=== PATIENT | female | born 1985 | race Caucasian/White ===

== ENCOUNTER 2018-03-22 19:04 | Outpatient (REF) | payer MEDICAID, SELFPAY ==
--- NOTE | 2018-03-22 15:30 | PAPFT_PTH ---
PATIENT: Mildred Villalobos LOC: [facility]#:[id number] AGE/SX: 32/F ROOM: RE03/22/[address]: Allie Raines : 1985 BED: DIS: 03/22/2018 SPEC #: [id number] RECD: 03/25/18 12:48 STATUS: THUAN REKamala #: [id number] [place]: 03/22/18 15:[address]: Allie Raines DEPT: [facility] Cytology RECD BY: Tara Saldivar Tissues: 1 - CX/ENDOCX FOR PAP SMEARS Procedures: PAP THIN PREP/UVM Screening HPV DNA PROBE Comments: [id number]
[2018-03-22 20:53] LABS: ALT 315 U/L (12-78); AST 212 U/L (15-37); Albumin 4.2 g/dL (3.4-5.0); Alkaline Phosphatase 82 U/L (46-116); Bilirubin, Direct 0.15 mg/dL (0.00-0.20); Bilirubin, Total 0.5 mg/dL (0.2-1.0); TSH (W/Ref FT4) 2.49 uIU/mL (0.358-3.74)
[2018-03-25 11:48] LABS: Hepatitis A Antibody IgM Negative (NEGAT); Hepatitis B Core Antibody Negative (NEGAT); Hepatitis B surface Ag Negative (NEGAT); Hepatitis C Ab w Rflx HCV PCR Negative (NEGAT)
[2018-03-25 13:59] LABS: Chlamydia Result Negative; GC Result Negative
== END 2018-03-22 19:05 ==
LOC: NCHCN 19:04
PROVIDERS: PCP Physician Assistant Medical; Visit Provider Physician Assistant Medical
DX: K76.0 Fatty (change of) liver, not elsewhere classified (principal); R94.6 Abnormal results of thyroid function studies; Z11.3 Encounter for screening for infections with a predominantly sexual mode of transmission; Z11.59 Encounter for screening for other viral diseases; Z12.4 Encounter for screening for malignant neoplasm of cervix; Z11.51 Encounter for screening for human papillomavirus (HPV)
CPT/HCPCS: 80076; 86704; 86709; 86803; 87340; 87491; 87591; 88142; 84443; 87624

== ENCOUNTER 2018-07-02 10:16 | Emergency (ER) | payer MEDICAID, SELFPAY ==
[2018-07-02 10:19] VITALS: BP 170/98; PULSE 83; RESP 18; TEMP 37.1; O2SAT 97
--- NOTE | 2018-07-02 10:41 | W.ED.GENAD ---
Discharge Plan Disposition Patient Disposition: HOME Condition: Improving Discharge Details Chief Complaint: Nausea/Vomit/Diar Clinical Impression: Antibiotic-associated diarrhea Primary Care Provider: Allie Raines ED Provider: Inder Smith Home Meds and New Rx's Prescriptions: Continue zolpidem [Ambien] 5 MG tablet 5 mg PO HS RF: 0 clonazepam [Klonopin] 1 MG tablet 1 tab PO PRN PRNRF: 0 propranolol 10 MG tablet 10 mg PO PRN PRNRF: 0 cimetidine 400 MG tablet 1 tab PO DAILY RF: 0 Discharge Instructions Instructions: Acute Diarrhea (ED) Additional Instructions: You may utilize [id number] Imodium for any further symptoms just take as directed on packaging. It is also recommended that you take a daily probiotic along with 1 scoop of Metamucil and a minimum of 8 ounces of water daily as well for the next 1-2 weeks. If not improving over the next week follow-up with your primary care provider for reassessment and feel free to return to the emergency department for any severe worsening or change in your symptoms that your are concerned about. Referrals: Allie Raines PA [Primary Care Provider] - (As needed for reassessment or if not improving over the next week) Discharge Data Discharge Date/Time-TO BE ENTERED AT DEPARTURE: 07/02/18 12:45 Medical Decision Making Patient presenting to the emergency department for chief complaint of diarrhea and abdominal pain. She states that she was placed on antibiotic by her primary care provider for suspected dental infection which did improve and that she has a dental follow-up coming up but approximately 4 days into the 10-day therapy she developed diarrhea. This diarrhea has continued even though she finished the course of her antibiotics 4 days ago. She does state some subjective fever and chills along with some nausea and mild epigastric discomfort otherwise denies any vomiting, urinary symptoms, chest pain or other problems. Physical exam shows mild epigastric discomfort otherwise unremarkable examination of the abdomen. Suspect diarrhea is secondary to antibiotic therapy of penicillin but plan to check stool sample for C. difficile, labs for any electrolyte abnormalities, urine for any secondary urinary tract infection due to diarrhea, and give IV fluids pending results. Review of labs showed no leukocytosis, elevated LFTs which have been similar in the past otherwise no severe electrolyte abnormality, nondiagnostic UA and negative C. difficile. Patient reassessed after receiving fluids and states improvement of symptoms. I feel that patient's symptoms are secondary to recent antibiotic use and given no C. difficile feel that she may be discharged with recommendation to use symptomatic control. Patient was recommended to use Imodium as directed on packaging and to use daily probiotics along with fiber supplement. Patient encouraged to follow-up with primary care provider as needed for reassessment or if not improving over the next week. After discussion of diagnosis and plan of care patient has no further needs, questions, or concerns and states clear understanding to return to the emergency department for any worsening symptoms. HPI General Mode of arrival: ambulatory. Date/Time Provider Initiated Documentation: 07/02/18 10:22. Limitations to Documentation: no limitations. Information obtained by: patient and RN notes reviewed. History of Present Illness described as mild, with intensity rated at 3. Quality is described as aching, and is localized to the abdomen. Patient reports no radiation. Patient started experiencing this week(s) (1) and it has been constant. No relieving factors improve symptom(s), No exacerbating factors reported . Patient did receive the following treatments prior to arrival, none Related Data Home Medications Medication Instructions Recorded Confirmed clonazepam [Klonopin] 1 tab PO PRN PRN 01/16/15 07/02/18 zolpidem [Ambien] 5 mg PO HS 07/26/15 07/02/18 propranolol 10 mg PO PRN PRN 09/25/15 07/02/18 cimetidine 1 tab PO DAILY 07/20/16 07/02/18 Allergies Allergy/AdvReac Type Severity Reaction Status Date / Time sertraline HCl [From Zoloft] AdvReac Intermediate Nausea Unverified 07/02/18 10:22 General Stated Complaint: Nausea/Vomit/Diar CASSIUS: 3 Review of Systems Constitutional Reports chills, Reports fever(s) (Subjective) and Denies poor appetite Cardiovascular Denies chest pain and Denies dyspnea Respiratory Denies dyspnea Gastrointestinal Reports as per HPI, Reports abdominal pain, Denies melena, Denies hematochezia, Denies change in stool character, Denies constipation, Reports diarrhea, Reports nausea and Denies vomiting Genitourinary Denies hematuria, Denies urinary incontinence, Denies urinary hesitancy and Denies urinary urgency Integumentary/Breasts Denies rash PFSH Social History Smoking/Tobacco Use Status: Current every day Social History Smoking/Tobacco Use Status: Current every day Exam Const General: cooperative Orientation: alert, awake and oriented x3 Resp Effort & Inspection: normal respiratory effort and able to speak in complete sentences Auscultation: clear to auscultation bilaterally Cardio Rate: regular rate Rhythm: regular rhythm Heart Sounds: S1 normal and S2 normal GI Palpation: soft, no hepatosplenomegaly, not firm, no guarding, no masses, no pulsatile masses, not rigid, no splenomegaly and tender in the epigastrum; not at McBurney's point, not periumbilically, Hoffman's sign negative, with no rebound tenderness and Rovsing's sign negative Auscultation: normal bowel sounds Back/Spine/Pelvis Back: no CVA tenderness Neuro General: alert, awake, oriented x3, gait normal and moves all extremities Course Vital Signs Temperature 37.1 C 07/02/18 10:19 Pulse 83 07/02/18 10:19 Respiratory Rate 18 07/02/18 10:19 Blood Pressure 170/98 H 07/02/18 10:19 Pulse Oximetry 97 07/02/18 10:19 Temperature 37.1 C 07/02/18 10:19 Temperature Source Skin 07/02/18 10:19 Pulse 83 07/02/18 10:19 Respiratory Rate 18 07/02/18 10:19 Respiratory Effort 07/02/18 10:23 Blood Pressure 170/98 H 07/02/18 10:19 Blood Pressure Position Sitting 07/02/18 10:19 Pulse Oximetry 97 07/02/18 10:19 Oxygen Delivery Method Room Air 07/02/18 10:19 Oxygen Flow Rate 0 07/02/18 10:19 Pain Level 3 07/02/18 10:19
--- NOTE | 2018-07-02 10:44 | ED.GENADUL_ITS ---
Discharge Plan Disposition Patient Disposition: HOME Condition: Improving Discharge Details Chief Complaint: Nausea/Vomit/Diar Clinical Impression: Antibiotic-associated diarrhea Primary Care Provider: Allie Raines ED Provider: Inder Smith Home Meds and New Rx's Prescriptions: Continue zolpidem [Ambien] 5 MG tablet 5 mg PO HS RF: 0 clonazepam [Klonopin] 1 MG tablet 1 tab PO PRN PRNRF: 0 propranolol 10 MG tablet 10 mg PO PRN PRNRF: 0 cimetidine 400 MG tablet 1 tab PO DAILY RF: 0 Discharge Instructions Instructions: Acute Diarrhea (ED) Additional Instructions: You may utilize [id number] Imodium for any further symptoms just take as directed on packaging. It is also recommended that you take a daily probiotic along with 1 scoop of Metamucil and a minimum of 8 ounces of water daily as well for the next 1-2 weeks. If not improving over the next week follow-up with your primary care provider for reassessment and feel free to return to the emergency department for any severe worsening or change in your symptoms that your are concerned about. Referrals: Allie Raines PA [Primary Care Provider] - (As needed for reassessment or if not improving over the next week) Discharge Data Discharge Date/Time-TO BE ENTERED AT DEPARTURE: 07/02/18 12:45 Medical Decision Making Patient presenting to the emergency department for chief complaint of diarrhea and abdominal pain. She states that she was placed on antibiotic by her primary care provider for suspected dental infection which did improve and that she has a dental follow-up coming up but approximately 4 days into the 10-day therapy she developed diarrhea. This diarrhea has continued even though she finished the course of her antibiotics 4 days ago. She does state some subjective fever and chills along with some nausea and mild epigastric discomfort otherwise denies any vomiting, urinary symptoms, chest pain or other problems. Physical exam shows mild epigastric discomfort otherwise unremarkable examination of the abdomen. Suspect diarrhea is secondary to antibiotic therapy of penicillin but plan to check stool sample for C. difficile , labs for any electrolyte abnormalities, urine for any secondary urinary tract infection due to diarrhea, and give IV fluids pending results. Review of labs showed no leukocytosis, elevated LFTs which have been similar in the past otherwise no severe electrolyte abnormality, nondiagnostic UA and negative C. difficile. Patient reassessed after receiving fluids and states improvement of symptoms. I feel that patient's symptoms are secondary to recent antibiotic use and given no C. difficile feel that she may be discharged with recommendation to use symptomatic control. Patient was recommended to use Imodium as directed on packaging and to use daily probiotics along with fiber supplement. Patient encouraged to follow-up with primary care provider as needed for reassessment or if not improving over the next week. After discussion of diagnosis and plan of care patient has no further needs, questions , or concerns and states clear understanding to return to the emergency department for any worsening symptoms. HPI General Mode of arrival: ambulatory . Date/Time Provider Initiated Documentation: 07/02/18 10:22 . Limitations to Documentation: no limitations . Information obtained by: patient and RN notes reviewed . History of Present Illness described as mild, with intensity rated at 3. Quality is described as aching , and is localized to the abdomen. Patient reports no radiation. Patient started experiencing this week(s) (1) and it has been constant. No relieving factors improve symptom(s), No exacerbating factors reported . Patient did receive the following treatments prior to arrival, none Related Data Home Medications Medication Instructions Recorded Confirmed clonazepam [Klonopin] 1 tab PO PRN PRN 01/16/15 07/02/18 zolpidem [Ambien] 5 mg PO HS 07/26/15 07/02/18 propranolol 10 mg PO PRN PRN 09/25/15 07/02/18 cimetidine 1 tab PO DAILY 07/20/16 07/02/18 Allergies Allergy/AdvReac Type Severity Reaction Status Date / Time sertraline HCl [From Zoloft] AdvReac Intermediate Nausea Unverified 07/02/18 10: 22 General Stated Complaint: Nausea/Vomit/Diar CASSIUS: 3 Review of Systems Constitutional Reports chills, Reports fever(s) (Subjective) and Denies poor appetite Cardiovascular Denies chest pain and Denies dyspnea Respiratory Denies dyspnea Gastrointestinal Reports as per HPI, Reports abdominal pain, Denies melena, Denies hematochezia, Denies change in stool character, Denies constipation, Reports diarrhea, Reports nausea and Denies vomiting Genitourinary Denies hematuria, Denies urinary incontinence, Denies urinary hesitancy and Denies urinary urgency Integumentary/Breasts Denies rash PFSH Social History Smoking/Tobacco Use Status: Current every day Social History Smoking/Tobacco Use Status: Current every day Exam Const General: cooperative Orientation: alert, awake and oriented x3 Resp Effort & Inspection: normal respiratory effort and able to speak in complete sentences Auscultation: clear to auscultation bilaterally Cardio Rate: regular rate Rhythm: regular rhythm Heart Sounds: S1 normal and S2 normal GI Palpation: soft, no hepatosplenomegaly, not firm, no guarding, no masses, no pulsatile masses, not rigid, no splenomegaly and tender in the epigastrum; not at McBurney's point, not periumbilically, Hoffman's sign negative, with no rebound tenderness and Rovsing's sign negative Auscultation: normal bowel sounds Back/Spine/Pelvis Back: no CVA tenderness Neuro General: alert, awake, oriented x3, gait normal and moves all extremities Course Vital Signs Temperature 37.1 C 07/02/18 10:19 Pulse 83 07/02/18 10:19 Respiratory Rate 18 07/02/18 10:19 Blood Pressure 170/98 H 07/02/18 10:19 Pulse Oximetry 97 07/02/18 10:19 Temperature 37.1 C 07/02/18 10:19 Temperature Source Skin 07/02/18 10:19 Pulse 83 07/02/18 10:19 Respiratory Rate 18 07/02/18 10:19 Respiratory Effort 07/02/18 10:23 Blood Pressure 170/98 H 07/02/18 10:19 Blood Pressure Position Sitting 07/02/18 10:19 Pulse Oximetry 97 07/02/18 10:19 Oxygen Delivery Method Room Air 07/02/18 10:19 Oxygen Flow Rate 0 07/02/18 10:19 Pain Level 3 07/02/18 10:19
[2018-07-02 10:55] LABS: Abs Immature Grans 0.02 k/cumm (0.0-0.09); Absolute Basophil Count 0.03 k/cumm (0.0-0.2); Absolute Eosinophil Count 0.08 k/cumm (0.0-0.7); Absolute Lymphocyte Count 1.41 k/cumm (1.2-3.4); Absolute Monocyte Count 0.58 k/cumm (0.11-0.7); Absolute Neutrophil Count 4.46 k/cumm (1.2-6.7); Basophils % 0.5; Eosinophils % 1.2; HCT 42.9 % (36.0-46.0); HGB 14.5 g/dL (12.0-15.5); Immature Grans % 0.3; Lymphocytes % 21.4; Mean Corp. HGB Concentration 33.8 g/dL (32.0-36.0); Mean Corpuscular Hemoglobin 32.3 pg (27.0-33.0); Mean Corpuscular Volume 95.5 fL (80-95); Mean Platelet Volume 10.7 fL (8.0-11.0); Monocytes % 8.8; Neutrophils % 67.8; Platelet Count 208 x1000/uL (130-400); RBC 4.49 m/cumm (4.00-5.20); White Blood Cell Count 6.58 k/cumm (4.4-10.8)
[2018-07-02] MEDS: Normal Saline 1,000 ML 1000 ML IV (11:09)
[2018-07-02 11:11] LABS: Bilirubin Small (Negative); Blood Negative (Negative); Clarity Sl Cloudy; Glucose Negative (Negative); Ketones Trace mg/dL (Negative); Leukocyte Esterase Negative (Negative); Nitrite Negative (Negative); Specific Gravity >= 1.030 (1.005-1.025)
[2018-07-02 11:12] LABS: ALT 346 U/L (12-78); AST 305 U/L (15-37); Albumin 4.1 g/dL (3.4-5.0); Alkaline Phosphatase 86 U/L (46-116); Anion Gap 10.6 mmol/L (3-11); BUN 7 mg/dL (7-18); Bilirubin, Total 0.7 mg/dL (0.2-1.0); CO2 26.4 mmol/L (21.0-32.0); CREATININE 0.71 mg/dL (0.55-1.02); Calcium 9.3 mg/dL (8.5-10.1); Chloride 101 mmol/L (98-107); Glucose 145 mg/dL (70-100); Sodium 138 mmol/L (136-145); Total Protein 8.3 g/dL (6.4-8.2)
[2018-07-02 11:23] LABS: Epithelial Cells Many HPF (Negative)
[2018-07-02 11:24] LABS: C & S Indicated? No/Sq. Contamination; Mucus Heavy (Negative)
[2018-07-02 11:28] LABS: HCG Qual (Urine) Negative
[2018-07-02 12:46] VITALS: BP 151/88; PULSE 71; RESP 16; TEMP 37.1; O2SAT 99
== END 2018-07-02 12:45 | disposition home or self-care (01) ==
PROVIDERS: Emergency Provider Nurse Practitioner Family; PCP Physician Assistant Medical
DX: R19.7 Diarrhea, unspecified (principal); R10.13 Epigastric pain; R11.0 Nausea; T36.95XA Adverse effect of unspecified systemic antibiotic, initial encounter; I10 Essential (primary) hypertension
CPT/HCPCS: 36415; 80053; 81025; 87329; 87505; 96360; 99284; 81003; 81015; 85025; 87324

== ENCOUNTER 2018-12-07 23:44 | Emergency (ER) | payer MEDICAID, SELFPAY ==
[2018-12-07 23:54] VITALS: BP 153/92; PULSE 129; RESP 18; TEMP 36.6; O2SAT 97
--- NOTE | 2018-12-07 23:54 | W.ED.GENAD ---
Discharge Plan Disposition Patient Disposition: [facility] Condition: Stable Discharge Details Chief Complaint: Recheck Clinical Impression: Acute alcohol intoxication Primary Care Provider: Allie Raines ED Provider: Felix Herrera Home Meds and New Rx's Prescriptions: Continued zolpidem [Ambien] 5 MG tablet 5 mg PO HS RF: 0 clonazepam [Klonopin] 1 MG tablet 1 tab PO PRN PRNRF: 0 propranolol 10 MG tablet 10 mg PO PRN PRNRF: 0 cimetidine 400 MG tablet 1 tab PO DAILY RF: 0 Discharge Instructions Instructions: Alcohol Intoxication (ED) Additional Instructions: You are medically stable for release to protective custody. Continue your regular medications as previously prescribed. 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 She is brought in for medical clearance. She is mildly tachycardic but in no acute distress. Medical screening exam performed and I do feel she is appropriate for protective custody. HPI General Mode of arrival: ambulatory. Date/Time Provider Initiated Documentation: 12/07/18 23:54. Limitations to Documentation: no limitations. Information obtained by: patient and police. History of Present Illness 33 year old F presents to the emergency department with the chief complaint of Intoxicated, here for medical clearance. Denies pain or injury, described as moderate, and it has been constant. No relieving factors improve symptom(s), No exacerbating factors reported . Patient notes no other symptoms.. Patient did receive the following treatments prior to arrival, none Related Data Home Medications Medication Instructions Recorded Confirmed clonazepam [Klonopin] 1 tab PO PRN PRN 01/16/15 07/02/18 zolpidem [Ambien] 5 mg PO HS 07/26/15 07/02/18 propranolol 10 mg PO PRN PRN 09/25/15 07/02/18 cimetidine 1 tab PO DAILY 07/20/16 07/02/18 Allergies Allergy/AdvReac Type Severity Reaction Status Date / Time sertraline HCl [From Zoloft] AdvReac Intermediate Nausea Unverified 12/08/18 00:00 General CASSIUS: 3 Review of Systems Review of Systems No chest pain, palpitations. 6 systems reviewed and otherwise neg PFSH Social History Smoking/Tobacco Use Status: Current every day Alcohol Intake: current Alcohol Intake frequency: holidays/special occasions only Drug use: Never Substance use type: does not use Do you feel safe at home: Yes Do you feel safe in your relationship?: Yes Exam Narrative Exam Narrative: GEN: awake, alert. Pleasant, well groomed, interactive. Odor of alcohol HEAD: Normocephalic, atraumatic ENT: Mucous membranes moist, oropharynx unremarkable, External ear exam unremarkable EYES: PERRL, EOMI NECK: Full ROM, no JASE, no menigismus CHEST/RESP: Nontender, clear to auscultation bilateral, no wheeze/rhonchi/rales CARDIOVASCULAR: Regular, tachycardia, no murmur, rub meghan. 2+ Rad pulse bilateral ABDOMEN: Soft, nontender, no mass. +Bowel sounds EXT: Full ROM, no edema, no rash Neuro: Grossly normal neurologic exam, conversant, interactive. Psych: Speech fluent, thoughts congruent, affect anxious
--- NOTE | 2018-12-07 23:57 | ED.GENADUL_ITS ---
Discharge Plan Disposition Patient Disposition: [facility] Condition: Stable Discharge Details Chief Complaint: Recheck Clinical Impression: Acute alcohol intoxication Primary Care Provider: Allie Raines ED Provider: Felix Herrera Home Meds and New Rx's Prescriptions: Continued zolpidem [Ambien] 5 MG tablet 5 mg PO HS RF: 0 clonazepam [Klonopin] 1 MG tablet 1 tab PO PRN PRNRF: 0 propranolol 10 MG tablet 10 mg PO PRN PRNRF: 0 cimetidine 400 MG tablet 1 tab PO DAILY RF: 0 Discharge Instructions Instructions: Alcohol Intoxication (ED) Additional Instructions: You are medically stable for release to protective custody. Continue your regular medications as previously prescribed. 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 She is brought in for medical clearance. She is mildly tachycardic but in no acute distress. Medical screening exam performed and I do feel she is appropriate for protective custody. HPI General Mode of arrival: ambulatory . Date/Time Provider Initiated Documentation: 12/07/18 23:54 . Limitations to Documentation: no limitations . Information obtained by: patient and police . History of Present Illness 33 year old F presents to the emergency department with the chief complaint of Intoxicated, here for medical clearance. Denies pain or injury, described as moderate, and it has been constant. No relieving factors improve symptom(s), No exacerbating factors reported . Patient notes no other symptoms.. Patient did receive the following treatments prior to arrival, none Related Data Home Medications Medication Instructions Recorded Confirmed clonazepam [Klonopin] 1 tab PO PRN PRN 01/16/15 07/02/18 zolpidem [Ambien] 5 mg PO HS 07/26/15 07/02/18 propranolol 10 mg PO PRN PRN 09/25/15 07/02/18 cimetidine 1 tab PO DAILY 07/20/16 07/02/18 Allergies Allergy/AdvReac Type Severity Reaction Status Date / Time sertraline HCl [From Zoloft] AdvReac Intermediate Nausea Unverified 12/08/18 00:00 General CASSIUS: 3 Review of Systems Review of Systems No chest pain, palpitations. 6 systems reviewed and otherwise neg PFSH Social History Smoking/Tobacco Use Status: Current every day Alcohol Intake: current Alcohol Intake frequency: holidays/special occasions only Drug use: Never Substance use type: does not use Do you feel safe at home: Yes Do you feel safe in your relationship?: Yes Exam Narrative Exam Narrative: GEN: awake, alert. Pleasant, well groomed, interactive. Odor of alcohol HEAD: Normocephalic, atraumatic ENT: Mucous membranes moist, oropharynx unremarkable, External ear exam un remarkable EYES: PERRL, EOMI NECK: Full ROM, no JASE, no menigismus CHEST/RESP: Nontender, clear to auscultation bilateral, no wheeze/rhonchi/rales CARDIOVASCULAR: Regular, tachycardia, no murmur, rub meghan. 2+ Rad pulse bilateral ABDOMEN: Soft, nontender, no mass. +Bowel sounds EXT: Full ROM, no edema, no rash Neuro: Grossly normal neurologic exam, conversant, interactive. Psych: Speech fluent, thoughts congruent, affect anxious
[2018-12-08 00:04] VITALS: PULSE 122; RESP 18
== END 2018-12-08 00:03 | disposition home or self-care (01) ==
LOC: ER 12-08 00:07
PROVIDERS: Emergency Provider Emergency Medicine; PCP Physician Assistant Medical
DX: F10.129 Alcohol abuse with intoxication, unspecified (principal); R00.0 Tachycardia, unspecified
CPT/HCPCS: 99285; 99283

== ENCOUNTER 2020-10-12 21:17 | Outpatient (REF) | payer MEDICAID, SELFPAY ==
[2020-10-12 20:28] LABS: Abs Immature Grans 0.02 10^3/uL (0.0-0.06); Absolute Basophil Count 0.03 10^3/uL (0.0-0.2); Absolute Eosinophil Count 0.06 10^3/uL (0.0-0.7); Absolute Lymphocyte Count 2.23 10^3/uL (1.2-3.4); Absolute Monocyte Count 0.58 10^3/uL (0.1-0.8); Absolute Neutrophil Count 5.03 10^3/uL (1.2-6.7); Basophils % 0.4; Eosinophils % 0.8; HCT 41.9 % (36.0-46.0); HGB 13.9 g/dL (11.2-15.7); Immature Grans % 0.3; Lymphocytes % 28.1; MCH 30.2 pg (27.0-33.0); MCHC 33.2 % (32.0-36.0); MCV 90.9 fL (80-95); MPV 11.3 fL (8.0-11.0); Monocytes % 7.3; Neutrophils % 63.1; Nucleated RBC 0 %; Platelet Count 225 10^3/uL (130-400); RBC 4.61 10^6/uL (3.93-5.22); RDW-SD 42.8 fL; WBC 7.95 10^3/uL (4.4-10.8)
[2020-10-12 21:07] LABS: ALT 155 U/L (14-59); AST 170 U/L (15-37); Albumin 4.2 g/dL (3.4-5.0); Alkaline Phosphatase 113 U/L (46-116); Anion Gap 12.1 mmol/L (3-11); BUN 7 mg/dL (7-18); Bilirubin, Total 0.8 mg/dL (0.2-1.0); CO2 25.9 mmol/L (21.0-32.0); CREATININE 0.7 mg/dL (0.55-1.02); Calcium 9.5 mg/dL (8.5-10.1); Chloride 99 mmol/L (98-107); Glucose 140 mg/dL (74-106); Potassium 4.2 mmol/L (3.5-5.1); Sodium 137 mmol/L (136-145); TSH (W/Ref FT4) 2.46 uIU/mL (0.36-3.74); Total Protein 8.3 g/dL (6.4-8.2); Vitamin B12 533 pg/mL (193-986)
[2020-10-14 11:00] LABS: Lyme Ab w Rflx to Lyme Confirm Negative (Negative)
[2020-10-15 01:33] LABS: Anaplasma phagocytophilum Negative (Negative); B. miyamotoi PCR Negative (Negative); Babesia divergens/MO-1 Negative (Negative); Babesia duncani Negative (Negative); Babesia microti Negative (Negative); Ehrlichia chaffeensis Negative (Negative); Ehrlichia ewingii/canis Negative (Negative); Ehrlichia muris eauclairensis Negative (Negative)
== END 2020-10-12 21:18 | disposition home or self-care (01) ==
LOC: NCHCN 21:17
PROVIDERS: PCP Physician Assistant Medical; Visit Provider Physician Assistant Medical
DX: G62.9 Polyneuropathy, unspecified (principal); R79.89 Other specified abnormal findings of blood chemistry
CPT/HCPCS: 80053; 87798; 82607; 83036; 84443; 85025; 86618

== ENCOUNTER 2021-07-06 15:19 | Outpatient (REF) | payer MEDICAID, SELFPAY ==
[2021-07-06 21:26] LABS: HCG Qual (Serum) Negative
[2021-07-08 11:22] LABS: COVID-19 RT-PCR UVMMC Result Negative (Negative)
== END 2021-07-06 15:20 | disposition home or self-care (01) ==
LOC: NCHCN 15:19
PROVIDERS: PCP Physician Assistant Medical; Visit Provider Physician Assistant Medical
DX: N91.2 Amenorrhea, unspecified (principal); J34.89 Other specified disorders of nose and nasal sinuses; Z20.822 Contact with and (suspected) exposure to COVID-19
CPT/HCPCS: U0003; 84443; 84703

== ENCOUNTER 2021-12-08 11:03 | Emergency (ER) | payer MEDICAID, SELFPAY ==
[2021-12-08 11:14] VITALS: BP 165/96; PULSE 83; RESP 14; TEMP 36.5; O2SAT 98
--- NOTE | 2021-12-08 11:35 | ED.GENADUL_ITS ---
Discharge Plan Disposition Patient Disposition: HOME Condition: Improving Discharge Details Clinical Impression: Abdominal pain, Nausea Primary Care Provider: Allie Raines ED Provider: Riaz Smith Home Meds and New Rx's Prescriptions: New ondansetron 4 mg tablet,disintegrating 4 mg PO TID PRN3 Days Qty: 9 0RF Continued zolpidem [Ambien] 5 MG tablet 5 mg PO HS clonazepam [Klonopin] 1 MG tablet 2 mg PO PRN PRN cimetidine 400 MG tablet 1 tab PO DAILY Discharge Instructions Instructions: Acute Nausea and Vomiting (ED), Abdominal Pain (ED) Additional Instructions: Zofran as directed. Clear liquid diet, advance to bananas, rice, applesauce, tea, toast, then advance as tolerated. Please watch for new or worsening symptoms and return to the ER for any concerns. I do recommend reaching out to your psychiatrist to discuss your decrease in Klonopin and the symptoms you are experiencing. I also recommend reaching out to your primary care provider to discuss your ER visit, ongoing symptoms, need for outpatient reevaluation that may require outpatient elective CT imaging and/or referral to surgical team. Discharge Data Discharge Date/Time-TO BE ENTERED AT DEPARTURE: 12/08/21 14:28 Medical Decision Making 36-year-old female, had her Klonopin decrease from 6 mg daily now down to 10 mg daily, subsequently developed nausea and simply not feeling well over the next 24-36 hours. She reports occasional vomiting, also a sore throat, subjective fever. Clinically she appears well, nontoxic, afebrile, lungs clear to auscultation. There is certainly could be a component of benzodiazepine withdrawal given her decreased of 4 mg abruptly. She is currently afebrile. Abdomen is soft, nontender. She is resting comfortably and using her cell phone. She actually tells me that she is hungry, has not eaten this morning. She is concerned that she needs to have her routine lab work drawn, I contacted the laboratory but they do not have any outpatient orders. Plan is to obtain CBC, CMP, lipase, urinalysis and I will give 4 mg Zofran ODT. Upon reevaluation patient reports that her nausea is greatly improved with the Zofran. She describes that her abdominal pain is more of a sour stomach. Laboratory values revealed no evidence of leukocytosis or anemia. Her platelet count is appropriate at 184. Electrolytes are unremarkable, creatinine 0.8 with a GFR greater than 60. Total bili of 1.9, AST 218 ALT 146. She has no right upper quadrant discomfort, Hoffman sign, etc. In the setting of abdominal pain, nausea, vomiting, elevated bilirubin, will obtain ultrasound of her gallbladder. Urinalysis reveals 15 ketones, positive nitrate, negative leuk esterase, negative red or white cells, many epithelials, moderate bacteria, given the contamination, culture is not indicated. COVID, flu, RSV negative. Urine negative. Ultrasound is unremarkable for acute process, probable hepatic steatosis. Discussed work-up with patient thus far. She is relieved. Given the national IV, contrast shortage, in the setting of no fever, reproducible Hoffman sign, negative ultrasound, leukocytosis, etc., I do not believe that emergent abdomen- pelvic CT with IV contrast is indicated. Will treat conservatively with p.o. Zofran. Recommended reaching out to her psychiatry team regarding her benzodiazepine and ongoing symptoms. Also recommend reaching out to her PCP to discuss her ER visit, ongoing symptoms, and potential need for outpatient work- up including surgical referral. Patient was able to tolerate p.o. intake prior to discharge. No vomiting while under my care. Standard discharge and return precautions were provided. Patient understands, is agreeable to this plan, and has no additional questions or concerns upon discharge. This documentation was generated using [employer] system, please disregard any oddities of phrase or misspellings. Medical Records Medical records reviewed: Yes I reviewed the patient's medical records. Imaging Data Radiologic Study: Attestation: I personally reviewed and interpreted this imaging study as follows: Imaging: Ultrasound Radiologist's impression: This report is currently processing and HAS NOT BEEN OFFICIALLY SIGNED BY THE PHYSICIAN - ESTIMATED TIME OF APPROVAL IS 12/08/2021 14:24. Exam(s) US ABDOMEN LIMITED EXAM: US ABDOMEN LIMITED CLINICAL HISTORY: RUQ, abd pain, bili 1.9 TECHNIQUE: Ultrasound examination of the right upper quadrant was performed according to the usual protocol. COMPARISON: US ABDOMEN ULTRASOUND (P) from 07/20/2016 FINDINGS: The liver is normal in size and shape. Hepatic parenchyma shows increased echogenicity and decreased through transmission consistent with hepatic steatosis.. No focal lesion identified. Portal venous flow is hepatopetal. No evidence of cholelithiasis. No evidence of gallbladder wall thickening or pericholecystic fluid collection. Negative sonographic Hoffman sign. No biliary dilatation. Unremarkable appearance of the pancreas. Right kidney appears normal with no hydronephrosis or nephrolithiasis. Abdominal aorta and IVC are of normal diameter. IMPRESSION: Probable hepatic steatosis, otherwise normal right upper quadrant ultrasound. Lab Data Lab results reviewed: Yes I reviewed the patient's lab results. Labs: Laboratory Tests Range/Units 12/08/21 12/08/21 12/08/21 11:20 11:48 12:12 WBC (4.4-10.8) 10^3/uL RBC (3.93-5.22) 10^6/uL Hgb (11.2-15.7) g/dL Hct (36.0-46.0) % MCV (80-95) fL MCH (27.0-33.0) pg MCHC (32.0-36.0) % RDW (11.7-14.6) % Plt Count (130-400) 10^3/uL MPV (8.0-11.0) fL Immature Gran % Neutrophils % Lymphocytes % Monocytes % Eosinophils % Basophils % Nucleated RBC % (0.0-0.3) % Absolute Neutrophils (1.2-6.7) 10^3/uL Absolute Lymphocytes (1.2-3.4) 10^3/uL Absolute Monocytes (0.1-0.8) 10^3/uL Absolute Eosinophils (0.0-0.7) 10^3/uL Absolute Basophils (0.0-0.2) 10^3/uL Sodium (136-145) mmol/L 137 Potassium (3.5-5.1) mmol/L 4.0 Chloride (98-107) mmol/L 99 Carbon Dioxide (21.0-32.0) mmol/L 26.9 Anion Gap (3-11) mmol/L 11.1 H BUN (7-18) mg/dL 7 Creatinine (0.55-1.02) mg/dL 0.8 Estimated GFR/1.73 m2 (mL/min/1.73m2) >= 60.00 Glucose (74-106) mg/dL 161 H Calcium (8.5-10.1) mg/dL 8.9 Total Bilirubin (0.2-1.0) mg/dL 1.9 H AST (15-37) U/L 218 H ALT (14-59) U/L 146 H Alkaline Phosphatase (46-116) U/L 98 Total Protein (6.4-8.2) g/dL 8.1 Albumin (3.4-5.0) g/dL 4.0 Urine Color (Yellow) Dark Yellow Urine Clarity (Clear) Sl Cloudy Urine pH (5-8) 6.5 Ur Specific Edmonds (1.005-1.025) >= 1.030 H Urine Protein (Negative) mg/dL >=300 H Urine Ketones (Negative) mg/dL 15 H Urine Blood (Negative) Negative Urine Nitrite (Negative) Positive H Urine Bilirubin (Negative) Moderate H Urine Urobilinogen (Up TO 0.2) EU/dL 1.0 H Ur Leukocyte Esterase (Negative) Negative Urine RBC (0-2) HPF Negative Urine WBC (0-5) HPF Negative Ur Epithelial Cells (Negative) HPF Many Urine Crystals (Negative) HPF Negative Urine Bacteria (Negative) HPF Moderate Urine Casts (Negative) LPF 5-10 Hyaline Urine Mucus (Negative) Moderate Ur Culture Indicated? No/Sq. Contamination Urine Glucose (Negative) mg/dL Negative COVID-19 Source Nasopharynx SARS-CoV-2 (PCR) (Negative) Negative Influenza Type A (PCR) (Negative) Negative Influenza Type B (PCR) (Negative) Negative RSV (PCR) (Negative) Negative Range/Units 12/08/21 12:12 WBC (4.4-10.8) 10^3/uL 6.02 RBC (3.93-5.22) 10^6/uL 4.03 Hgb (11.2-15.7) g/dL 14.3 Hct (36.0-46.0) % 42.2 MCV (80-95) fL 105 H MCH (27.0-33.0) pg 35.5 H MCHC (32.0-36.0) % 33.9 RDW (11.7-14.6) % 12.8 Plt Count (130-400) 10^3/uL 184 MPV (8.0-11.0) fL 11.2 H Immature Gran % 0.2 Neutrophils % 65.2 Lymphocytes % 28.2 Monocytes % 5.6 Eosinophils % 0.3 Basophils % 0.5 Nucleated RBC % (0.0-0.3) % 0.0 Absolute Neutrophils (1.2-6.7) 10^3/uL 3.92 Absolute Lymphocytes (1.2-3.4) 10^3/uL 1.70 Absolute Monocytes (0.1-0.8) 10^3/uL 0.34 Absolute Eosinophils (0.0-0.7) 10^3/uL 0.02 Absolute Basophils (0.0-0.2) 10^3/uL 0.03 Sodium (136-145) mmol/L Potassium (3.5-5.1) mmol/L Chloride (98-107) mmol/L Carbon Dioxide (21.0-32.0) mmol/L Anion Gap (3-11) mmol/L BUN (7-18) mg/dL Creatinine (0.55-1.02) mg/dL Estimated GFR/1.73 m2 (mL/min/1.73m2) Glucose (74-106) mg/dL Calcium (8.5-10.1) mg/dL Total Bilirubin (0.2-1.0) mg/dL AST (15-37) U/L ALT (14-59) U/L Alkaline Phosphatase (46-116) U/L Total Protein (6.4-8.2) g/dL Albumin (3.4-5.0) g/dL Urine Color (Yellow) Urine Clarity (Clear) Urine pH (5-8) Ur Specific Edmonds (1.005-1.025) Urine Protein (Negative) mg/dL Urine Ketones (Negative) mg/dL Urine Blood (Negative) Urine Nitrite (Negative) Urine Bilirubin (Negative) Urine Urobilinogen (Up TO 0.2) EU/dL Ur Leukocyte Esterase (Negative) Urine RBC (0-2) HPF Urine WBC (0-5) HPF Ur Epithelial Cells (Negative) HPF Urine Crystals (Negative) HPF Urine Bacteria (Negative) HPF Urine Casts (Negative) LPF Urine Mucus (Negative) Ur Culture Indicated? Urine Glucose (Negative) mg/dL COVID-19 Source SARS-CoV-2 (PCR) (Negative) Influenza Type A (PCR) (Negative) Influenza Type B (PCR) (Negative) RSV (PCR) (Negative) HPI General Mode of arrival: ambulatory . Date/Time Provider Initiated Documentation: 12/08/21 11:04 . Limitations to Documentation: no limitations . Information obtained by: patient . HPI Narrative: This is a 36-year-old female, past medical history of anxiety, presenting to the ER for evaluation of multiple complaints including intermittent abdominal pain that began on Sunday associated with fairly consistent nausea and occasional vomiting, decreased oral intake, sore throat, subjective low-grade fever, concern for potential dehydration. She also reports that 1 week ago she had her Klonopin regimen changed from a total of 6 mg a day down to 2 mg a day and wonders if this could be part of her symptoms. She states that she has routine outpatient laboratory draw scheduled and is wondering if she can have her labs drawn while she is here. She denies recent illness or trauma, headache, documented fever, neck pain, chest pain, shortness of breath, diarrhea, con stipation, dysuria, hematuria, skin rash, numbness, tingling, weakness. Reports may be mild increase in her overall urination regimen. She has not taken any [id number] medications for her symptoms. Related Data Home Medications Medication Instructions Recorded Confirmed clonazepam 1 mg tablet (Klonopin) 2 mg PO PRN PRN 01/16/15 12/08/21 zolpidem 5 mg tablet (Ambien) 5 mg PO HS 07/26/15 12/08/21 cimetidine 400 mg tablet 1 tab PO DAILY 07/20/16 12/08/21 ondansetron 4 mg disintegrating 4 mg PO TID PRN 3 days #9 tabs 12/08/21 tablet Previous Rx's Medication Instructions Recorded ondansetron 4 mg disintegrating 4 mg PO TID PRN 3 days #9 tabs 12/08/21 tablet Allergies Allergy/AdvReac Type Severity Reaction Status Date / Time sertraline HCl [From Zoloft] AdvReac Intermediate Nausea Unverified 12/08/21 11:20 General Stated Complaint: Abd Prob CASSIUS: 3 Review of Systems Constitutional Constitutional: Reports fever(s) (Subjective) and Denies headache(s) Eyes Eyes: Denies change in vision ENT Ears, Nose, Mouth, and Throat: Denies headache(s) and Denies neck pain Cardiovascular Cardiovascular: Denies chest pain and Denies dyspnea Respiratory Respiratory: Denies cough and Denies dyspnea Gastrointestinal Gastrointestinal: Reports abdominal pain, Denies constipation, Denies diarrhea, Reports nausea and Reports vomiting Genitourinary Genitourinary: Denies abnormal vaginal bleeding, Denies hematuria and Denies dysuria Musculoskeletal Musculoskeletal: Denies back pain, Denies neck pain, Denies numbness and Denies tingling Integumentary/Breasts Skin/Breast: Denies rash Neurologic Neurologic: Denies headache(s), Denies numbness and Denies tingling PFSH All Active Problems Abdominal pain (Acute) Nausea (Acute) Social History Smoking/Tobacco Use Status: Current every day Tobacco Type: cigarettes Smoking risk assessment performed?: Yes Alcohol Intake: current Alcohol Intake frequency: holidays/special occasions only Drug use: Never Substance use type: does not use Do you feel safe at home: Yes Do you feel safe in your relationship?: Yes Exam Const General: cooperative, healthy appearing, comfortable and no acute distress Orientation: alert, awake and oriented x3 HENMT Head: normal to inspection, normocephalic and atraumatic General nose exam: external nose normal Face and sinus: normal facial exam Mouth: moist mucous membranes Throat: posterior oropharynx normal Eyes General: appearance normal, both eyes and all related structures Conjunctivae: conjunctivae normal Neck Neck: normal visual inspection, full ROM, trachea midline and supple Resp Effort & Inspection: normal respiratory effort and able to speak in complete sentences Auscultation: clear to auscultation bilaterally Cardio Rate: regular rate Rhythm: regular rhythm GI Inspection: normal to inspection Palpation: soft, not firm, no guarding, no pulsatile masses and nontender Auscultation: normal bowel sounds Back/Spine/Pelvis Back: No back tenderness Skin General skin exam: no rashes or lesions noted Neuro General: patient alert, patient awake, moves all extremities and no focal motor deficits Cognition: normal cognition Speech: speech normal Gait: normal gait Sensory Exam: no sensory deficits noted Extrem General: normal to inspection and full ROM Psych Appearance: grossly normal Mental Status: mental status grossly normal Course Vital Signs Vital signs: Vital Signs Temperature 36.5 C 12/08/21 11:14 Pulse 83 12/08/21 11:14 Respiratory Rate 14 12/08/21 11:14 Blood Pressure 165/96 H 12/08/21 11:14 Pulse Oximetry 98 12/08/21 11:14 Temperature 36.5 C 12/08/21 11:14 Temperature Source Skin 12/08/21 11:14 Pulse 83 12/08/21 11:14 Respiratory Rate 14 12/08/21 11:14 Respiratory Effort 12/08/21 11:22 Blood Pressure 165/96 H 12/08/21 11:14 Blood Pressure Position Sitting 12/08/21 11:14 Pulse Oximetry 98 12/08/21 11:14 Oxygen Delivery Method Room Air 12/08/21 11:14 Oxygen Flow Rate 0 12/08/21 11:14 Pain Level 4 12/08/21 11:14 Comment 12/08/21 11:14 Lab/Test Results Lab/Test Results: POC- Test(urine) Negative POC Strep Test-SIMON(Rapid) Start: 12/08/21 11:18 Freq: .Rapid Strep Test Status: Active Protocol: Document 12/08/21 11:34 MICHAEL (Rec: 12/08/21 11:34 MICHAEL [id number]) Strep test-SIMON(Rapid)-POC POC-Strep test-SIMON (Rapid) Negative POC-Strep test-SIMON (Rapid) Negative PAWSS Have you Been Recently Intoxicated or Drunk Within the Last 30 days?: No Have you Ever Experienced Previous Episodes of Alcohol Withdrawal?: No Have you ever Experienced Withdrawal Seizures?: No Have you ever Experienced Delirium Tremens(DT)s?: No Have you ever undergone Alcohol Rehabilitation Treatment (i.e, inpt ot outpatient treatment programs)?: No Have you ever Experienced Blackouts?: No Have you ever Combined Alcohol with other Downers within the last 90 days?: No Have you ever Combined Alcohol with any other Substance of Abuse during the last 90 days?: No Positive Blood Alcohol level on Presentation? [PCS.BAL]: No Evidence of Increased Autonomic Activity (i.e. HR>120, tremor, sweating, agitation, nausea)?: No Result: 0
[2021-12-08 11:44] LABS: Bilirubin Moderate (Negative); Blood Negative (Negative); Clarity Sl Cloudy (Clear); Glucose Negative (Negative); Ketones 15 mg/dL (Negative); Leukocyte Esterase Negative (Negative); Nitrite Positive (Negative); Specific Gravity >= 1.030 (1.005-1.025); pH 6.5 (5-8)
[2021-12-08 11:55] LABS: Bacteria Moderate HPF (Negative); Casts 5-10 Hyaline LPF (Negative); Crystals Negative HPF (Negative); Epithelial Cells Many HPF (Negative); Mucus Moderate (Negative); RBC Negative HPF (0-2); WBC Negative HPF (0-5)
[2021-12-08 11:56] LABS: C & S Indicated? No/Sq. Contamination
[2021-12-08] MEDS: Ondansetron O.D.T. 4 MG TABEF PO (12:15)
[2021-12-08 12:28] LABS: Abs Immature Grans 0.01 10^3/uL (0.0-0.06); Absolute Basophil Count 0.03 10^3/uL (0.0-0.2); Absolute Eosinophil Count 0.02 10^3/uL (0.0-0.7); Absolute Monocyte Count 0.34 10^3/uL (0.1-0.8); Absolute Neutrophil Count 3.92 10^3/uL (1.2-6.7); Basophils % 0.5; Eosinophils % 0.3; HCT 42.2 % (36.0-46.0); HGB 14.3 g/dL (11.2-15.7); Immature Grans % 0.2; Lymphocytes % 28.2; MCH 35.5 pg (27.0-33.0); MCHC 33.9 % (32.0-36.0); MCV 105 fL (80-95); MPV 11.2 fL (8.0-11.0); Monocytes % 5.6; Neutrophils % 65.2; Platelet Count 184 10^3/uL (130-400); RBC 4.03 10^6/uL (3.93-5.22); RDW 12.8 % (11.7-14.6); RDW-SD 50.1 fL; WBC 6.02 10^3/uL (4.4-10.8)
[2021-12-08 12:31] LABS: COVID-19 PCR Negative (Negative); Influenza A PCR Negative (Negative); Influenza B PCR Negative (Negative); RSV PCR Negative (Negative)
[2021-12-08 12:34] LABS: Source Nasopharynx
[2021-12-08 12:45] LABS: ALT 146 U/L (14-59); AST 218 U/L (15-37); Alkaline Phosphatase 98 U/L (46-116); Anion Gap 11.1 mmol/L (3-11); BUN 7 mg/dL (7-18); Bilirubin, Total 1.9 mg/dL (0.2-1.0); CO2 26.9 mmol/L (21.0-32.0); CREATININE 0.8 mg/dL (0.55-1.02); Calcium 8.9 mg/dL (8.5-10.1); Chloride 99 mmol/L (98-107); Glucose 161 mg/dL (74-106); Sodium 137 mmol/L (136-145); Total Protein 8.1 g/dL (6.4-8.2)
--- NOTE | 2021-12-08 12:45 | DI.US_ITS ---
Exam(s) US ABDOMEN LIMITED EXAM: US ABDOMEN LIMITED CLINICAL HISTORY: RUQ, abd pain, bili 1.9 TECHNIQUE: Ultrasound examination of the right upper quadrant was performed according to the usual p rotocol. COMPARISON: US ABDOMEN ULTRASOUND (P) from 07/20/2016 FINDINGS: The liver is normal in size and shape. Hepatic parenchyma shows increased echogenicity and decreased through transmission consistent with hepatic steatosis.. No focal lesion identified. Portal venous flow is hepatopetal. No evidence of cholelithiasis. No evidence of gallbladder wall thickening or pericholecystic fluid c ollection. Negative sonographic Hoffman sign. No biliary dilatation. Unremarkable appearance of the pancreas. Right kidney appears normal with no hydronephrosis or nephrolithiasis. Abdominal aorta and IVC are of normal diameter. IMPRESSION: Probable hepatic steatosis, otherwise normal right upper quadrant ultrasound. RADIATION DOSE DELIVERED: Total DLP
[2021-12-08 14:27] VITALS: BP 150/86; PULSE 85; RESP 17; TEMP 37; O2SAT 99
== END 2021-12-08 14:28 | disposition home or self-care (01) ==
PROVIDERS: Emergency Provider Physician Assistant; PCP Physician Assistant Medical
DX: R10.11 Right upper quadrant pain (principal); R11.2 Nausea with vomiting, unspecified; R79.89 Other specified abnormal findings of blood chemistry; J02.9 Acute pharyngitis, unspecified; Z20.822 Contact with and (suspected) exposure to COVID-19
CPT/HCPCS: 80053; 81025; 87637; 87880; 99283; 99284; 76705; 81003; 81015; 85025

== ENCOUNTER 2022-10-03 14:01 | Outpatient (REF) | payer MEDICAID, SELFPAY ==
[2022-10-03 16:39] LABS: HCT 25.7 % (36.0-46.0); HGB 8.1 g/dL (11.2-15.7); MCH 29.7 pg (27.0-33.0); MCHC 31.5 % (32.0-36.0); MCV 94 fL (80-95); MPV 11.9 fL (8.0-11.0); Platelet Count 109 10^3/uL (130-400); RBC 2.73 10^6/uL (3.93-5.22); RDW 20.1 % (11.7-14.6); RDW-SD 69.3 fL; WBC 4.79 10^3/uL (4.4-10.8)
[2022-10-03 17:08] LABS: ALT 22 U/L (14-59); AST 98 U/L (15-37); Albumin 2.7 g/dL (3.4-5.0); Alkaline Phosphatase 105 U/L (46-116); Anion Gap 9.4 mmol/L (3-11); BUN 3 mg/dL (7-18); Bilirubin, Total 4.5 mg/dL (0.2-1.0); CO2 26.6 mmol/L (21.0-32.0); CREATININE 0.9 mg/dL (0.55-1.02); Calcium 8.2 mg/dL (8.5-10.1); Chloride 100 mmol/L (98-107); Estimated GFR 84.97 (mL/min/1.73m2); GGT 134 U/L (5-55); Glucose 110 mg/dL (74-106); Magnesium 1.4 mg/dL (1.8-2.4); Potassium 3.4 mmol/L (3.5-5.1); Sodium 136 mmol/L (136-145); TSH (W/Ref FT4) 3.56 uIU/mL (0.36-3.74); Total Protein 7.7 g/dL (6.4-8.2)
[2022-10-03 17:32] LABS: Calculated LDL 89 mg/dL (<100); Cholesterol 129 mg/dL (<200); Ferritin 46 ng/mL (8-252); HDL Cholesterol 16 mg/dL (40-60); Triglyceride 124 mg/dL (<150)
[2022-10-03 18:43] LABS: Hemoglobin A1C 4.8 % (<5.7)
== END 2022-10-03 14:02 | disposition home or self-care (01) ==
LOC: NCHCN 14:01
PROVIDERS: PCP Physician Assistant Medical; Visit Provider Physician Assistant Medical
DX: K76.0 Fatty (change of) liver, not elsewhere classified (principal); G62.9 Polyneuropathy, unspecified
CPT/HCPCS: 80053; 80061; 85027; 86704; 86709; 86803; 87340; 82728; 82977; 83036; 83735; 84443

== ENCOUNTER 2022-10-14 16:28 | Inpatient (IN) | payer MEDICAID, SELFPAY ==
[2022-10-14] VITALS (54 sets, daily range): BP systolic 97–160; BP diastolic 48–101; PULSE 105–117; RESP 12–34; TEMP 37.1; O2SAT 90–97
--- NOTE | 2022-10-14 16:30 | RT.EKG_ITS ---
APPROVED REPORT Exam: Resting ECG Reason for Exam: sob Patient Location: E HR:109 bpm ECG Measurements Heart Rate 109 AXIS ME 114 P 43 QRSd 97 QRS 32 QT 365 T 4 QTc 491 Conclusion Sinus tachycardia...rate> 99
--- NOTE | 2022-10-14 16:37 | ED.GENADUL_ITS ---
Discharge Plan Disposition Patient Disposition: Admit to [facility] Condition: Poor Discharge Details Chief Complaint: Vascular Reason For Visit: New onset ascites, new diagnosis of cirrhosis Admit Date/Time: 10/14/22 21:23 Admit Provider: Danielle Ku Attending Provider: Danielle Ku Primary Care Provider: Allie Raines ED Provider: Gina Rodriges Home Meds and New Rx's Prescriptions: No Action zolpidem [Ambien] 5 MG tablet 5 mg PO HS clonazepam [Klonopin] 1 MG tablet 2 mg PO PRN PRN ondansetron HCl 4 mg tablet 4 mg PO Q4H PRN omeprazole 40 mg capsule,delayed release(DR/EC) 40 mg PO DAILY nortriptyline 10 mg capsule 25 mg PO DAILY cimetidine 400 MG tablet 1 tab PO DAILY Patient Comments: not taking Medical Decision Making Patient is a pleasant 37-year-old female with past medical history pertinent for anxiety, GERD, hypertension, presenting with chief complaint of increased swelling in her lower extremities and abdomen. She has been being watched for this by her primary care. Was recently started on furosemide. She reports that she is been on it for a week and has not had any change in her weight. States that she had a diminished appetite and despite this is continued to have increased girth. She denies any fevers or chills. Denies any mireille abdominal pain, more some discomfort associated with the increased size. No change in bowel or bladder habits. However, sitting in a very upright position such as when she needs to have a bowel movement can cause increased discomfort in the swelling associate with her lower extremities. She does not drink alcohol regularly. However, she does report that she has family history of liver disease in her mother and aunt but is not clear exactly what this disease process is. Past surgical history is pertinent for . Patient is an active smoker, states she has been cutting back significantly and smokes about 5 to 6 cigarettes/day. On exam, patient appears pale with some jaundice in her conjunctiva. No mireille jaundice. Her lungs are clear, normal cardiac exam. She does have 2+ pitting lower extremity edema. She does have edema on her abdomen as well as ascites noted on ultrasound. She does not have any abdominal discomfort with palpation. Primarily concerned for potential liver dysfunction, particularly given recent labs completed by primary care. Will obtain baseline labs as well as CT of the abdomen. Likely, patient would benefit from a paracentesis given the amount of fluid noted on physical exam as well as bedside ultrasound. However, I would like to obtain coags first to evaluate for potential coagulopathy in the setting of liver dysfunction. From what I could see on the bedside ultrasound, she does appear to have some sludge in her gallbladder although she is not having any symptoms consistent with acute cholecystitis. She is not having any abdominal pain with eating. She denies any pain currently. No change in bowel habits to suggest infectious etiology. Given the increase in size of her abdomen, I do feel that evaluate for cardiac etiology would be appropriate as well and will obtain troponin. I do find ACS less likely as patient started having chest pain a. Labs reviewed. No leukocytosis. Hgb 8.9 which is up from 8.1 on 10/03. Coags PT 19.6, INR 1.9, PTT 42.9. She denies any blood in her stool. No vaginal discharge. Denies any bleeding gums, rashes. No petechiae was noted on exam. Platelets are within normal limits. CMP significant for a low magnesium 1.5, replenish this here. T. bili is 4.5, this is unchanged from recent visit with primary care. Her conjugated bili is 2.4. AST elevated at 117. Patient has had an elevated AST for quite some time. ALT is within normal limits at 24, alk phos 23. Initial troponin is elevated at 114. Patient does not have history of chest pain. The shortness of breath she endorses has been very much positionally based on pressure coming up from the abdomen. Albumin is low at 2.6. TSH within normal limits. Lipase within normal limits. ABDOMEN: Lung Bases: There is scarring or atelectasis in the lung bases.? Liver: There is heterogeneous attenuation of the liver.? There is a nodular contour of the liver.? The findings are consistent with cirrhosis.? No measurable mass. There is hepatomegaly. Portal, Superior Mesenteric, and Splenic Veins: Unremarkable.? Gallbladder and Biliary Tract: No radiodense calculus or dilation. Pancreas: Normal density, no abnormal calcifications or inflammatory process. Spleen: Splenomegaly.? Adrenals: No masses seen. Kidneys: Normal size, contour and axis. No radiodense stones or obstructive uropathy. No masses seen. Abdominal Aorta: Abdominal portion non-dilated. Atherosclerosis. Bowel: No obstruction or bowel wall thickening. No evidence of appendicitis.? Peritoneal Cavity: There is a large amount of abdominal pelvic ascites.? No free air. Lymph Nodes: Within normal limits. Bones: Within normal limits for the patient's age.? Soft Tissues: There is edema seen in the subcutaneous tissues of the abdomen.? This is consistent with anasarca. PELVIS: Bladder: Symmetric distention, no gross wall thickening. Reproductive Organs: Unremarkable as visualized. Lymph Nodes: Within normal limits. Bones: Within normal limits for the patient's age.? IMPRESSION: 1. Findings suggestive of hepatic cirrhosis with hepatosplenomegaly, ascites and anasarca. 2. Bibasilar infiltrates which may represent atelectasis or scarring.? Discussed results with patient. Concerned that the elevated troponin may be associated with the ascites and underlying liver disease. Patient I discussed risk/benefits as well as expected procedural steps of a diagnostic/therapeutic paracentesis. Patient verbalized understanding, written consent obtained. Paracentesis was performed by myself with Dr. Null in the room and assisting. There was performed using standard sterile technique. Patient initially anesthetized with 1% lidocaine plain. We did give small amount of Ativan and morphine to help with the anxiety and discomfort. Patient tolerated this well. 4 L were obtained. This has also been sent to the lab for diagnostic evaluation. She tolerated this well without complication. Consulted with Dr. Nick with [facility]. She agreed with the diagnostic and therapeutic paracentesis. She advised that the patient did have a referral in 2018 for fatty liver disease but that patient was lost to follow-up. Has a patient denies that she has had any history of alcohol abuse in the past, she advised the cirrhosis likely associated with fatty liver disease. She did advise that [facility] does not currently have any beds but that the team is happy to be involved in the patient's continued care. She did recommend right upper quadrant ultrasound. Advised the patient may need an EGD at some point but this can be completed outpatient. Also encouraged hepatitis panel, and autoantibody autoimmune evaluation. She advised increasing the patient's diuretics, giving her 20 of IV Lasix as well as spironolactone,advised on dosing. Recommended admission. We will continue to trend the patient's troponin. Patient will be kept comfortable. Waiting the fluid analysis. Labs and medications as recommended were ordered. Will consult with hospitalist regarding admission. Consulted with hospitalist who advised that they would like to have repeat troponin prior to admission. Also requested bedside echocardiogram which I will obtain with Dr. Peck. Dr. Peck myself performed a bedside echo. Question of slightly thickened left ventricle but normal squeeze with no focal areas of dysfunction. Repeat troponin remains relatively flat. Spoke again to the hospitalist who agrees to admission for liver dysfunction, likely cirrhosis. Patient also has anemia, elevated troponin, ascites, bilateral lower extremity edema. HPI General Date/Time Provider Initiated Documentation: 10/14/22 16:31 . Limitations to Documentation: no limitations . Information obtained by: patient, EMS and RN notes reviewed . History of Present Illness 37 year old F presents to the emergency department with the chief complaint of BLE edema, abdominal swelling, weight gain, described as severe, and is localized to the abdomen (patient denies pain, feels uncomfortable when upright or leaning forward on abdomen), left, right and lower extremity. Patient started experiencing this week(s) and it has been constant. No relieving factors improve symptom(s), No exacerbating factors reported . Patient notes loss of appetite; denies chest pain, cough, fever/chills, headaches, malaise, nausea/vomiting, rash and shortness of breath. Patient did receive the following treatments prior to arrival, other (Lasix) Related Data Home Medications Medication Instructions Recorded Confirmed clonazepam 1 mg tablet (Klonopin) 1 mg PO QID PRN PRN Anxiety 01/16/15 10/14/22 zolpidem 5 mg tablet (Ambien) 5 mg PO HS 07/26/15 10/14/22 magnesium gluconate 27 mg 27 mg PO DAILY 10/14/22 10/14/22 magnesium (500 mg) tablet nortriptyline 25 mg capsule 25 mg PO DAILY 10/14/22 10/14/22 omeprazole 40 mg capsule,delayed 40 mg PO DAILY 10/14/22 10/14/22 release ondansetron HCl 4 mg tablet 4 mg PO Q4H PRN 10/14/22 10/14/22 spironolactone 25 mg tablet 25 mg PO DAILY 10/14/22 10/14/22 Allergies Allergy/AdvReac Type Severity Reaction Status Date / Time sertraline HCl [From Zoloft] AdvReac Intermediate Nausea Unverified 10/14/22 16:31 General Stated Complaint: Vascular CASSIUS: 3 Review of Systems Constitutional Constitutional: Reports as per HPI, Denies chills and Denies fever(s) Cardiovascular Cardiovascular: Reports as per HPI and Denies chest pain Respiratory Respiratory: Reports as per HPI and Denies cough Gastrointestinal Gastrointestinal: Reports as per HPI Musculoskeletal Musculoskeletal: Reports as per HPI and Denies back pain Integumentary/Breasts Skin/Breast: Reports as per HPI and Denies rash Neurologic Neurologic: Reports as per HPI PFSH All Active Problems (Updated 10/14/22 @ 22:19 by Danielle Ku MD) Plate-like atelectasis (Acute) Pulmonary edema (Acute) Edema of both lower extremities (Acute) Discharge planning issues (Acute) DVT prophylaxis (Acute) Hypoalbuminemia (Acute) Hyperbilirubinemia (Acute) Hypomagnesemia (Acute) Hyponatremia (Acute) Coagulopathy (Acute) Acute anemia (Acute) Abdominal ascites (Acute) Hepatic cirrhosis (Acute) HTN (hypertension), benign (Acute) Obesity, morbid, BMI 40.0-49.9 (Acute) GERD (gastroesophageal reflux disease) (Chronic) Anxiety (Chronic) Medical History (Updated 10/14/22 @ 22:19 by Danielle Ku MD) Hepatic steatosis Family History (Updated 10/14/22 @ 22:03 by Danielle Ku MD) Mother Liver disease Maternal Aunt Liver disease Social History Smoking/Tobacco Use Status: Current every day Tobacco Type: cigarettes Smoking risk assessment performed?: Yes Alcohol Intake: current Alcohol Intake frequency: holidays/special occasions only Drug use: Never Substance use type: marijuana Do you feel safe at home: Yes Do you feel safe in your relationship?: Yes Exam Const General: cooperative, comfortable, no acute distress, well developed and ill appearing acutely and chronically Nutritional Appearance: well nourished and overweight Orientation: alert and awake [facility] Head: normal to inspection Mouth: oral mucosae normal, lip normal and moist mucous membranes Throat: posterior oropharynx normal, tonsils normal and uvula midline Eyes Conjunctivae: conjunctival abnormality bilaterally conjunctival icterus (along inferior borders) Neck Neck: normal visual inspection, full ROM and no lymphadenopathy Resp Effort & Inspection: normal respiratory effort, able to speak in complete sentences and no respiratory distress Auscultation: clear to auscultation bilaterally, no rales, no rhonchi and no wheezes Cardio Rate: regular rate Rhythm: regular rhythm Heart Sounds: S1 normal and S2 normal GI Inspection: distended, obesity, striae, no visible herniation, no visible pulsation and No caput medusae present Palpation: firm, no guarding, no masses and nontender Percussion: fluid wave Auscultation: normal bowel sounds Back/Spine/Pelvis Back: no CVA tenderness Skin General skin exam: no rashes or lesions noted Trauma: no lacerations or abrasions Neuro General: patient alert and patient awake Cognition: normal cognition Speech: speech normal Gait: normal gait Extrem General: capillary refill normal, no joint enlargement, no calf tenderness and edema Laterality: bilateral Psych Appearance: grossly normal and well kempt Mental Status: mental status grossly normal Speech and Movement: speech and movement normal Course Vital Signs Vital signs: Respiratory Effort Normal, Non-Labored 10/14/22 16:30 Procedures Paracentesis Time Out Performed: Yes Local Anesthetic: Lidocaine 1% Amount of anesthesia used (mL): 5 Fluid: clear and Sent to Lab for Analysis Post Procedure Exam: awake, alert, normal BP, normal HR and normal SpO2 Patient Tolerated Procedure: well and no complications Complications: none
--- NOTE | 2022-10-14 16:45 | DI.CT_ITS ---
Exam(s) CT ABDOMEN PELVIS W EXAM: CT ABDOMEN PELVIS W CLINICAL HISTORY: swelling TECHNIQUE: Imaging Protocol: Axial computed tomography images with coronal and sagittal reformatted images were created and reviewed CONTRAST MATERIAL: Intravenous: Omnipaque 350 Contrast volume:100 mL Oral: No COMPARISON: No exams were available for comparison FINDINGS: ABDOMEN: Lung Bases: There is scarring or atelectasis in the lung bases. Liver: There is heterogeneous attenuation of the liver. There is a nodular contour of the liver. Th e findings are consistent with cirrhosis. No measurable mass. There is hepatomegaly. Portal, Superior Mesenteric, and Splenic Veins: Unremarkable. Gallbladder and Biliary Tract: No radiodense calculus or dilation. Pancreas: Normal density, no abnormal calcifications or inflammatory process. Spleen: Splenomegaly. Adrenals: No masses seen. Kidneys: Normal size, contour and axis. No radiodense stones or obstructive uropathy. No masses seen. Abdominal Aorta: Abdominal portion non-dilated. Atherosclerosis. Bowel: No obstruction or bowel wall thickening. No evidence of appendicitis. Peritoneal Cavity: There is a large amount of abdominal pelvic ascites. No free air. Lymph Nodes: Within normal limits. Bones: Within normal limits for the patient's age. Soft Tissues: There is edema seen in the subcutaneous tissues of the abdomen. This is consistent wit h anasarca. PELVIS: Bladder: Symmetric distention, no gross wall thickening. Reproductive Organs: Unremarkable as visualized. Lymph Nodes: Within normal limits. Bones: Within normal limits for the patient's age. IMPRESSION: 1. Findings suggestive of hepatic cirrhosis with hepatosplenomegaly, ascites and anasarca. 2. Bibasilar infiltrates which may represent atelectasis or scarring. RADIATION DOSE DELIVERED: 1,624.02mGy.cm Total DLP DATA REPOSITORY: All CT scans at this facility are submitted to the National Radiology Data Registry (NRDR) Dose Index Registry (DIR) with the [employer] ([employer]). RADIATION OPTIMIZATION: All CT scans at this facility use at least one of these dose optimization te chniques: automated exposure control; mA and/or kV adjustment per patient size (includes targeted exa ms where dose is matched to clinical indication); or iterative reconstruction.
[2022-10-14 17:14] LABS: Abs Immature Grans 0.03 10^3/uL (0.0-0.06); Absolute Basophil Count 0.03 10^3/uL (0.0-0.2); Absolute Eosinophil Count 0.21 10^3/uL (0.0-0.7); Absolute Lymphocyte Count 1.36 10^3/uL (1.2-3.4); Absolute Monocyte Count 0.55 10^3/uL (0.1-0.8); Absolute Neutrophil Count 3.36 10^3/uL (1.2-6.7); Basophils % 0.5; Eosinophils % 3.8; HCT 27.4 % (36.0-46.0); HGB 8.9 g/dL (11.2-15.7); Immature Grans % 0.5; Lymphocytes % 24.5; MCH 29.4 pg (27.0-33.0); MCHC 32.5 % (32.0-36.0); MCV 90 fL (80-95); MPV 10.9 fL (8.0-11.0); Monocytes % 9.9; Neutrophils % 60.8; Platelet Count 161 10^3/uL (130-400); RBC 3.03 10^6/uL (3.93-5.22); RDW 19.8 % (11.7-14.6); RDW-SD 65.2 fL; WBC 5.54 10^3/uL (4.4-10.8)
[2022-10-14 17:31] LABS: ALT 24 U/L (14-59); AST 117 U/L (15-37); Albumin 2.6 g/dL (3.4-5.0); Alkaline Phosphatase 123 U/L (46-116); Anion Gap 8.3 mmol/L (3-11); BUN 3 mg/dL (7-18); Bilirubin, Total 4.5 mg/dL (0.2-1.0); CO2 26.7 mmol/L (21.0-32.0); CREATININE 0.8 mg/dL (0.55-1.02); Calcium 8.4 mg/dL (8.5-10.1); Chloride 98 mmol/L (98-107); Estimated GFR 97.87 (mL/min/1.73m2); Glucose 132 mg/dL (74-106); Potassium 3.6 mmol/L (3.5-5.1); Sodium 133 mmol/L (136-145); Total Protein 8.1 g/dL (6.4-8.2)
[2022-10-14] MEDS: Omnipaque 350 MG/ML 100 ML BTL IJ (17:33)
[2022-10-14] MEDS: Normal Saline - Diluent 50 ML VIAL IJ (17:33)
[2022-10-14 17:35] LABS: Troponin I 115 ng/L (<or=60)
[2022-10-14 17:37] LABS: Bilirubin, Direct 2.4 mg/dL (0.0-0.2); Lipase 39 U/L (16-77); Magnesium 1.5 mg/dL (1.8-2.4); TSH (W/Ref FT4) 2.87 uIU/mL (0.36-3.74)
[2022-10-14 17:39] LABS: PTT Activated 42.9 sec (21.5-31.9)
--- NOTE | 2022-10-14 17:51 | DI.VRAD_ITS ---
PROCEDURE INFORMATION: Exam: CT Abdomen And Pelvis With Contrast Exam date and time: 10/14/2022 5:27 PM Age: 37 years old Clinical indication: Bloating and other: Intermittent slurred speech TECHNIQUE: Imaging protocol: Computed tomography of the abdomen and pelvis with contrast. Contrast material: OMNIPAQUE 350; Contrast volume: 100 ml; Contrast route: INTRAVENOUS (IV); COMPARISON: US ABDOMEN LIMITED 12/08/2021 1:48 PM FINDINGS: Lungs: Platelike atelectatic findings in the lung bases. Pleural spaces: No effusions or pleural thickening. Liver: The liver is enlarged measuring 20 cm in craniocaudal length. It is of heterogeneous attenuation with micro nodularity consistent with cirrhosis. No evidence for portal vein thrombosis. No cysts or masses within the liver. Gallbladder and bile ducts: The gallbladder is normal. Pancreas: The pancreas is normal. Spleen: The spleen is enlarged measuring 17 cm in length. Adrenal glands: The adrenal glands are normal. Kidneys and ureters: Normal. No hydronephrosis. Stomach and bowel: Unremarkable. No obstruction. No mucosal thickening. Appendix: The appendix is not identified, but there are no inflammatory changes in its expected region. Intraperitoneal space: [id number] quantity of ascites. Vasculature: The aorta is normal in diameter and has no plaque. Lymph nodes: Unremarkable. No enlarged lymph nodes. Urinary bladder: Unremarkable as visualized. Reproductive: Unremarkable as visualized. Bones/joints: Unremarkable. No acute fracture. Soft tissues: Moderate amount of subcutaneous edema along the anterior abdominal wall. IMPRESSION: 1. Hepatosplenomegaly, ascites, and anasarca are consistent with alcoholic liver disease. 2. Bibasilar atelectasis likely from the enlarged abdomen. Dictated and Authenticated by: Jaime Ramirez MD. Ordering:BARTOLO Fuentes MD
[2022-10-14 17:55] LABS: INR 1.9 (0.9-1.1); Prothrombin Time 19.6 sec (9.3-11.0)
[2022-10-14 18:30] LABS: Bilirubin Small (Negative); Blood Negative (Negative); Clarity Clear (Clear); Glucose Negative (Negative); Ketones Negative (Negative); Leukocyte Esterase Negative (Negative); Nitrite Negative (Negative)
[2022-10-14 18:42] LABS: *AMPHETAMINES SCREEN URINE Negative (Negative); *BARBITURATES SCREEN URINE Negative (Negative); *BENZODIAZEPINES SCREEN URINE Negative (Negative); Cannabinoids THC Positive (Negative); Cocaine Screen,Urine Negative (Negative); METHADONE URINE SCREEN Negative (Negative); OPIATES URINE SCREEN Negative (Negative); Tricyclic Antidepressants Positive (Negative)
[2022-10-14] MEDS: LORazepam 2 MG/ML VIAL 0.5 MG IVP (18:59)
[2022-10-14] MEDS: MORPHine 4 MG/ML SYR (19:24)
[2022-10-14 19:28] LABS: Clarity Cloudy; Source Peritoneal
[2022-10-14 19:31] LABS: Nucleated Cells 148 uL (0)
[2022-10-14 19:37] LABS: Mononuclear Cells 89 %; Polynuclear Cells 11 %
--- NOTE | 2022-10-14 20:00 | DI.RAD_ITS ---
Exam(s) XR CHEST 2V PA LATERAL EXAM: XR CHEST 2V PA LATERAL CLINICAL HISTORY: ascites TECHNIQUE: 2D digital imaging was performed of the chest. Two images were obtained. PA and lateral views were obtained. COMPARISON: CR CHEST 2 VIEWS PA,LAT from 05/11/2016 FINDINGS: MEDIASTINUM: Normal. HEART: Normal. PULMONARY VASCULATURE: Normal. LUNGS: There is linear atelectasis or scarring in the lung bases. No focal consolidating infiltrates are seen. PLEURAL SPACE: No pleural effusion or pneumothorax. BONE:Within normal limits for the patient's age. OTHER FINDINGS:Normal. IMPRESSION: Plate like atelectasis or scarring is seen in the lung bases. No focal consolidating infiltrates are seen. DATA REPOSITORY: RADIATION DOSE DELIVERED:
[2022-10-14] MEDS: Furosemide 20 MG/2 ML VIAL IVP (20:06)
[2022-10-14] MEDS: Spironolactone 50 MG TAB PO (20:14)
[2022-10-14] MEDS: Magnesium Oxide 400 MG TAB PO (20:27)
[2022-10-14 20:44] LABS: Troponin I 118 ng/L (<or=60)
[2022-10-14 20:45] LABS: Iron 38 ug/dL (50-170); Total Iron Binding Capacity 219 ug/dL (250-450); Transferrin Sat 17 % (15-50)
[2022-10-14 20:47] LABS: NT-proBNP 80 pg/mL (<300)
[2022-10-14 21:02] LABS: COVID-19 PCR Negative (Negative); Influenza A PCR Negative (Negative); Influenza B PCR Negative (Negative); RSV PCR Negative (Negative)
[2022-10-14 21:04] LABS: Source Nasopharynx
--- NOTE | 2022-10-14 21:32 | DI.VRAD_ITS ---
PROCEDURE INFORMATION: Exam: XR Chest Exam date and time: 10/14/2022 9:14 PM Age: 37 years old Clinical indication: Other: Ascites TECHNIQUE: Imaging protocol: Radiologic exam of the chest. Views: 2 views. COMPARISON: CR CHEST 2 VIEWS PA,LAT 05/11/2016 3:15 PM FINDINGS: Lungs: There is mild hazy indistinctness of the margins of the pulmonary vascular markings suspicious for possible interstitial pulmonary edema or volume overload. There are also platelike opacities in the lower lung zones. Platelike atelectasis could have this appearance although an acute infectious process or aspiration could probably have a similar appearance. Clinical correlation is recommended. Pleural spaces: No pleural effusion or pneumothorax is seen. Heart/Mediastinum: The heart is normal in size. Bones/joints: The visualized bony structures appear grossly intact, as seen. IMPRESSION: 1. Platelike opacities in the lower lung zones. Platelike atelectasis could have this appearance; however, acute pulmonary infection or aspiration could probably mimic this appearance. 2. Hazy indistinctness of the pulmonary vascular margins suggesting possible mild interstitial pulmonary edema or volume overload. Clinical correlation is recommended. Dictated and Authenticated by: Tenzin Garibay MD. Ordering:BARTOLO Fuentes MD
--- NOTE | 2022-10-14 21:37 | HPE_ITS ---
Date of service: 10/14/22 Time of Service: 21:40 Assessment and Plan Assessment and plan (1) Hepatic cirrhosis: Status: Acute Assessment and plan: Etiology unclear, but does not appear to be due to EtOH. Appears decompensated with evidence of hyperbilirubinemia, coaguopathy, hypoalbuminemia, anasarca. Await hepatitis studies, autoimmune studies, ceruloplasmin. Check ammonia. Not clinically encephalopathic today. Continue furosemide and aldactone initiated in the ER. Low sodium diet. Obtain US adbdomen and a transthoracic echocardiogram to ensure this isn't a cardiogenic cirrhosis. The patient's Child-Rosado score is 12, suggesting life expectancy of 1-3 years. Her MELD score is not exactly applicable to this case but is 22. Both Child-Rosado and MELD scores are supposed to be calculated in patients who are optimized/not acutely decompensated, and so their utility in this clinical scenario is limited other than to say that this patient's prognosis is guarded. Will need an outpatient EGD to screen for varices. (2) Abdominal ascites: Status: Acute Assessment and plan: Due to above. Peritoneal fluid not c/w SBP. Await culture. 4L removed - not requiring colloid replacement. As above - low sodium diet. Monitor I/Os, daily weights on IV furosemide + aldactone. (3) Edema of both lower extremities: Status: Acute Assessment and plan: Likely due to hypoalbuminemia. However will also obtain venous dopplers to ensure no DVT. (4) Pulmonary edema: Status: Acute Assessment and plan: Obtain echo. Diurese, monitoring I/Os and daily weights. (5) Acute anemia: Status: Acute Assessment and plan: Obtain remaining anemia studies including ferritin, b12, folate, hematest. No evidence of active bleeding, and the hemoglobin is actually slightly better than on it was on 10/03/22 when it was 8.1. No indication for transfusion. Suspect some of this is also dilutional. (6) Coagulopathy: Status: Acute Assessment and plan: Due to liver disease. No active bleeding. No indication for Vitamin K or FFP at this time. (7) Hyponatremia: Status: Acute Assessment and plan: Likely dilutiona and due to liver disease. Monitor as we are diuresing the patient. (8) Hypomagnesemia: Status: Acute Assessment and plan: Replete, recheck in am. (9) Hyperbilirubinemia: Status: Acute Assessment and plan: Due to above. As above. (10) Hypoalbuminemia: Status: Acute Assessment and plan: Due to cirrhosis. No evidence of proteinuria. (11) Plate-like atelectasis: Status: Acute Assessment and plan: Encourage IS (12) Constipation: Status: Acute Assessment and plan: Schedule a bowel regimen. (13) DVT prophylaxis: Status: Acute Assessment and plan: SC hpearin (14) Discharge planning issues: Status: Acute Assessment and plan: Full code History of Present Illness History of Present Illness Chief Complaint: abdominal and lower extremity swelling Narrative: Ms Villalobos is a 37 year old female with PMHx of hepatic steatosis, ?fatty liver, Diet-controlled DM2, GERD, obesity with BMI of 45.2 kg/m2, anxiety, and a family h/o liver disease that the patient thinks is related to alcohol, who presented to [facility] ED today c/o worsening swelling in her BLEs as well as her abdomen as well as shortness of breath. The swelling in the legs started about 3 weeks ago, shortness of breath has been going on for about a couple of weeks, worse over the last 5-6 days, and has progressed to the point of being unable to finish a sentence when talking, and the abdominal swelling happened about a week ago. The patient states some people have noticed that she is a little yellow - specifically in her eyes. Her ex partner states that she actually looks more pale to him than her normal. The patient endorses very dry skin as well. She denies fevers, endorses a dry cough, occasional nausea, but no vomiting, endorses constipation, denies blood in stool which has been brown. Her urine has been dark for over a month. Her abdomen hurts in BLQ and is itchy from the distention. The patient endorses heavy alcohol use between the ages of 22 and 26 and only rare/occasional since. Her last drink was about a month ago and was only one alcoholic beverage. She is not . The patient saw her PCP on 10/03/22 who then started her on aldactone 25 mg PO daily, referred her to GI, and ordered a CT of the abdomen and pelvis (which had not yet had a chance to happen as outpatient). The patient states that she has been trying to decrease her salt intake and taking her aldactone 25 mg daily as prescribed, but the swelling in her legs and abdomen has gotten worse, so the patient came to the ER. Here, her presentation was consistent with ascites. Her CT of the abdomen/pelvis showed hepatic cirrhosis with hepatosplenomegaly, ascites, and anasarca. Her labs are remarkable for H/H of 8.9/27.4 (hemoglobin was 14.3 in 12/18), sodium of 133, magnesium of 1.5, INR of 1.9, T. Bili of 4.5, Conjugated bili of 2.4, AST of 117, ALT of 124, ask phos of 123, albumin of 2.6, TSH of 2.87. She underwent a paracenthesis with 4 L of fluid removed. This provided immediate relief. Fluid WBC count was 148, not c/w bacterial peritonitis. Additionally, her troponin I was elevated to 115, then 118 on repeat without chest pain. Her NT-pro-BNP is 80 pg/mL. Her EKG is c/w Sinus tach w/o evidence of acute ischemia. [facility] [facility] suspected GUERRERO as etiology of cirrhosis given her BMI, but given family history, recommended hepatitis and autoimmune studies (ARNAUD, AMA, ASMA, A1AT), ceruloplasmin, initiation of spironolactone and lasix. US abdomen was recommended to r/o portal vein thrombosis. She would need an outpatient EGD. No beds were available at [facility] [place]. Hospitalist admission was requested. Review of Systems Narrative: Additionally, the patient describes BLE numbness x 1 year. All systems reviewed & are unremarkable except as noted in HPI and below PFSH All Active Problems (Updated 10/14/22 @ 23:33 by Danielle Ku MD) Constipation (Acute) Plate-like atelectasis (Acute) Pulmonary edema (Acute) Edema of both lower extremities (Acute) Discharge planning issues (Acute) DVT prophylaxis (Acute) Hypoalbuminemia (Acute) Hyperbilirubinemia (Acute) Hypomagnesemia (Acute) Hyponatremia (Acute) Coagulopathy (Acute) Acute anemia (Acute) Abdominal ascites (Acute) Hepatic cirrhosis (Acute) HTN (hypertension), benign (Acute) Obesity, morbid, BMI 40.0-49.9 (Acute) GERD (gastroesophageal reflux disease) (Chronic) Anxiety (Chronic) Medical History (Updated 10/14/22 @ 23:33 by Danielle Ku MD) Hepatic steatosis Family History (Updated 10/14/22 @ 22:03 by Danielle Ku MD) Mother Liver disease Maternal Aunt Liver disease Social History Smoking/Tobacco Use Status: Current every day Tobacco Type: cigarettes Smoking risk assessment performed?: Yes Alcohol Intake: current Alcohol Intake frequency: holidays/special occasions only Drug use: Never Substance use type: marijuana Do you feel safe at home: Yes Do you feel safe in your relationship?: Yes Meds Allergies and Home Medications Allergies Allergy/AdvReac Type Severity Reaction Status Date / Time sertraline HCl [From Zoloft] AdvReac Intermediate Nausea Unverified 10/14/22 16:31 Home Medications Medication Instructions Recorded Confirmed Type clonazepam 1 mg tablet (Klonopin) 1 mg PO QID PRN PRN Anxiety 01/16/15 10/14/22 History zolpidem 5 mg tablet (Ambien) 5 mg PO HS 07/26/15 10/14/22 History magnesium gluconate 27 mg 27 mg PO DAILY 10/14/22 10/14/22 History magnesium (500 mg) tablet nortriptyline 25 mg capsule 25 mg PO DAILY 10/14/22 10/14/22 History omeprazole 40 mg capsule,delayed 40 mg PO DAILY 10/14/22 10/14/22 History release ondansetron HCl 4 mg tablet 4 mg PO Q4H PRN 10/14/22 10/14/22 History spironolactone 25 mg tablet 25 mg PO DAILY 10/14/22 10/14/22 History Exam Narrative Exam Narrative: General: Pleasant female who is mildly anxious, A&Ox3, laying in a stretcher at about 30 degree angle without dyspnea/tachypnea/cyanosis Neurological: A&Ox3, no asterexis, BLE numbness Psychiatric: mildly anxious, appropriate speech pattern/content, appropriate affect Skin: Visible skin dry, not obviously jaundiced,but pale, multiple pink lesions on BUEs HEENT: Atraumatic, normocephalic, EOMI, dry MM, clearal and sublingual icterus, clear oropharynx, no submandibular or cervical lymphadenopathy, no goiter or JVD, large neck diameter Cardiovascular: RRR, + BOBY Lungs: Diminished breath sounds B Gastrointestinal: Very distended with ascites, nontender, no evidence of caput medusa. Genitourinary: deferred Extremities: +2 edema to B thighs, I am unable to palpate pedal pulses, no lesions on B feet Results Imaging Additional studies: CT abdomen/pelvis: 1. Findings suggestive of hepatic cirrhosis with hepatosplenomegaly, ascites and anasarca. 2. Bibasilar infiltrates which may represent atelectasis or scarring.? CXR: 1. ? Platelike opacities in the lower lung zones. Platelike atelectasis could have this appearance; however, acute pulmonary infection or aspiration could probably mimic this appearance. 2. ? Hazy indistinctness of the pulmonary vascular margins suggesting possible mild interstitial pulmonary edema or volume overload. Clinical correlation is recommended. EKG: Sinus tachycardia, HR 109, no acute ischemai Labs 10/14/22 17:06 10/14/22 17:06 Labs: Laboratory Results - last 24 hr 10/14/22 10/14/22 10/14/22 17:06 17:06 17:06 WBC RBC Hgb Hct MCV MCH MCHC RDW Plt Count MPV Immature Gran % Neutrophils % Lymphocytes % Monocytes % Eosinophils % Basophils % Nucleated RBC % Absolute Neutrophils Absolute Lymphocytes Absolute Monocytes Absolute Eosinophils Absolute Basophils PT 19.6 H INR 1.9 H APTT 42.9 H Sodium 133 L Potassium 3.6 Chloride 98 Carbon Dioxide 26.7 Anion Gap 8.3 BUN 3 L Creatinine 0.8 Est GFR (CKD-EPI 2020) 97.87 Glucose 132 H Calcium 8.4 L Magnesium 1.5 L Iron TIBC Transferrin % Sat Total Bilirubin 4.5 H Conjugated Bilirubin 2.4 H AST 117 H ALT 24 Alkaline Phosphatase 123 H Troponin I 115 H* NT-Pro-B Natriuret Pep Total Protein 8.1 Albumin 2.6 L Lipase 39 TSH 2.87 Urine Color Urine Clarity Urine pH Ur Specific [place] Urine Protein Urine Ketones Urine Blood Urine Nitrite Urine Bilirubin Urine Urobilinogen Ur Leukocyte Esterase Urine Glucose Fluid Source Fluid Color Fluid Clarity Fluid WBC Fld Polynuclear WBCs % Fluid Mononuclear Cell Urine Opiates Screen Urine Methadone Screen Ur Barbiturates Screen Ur Tricyclics Screen Ur Amphetamines Screen U Benzodiazepines Scrn Urine Cocaine Screen Ur THC Screen COVID-19 Source SARS-CoV-2 (PCR) Influenza Type A (PCR) Influenza Type B (PCR) RSV (PCR) 10/14/22 10/14/22 10/14/22 17:06 18:16 18:16 WBC 5.54 RBC 3.03 L Hgb 8.9 L Hct 27.4 L MCV 90 MCH 29.4 MCHC 32.5 RDW 19.8 H Plt Count 161 MPV 10.9 Immature Gran % 0.5 Neutrophils % 60.8 Lymphocytes % 24.5 Monocytes % 9.9 Eosinophils % 3.8 Basophils % 0.5 Nucleated RBC % 0.0 Absolute Neutrophils 3.36 Absolute Lymphocytes 1.36 Absolute Monocytes 0.55 Absolute Eosinophils 0.21 Absolute Basophils 0.03 PT INR APTT Sodium Potassium Chloride Carbon Dioxide Anion Gap BUN Creatinine Est GFR (CKD-EPI 2020) Glucose Calcium Magnesium Iron TIBC Transferrin % Sat Total Bilirubin Conjugated Bilirubin AST ALT Alkaline Phosphatase Troponin I NT-Pro-B Natriuret Pep Total Protein Albumin Lipase TSH Urine Color Dark Yellow Urine Clarity Clear Urine pH 7.0 Ur Specific [place] 1.010 Urine Protein Negative Urine Ketones Negative Urine Blood Negative Urine Nitrite Negative Urine Bilirubin Small H Urine Urobilinogen 1.0 H Ur Leukocyte Esterase Negative Urine Glucose Negative Fluid Source Fluid Color Fluid Clarity Fluid WBC Fld Polynuclear WBCs % Fluid Mononuclear Cell Urine Opiates Screen Negative Urine Methadone Screen Negative Ur Barbiturates Screen Negative Ur Tricyclics Screen Positive A Ur Amphetamines Screen Negative U Benzodiazepines Scrn Negative Urine Cocaine Screen Negative Ur THC Screen Positive A COVID-19 Source SARS-CoV-2 (PCR) Influenza Type A (PCR) Influenza Type B (PCR) RSV (PCR) 10/14/22 10/14/22 10/14/22 19:06 20:10 20:14 WBC RBC Hgb Hct MCV MCH MCHC RDW Plt Count MPV Immature Gran % Neutrophils % Lymphocytes % Monocytes % Eosinophils % Basophils % Nucleated RBC % Absolute Neutrophils Absolute Lymphocytes Absolute Monocytes Absolute Eosinophils Absolute Basophils PT INR APTT Sodium Potassium Chloride Carbon Dioxide Anion Gap BUN Creatinine Est GFR (CKD-EPI 2020) Glucose Calcium Magnesium Iron TIBC Transferrin % Sat Total Bilirubin Conjugated Bilirubin AST ALT Alkaline Phosphatase Troponin I 118 H* NT-Pro-B Natriuret Pep Total Protein Albumin Lipase TSH Urine Color Urine Clarity Urine pH Ur Specific [place] Urine Protein Urine Ketones Urine Blood Urine Nitrite Urine Bilirubin Urine Urobilinogen Ur Leukocyte Esterase Urine Glucose Fluid Source Peritoneal Fluid Color Yellow Fluid Clarity Cloudy Fluid WBC 148 Fld Polynuclear WBCs % 11 Fluid Mononuclear Cell 89 Urine Opiates Screen Urine Methadone Screen Ur Barbiturates Screen Ur Tricyclics Screen Ur Amphetamines Screen U Benzodiazepines Scrn Urine Cocaine Screen Ur THC Screen COVID-19 Source Nasopharynx SARS-CoV-2 (PCR) Negative Influenza Type A (PCR) Negative Influenza Type B (PCR) Negative RSV (PCR) Negative 10/14/22 10/14/22 20:14 20:14 WBC RBC Hgb Hct MCV MCH MCHC RDW Plt Count MPV Immature Gran % Neutrophils % Lymphocytes % Monocytes % Eosinophils % Basophils % Nucleated RBC % Absolute Neutrophils Absolute Lymphocytes Absolute Monocytes Absolute Eosinophils Absolute Basophils PT INR APTT Sodium Potassium Chloride Carbon Dioxide Anion Gap BUN Creatinine Est GFR (CKD-EPI 2020) Glucose Calcium Magnesium Iron 38 L TIBC 219 L Transferrin % Sat 17 Total Bilirubin Conjugated Bilirubin AST ALT Alkaline Phosphatase Troponin I NT-Pro-B Natriuret Pep 80 Total Protein Albumin Lipase TSH Urine Color Urine Clarity Urine pH Ur Specific [place] Urine Protein Urine Ketones Urine Blood Urine Nitrite Urine Bilirubin Urine Urobilinogen Ur Leukocyte Esterase Urine Glucose Fluid Source Fluid Color Fluid Clarity Fluid WBC Fld Polynuclear WBCs % Fluid Mononuclear Cell Urine Opiates Screen Urine Methadone Screen Ur Barbiturates Screen Ur Tricyclics Screen Ur Amphetamines Screen U Benzodiazepines Scrn Urine Cocaine Screen Ur THC Screen COVID-19 Source SARS-CoV-2 (PCR) Influenza Type A (PCR) Influenza Type B (PCR) RSV (PCR) Last Vital Signs Pulse 109 H 10/14/22 16:39 Resp 15 10/14/22 16:39 BP 149/84 H 10/14/22 16:39 Pulse Ox 96 10/14/22 16:39 Time Spent Time spent with Patient: >75 minutes Time was spent: preparing to see the patient(eg.review tests), obtaining and/or reviewing separately otained hiistory, ordering medications,tests, procedures, referring, communicating with other health clinical care leader, indepentently interpreting results, counseling the patient and care coordination
[2022-10-14 22:00] LABS: Lab Add On Test DONE
[2022-10-14 23:37] LABS: Troponin I 113 ng/L (<or=60)
[2022-10-15] VITALS (9 sets, daily range): BP systolic 109–127; BP diastolic 62–77; PULSE 71–107; RESP 14–19; TEMP 36.3–37.6; O2SAT 94–98
[2022-10-15] MEDS: Heparin 5,000 UNITS/ML VIAL 5000 UNITS SC ×4 (00:14→21:32)
[2022-10-15] MEDS: Zolpidem 5 MG TAB PO ×2 (00:15→21:30)
[2022-10-15] MEDS: Normal Saline Flush 10 ML SYR IVP ×3 (00:15→15:19)
[2022-10-15] MEDS: Omeprazole 20 MG CAPCR 40 MG PO ×2 (00:15→21:31)
[2022-10-15] MEDS: MAGNESIUM SULFATE 4 GM/100 ML BAG IVPB (00:16)
[2022-10-15] MEDS: Normal Saline 500 ML 30 ML IV (00:17)
[2022-10-15 06:43] LABS: Abs Immature Grans 0.02 10^3/uL (0.0-0.06); Absolute Basophil Count 0.02 10^3/uL (0.0-0.2); Absolute Eosinophil Count 0.24 10^3/uL (0.0-0.7); Absolute Lymphocyte Count 1.97 10^3/uL (1.2-3.4); Absolute Monocyte Count 0.85 10^3/uL (0.1-0.8); Absolute Neutrophil Count 3.78 10^3/uL (1.2-6.7); Basophils % 0.3; Eosinophils % 3.5; HCT 24.2 % (36.0-46.0); HGB 7.9 g/dL (11.2-15.7); Immature Grans % 0.3; Lymphocytes % 28.6; MCH 29.2 pg (27.0-33.0); MCHC 32.6 % (32.0-36.0); MCV 89 fL (80-95); Monocytes % 12.4; Neutrophils % 54.9; Platelet Count 144 10^3/uL (130-400); RBC 2.71 10^6/uL (3.93-5.22); RDW 19.6 % (11.7-14.6); RDW-SD 63.6 fL; WBC 6.88 10^3/uL (4.4-10.8)
[2022-10-15 07:01] LABS: Ammonia 40 umol/L (11-32)
[2022-10-15 07:03] LABS: ALT 19 U/L (14-59); AST 90 U/L (15-37); Albumin 2.2 g/dL (3.4-5.0); Alkaline Phosphatase 107 U/L (46-116); Anion Gap 5.7 mmol/L (3-11); BUN 3 mg/dL (7-18); Bilirubin, Direct 2.4 mg/dL (0.0-0.2); Bilirubin, Total 4.1 mg/dL (0.2-1.0); C-Reactive Protein 1.32 mg/dL (0.0-0.3); CO2 28.3 mmol/L (21.0-32.0); CREATININE 0.7 mg/dL (0.55-1.02); Chloride 100 mmol/L (98-107); Estimated GFR 114.88 (mL/min/1.73m2); Glucose 106 mg/dL (74-106); Magnesium 2.1 mg/dL (1.8-2.4); Potassium 3.4 mmol/L (3.5-5.1); Sodium 134 mmol/L (136-145); Total Protein 6.8 g/dL (6.4-8.2)
[2022-10-15 07:33] LABS: Ferritin 39 ng/mL (8-252); Folate 1.5 ng/mL (8.6-20.0)
[2022-10-15] MEDS: Polyethylene Glycol 3350 17 GM PACKET PO (08:29)
[2022-10-15] MEDS: Magnesium Gluconate 500 MG TAB PO (08:30)
[2022-10-15] MEDS: Potassium Chloride 10 MEQ CAPCR 20 MEQ PO ×3 (08:30→21:31)
[2022-10-15] MEDS: Lactulose 20 GM/30 ML CUP PO ×2 (08:30→21:32)
[2022-10-15] MEDS: Spironolactone 50 MG TAB PO ×2 (08:30→21:30)
[2022-10-15] MEDS: Magnesium Oxide 400 MG TAB PO ×2 (08:30→21:30)
[2022-10-15] MEDS: Docusate Sodium 100 MG CAP PO ×2 (08:30→21:31)
[2022-10-15] MEDS: Furosemide 20 MG/2 ML VIAL IVP ×2 (08:31→15:19)
--- NOTE | 2022-10-15 08:51 | INITIAL_ITS ---
- If Service Date Differs Date of service: 10/15/22 Time of Service: 08:51 Care Management Initial Assess REASON FOR HOSPITALIZATION:: hepatic cirrhosis PAST MEDICAL HISTORY/PAST SURGICAL HISTORY:: All Active Problems (Updated 10/14/22 @ 23:33 by Danielle Ku MD). Constipation (Acute). Plate-like atelectasis (Acute). Pulmonary edema (Acute). Edema of both lower extremities (Acute). Discharge planning issues (Acute). DVT prophylaxis (Acute). Hyp oalbuminemia (Acute). Hyperbilirubinemia (Acute). Hypomagnesemia (Acute). Hyponatremia (Acute). Coagulopathy (Acute). Acute anemia (Acute). Abdominal ascites (Acute). Hepatic cirrhosis (Acute). HTN (hypertension), benign (Acute). Obesity, morbid, BMI 40.0-49.9 (Acute). GERD (gastroesophageal reflux disease) (Chronic). Anxiety (Chronic). Medical History (Updated 10/14/22 @ 23:33 by Danielle Ku MD). Hepatic steatosis PREVIOUS FUNCTIONAL STATUS/SOCIAL/FAMILY SUPPORTS:: Mildred lives in [place] in a 3 bedroom mobile home with her 13 year old daughter. She is employed as a caregiver through [employer] but has been out of work since the end of July due to illness. She is independent at baseline and receives [employer] and has Section 8 housing. She identified her daughter's father (her ex) as a source of support. CURRENT FUNCTIONAL STATUS:: Mildred was sitting up in bed when met with her. She was alert, oriented and engaged easily in conversation. Mildred explained to that she has been ill since July. She is working with her agency to remain employed and is hoping to return to work in October. Mildred is originally from [place] then moved to [place] before coming to [place] to find work. She has been in [place] since she got with her daughter. Mildred shared that all of her family is in [place] so she does not have a strong support system here. She did state that she and her ex are generally on good terms and that he has been supportive during this period of illness. ADVANCE DIRECTIVES:: none on file Has patient been provided with info about the portal/API?: Yes Did the patient sign up for the portal?: No CODE STATUS:: Full Code INSURANCE COVERAGE / FINANCIAL ISSUES:: Medicaid of [place] CURRENT HOME/COMMUNITY SERVICES/EQUIPMENT:: [employer]. Section Eight housing PRIMARY CARE PHYSICIAN:: Allie Raines POTENTIAL DISCHARGE NEEDS:: follow up with PCP and plan of care PATIENT/FAMILY EDUCATION NEEDS:: Review of discharge instructions, limitations, activity, follow up plan, Ask Me Three TRANSPORTATION:: via private vehicle with friends/family PLAN:: Anticipate Mildred will be discharged home with no new services. She will follow up with her community providers and plan of care and transport with friend/family. CM will follow and assess for discharge concerns.
--- NOTE | 2022-10-15 10:21 | W.PM.PROGNOT ---
Date of Service Date of service: 10/15/22 Time of Service: 10:22 Assessment and Plan Assessment and plan (1) Hepatic cirrhosis: Status: Deleted Assessment and plan: Etiology unclear, but does not appear to be due to EtOH. Appears decompensated with evidence of hyperbilirubinemia, coaguopathy, hypoalbuminemia, anasarca. Await hepatitis studies, autoimmune studies, ceruloplasmin. normal ammonia. Not clinically encephalopathic. Continue furosemide and aldactone Low sodium diet. Obtain US adbdomen and a transthoracic echocardiogram to ensure this isn't a cardiogenic cirrhosis, scheduled for tomorrow The patient's Child-Rosado score is 12, suggesting life expectancy of 1-3 years. Her MELD score is not exactly applicable to this case but is 22. Both Child-Rosado and MELD scores are supposed to be calculated in patients who are optimized/not acutely decompensated, and so their utility in this clinical scenario is limited other than to say that this patient's prognosis is guarded. Will need an outpatient EGD to screen for varices. (2) Abdominal ascites: Status: Acute Assessment and plan: Due to above. Peritoneal fluid not c/w SBP. Await culture. 4L removed - not requiring colloid replacement. As above - low sodium diet. Monitor I/Os, daily weights on IV furosemide + aldactone. (3) Edema of both lower extremities: Status: Acute Assessment and plan: Likely due to hypoalbuminemia. However will also obtain venous dopplers to ensure no DVT. (4) Pulmonary edema: Status: Acute Assessment and plan: Obtain echo. Diurese, monitoring I/Os and daily weights. (5) Acute anemia: Status: Acute Assessment and plan: Obtain remaining anemia studies including ferritin, b12, folate, hematest. No evidence of active bleeding, and the hemoglobin is actually slightly better than on it was on 10/03/22 when it was 8.1. No indication for transfusion. Suspect some of this is also dilutional. (6) Coagulopathy: Status: Acute Assessment and plan: Due to liver disease. No active bleeding. No indication for Vitamin K or FFP at this time. (7) Hyponatremia: Status: Acute Assessment and plan: Likely dilutiona and due to liver disease. Monitor as we are diuresing the patient. (8) Hypomagnesemia: Status: Acute Assessment and plan: Replete, recheck in am. (9) Hyperbilirubinemia: Status: Acute Assessment and plan: Due to above. As above. (10) Hypoalbuminemia: Status: Acute Assessment and plan: Due to cirrhosis. No evidence of proteinuria. (11) Plate-like atelectasis: Status: Acute Assessment and plan: Encourage IS (12) Constipation: Status: Acute Assessment and plan: Schedule a bowel regimen. (13) DVT prophylaxis: Status: Acute Assessment and plan: SC hpearin (14) Discharge planning issues: Status: Acute Assessment and plan: Full code discussed with Dr Bear Subjective Subjective Patient reports: feels better, tolerating liquids well, voiding w/o difficulty, bowel movement and afebrile; denies shortness of breath Exam Const General: cooperative, comfortable, no acute distress, well developed and ill appearing acutely and chronically Nutritional Appearance: well nourished and overweight Orientation: alert and awake HENMT Head: normal to inspection Mouth: oral mucosae normal and moist mucous membranes Neck Neck: normal visual inspection and full ROM Resp Effort & Inspection: normal respiratory effort, able to speak in complete sentences and no respiratory distress Auscultation: clear to auscultation bilaterally, no rales, no rhonchi and no wheezes Cardio Rate: regular rate Rhythm: regular rhythm GI Inspection: distended and obesity Palpation: no guarding, no masses and nontender Percussion: fluid wave Auscultation: normal bowel sounds Back/Spine/Pelvis Back: no CVA tenderness Skin General skin exam: no rashes or lesions noted Trauma: no lacerations or abrasions Neuro General: patient alert and patient awake Cognition: normal cognition Speech: speech normal Gait: normal gait Extrem General: capillary refill normal, no calf tenderness and edema Laterality: bilateral Psych Appearance: grossly normal and well kempt Mental Status: mental status grossly normal Speech and Movement: speech and movement normal Objective Last Vital Signs Temp 37.3 C 10/15/22 07:10 Pulse 101 H 10/15/22 07:25 Resp 14 10/15/22 07:10 BP 109/64 10/15/22 07:10 Pulse Ox 94 10/15/22 07:10 Laboratory Results - last 24 hr 10/14/22 10/14/22 10/14/22 17:06 17:06 17:06 WBC RBC Hgb Hct MCV MCH MCHC RDW Plt Count MPV Immature Gran % Neutrophils % Lymphocytes % Monocytes % Eosinophils % Basophils % Nucleated RBC % Absolute Neutrophils Absolute Lymphocytes Absolute Monocytes Absolute Eosinophils Absolute Basophils PT 19.6 H INR 1.9 H APTT 42.9 H Sodium 133 L Potassium 3.6 Chloride 98 Carbon Dioxide 26.7 Anion Gap 8.3 BUN 3 L Creatinine 0.8 Est GFR (CKD-EPI 2020) 97.87 Glucose 132 H Calcium 8.4 L Magnesium 1.5 L Iron TIBC Transferrin % Sat Ferritin Total Bilirubin 4.5 H Conjugated Bilirubin 2.4 H AST 117 H ALT 24 Alkaline Phosphatase 123 H Ammonia Troponin I 115 H* C-Reactive Protein NT-Pro-B Natriuret Pep Total Protein 8.1 Albumin 2.6 L Lipase 39 Folate TSH 2.87 Urine Color Urine Clarity Urine pH Ur Specific [place] Urine Protein Urine Ketones Urine Blood Urine Nitrite Urine Bilirubin Urine Urobilinogen Ur Leukocyte Esterase Urine Glucose Fluid Source Fluid Color Fluid Clarity Fluid WBC Fld Polynuclear WBCs % Fluid Mononuclear Cell Urine Opiates Screen Urine Methadone Screen Ur Barbiturates Screen Ur Tricyclics Screen Ur Amphetamines Screen U Benzodiazepines Scrn Urine Cocaine Screen Ur THC Screen COVID-19 Source SARS-CoV-2 (PCR) Influenza Type A (PCR) Influenza Type B (PCR) RSV (PCR) Add-On Test Request 10/14/22 10/14/22 10/14/22 17:06 18:16 18:16 WBC 5.54 RBC 3.03 L Hgb 8.9 L Hct 27.4 L MCV 90 MCH 29.4 MCHC 32.5 RDW 19.8 H Plt Count 161 MPV 10.9 Immature Gran % 0.5 Neutrophils % 60.8 Lymphocytes % 24.5 Monocytes % 9.9 Eosinophils % 3.8 Basophils % 0.5 Nucleated RBC % 0.0 Absolute Neutrophils 3.36 Absolute Lymphocytes 1.36 Absolute Monocytes 0.55 Absolute Eosinophils 0.21 Absolute Basophils 0.03 PT INR APTT Sodium Potassium Chloride Carbon Dioxide Anion Gap BUN Creatinine Est GFR (CKD-EPI 2020) Glucose Calcium Magnesium Iron TIBC Transferrin % Sat Ferritin Total Bilirubin Conjugated Bilirubin AST ALT Alkaline Phosphatase Ammonia Troponin I C-Reactive Protein NT-Pro-B Natriuret Pep Total Protein Albumin Lipase Folate TSH Urine Color Dark Yellow Urine Clarity Clear Urine pH 7.0 Ur Specific [place] 1.010 Urine Protein Negative Urine Ketones Negative Urine Blood Negative Urine Nitrite Negative Urine Bilirubin Small H Urine Urobilinogen 1.0 H Ur Leukocyte Esterase Negative Urine Glucose Negative Fluid Source Fluid Color Fluid Clarity Fluid WBC Fld Polynuclear WBCs % Fluid Mononuclear Cell Urine Opiates Screen Negative Urine Methadone Screen Negative Ur Barbiturates Screen Negative Ur Tricyclics Screen Positive A Ur Amphetamines Screen Negative U Benzodiazepines Scrn Negative Urine Cocaine Screen Negative Ur THC Screen Positive A COVID-19 Source SARS-CoV-2 (PCR) Influenza Type A (PCR) Influenza Type B (PCR) RSV (PCR) Add-On Test Request 10/14/22 10/14/22 10/14/22 19:05 19:06 20:10 WBC RBC Hgb Hct MCV MCH MCHC RDW Plt Count MPV Immature Gran % Neutrophils % Lymphocytes % Monocytes % Eosinophils % Basophils % Nucleated RBC % Absolute Neutrophils Absolute Lymphocytes Absolute Monocytes Absolute Eosinophils Absolute Basophils PT INR APTT Sodium Potassium Chloride Carbon Dioxide Anion Gap BUN Creatinine Est GFR (CKD-EPI 2020) Glucose Calcium Magnesium Iron TIBC Transferrin % Sat Ferritin Total Bilirubin Conjugated Bilirubin AST ALT Alkaline Phosphatase Ammonia Troponin I C-Reactive Protein NT-Pro-B Natriuret Pep Total Protein Albumin Lipase Folate TSH Urine Color Urine Clarity Urine pH Ur Specific [place] Urine Protein Urine Ketones Urine Blood Urine Nitrite Urine Bilirubin Urine Urobilinogen Ur Leukocyte Esterase Urine Glucose Fluid Source Peritoneal Fluid Color Yellow Fluid Clarity Cloudy Fluid WBC 148 Fld Polynuclear WBCs % 11 Fluid Mononuclear Cell 89 Urine Opiates Screen Urine Methadone Screen Ur Barbiturates Screen Ur Tricyclics Screen Ur Amphetamines Screen U Benzodiazepines Scrn Urine Cocaine Screen Ur THC Screen COVID-19 Source Nasopharynx SARS-CoV-2 (PCR) Negative Influenza Type A (PCR) Negative Influenza Type B (PCR) Negative RSV (PCR) Negative Add-On Test Request DONE 10/14/22 10/14/22 10/14/22 20:14 20:14 20:14 WBC RBC Hgb Hct MCV MCH MCHC RDW Plt Count MPV Immature Gran % Neutrophils % Lymphocytes % Monocytes % Eosinophils % Basophils % Nucleated RBC % Absolute Neutrophils Absolute Lymphocytes Absolute Monocytes Absolute Eosinophils Absolute Basophils PT INR APTT Sodium Potassium Chloride Carbon Dioxide Anion Gap BUN Creatinine Est GFR (CKD-EPI 2020) Glucose Calcium Magnesium Iron 38 L TIBC 219 L Transferrin % Sat 17 Ferritin Total Bilirubin Conjugated Bilirubin AST ALT Alkaline Phosphatase Ammonia Troponin I 118 H* C-Reactive Protein NT-Pro-B Natriuret Pep 80 Total Protein Albumin Lipase Folate TSH Urine Color Urine Clarity Urine pH Ur Specific [place] Urine Protein Urine Ketones Urine Blood Urine Nitrite Urine Bilirubin Urine Urobilinogen Ur Leukocyte Esterase Urine Glucose Fluid Source Fluid Color Fluid Clarity Fluid WBC Fld Polynuclear WBCs % Fluid Mononuclear Cell Urine Opiates Screen Urine Methadone Screen Ur Barbiturates Screen Ur Tricyclics Screen Ur Amphetamines Screen U Benzodiazepines Scrn Urine Cocaine Screen Ur THC Screen COVID-19 Source SARS-CoV-2 (PCR) Influenza Type A (PCR) Influenza Type B (PCR) RSV (PCR) Add-On Test Request 10/14/22 10/15/22 10/15/22 23:14 06:30 06:30 WBC RBC Hgb Hct MCV MCH MCHC RDW Plt Count MPV Immature Gran % Neutrophils % Lymphocytes % Monocytes % Eosinophils % Basophils % Nucleated RBC % Absolute Neutrophils Absolute Lymphocytes Absolute Monocytes Absolute Eosinophils Absolute Basophils PT INR APTT Sodium 134 L Potassium 3.4 L Chloride 100 Carbon Dioxide 28.3 Anion Gap 5.7 BUN 3 L Creatinine 0.7 Est GFR (CKD-EPI 2020) 114.88 Glucose 106 Calcium 8.0 L Magnesium 2.1 Iron TIBC Transferrin % Sat Ferritin 39 Total Bilirubin 4.1 H Conjugated Bilirubin 2.4 H AST 90 H ALT 19 Alkaline Phosphatase 107 Ammonia 40 H Troponin I 113 H* C-Reactive Protein 1.32 H NT-Pro-B Natriuret Pep Total Protein 6.8 Albumin 2.2 L Lipase Folate 1.5 L TSH Urine Color Urine Clarity Urine pH Ur Specific [place] Urine Protein Urine Ketones Urine Blood Urine Nitrite Urine Bilirubin Urine Urobilinogen Ur Leukocyte Esterase Urine Glucose Fluid Source Fluid Color Fluid Clarity Fluid WBC Fld Polynuclear WBCs % Fluid Mononuclear Cell Urine Opiates Screen Urine Methadone Screen Ur Barbiturates Screen Ur Tricyclics Screen Ur Amphetamines Screen U Benzodiazepines Scrn Urine Cocaine Screen Ur THC Screen COVID-19 Source SARS-CoV-2 (PCR) Influenza Type A (PCR) Influenza Type B (PCR) RSV (PCR) Add-On Test Request 10/15/22 06:30 WBC 6.88 RBC 2.71 L Hgb 7.9 L Hct 24.2 L MCV 89 MCH 29.2 MCHC 32.6 RDW 19.6 H Plt Count 144 MPV 11.0 Immature Gran % 0.3 Neutrophils % 54.9 Lymphocytes % 28.6 Monocytes % 12.4 Eosinophils % 3.5 Basophils % 0.3 Nucleated RBC % 0.0 Absolute Neutrophils 3.78 Absolute Lymphocytes 1.97 Absolute Monocytes 0.85 H Absolute Eosinophils 0.24 Absolute Basophils 0.02 PT INR APTT Sodium Potassium Chloride Carbon Dioxide Anion Gap BUN Creatinine Est GFR (CKD-EPI 2020) Glucose Calcium Magnesium Iron TIBC Transferrin % Sat Ferritin Total Bilirubin Conjugated Bilirubin AST ALT Alkaline Phosphatase Ammonia Troponin I C-Reactive Protein NT-Pro-B Natriuret Pep Total Protein Albumin Lipase Folate TSH Urine Color Urine Clarity Urine pH Ur Specific [place] Urine Protein Urine Ketones Urine Blood Urine Nitrite Urine Bilirubin Urine Urobilinogen Ur Leukocyte Esterase Urine Glucose Fluid Source Fluid Color Fluid Clarity Fluid WBC Fld Polynuclear WBCs % Fluid Mononuclear Cell Urine Opiates Screen Urine Methadone Screen Ur Barbiturates Screen Ur Tricyclics Screen Ur Amphetamines Screen U Benzodiazepines Scrn Urine Cocaine Screen Ur THC Screen COVID-19 Source SARS-CoV-2 (PCR) Influenza Type A (PCR) Influenza Type B (PCR) RSV (PCR) Add-On Test Request Time Spent with Patient Time Spent with Patient: 25-34 minutes Time was spent: preparing to see the patient(eg.review tests), obtaining and/or reviewing separately otained hiistory, ordering medications,tests, procedures, indepentently interpreting results and counseling the patient
[2022-10-15] MEDS: clonazePAM 1 MG TAB PO ×2 (10:42→15:19)
[2022-10-15] MEDS: Ondansetron O.D.T. 4 MG TABEF PO (11:38)
[2022-10-15 14:20] LABS: Potassium 3.5 mmol/L (3.5-5.1)
[2022-10-15 16:50] LABS: Albumin, Body FLuid <1.0 g/dL (See Note)
[2022-10-16 03:39] VITALS: BP 122/73; PULSE 104; RESP 18; TEMP 36.2; O2SAT 94
[2022-10-16 06:58] LABS: Abs Immature Grans 0.02 10^3/uL (0.0-0.06); Absolute Basophil Count 0.02 10^3/uL (0.0-0.2); Absolute Eosinophil Count 0.22 10^3/uL (0.0-0.7); Absolute Lymphocyte Count 1.97 10^3/uL (1.2-3.4); Absolute Monocyte Count 0.73 10^3/uL (0.1-0.8); Absolute Neutrophil Count 3.46 10^3/uL (1.2-6.7); Basophils % 0.3; Eosinophils % 3.4; HCT 25.9 % (36.0-46.0); Immature Grans % 0.3; Lymphocytes % 30.7; MCH 28.5 pg (27.0-33.0); MCHC 31.7 % (32.0-36.0); MCV 90 fL (80-95); MPV 10.9 fL (8.0-11.0); Monocytes % 11.4; Neutrophils % 53.9; Platelet Count 155 10^3/uL (130-400); RBC 2.88 10^6/uL (3.93-5.22); RDW-SD 66.4 fL; WBC 6.42 10^3/uL (4.4-10.8)
[2022-10-16 07:00] LABS: HGB 8.2 g/dL (11.2-15.7)
[2022-10-16 07:04] VITALS: PULSE 96
[2022-10-16 07:17] LABS: ALT 20 U/L (14-59); AST 88 U/L (15-37); Albumin 2.3 g/dL (3.4-5.0); Alkaline Phosphatase 112 U/L (46-116); Anion Gap 5.7 mmol/L (3-11); BUN 2 mg/dL (7-18); Bilirubin, Total 4.6 mg/dL (0.2-1.0); CO2 31.3 mmol/L (21.0-32.0); CREATININE 0.8 mg/dL (0.55-1.02); Calcium 8.1 mg/dL (8.5-10.1); Chloride 100 mmol/L (98-107); Estimated GFR 97.87 (mL/min/1.73m2); Glucose 93 mg/dL (74-106); Magnesium 1.8 mg/dL (1.8-2.4); Potassium 3.6 mmol/L (3.5-5.1); Sodium 137 mmol/L (136-145); Total Protein 7.1 g/dL (6.4-8.2)
[2022-10-16 07:50] VITALS: PULSE 99
--- NOTE | 2022-10-16 08:00 | DI.US_ITS ---
Exam(s) US ABDOMEN LIMITED EXAM: US ABDOMEN LIMITED CLINICAL HISTORY: new diagnosis of cirrhosis and ascites; RUQ limited TECHNIQUE: Ultrasound abdomen performed using standard protocol. COMPARISON: Prior CT scan of 10/14/2022 was reviewed FINDINGS: There is moderate amount of ascites evident. LIVER: Liver is coarsened and has somewhat nodular cirrhotic appearance GALLBLADDER/BILIARY: There is layering sludge in the gallbladder lumen. Gallbladder wall thickness i s increased at 5-6 mm. No obvious shadowing intraluminal gallstones evident. No pericholecystic flu id. The common hepatic duct isdilated, measuring 15mm at the level of lary hepatis. PANCREAS: There is no evidence of pancreatic mass nor dilatation of the pancreatic duct. RIGHT KIDNEY:No evidence of solid mass, calculus, nor hydronephrosis. No cortical cysts evident. IMPRESSION: 1. Gallbladder is filled with sludge and gallbladder wall appears thickened at 5-6 mm. 2. There is also dilatation of the common hepatic duct which measures 1.5 cm. There does not appear to be sludge nor obvious gallstones the CBD. 3. There is ascites evident, as was also evident on the recent CT scan. DATA REPOSITORY:
--- NOTE | 2022-10-16 08:00 | DI.US_ITS ---
Exam(s) US EXTREMITY VENOUS BI EXAM: US EXTREMITY VENOUS BI CLINICAL HISTORY: BLE edema TECHNIQUE: Grayscale, color, and doppler imaging of the deep venous system of both lower extremities was performed. COMPARISON: US US ABDOMEN LIMITED from 12/08/2021 FINDINGS: There is no evidence of intraluminal thrombus and there is normal compression and augmentation demons trated within the common femoral veins, femoral veins, and popliteal veins of both lower extremities. In the calves the interrogated veins also exhibit normal compression/ augmentation properties. The greater saphenous veins also appear patent as do the saphenofemoral junctions bilaterally.. IMPRESSION: 1. No ultrasound evidence of DVT in either lower extremity. DATA REPOSITORY:
--- NOTE | 2022-10-16 08:30 | DI.US_ITS ---
APPROVED REPORT EXAM: Comprehensive 2D, Doppler, and color-flow Echocardiogram Patient Location: In-Patient Room/Bed: 217 Admissions Manager Rn: Felecia Perla RDCS (AE) Indications: Fluid overload, Concern for CHF Other Information Study Quality: Adequate Conclusion Normal left ventricular wall thickness and chamber size. Estimated ejection fraction is 60 to 65%. Wall motion is normal Normal right ventricular size and systolic function Both atria are normal in size There is no structural or hemodynamically significant valvular disease Wall motion Left Ventricle The left ventricle is normal size. The left ventricular systolic function is normal. The left ventric ular ejection fraction is within the normal range. There is normal left ventricular wall thickness. T here is normal LV segmental wall motion. There is no ventricular septal defect visualized. LVEF is 60 -65%. Right Ventricle The right ventricle is normal size. The right ventricular systolic function is normal. Atria The left atrium size is normal. The right atrium size is normal. The interatrial septum is intact wit h no evidence for an atrial septal defect. Aortic Valve The aortic valve is normal in structure. Aortic valve is trileaflet. There is no aortic valvular sten osis. No aortic regurgitation is present. Mitral Valve The mitral valve is normal in structure. No evidence of mitral valve stenosis. Trace mitral regurgita tion. Tricuspid Valve The tricuspid valve is normal in structure. There is no tricuspid valve stenosis. Trace tricuspid reg urgitation. Unable to assess PA pressure. Pulmonic Valve Pulmonic valve is not well visualized. Great Vessels The aortic root is normal in size. The ascending aorta is normal in size. Aortic arch is normal in ca liber. IVC is normal in size and collapses >50% with inspiration. Pericardium There is no pericardial effusion. 2D Dimensions IVSD d PLAX 0.88 cm F: 0.6-1.0 LV Vol A2C d MOD 89.8 mL LVPW d PLAX 0.88 cm F: 0.6 - 1.0 LV Vol A4C d MOD 117.3 mL LVID d PLAX 4.76 cm F: 3.8 - 5.2 LA vol/ BSA A2C s A-L 21.8 mL/m2 LVDs 3.10 cm F: 2.2 - 3.5 LA vol/ BSA A4C s A-L 31.7 mL/m2 Ao Root d 3.01 cm F: 2.7 - 3.3 LA Vol/ BSA Biplane s A-L 28.7 mL/m2 RA Area A4C 15.32 cm2 LA Area A4C s MOD 22.55 cm2 RA Vol/ BSA A4C s A-L 16.3 mL/m2 LA Area A2C s MOD 17.13 cm2 Ao Asc Diam d 3.12 cm F: 2.3 - 3.1 LV EF A4C MOD 60.2 % LV EF Teichholz 63.2 % LV EF A2C MOD 61.1 % LVEF (Ring's) 59.72 % F: 54 - 74 LV EF Biplane MOD 59.7 % LV Volume 74.92 mL F: 46 - 106 SV 61.24 mL LV Volume Index 34.52 mL/m2 F: 29 - 61 SV Index 28.24 mL/m2 LV Vol Biplane MOD 102.6 mL FS 34.20 % LV Diastology E/A Ratio 1.0 MV E Vmax 1.10 (0.4-1.3 m/s) MV A Vmax 1.05 (0.4-1.3 m/s) MV E/A Ratio 1.03 Aortic Valve LVOT Area 3.03 cm2 AoV Area Vmax 2.85 cm2 LVOT Vmax 1.79 m/s AoV Area/ BSA (Vmax) 1.31 cm2/m2 LVOT Mean Octaviano. 1.15 m/s JUAN Mean Octaviano. 2.72 cm2 LVOT Peak Grad 12.9 mmHg JUAN Mean Octaviano. Index 1.25 cm2/m2 LVOT Mean Grad 6.3 mmHg LVOT VTI 0.309 m LVOT Diam s 1.95 cm AoV Vmax 1.91 m/s Velocity Ratio 0.94 AoV Mean Octaviano. 1.28 m/s AoV Peak Grad 14.5 mmHg LVOT SV 93.57 mL AoV Mean Grad 7.8 mmHg AoV VTI 0.335 m AoV Area VTI 2.79 cm2 AoV Area/ BSA (VTI) 1.29 cm/m2 Mitral Valve MV DT 329 (160-240 msec) MV PHT 96 msec MV Area PHT 2.30 cm2 MV VTI 0.366 m MV Area VTI 2.55 (4.0-6.0 cm2)
--- NOTE | 2022-10-16 09:32 | PDOC.CMPRO ---
- If Service Date Differs Date of service: 10/16/22 Time of Service: 09:32 Care Management Progress Note S/O: Mildred was lying in bed when CM met with her. She is tearful and minimally engages in conversation, other than she is tired and wants to sleep. CM will continue to support patient and her discharge planning needs. A: 37 year old female admitted to [facility] on 10/15/22 for Hepatic cirrhosis P: Anticipate Mildred will be discharged home with no new services. She will follow up with her community providers and plan of care and transport with friend/family. CM will follow and assess for discharge concerns.
[2022-10-16 10:01] LABS: Hepatitis A Antibody IgM Negative (Negative); Hepatitis B Core Antibody Negative (Negative); Hepatitis B surface Ag Negative (Negative); Hepatitis C Ab w Rflx HCV PCR Negative (Negative)
[2022-10-16 10:16] VITALS: BP 120/79; PULSE 95; RESP 20; TEMP 36.9; O2SAT 97
[2022-10-16] MEDS: Magnesium Oxide 400 MG TAB PO (10:17)
[2022-10-16] MEDS: Spironolactone 50 MG TAB PO (10:18)
[2022-10-16] MEDS: Heparin 5,000 UNITS/ML VIAL 5000 UNITS SC (10:19)
[2022-10-16] MEDS: Lactulose 20 GM/30 ML CUP PO (10:20)
[2022-10-16] MEDS: Normal Saline Flush 10 ML SYR IVP ×2 (10:21→16:10)
[2022-10-16] MEDS: Furosemide 20 MG/2 ML VIAL IVP ×2 (10:21→16:10)
[2022-10-16 10:22] LABS: Alpha 1 Antitrypsin,Serum 169 mg/dL (90-200)
[2022-10-16] MEDS: clonazePAM 1 MG TAB PO ×2 (11:29→17:01)
--- NOTE | 2022-10-16 12:08 | W.INDIABCONS ---
Date of service: 10/16/22 Time of Service: 12:08 Diabetes Inpatient Consult Reason for Visit: Dm2 DESCRIPTION/ASSESSMENT: 37 year old female admitted with abdominal ascites secondary to hepatic cirrohsis due to fatty liver disease. PMH: diet controlled Dm2, morbid obesity. Following low sodium diet with good intake. Most recent A1C: 4.8% most likely not accurate in view of advanced liver disease. INTERVENTION: Will provide diet education on low sodium diet and encourage outpatient nutrition counseling PLAN: labs, weight, po intake. Time Spent in Nutritional Counseling and Treatment: 20
--- NOTE | 2022-10-16 14:28 | SCONE_ITS ---
Date of service: 10/16/22 Time of Service: 14:28 Assessment and Plan Assessment and plan (1) Acute anemia: Status: Acute (2) Hepatic cirrhosis: Status: Acute Assessment and plan: With the absence of gallbladder tenderness, and no signs of pericholecystic flu id on ultrasound, I do not think this is acute cholecystitis. The labs and imaging seem more consistent with decompensated cirrhosis, although the etiology of it is a little unclear. I do think she will benefit from consultation with a cardiac monitor technician regarding the diagnosis and management of her cirrhosis. History of Present Illness History of Present Illness Chief Complaint: Lower extremity swelling and ascites Narrative: Mildred is a 37-year-old woman who presents to the emergency department on October 14 with a chief complaint of increased lower extremity and abdominal swelling. The initial work-up had been started by her primary care physician, and she was treated with furosemide. Her abdomen and legs continue to swell. She underwent an ultrasound of the abdomen that demonstrated some ascites. She underwent paracentesis, and the preliminary diagnosis at this point is cirrhosis. Gallbladder sludge was also appreciated on her abdominal ultrasound. She does complain of some nonfocal abdominal discomfort to me. She said this improved a little bit after paracentesis. She denies other symptoms of classic acute cholecystitis, although she does report a history of gastroesophageal reflux disease, and it looks like she is treated with omeprazole as an ou tpatient. PFSH All Active Problems (Updated 10/16/22 @ 15:31 by Patricia Kirk NP) Hepatic cirrhosis (Acute) Non-insulin dependent type 2 diabetes mellitus (Acute) Constipation (Acute) Plate-like atelectasis (Acute) Pulmonary edema (Acute) Edema of both lower extremities (Acute) Discharge planning issues (Acute) DVT prophylaxis (Acute) Hypoalbuminemia (Acute) Hyperbilirubinemia (Acute) Hypomagnesemia (Acute) Hyponatremia (Acute) Coagulopathy (Acute) Acute anemia (Acute) Abdominal ascites (Acute) HTN (hypertension), benign (Acute) Obesity, morbid, BMI 40.0-49.9 (Acute) GERD (gastroesophageal reflux disease) (Chronic) Anxiety (Chronic) Medical History (Updated 10/16/22 @ 15:31 by Patricia Kirk NP) Hepatic steatosis Surgical History (Updated 10/14/22 @ 23:39 by Danielle Ku MD) H/O section H/O wisdom tooth extraction Family History (Updated 10/14/22 @ 23:39 by Danielle Ku MD) Mother Liver disease Alcohol use disorder Maternal Aunt Liver disease Alcohol use disorder Social History Smoking/Tobacco Use Status: Current every day Tobacco Type: cigarettes Smoking risk assessment performed?: Yes Alcohol Intake: current Alcohol Intake frequency: holidays/special occasions only Drug use: Never Substance use type: marijuana Do you feel safe at home: Yes Do you feel safe in your relationship?: Yes Exam GI Inspection: distended Palpation: firm, no guarding, nontender and ascites Percussion: dullness to percussion Results Last Vital Signs Temp 98.5 F 10/16/22 10:16 Pulse 95 H 10/16/22 10:16 Resp 20 10/16/22 10:16 BP 120/79 10/16/22 10:16 Pulse Ox 97 10/16/22 10:16 Labs 10/16/22 06:13 10/16/22 06:13 Labs: Laboratory Results - last 24 hr 10/14/22 10/14/22 10/14/22 19:05 20:32 20:32 WBC RBC Hgb Hct MCV MCH MCHC RDW Plt Count MPV Immature Gran % Neutrophils % Lymphocytes % Monocytes % Eosinophils % Basophils % Nucleated RBC % Absolute Neutrophils Absolute Lymphocytes Absolute Monocytes Absolute Eosinophils Absolute Basophils Sodium Potassium Chloride Carbon Dioxide Anion Gap BUN Creatinine Est GFR (CKD-EPI 2020) Glucose Calcium Magnesium Total Bilirubin AST ALT Alkaline Phosphatase Total Protein Albumin [id number] 169 Fluid Albumin <1.0 Hepatitis A IgM Ab Negative Hep Bs Antigen Negative Hep B Core Total Ab Negative Hepatitis C Antibody Negative 10/16/22 10/16/22 06:13 06:13 WBC 6.42 RBC 2.88 L Hgb 8.2 L Hct 25.9 L MCV 90 MCH 28.5 MCHC 31.7 L RDW 20.0 H Plt Count 155 MPV 10.9 Immature Gran % 0.3 Neutrophils % 53.9 Lymphocytes % 30.7 Monocytes % 11.4 Eosinophils % 3.4 Basophils % 0.3 Nucleated RBC % 0.0 Absolute Neutrophils 3.46 Absolute Lymphocytes 1.97 Absolute Monocytes 0.73 Absolute Eosinophils 0.22 Absolute Basophils 0.02 Sodium 137 Potassium 3.6 Chloride 100 Carbon Dioxide 31.3 Anion Gap 5.7 BUN 2 L Creatinine 0.8 Est GFR (CKD-EPI 2020) 97.87 Glucose 93 Calcium 8.1 L Magnesium 1.8 Total Bilirubin 4.6 H AST 88 H ALT 20 Alkaline Phosphatase 112 Total Protein 7.1 Albumin 2.3 L [id number] Fluid Albumin Hepatitis A IgM Ab Hep Bs Antigen Hep B Core Total Ab Hepatitis C Antibody Imaging Abdomen CT scan report/results: report reviewed and image reviewed CT scan - pelvis: report reviewed and image reviewed Abdominal ultrasound report/results: report reviewed and image reviewed
[2022-10-16 15:42] VITALS: BP 116/71; PULSE 104; RESP 14; TEMP 37.3; O2SAT 94
--- NOTE | 2022-10-16 15:44 | DSE_ITS ---
Date of service: 10/17/22 Time of Service: 18:00 DS: Diagnosis Discharge Diagnosis (1) Hepatic cirrhosis: Status: Deleted (2) Abdominal ascites: Status: Acute (3) Edema of both lower extremities: Status: Acute (4) Pulmonary edema: Status: Acute (5) Acute anemia: Status: Acute (6) Coagulopathy: Status: Acute (7) Hyponatremia: Status: Acute (8) Hypomagnesemia: Status: Resolved (9) Hyperbilirubinemia: Status: Acute (10) Hypoalbuminemia: Status: Acute (11) Plate-like atelectasis: Status: Acute (12) Constipation: Status: Acute (13) DVT prophylaxis: Status: Deleted (14) Discharge planning issues: Status: Deleted Discharge Plan Disposition Patient Disposition: Home Condition: Fair Discharge Details Reason For Visit: New Onset Ascites, New Diagnosis of Cirrhosis Admit Date/Time: 10/14/22 21:23 Admit Provider: Danielle Ku Attending Provider: Danielle Ku Primary Care Provider: Allie Raines Hospital Course Hospital Course: This is a 37 year old female with PMHx of hepatic steatosis, ?fatty liver,? Diet-controlled DM2, GERD, obesity with BMI of 45.2 kg/m2, anxiety, and a family h/o liver disease that the patient thinks is related to alcohol, who presented to [facility] ED on 10/14/2022 c/o worsening swelling in her BLEs as well as her abdomen as well as shortness of breath. The swelling in the legs started about 3 weeks prior to coming to the ED, shortness of breath had been going on for about a couple of weeks, worsening over the 5-6 days, and had progressed to the point of being unable to finish a sentence when talking, and the abdominal swelling happened a week prior to that. The patient stated some people have noticed that she is a little yellow - specifically in her eyes. Her ex partner stated that she actually looks more pale to him than her normal. The patient endorsed very dry skin as well. She denied fevers, endorsed a dry cough, occasional nausea, but no vomiting, endorsed constipation, denied blood in stool. ?Her urine has been dark for over a month. Her abdomen hurt in BLQ and was itchy from the distention. The patient endorsed heavy alcohol use between the ages of 22 and 26 and only rare/occasional since. Her last drink was about a month ago and was only one alcoholic beverage. She is not . The patient saw her? PCP on 10/03/22 who then? started her on aldactone 25 mg PO daily, referred her to GI, and ordered a CT of the abdomen and pelvis ? not done. The patient stated she had been trying to decrease her salt intake and taking her aldactone 25 mg daily as prescribed, but the swelling in her legs and abdomen has gotten worse, so the patient came to the ED. Here, her presentation was consistent with ascites. Her CT of the abdomen/pelvis showed hepatic cirrhosis with hepatosplenomegaly, ascit es, and anasarca. Her labs are remarkable for H/H of 8.9/27.4 (hemoglobin was 14.3 in 12/18), sodium of 133, magnesium of 1.5, INR of 1.9,? T. Bili of 4.5, Conjugated bili of 2.4, AST of 117, ALT of 124, ask phos of 123, albumin of 2.6, TSH of 2.87.? She underwent a paracenthesis in the ED with 4 L of fluid removed.? This provided immediate relief. ? Fluid WBC count was 148, not c/w bacterial peritonitis. Additionally, her troponin I was elevated to 115, then 118 on repeat without chest pain. Her NT-pro-BNP was 80 pg/mL. Her EKG was Sinus tach w/o evidence of acute ischemia.? [facility] suspected GUERRERO as etiology of cirrhosis given her BMI, but given family history, recommended hepatitis and autoimmune studies (ARNAUD, AMA, ASMA, A1AT), ceruloplasmin, initiation of spironolactone and lasix. US abdomen was recommended to r/o portal vein thrombosis. She would need an outpatient EGD. She was placed on observation status on the medical floor.? She was evaluated by surgery and in the absence of gallbladder tenderness, and no signs of pericholecystic fluid on ultrasound, they did not think this was acute cholecystitis.? The labs and imaging are more consistent with decompensated cirrhosis, although, they agree, ?the etiology of it is a little unclear. They recommended consultation with a electro mechanical designer regarding the diagnosis and management of her cirrhosis. BLE US negative for DV T, no PE.? Echocardiogram showed normal left ventricular wall thickness and chamber size.? Estimated ejection fraction is 60 to 65%.? Wall motion is normal. Normal right ventricular size and systolic functionBoth atria are normal in size. There is no structural or hemodynamically significant valvular disease.? She was started on Furosemide 40 mg daily and Spironolactone 50 mg twice a day, as well as Potassium 20 meq daily. She was discharged to home and should have labs checked on Thursday, October 20, 2022; results to PCP.? She is following up with Kin Crouch APRN at the [facility] on November 07 @ 1pm.? She is encouraged to return to the ED if she feels worse. She had stable vital signs and was discharged to home. Discussed with Dr. Bear Home Meds and New Rx's Prescriptions: New spironolactone 50 mg Tablet 50 mg PO BID Qty: 60 0RF furosemide 40 mg tablet 40 mg PO DAILY Qty: 30 0RF potassium chloride 20 mEq tablet extended release 20 meq PO DAILY Qty: 30 0RF Continued zolpidem [Ambien] 5 MG tablet 5 mg PO HS clonazepam [Klonopin] 1 MG tablet 1 mg PO QID PRN PRN (Reason: Anxiety) ondansetron HCl 4 mg tablet 4 mg PO Q4H PRN omeprazole 40 mg capsule,delayed release(DR/EC) 40 mg PO DAILY nortriptyline 25 mg capsule 25 mg PO DAILY magnesium gluconate 27 mg magnesium (500 mg) tablet 27 mg PO DAILY Discontinued spironolactone 25 mg tablet 25 mg PO DAILY Discharge Instructions Instructions: Spironolactone (By mouth), Furosemide (By mouth), Potassium Supplement (By mouth), Cirrhosis (DC), Potassium Content of Foods List (DC), DASH Eating Plan (DC), Hypomagnesemia (DC) Additional Instructions: Low-sodium diet (continued) Foods to choose Foods to avoid Breads: Whole-grain breads, Thai muffins, bagels Biscuits, prepared mixes (pancake, muffin, cornbread) Cereals: Cooked hot cereals (not instant), such as oatmeal, cream of wheat, rice, or farina; puffed wheat; puffed rice; shredded wheat Instant hot cereals, many boxed cold cereals Crackers and snack foods: All unsalted crackers and snack foods, unsalted peanut butter, unsalted nuts or seeds Salted crackers and snack items (chips, pretzels, popcorn), regular peanut butter, prepared dips/spreads, salted nuts or seeds Pasta, rice, and potatoes: Any type of pasta; potatoes; white or brown rice Macaroni and cheese mix; rice, noodle, or spaghetti mixes; canned spaghetti; frozen lasagna; instant potatoes; seasoned potato mixes Dried beans and peas:0 Any dried beans or peas without seasoning Beans or peas prepared with ham, sampson, salt pork, or sampson grease; all canned beans Meats and alternatives: Fresh or frozen beef, poultry, and fish; low-sodium canned tuna and salmon; eggs Salted, smoked, canned, spiced, and cured meat, poultry, or fish; sampson; ham; sausage; lunch meats; hot dogs; breaded frozen meat, fish, or poultry; frozen dinners; pizza Fruits and vegetables: Any fresh, frozen, or canned fruit, any fresh or frozen vegetables without sauce, canned vegetables without salt, low-salt tomato sauce/paste Regular canned vegetables and vegetable juices, regular tomato sauce and tomato paste, olives, pickles, relishes, sauerkraut, frozen vegetables in butter or sauces, crystallized and glazed fruit, maraschino cherries, fruit dried with sodium sulfite Dairy products: Milk, cream, sour cream, non-dairy creamer, yogurt, low-sodium cottage cheese, low-sodium cheese Buttermilk, Pakistani processed chocolate milk, processed cheese slices and spreads, processed cheese, cottage cheese, aged or natural cheese Fats and oils: Plant oils (olive, canola, corn, peanut), unsalted butter or margarine Prepared salad dressings, sampson, salt pork, fat back, salted butter or margarine w Soups: Salt-free soups and low-sodium bouillon cubes, unsalted broth, homemade soup without added salt Regular canned or prepared soups, stews, broths, or bouillon; packaged and frozen soups Desserts: Gelatin, sherbet, pudding, ice cream, salt-free baked goods, sugar, honey, jam, jelly, marmalade, syrup Packaged baked goods N Beverages: Coffee, tea, soft drinks, fruit-flavored drinks, low-salt tomato juice, any fruit juice Softened water; carbonated beverages with sodium or salt added; regular tomato juice (V-8); ask about alcoholic beverages Condiments: Fresh and dried herbs; lemon juice; low-salt mustard, vinegar, Tabasco sauce; low- or no-salt ketchup; seasoning blends that do not contain salt Table salt, lite salt, bouillon cubes, meat extract, taco seasoning, Worcestershire sauce, tartar sauce, ketchup, chili sauce, cooking lety and wine, onion salt, mustard, garlic salt, soy sauce, tamari, meat flavoring or tenderizer, steak and barbecue sauce, seasoned salt, monosodium glutamate (MSG), Pakistani processed cocoa Start Furosemide 40 mg daily and Spironolactone 50 mg twice a day. Start Potassium 20 meq daily. Have labs checked on Sunday, October 20, 2022; results to your PCP. Return to Emergency Department immediately if decline. Stand Alone Forms: Nursing Discharge Form Referrals: GASTROENTEROLOGY,[facility] [OTHER] - 11/07/22 1:00 pm (You have an appointment with Bel Crouch APRN at the GI Clinic on November 07 @ 1 PM: [facility] [place] [facility] level 4 L. ) Allie Raines PA [Primary Care Provider] - 11/01/22 4:30 pm () Activity:: Activity as Tolerated Equipment/Supplies:: No Equipment Needed Diet:: Low Sodium Discharge Orders Other Ambulatory Orders: Basic Metabolic Panel (Routine) Timeframe: 20221020 Location: None Selected Ordered By: Patricia Kirk Complete Blood Count w/Diff (Routine) Location: None Selected Ordered By: Patricia Kirk Liver Panel (Routine) Location: None Selected Ordered By: Patricia Kirk Discharge Data Discharge Date/Time-TO BE ENTERED AT DEPARTURE: 10/16/22 17:10 DS: Summary Time Spent with Patient providing and/or coordinating discharge services: Greater than 30 minutes Status at Discharge Functional status at discharge: independent ambulation Overall status at discharge: patient is not back to baseline Mental Status: mental status grossly normal Speech and Movement: speech and movement normal Mood: congruent mood Affect: normal affect Exam Const General: cooperative, comfortable, no acute distress, well developed and ill appearing acutely and chronically Nutritional Appearance: well nourished and overweight Orientation: alert and awake HENSC Head: normal to inspection Mouth: oral mucosae normal and moist mucous membranes Neck Neck: normal visual inspection and full ROM Resp Effort & Inspection: normal respiratory effort, able to speak in complete sentences and no respiratory distress Auscultation: clear to auscultation bilaterally, no rales, no rhonchi and no wheezes Cardio Rate: regular rate Rhythm: regular rhythm GI Inspection: distended and obesity Palpation: no guarding, no masses and nontender Percussion: fluid wave Auscultation: normal bowel sounds Back/Spine/Pelvis Back: no CVA tenderness Skin General skin exam: no rashes or lesions noted Trauma: no lacerations or abrasions Neuro General: patient alert and patient awake Cognition: normal cognition Speech: speech normal Gait: normal gait Extrem General: capillary refill normal, no calf tenderness and edema Laterality: bilateral Psych Appearance: grossly normal and well kempt Mental Status: mental status grossly normal Speech and Movement: speech and movement normal Mood: congruent mood Affect: normal affect DS: Data Vitals/I&O Vitals and I&O: Vital Signs Temperature 37.3 C 10/16/22 15:42 Temperature Source Tympanic 10/16/22 15:42 Pulse 104 H 10/16/22 15:42 Pulse Rhythm Regular 10/16/22 09:15 Pulse 107 H 10/14/22 22:31 Respiratory Rate 14 10/16/22 15:42 Respiratory Effort Non-Labored 10/16/22 09:15 Respiratory Depth Normal 10/16/22 09:15 Respiratory Pattern Normal 10/16/22 09:15 Blood Pressure 116/71 10/16/22 15:42 Blood Pressure Mean 77 10/14/22 22:31 Pulse Oximetry 94 10/16/22 15:42 Oxygen Delivery Method Room Air 10/16/22 15:42 Oxygen Flow Rate 0 10/16/22 15:42 Pain Level 0 10/16/22 15:42 Intake & Output 10/15/22 10/16/22 10/16/22 23:59 11:59 23:59 Intake Total 250 / 488.5 240 / 240 Balance 250 / 488.5 240 / 240 Weight 111.8 kg Intake: Oral 250 / 250 240 / 240 Other: Urine Appearance Clear Clear Comment independent voids. Stool Occult Blood Negative Stool Size Small Small Stool Characteristics Soft Liquid Liquid Brown Brown Voiding Methods Toilet Toilet Data Completed and Pending Completed studies during hospitalization [Text1]: Echo: Conclusion Normal left ventricular wall thickness and chamber size.? Estimated ejection fraction is 60 to 65%.? Wall motion is normal Normal right ventricular size and systolic function Both atria are normal in size There is no structural or hemodynamically significant valvular disease Ext Venous extremety US: Conclusion: There is no evidence of intraluminal thrombus and there is normal compression and augmentation demonstrated within the common femoral veins, femoral veins, and popliteal veins of both lower extremities. Abdominal CT There is moderate amount of ascites evident. LIVER: Liver is coarsened and has somewhat nodular cirrhotic appearance GALLBLADDER/BILIARY: There is layering sludge in the gallbladder lumen.? Gallbladder wall thickness is increased at 5-6 mm.? No obvious shadowing intraluminal gallstones evident.? No pericholecystic fluid. The common hepatic duct isdilated, measuring 15mm at the level of lary hepatis. PANCREAS: There is no evidence of pancreatic mass nor dilatation of the pancreatic duct. RIGHT KIDNEY:No evidence of solid mass, calculus, nor hydronephrosis. No cortical cysts evident. IMPRESSION: 1.? Gallbladder is filled with sludge and gallbladder wall appears thickened at 5-6 mm. 2.? There is also dilatation of the common hepatic duct which measures 1.5 cm.? There does not appear to be sludge nor obvious gallstones the CBD. 3.? There is ascites evident, as was also evident on the recent CT scan. Labs on day of discharge: Labs from last 24 hours 10/16/22 10/16/22 10/14/22 06:13 06:13 20:32 WBC 6.42 RBC 2.88 L Hgb 8.2 L Hct 25.9 L MCV 90 MCH 28.5 MCHC 31.7 L RDW 20.0 H Plt Count 155 MPV 10.9 Immature Gran % 0.3 Neutrophils % 53.9 Lymphocytes % 30.7 Monocytes % 11.4 Eosinophils % 3.4 Basophils % 0.3 Nucleated RBC % 0.0 Absolute Neutrophils 3.46 Absolute Lymphocytes 1.97 Absolute Monocytes 0.73 Absolute Eosinophils 0.22 Absolute Basophils 0.02 Sodium 137 Potassium 3.6 Chloride 100 Carbon Dioxide 31.3 Anion Gap 5.7 BUN 2 L Creatinine 0.8 Est GFR (CKD-EPI 2020) 97.87 Glucose 93 Calcium 8.1 L Magnesium 1.8 Total Bilirubin 4.6 H AST 88 H ALT 20 Alkaline Phosphatase 112 Total Protein 7.1 Albumin 2.3 L Csepa-0-Abwxfwtljmy 169 Fluid Albumin Hepatitis A IgM Ab Hep Bs Antigen Hep B Core Total Ab Hepatitis C Antibody 10/14/22 10/14/22 20:32 19:05 WBC RBC Hgb Hct MCV MCH MCHC RDW Plt Count MPV Immature Gran % Neutrophils % Lymphocytes % Monocytes % Eosinophils % Basophils % Nucleated RBC % Absolute Neutrophils Absolute Lymphocytes Absolute Monocytes Absolute Eosinophils Absolute Basophils Sodium Potassium Chloride Carbon Dioxide Anion Gap BUN Creatinine Est GFR (CKD-EPI 2020) Glucose Calcium Magnesium Total Bilirubin AST ALT Alkaline Phosphatase Total Protein Albumin Boule-0-Mjmdijmukyq Fluid Albumin <1.0 Hepatitis A IgM Ab Negative Hep Bs Antigen Negative Hep B Core Total Ab Negative Hepatitis C Antibody Negative Preliminary micro results at discharge 10/14/22 19:06 Body Fluid Culture - Preliminary Peritoneal PFSH All Active Problems (Updated 10/17/22 @ 00:06 by IZA SERRANO) Hepatic cirrhosis (Acute) Non-insulin dependent type 2 diabetes mellitus (Acute) Constipation (Acute) Plate-like atelectasis (Acute) Pulmonary edema (Acute) Edema of both lower extremities (Acute) Hypoalbuminemia (Acute) Hyperbilirubinemia (Acute) Hyponatremia (Acute) Coagulopathy (Acute) Acute anemia (Acute) Abdominal ascites (Acute) HTN (hypertension), benign (Acute) Obesity, morbid, BMI 40.0-49.9 (Acute) GERD (gastroesophageal reflux disease) (Chronic) Anxiety (Chronic) Medical History (Updated 10/17/22 @ 00:06 by IZA SERRANO) Hepatic steatosis Surgical History (Updated 10/14/22 @ 23:39 by Danielle Ku MD) H/O section H/O wisdom tooth extraction Family History (Updated 10/14/22 @ 23:39 by Danielle Ku MD) Mother Liver disease Alcohol use disorder Maternal Aunt Liver disease Alcohol use disorder Social History Smoking/Tobacco Use Status: Current every day Tobacco Type: cigarettes Smoking risk assessment performed?: Yes Alcohol Intake: current Alcohol Intake frequency: holidays/special occasions only Drug use: Never Substance use type: marijuana Do you feel safe at home: Yes Do you feel safe in your relationship?: Yes Time Spent with Patient Time Spent with Patient: 45-69 minutes Time was spent: preparing to see the patient(eg.review tests), ordering medications,tests, procedures, referring, communicating with other health auto care center manager, indepentently interpreting results, counseling the patient and care coordination
--- NOTE | 2022-10-16 16:01 | PDOC.CMDIS ---
- If Service Date Differs Date of service: 10/16/22 Time of Service: 16:01 LACE Index Scoring Tool - Questions: Length of Stay (in days): 1 Acuity (Admit via E.D.?): Yes E.D. Visits: 2 - Answers: Total Score: 6 Risk of Readmission: Low Risk Care Management Discharge Reason for Hospitalization: hepatic cirrhosis Discharge Plan: Mildred is discharged home via private vehicle with family. She will follow up with her community providers and discharge plan of care as prescribed. Mildred will follow up with [facility] and primary care, as scheduled. New RX's are transmitted to [facility]. Patient/Family Education Needs: Review discharge instructions, limitations, medications and plan to follow up with her PCP and [facility]. Discuss ask me three.
[2022-10-16 16:10] LABS: ANA Interpretation Positive (Negative); ANA Titer Pattern 1:320 Homogeneous
[2022-10-17 12:29] LABS: Antithrombin Activity, Plasma 30 % (80 - 130); Smooth Muscle Ab Screen Negative (Negative)
[2022-10-17 14:06] LABS: Mitochondrial Ab, M2 <0.1 U
[2022-10-17 16:45] LABS: Ceruloplasmin 17.1 mg/dL
== END 2022-10-16 17:10 | disposition home or self-care (01) | DRG 432 ==
LOC: ER 23:21 → MS 23:27
PROVIDERS: Emergency Medicine; Internal Medicine; Admitting Provider Internal Medicine; Emergency Provider Physician Assistant; PCP Physician Assistant Medical; Visit Provider Internal Medicine
DX: K74.60 Unspecified cirrhosis of liver (principal); J81.0 Acute pulmonary edema; R18.8 Other ascites; E87.1 Hypo-osmolality and hyponatremia; D68.4 Acquired coagulation factor deficiency; Z68.42 Body mass index [BMI] 45.0-49.9, adult; J98.11 Atelectasis; E11.9 Type 2 diabetes mellitus without complications; E88.09 Other disorders of plasma-protein metabolism, not elsewhere classified; E80.6 Other disorders of bilirubin metabolism; D64.9 Anemia, unspecified; E83.42 Hypomagnesemia; K59.00 Constipation, unspecified; E66.9 Obesity, unspecified; K21.9 Gastro-esophageal reflux disease without esophagitis; F41.9 Anxiety disorder, unspecified; F17.210 Nicotine dependence, cigarettes, uncomplicated; K76.0 Fatty (change of) liver, not elsewhere classified
CPT/HCPCS: 49082; 36415; 80048; 80053; 80076; 80307; 82042; 82390; 83516; 83690; 85300; 86704; 86709; 86803; 87340; 87637; 93005; 96374; 96375; 99285; 71046; 74177; 76705; 81003; 82103; 82140; 82248; 82728; 82746; 83540; 83550; 83735; 83880; 84132; 84443; 84484; 85025; 85610; 85730; 86038; 86140; 86255; 87070; 87205; 89051; 93010; 93306; 93970; 99223; 99233; 99239; J1644; J1941; J2060; J2270; J3475; J3490

== ENCOUNTER 2022-11-20 14:09 | Outpatient (CLI) | payer MEDICAID, SELFPAY ==
[2022-11-20 14:18] LABS: Abs Immature Grans 0.02 10^3/uL (0.0-0.06); Absolute Basophil Count 0.02 10^3/uL (0.0-0.2); Absolute Eosinophil Count 0.02 10^3/uL (0.0-0.7); Absolute Lymphocyte Count 1.42 10^3/uL (1.2-3.4); Absolute Monocyte Count 0.46 10^3/uL (0.1-0.8); Absolute Neutrophil Count 3.23 10^3/uL (1.2-6.7); Basophils % 0.4; Eosinophils % 0.4; HCT 27.9 % (36.0-46.0); HGB 8.8 g/dL (11.2-15.7); Immature Grans % 0.4; Lymphocytes % 27.5; MCH 29.8 pg (27.0-33.0); MCHC 31.5 % (32.0-36.0); MCV 95 fL (80-95); MPV 10.8 fL (8.0-11.0); Monocytes % 8.9; Neutrophils % 62.4; Platelet Count 165 10^3/uL (130-400); RBC 2.95 10^6/uL (3.93-5.22); RDW 21.5 % (11.7-14.6); RDW-SD 74.8 fL; WBC 5.17 10^3/uL (4.4-10.8)
[2022-11-20 14:23] LABS: INR 1.7 (0.9-1.1); Prothrombin Time 17.3 sec (9.3-11.0)
[2022-11-20 14:39] LABS: Anisocytosis 1+
[2022-11-20 15:15] LABS: ALT 31 U/L (14-59); AST 116 U/L (15-37); Albumin 2.6 g/dL (3.4-5.0); Alkaline Phosphatase 89 U/L (46-116); Anion Gap 7.5 mmol/L (3-11); BUN 4 mg/dL (7-18); Bilirubin, Total 4.9 mg/dL (0.2-1.0); CO2 25.5 mmol/L (21.0-32.0); CREATININE 0.8 mg/dL (0.55-1.02); Calcium 8.8 mg/dL (8.5-10.1); Chloride 100 mmol/L (98-107); Estimated GFR 97.87 (mL/min/1.73m2); Glucose 133 mg/dL (74-106); Sodium 133 mmol/L (136-145); Total Protein 8.8 g/dL (6.4-8.2)
== END 2022-11-20 14:10 | disposition home or self-care (01) ==
LOC: LBO 14:11
PROVIDERS: PCP Physician Assistant Medical; Visit Provider Nurse Practitioner Family
DX: K74.69 Other cirrhosis of liver (principal); K76.82 Hepatic encephalopathy; R18.8 Other ascites
CPT/HCPCS: 36415; 80053; 85025; 85610

== ENCOUNTER 2022-12-29 02:18 | Outpatient (CLI) | payer MEDICAID, SELFPAY ==
[2022-12-29 15:10] LABS: Abs Immature Grans 0.04 10^3/uL (0.0-0.06); Absolute Basophil Count 0.02 10^3/uL (0.0-0.2); Absolute Eosinophil Count 0.03 10^3/uL (0.0-0.7); Absolute Lymphocyte Count 1.38 10^3/uL (1.2-3.4); Absolute Monocyte Count 0.73 10^3/uL (0.1-0.8); Absolute Neutrophil Count 3.79 10^3/uL (1.2-6.7); Basophils % 0.3; Eosinophils % 0.5; HCT 24.7 % (36.0-46.0); HGB 8.1 g/dL (11.2-15.7); Immature Grans % 0.7; MCH 33.2 pg (27.0-33.0); MCHC 32.8 % (32.0-36.0); MCV 101 fL (80-95); MPV 10.3 fL (8.0-11.0); Monocytes % 12.2; Neutrophils % 63.3; Platelet Count 144 10^3/uL (130-400); RBC 2.44 10^6/uL (3.93-5.22); RDW 19.2 % (11.7-14.6); RDW-SD 70.9 fL; WBC 5.99 10^3/uL (4.4-10.8)
[2022-12-29 15:23] LABS: INR 1.9 (0.9-1.1)
[2022-12-29 15:32] LABS: ALT 30 U/L (14-59); AST 148 U/L (15-37); Albumin 2.6 g/dL (3.4-5.0); Alkaline Phosphatase 90 U/L (46-116); Anion Gap 6.3 mmol/L (3-11); BUN 3 mg/dL (7-18); Bilirubin, Total 6.9 mg/dL (0.2-1.0); CO2 26.7 mmol/L (21.0-32.0); CREATININE 0.9 mg/dL (0.55-1.02); Calcium 8.2 mg/dL (8.5-10.1); Chloride 98 mmol/L (98-107); Estimated GFR 84.97 (mL/min/1.73m2); Glucose 116 mg/dL (74-106); Potassium 3.5 mmol/L (3.5-5.1); Sodium 131 mmol/L (136-145); Total Protein 9.1 g/dL (6.4-8.2)
[2022-12-29 15:35] LABS: ETHANOL BLOOD < 3.0 mg/dL (<10)
[2022-12-29 15:50] LABS: Prothrombin Time 19.1 sec (9.3-11.0)
[2022-12-29 15:58] LABS: Ferritin 189 ng/mL (8-252)
[2022-12-29 16:41] LABS: *AMPHETAMINES SCREEN URINE Negative (Negative); *BARBITURATES SCREEN URINE Negative (Negative); *BENZODIAZEPINES SCREEN URINE Positive (Negative); Cannabinoids THC Positive (Negative); Cocaine Screen,Urine Negative (Negative); METHADONE URINE SCREEN Negative (Negative); OPIATES URINE SCREEN Negative (Negative)
[2022-12-29 17:10] LABS: Tricyclic Antidepressants Negative (Negative)
[2022-12-29 17:24] LABS: Iron 33 ug/dL (50-170); Total Iron Binding Capacity 204 ug/dL (250-450); Transferrin Sat 16 % (15-50)
[2023-01-01 09:52] LABS: HIV-1/2 Ag & Ab Screen Negative (Negative)
[2023-01-01 09:56] LABS: CMV IgG Antibody Positive (See Note); EBNA IgG Positive (Negative); EBV Interpretation (See Note); Mumps Antibody IgG Positive (See Note); Rubella IgG Ab (UVM) Positive (See Note); Syphilis Serology (RPR) Negative (Negative); VCA IgG Positive (Negative); VCA IgM Negative (Negative); Varicella IgG Antibody Positive (See Note)
[2023-01-01 12:27] LABS: Hepatitis A Antibody IgM Negative (Negative); Hepatitis B Core Antibody Negative (Negative); Hepatitis B surface Ag Negative (Negative); Hepatitis C Ab w Rflx HCV PCR Negative (Negative)
[2023-01-01 14:16] LABS: TB Interpretation Negative (Negative); TB2 Ag minus Nil 0.09 IU/mL
[2023-01-01 14:45] LABS: Ethyl Glucuronide Screen, U Presumptive Positive ng/mL
== END 2022-12-29 02:19 | disposition home or self-care (01) ==
LOC: LBO 02:19
PROVIDERS: PCP Physician Assistant Medical; Visit Provider Physician Assistant
DX: K75.81 Nonalcoholic steatohepatitis (NASH) (principal); Z11.4 Encounter for screening for human immunodeficiency virus [HIV]; Z11.59 Encounter for screening for other viral diseases; Z01.818 Encounter for other preprocedural examination; Z01.812 Encounter for preprocedural laboratory examination; Z01.84 Encounter for antibody response examination; R79.1 Abnormal coagulation profile; R73.09 Other abnormal glucose; R79.89 Other specified abnormal findings of blood chemistry
CPT/HCPCS: 36415; 80053; 80307; 86704; 86709; 86765; 86787; 86803; 86900; 86901; 87340; 87389; 87799; 80320; 82105; 82728; 83540; 83550; 85025; 85610; 86480; 86592; 86644; 86645; 86664; 86665; 86735; 86762; 87798

== ENCOUNTER 2023-01-19 01:37 | Outpatient (CLI) | payer MEDICAID, SELFPAY ==
[2023-01-19 14:47] LABS: Bilirubin Large (Negative); Blood Negative (Negative); Clarity Cloudy (Clear); Glucose 100 mg/dL (Negative); Ketones Trace mg/dL (Negative); Leukocyte Esterase Small (Negative); Nitrite Positive (Negative); Specific Gravity 1.025 (1.005-1.025); pH 5.5 (5-8)
[2023-01-19 14:53] LABS: Bacteria Moderate HPF (Negative); C & S Indicated? No/Sq. Contamination; Casts 0-2 Hyaline LPF (Negative); Crystals Negative HPF (Negative); Epithelial Cells Many HPF (Negative); Mucus Negative (Negative); RBC Negative HPF (0-2)
[2023-01-22 09:27] LABS: HBs Antibody, Quant 233.4 mIU/mL (See Note); Hepatitis B Surface Ab Positive (See Note)
[2023-01-22 11:00] LABS: Measles IgG Antibody Positive (See Note)
[2023-01-25 15:39] LABS: Misc Referral (MAYO) See Comments
== END 2023-01-19 01:38 | disposition home or self-care (01) ==
LOC: LBO 01:38
PROVIDERS: PCP Physician Assistant Medical; Visit Provider Physician Assistant
DX: K75.81 Nonalcoholic steatohepatitis (NASH) (principal); Z11.4 Encounter for screening for human immunodeficiency virus [HIV]; Z11.59 Encounter for screening for other viral diseases; Z01.818 Encounter for other preprocedural examination; Z01.812 Encounter for preprocedural laboratory examination; Z01.84 Encounter for antibody response examination
CPT/HCPCS: 80321; 86706; 81003; 81015; 86765

== ENCOUNTER 2023-02-14 04:17 | Outpatient (CLI) | payer MEDICAID, SELFPAY ==
[2023-02-14 14:28] LABS: INR 1.9 (0.9-1.1); Prothrombin Time 18.8 sec (9.3-11.0)
[2023-02-14 14:30] LABS: Iron 20 ug/dL (50-170); Total Iron Binding Capacity 247 ug/dL (250-450); Transferrin Sat 8 % (15-50)
[2023-02-14 14:43] LABS: ALT 26 U/L (14-59); AST 103 U/L (15-37); Albumin 2.7 g/dL (3.4-5.0); Alkaline Phosphatase 68 U/L (46-116); Anion Gap 9.4 mmol/L (3-11); BUN 6 mg/dL (7-18); Bilirubin, Total 4.7 mg/dL (0.2-1.0); CO2 25.6 mmol/L (21.0-32.0); CREATININE 0.9 mg/dL (0.55-1.02); Calcium 8.5 mg/dL (8.5-10.1); Chloride 99 mmol/L (98-107); Estimated GFR 84.97 (mL/min/1.73m2); Ferritin 58 ng/mL (8-252); Glucose 103 mg/dL (74-106); Potassium 3.6 mmol/L (3.5-5.1); Sodium 134 mmol/L (136-145); TSH 3.19 uIU/mL (0.36-3.74); Total Protein 8.9 g/dL (6.4-8.2)
[2023-02-14 15:54] LABS: Abs Immature Grans 0.01 10^3/uL (0.0-0.06); Absolute Basophil Count 0.02 10^3/uL (0.0-0.2); Absolute Eosinophil Count 0.06 10^3/uL (0.0-0.7); Absolute Lymphocyte Count 1.19 10^3/uL (1.2-3.4); Absolute Monocyte Count 0.41 10^3/uL (0.1-0.8); Absolute Neutrophil Count 2.54 10^3/uL (1.2-6.7); Basophils % 0.5; Eosinophils % 1.4; HCT 25.6 % (36.0-46.0); HGB 8.2 g/dL (11.2-15.7); Immature Grans % 0.2; Lymphocytes % 28.1; MCV 100 fL (80-95); MPV 10.3 fL (8.0-11.0); Monocytes % 9.7; Neutrophils % 60.1; Platelet Count 146 10^3/uL (130-400); RBC 2.56 10^6/uL (3.93-5.22); RDW 14.9 % (11.7-14.6); RDW-SD 54.4 fL; WBC 4.23 10^3/uL (4.4-10.8)
[2023-02-15 09:58] LABS: IgG 3571 mg/dL (610-1616)
[2023-02-16 09:36] LABS: AFP Tumor Marker 5.2 ng/mL (<8.1)
[2023-02-21 08:42] LABS: Misc Referral (MAYO) See Comments
== END 2023-02-14 04:18 | disposition home or self-care (01) ==
LOC: LBO 04:18
PROVIDERS: PCP Physician Assistant Medical; Visit Provider Nurse Practitioner Family
DX: K74.60 Unspecified cirrhosis of liver (principal)
CPT/HCPCS: 36415; 80053; 80321; 82784; 82105; 82728; 83540; 83550; 84443; 85025; 85610

== ENCOUNTER 2023-03-27 13:23 | Outpatient (REF) | payer MEDICAID, SELFPAY ==
--- NOTE | 2023-03-27 11:30 | PAPFT_PTH ---
PATIENT: Mildred Villalobos LOC: [facility]#:[id number] AGE/SX: 37/F ROOM: RE03/27/[address]: Allie Raines : 1985 BED: DIS: 03/27/2023 SPEC #: [id number] RECD: 03/27/23 18:29 STATUS: THUAN REKamala #: [id number] [place]: 03/27/23 11:[address]: Allie Raines DEPT: [facility] Cytology RECD BY: Tara Saldivar Tissues: 1 - CX/ENDOCX FOR PAP SMEARS Procedures: PAP THIN PREP/UVM Screening HPV DNA PROBE Comments: [id number]
== END 2023-03-27 13:24 | disposition home or self-care (01) ==
LOC: NCHCN 13:23
PROVIDERS: PCP Physician Assistant Medical; Visit Provider Physician Assistant Medical
DX: Z12.4 Encounter for screening for malignant neoplasm of cervix (principal); Z11.51 Encounter for screening for human papillomavirus (HPV)
CPT/HCPCS: 88142; 87624

== ENCOUNTER → 2023-04-20 00:57 | Outpatient (CLI) | payer MEDICAID, SELFPAY ==
--- NOTE | 2023-04-20 13:38 | DI.MAMMO_ITS ---
Exam(s) MG MAMMO DIAGNOSTIC BI US BREAST LT LIMITED EXAM: MG MAMMO DIAGNOSTIC BI CLINICAL HISTORY: BREAST LUMP N63.0. COMPARISON: US US BREAST LT LIMITED from 04/20/2023 baseline exam TECHNIQUE: Craniocaudal and mediolateral oblique Full Field Digital Mammography views of both breast s with Computer Aided Diagnosis followed by Tomosynthesis and left breast ultrasound breast ultrasoun d. FINDINGS: Mammography/Tomosynthesis: Masses/Architectural Distortion: None seen. Microcalcifications: No suspicious pleomorphic-type are seen. Skin Thickening/Nipple Retraction: None. Left breast US: Echotexture: Normal appearance of the glandular tissue. Shadowing: No suspicious foci. Cyst: Ovoid fluid collection in the subcutaneous tissue, 4 o'clock position 3 cm from the nipple, me asuring 5 x 2 by 9 millimeters which corresponds to the palpable abnormality. There is some edema in the subcutaneous tissue in the 5 o'clock position 2 cm from the nipple. This is roughly over an are a of 2 cm. Solid lesions: None seen. Ductal dilation: None. IMPRESSION: 1. No evidence of malignancy is noted. Edema and small fluid collection noted in the skin correspon ding to the palpable abnormality. 2. Unless there is more urgent need, follow-up screening mammography is recommended, as per [employer] [employer] guidelines. Category: Breast Density - Category B - Scattered areas of fibroglandular density A negative radiographic report should not delay biopsy if a dominant or clinically suspicious mass is present. Up to ten percent of cancers are not identified on mammography. A negative report may reinforce clinical impression. Adenosis and dense breasts may obscure an underlying neoplasm. False positive reports average 6 to 10%. Patient will receive a letter notifying them of these results.
== END ==
PROVIDERS: PCP Physician Assistant Medical; Visit Provider Physician Assistant Medical
DX: Z12.31 Encounter for screening mammogram for malignant neoplasm of breast (principal); N63.23 Unspecified lump in the left breast, lower outer quadrant
CPT/HCPCS: 76642; 77062; 77066; G0279

== ENCOUNTER 2023-05-07 04:51 | Outpatient (CLI) | payer MEDICAID, SELFPAY ==
[2023-05-07 13:33] LABS: Abs Immature Grans 0.01 10^3/uL (0.0-0.06); Absolute Basophil Count 0.03 10^3/uL (0.0-0.2); Absolute Eosinophil Count 0.03 10^3/uL (0.0-0.7); Absolute Lymphocyte Count 0.89 10^3/uL (1.2-3.4); Absolute Monocyte Count 0.29 10^3/uL (0.1-0.8); Absolute Neutrophil Count 2.34 10^3/uL (1.2-6.7); Basophils % 0.8; Eosinophils % 0.8; HCT 24.2 % (36.0-46.0); Immature Grans % 0.3; Lymphocytes % 24.8; MCH 31.1 pg (27.0-33.0); MCHC 33.1 % (32.0-36.0); MCV 94 fL (80-95); Monocytes % 8.1; Neutrophils % 65.2; Platelet Count 138 10^3/uL (130-400); RBC 2.57 10^6/uL (3.93-5.22); RDW 12.7 % (11.7-14.6); RDW-SD 43.6 fL; WBC 3.59 10^3/uL (4.4-10.8)
[2023-05-07 13:42] LABS: Prothrombin Time 16.7 sec (9.3-11.0)
[2023-05-07 13:43] LABS: INR 1.6 (0.9-1.1)
[2023-05-07 13:48] LABS: Hemoglobin A1C < 4.5 % (<5.7)
[2023-05-07 14:05] LABS: ALT 42 U/L (14-59); AST 103 U/L (15-37); Albumin 3.2 g/dL (3.4-5.0); Alkaline Phosphatase 68 U/L (46-116); BUN 13 mg/dL (7-18); Bilirubin, Total 6.8 mg/dL (0.2-1.0); CREATININE 1.1 mg/dL (0.55-1.02); Calcium 9.7 mg/dL (8.5-10.1); Chloride 98 mmol/L (98-107); Estimated GFR 66.78 (mL/min/1.73m2); Ferritin 70 ng/mL (8-252); Glucose 121 mg/dL (74-106); Potassium 3.3 mmol/L (3.5-5.1); Sodium 132 mmol/L (136-145); TSH 2.48 uIU/mL (0.36-3.74); Total Protein 9.8 g/dL (6.4-8.2)
[2023-05-07 14:39] LABS: Iron 135 ug/dL (50-170); Total Iron Binding Capacity 353 ug/dL (250-450); Transferrin Sat 38 % (15-50)
[2023-05-08 10:06] LABS: IgG 3792 mg/dL (610-1616)
[2023-05-09 10:29] LABS: AFP Tumor Marker 5.6 ng/mL (<8.1)
[2023-05-10 22:04] LABS: PEth 16:0/18:1(POPEth) <10 ng/mL (Cutoff: 10); PEth 16:0/18:2(PLPEth) <10 ng/mL (Cutoff: 10); PEth Interpretation Negative.
== END 2023-05-07 04:52 | disposition home or self-care (01) ==
LOC: LBO 04:51
PROVIDERS: PCP Physician Assistant Medical; Visit Provider Nurse Practitioner Family
DX: K70.31 Alcoholic cirrhosis of liver with ascites; K76.82 Hepatic encephalopathy; R18.8 Other ascites; Z01.818 Encounter for other preprocedural examination
CPT/HCPCS: 36415; 80053; 80321; 82784; 82105; 82728; 83036; 83540; 83550; 84443; 85025; 85610

== ENCOUNTER → 2023-05-22 01:18 | Outpatient (CLI) | payer MEDICAID, SELFPAY ==
--- NOTE | 2023-05-22 | DI.MRI_ITS ---
Exam(s) MR ABDOMEN WO/W EXAM: MR ABDOMEN WO/W CLINICAL HISTORY: HEPATIC CIRRHOSIS K74.60 LIVER LESION, 3 MO FU TECHNIQUE: Multiplanar multisequence MRI was performed with both pre and post contrast infused seque nces. Contrast injected sequences were performed following IV injection of 14 cc of Dotarem. COMPARISON: US ABDOMEN ULTRASOUND (P) from 07/20/2016 US US ABDOMEN LIMITED from 12/08/[address] ABDOMEN PELVIS W from 10/14/2022 MR MRI ABDOMEN WWO CONTRAST (GENERIC) from 02/10/2023 US from 04/16/2023 US US ABDOMEN LIMITED HEPATOLOGY PROTOCOL from 04/16/2023 FINDINGS: VISUALIZED LUNG BASES: No pleural effusions evident. There is a large amount of ascites again evident, as evident on prior outside study of 02/10/2023.. LIVER: Liver size is mildly prominent . Liver enhances inhomogeneously in the arterial phase. There is a small subcapsular well-defined nonenhancing lesion in the anterior left hepatic lobe measuring approximately 8 x 6 mm consistent with benign cyst and is unchanged from prior outside MRI of 023. No other focal lesions identified in the liver. BILIARY: Large gallstones again noted as well as smaller layering gallstones. No gallbladder wall ed david. The CBD is not dilated. PANCREAS: There is no evidence of pancreatic mass nor dilatation of the pancreatic duct. SPLEEN: Spleen is significantly enlarged, measuring 18 cm cephalocaudal. There are no discrete focal lesions within the spleen. High splenic and portal veins are patent.Splenic and portal veins are pa tent ADRENALS: There are no significant adrenal masses. KIDNEYS: No solid renal masses. No hydronephrosis.Kidneys exhibit normal size. No cysts. ABDOMINAL AORTA: Not enlarged and there is no significant para-aortic adenopathy. ANTERIOR ABDOMINAL WALL/GI: There is a small right para umbilical hernia which does not contain bowel loops. There is no evidence of bowel obstruction. OSSEOUS: There are no lytic osseous lesions in the field of view of this study. IMPRESSION: 1. Large amount of ascites. Mild hepatomegaly. Prominent splenomegaly 2. Small benign-appearing cyst in the left hepatic lobe. No obvious discrete focal hepatic lesion to correspond to the isoechoic lesion described on recent outside ultrasound examination 3. Cholelithiasis and sludge. No obvious acute cholecystitis. CBD not dilated. DATA REPOSITORY:
[2023-05-22] MEDS: Gadoterate meglumine 20 ML VIAL 14 ML IVP (12:44)
[2023-05-22] MEDS: Normal Saline - Diluent 50 ML VIAL IJ (12:46)
--- NOTE | 2023-05-23 19:43 | DI.VRAD_ITS ---
PROCEDURE INFORMATION: Exam: MR Abdomen Without and With Contrast; Liver Exam date and time: 05/22/2023 12:33 PM Age: 37 years old Clinical indication: Other: Hepatoma, ? liver lesions TECHNIQUE: Imaging protocol: MR Abdomen with and without intravenous contrast. Exam focused on the liver. Contrast material: DOTAREN; Contrast volume: 14 ml; Contrast route: INTRAVENOUS (IV); COMPARISON: MRI ABDOMEN WWO CONTRAST (GENERIC) 02/10/2023 2:09 PM FINDINGS: Pleural spaces: No pleural effusions. Liver: Normal homogeneous liver parenchyma. No significant fatty infiltration or iron deposition. No suspicious mass or abnormal enhancement. Gallbladder and bile ducts: Gallbladder is distended. Large stones are present in the gallbladder, two stones measuring 2.5 cm diameter. Gallbladder wall is normal thickness. There is no biliary ductal dilatation. Pancreas: No inflammatory change. No ductal dilatation. No suspicious mass. Spleen: The spleen is large, 18.5 cm. There are no focal lesions within the spleen. Kidneys and ureters: Normal kidneys. Visualized ureters are unremarkable. Intraperitoneal space: Moderate ascites is noted in the upper abdomen. Soft tissues: A small periumbilical hernia contains ascites. IMPRESSION: 1. No suspicious liver mass. 2. Moderate splenomegaly. 3. Moderate ascites. 4. Cholelithiasis, without cholecystitis. Dictated and Authenticated by: Harrison Muir MD. Ordering:CYDNEY Paz MD
== END ==
PROVIDERS: PCP Physician Assistant Medical; Visit Provider Nurse Practitioner Family
DX: R16.0 Hepatomegaly, not elsewhere classified (principal)
CPT/HCPCS: 74183

== ENCOUNTER 2023-05-30 05:37 | Outpatient (CLI) | payer MEDICAID, SELFPAY ==
[2023-05-30 13:58] LABS: Abs Immature Grans 0.01 10^3/uL (0.0-0.06); Absolute Basophil Count 0.02 10^3/uL (0.0-0.2); Absolute Eosinophil Count 0.04 10^3/uL (0.0-0.7); Absolute Lymphocyte Count 0.99 10^3/uL (1.2-3.4); Absolute Monocyte Count 0.38 10^3/uL (0.1-0.8); Absolute Neutrophil Count 2.32 10^3/uL (1.2-6.7); Basophils % 0.5; Eosinophils % 1.1; HCT 23.2 % (36.0-46.0); HGB 7.7 g/dL (11.2-15.7); Immature Grans % 0.3; Lymphocytes % 26.3; MCHC 33.2 % (32.0-36.0); MCV 94 fL (80-95); MPV 10.1 fL (8.0-11.0); Monocytes % 10.1; Neutrophils % 61.7; RBC 2.48 10^6/uL (3.93-5.22); RDW 13.5 % (11.7-14.6); RDW-SD 46.4 fL; WBC 3.76 10^3/uL (4.4-10.8)
[2023-05-30 14:10] LABS: Diff Comment Diff Reviewed; Hypochromasia 2+; Platelet Count 116 10^3/uL (130-400)
[2023-05-30 14:41] LABS: INR 1.9 (0.9-1.1); Prothrombin Time 17.9 sec (9.1-11.1)
[2023-05-30 14:45] LABS: ALT 37 U/L (14-59); AST 90 U/L (15-37); Albumin 3.2 g/dL (3.4-5.0); Alkaline Phosphatase 74 U/L (46-116); Anion Gap 9.1 mmol/L (3-11); BUN 10 mg/dL (7-18); Bilirubin, Total 7.8 mg/dL (0.2-1.0); CO2 24.9 mmol/L (21.0-32.0); Calcium 9.5 mg/dL (8.5-10.1); Chloride 100 mmol/L (98-107); Estimated GFR 74.88 (mL/min/1.73m2); Folate 16.1 ng/mL (8.6-20.0); Glucose 146 mg/dL (74-106); Magnesium 1.6 mg/dL (1.8-2.4); Potassium 3.7 mmol/L (3.5-5.1); Sodium 134 mmol/L (136-145); Total Protein 8.8 g/dL (6.4-8.2)
[2023-06-01 18:30] LABS: PEth 16:0/18:1(POPEth) <10 ng/mL (Cutoff: 10); PEth 16:0/18:2(PLPEth) <10 ng/mL (Cutoff: 10); PEth Interpretation Negative.
== END 2023-05-30 05:38 | disposition home or self-care (01) ==
LOC: LBO 05:37
PROVIDERS: Internal Medicine Gastroenterology; PCP Physician Assistant Medical; Visit Provider Physician Assistant Medical
DX: Z01.818 Encounter for other preprocedural examination (principal); K70.31 Alcoholic cirrhosis of liver with ascites
CPT/HCPCS: 36415; 80053; 80321; 82746; 83735; 85025; 85610

== ENCOUNTER 2023-06-29 01:54 | Outpatient (CLI) | payer MEDICAID, SELFPAY ==
[2023-06-29 12:11] LABS: Abs Immature Grans 0.02 10^3/uL (0.0-0.06); Absolute Basophil Count 0.03 10^3/uL (0.0-0.2); Absolute Eosinophil Count 0.09 10^3/uL (0.0-0.7); Absolute Lymphocyte Count 0.88 10^3/uL (1.2-3.4); Absolute Monocyte Count 0.38 10^3/uL (0.1-0.8); Absolute Neutrophil Count 2.48 10^3/uL (1.2-6.7); Basophils % 0.8; Eosinophils % 2.3; HGB 7.5 g/dL (11.2-15.7); Immature Grans % 0.5; Lymphocytes % 22.7; MCHC 32.6 % (32.0-36.0); MCV 95 fL (80-95); MPV 10.1 fL (8.0-11.0); Monocytes % 9.8; Neutrophils % 63.9; Platelet Count 112 10^3/uL (130-400); RBC 2.42 10^6/uL (3.93-5.22); RDW 14.5 % (11.7-14.6); RDW-SD 50.2 fL; Reticulocyte 3.1 % (0.5-2.4); WBC 3.88 10^3/uL (4.4-10.8)
[2023-06-29 12:21] LABS: INR 1.9 (0.9-1.1); Prothrombin Time 17.7 sec (9.1-11.1)
[2023-06-29 12:34] LABS: Diff Comment RBC Morph Reviewed; Polychromasia Present
[2023-06-29 12:35] LABS: Poikilocytes 1+
[2023-06-29 12:36] LABS: ALT 25 U/L (14-59); AST 75 U/L (15-37); Albumin 2.9 g/dL (3.4-5.0); Alkaline Phosphatase 78 U/L (46-116); Anion Gap 9.6 mmol/L (3-11); BUN 11 mg/dL (7-18); Bilirubin, Total 8.8 mg/dL (0.2-1.0); CO2 24.4 mmol/L (21.0-32.0); CREATININE 1.2 mg/dL (0.55-1.02); Calcium 9.1 mg/dL (8.5-10.1); Chloride 99 mmol/L (98-107); Estimated GFR 60.16 (mL/min/1.73m2); Glucose 115 mg/dL (74-106); LDH 243 U/L (81-234); Potassium 4.2 mmol/L (3.5-5.1); Sodium 133 mmol/L (136-145); Total Protein 8.3 g/dL (6.4-8.2)
[2023-07-02 10:54] LABS: Haptoglobin <7 mg/dL (32-197)
== END 2023-06-29 01:55 | disposition home or self-care (01) ==
LOC: LBO 01:55
PROVIDERS: PCP Physician Assistant Medical; Visit Provider Internal Medicine Gastroenterology
DX: K70.30 Alcoholic cirrhosis of liver without ascites (principal)
CPT/HCPCS: 36415; 80053; 85045; 83010; 83615; 85025; 85610

== ENCOUNTER 2023-08-13 05:37 | Outpatient (CLI) | payer MEDICAID, SELFPAY ==
[2023-08-13 15:14] LABS: Abs Immature Grans 0.02 10^3/uL (0.0-0.06); Absolute Basophil Count 0.04 10^3/uL (0.0-0.2); Absolute Eosinophil Count 0.05 10^3/uL (0.0-0.7); Absolute Lymphocyte Count 0.92 10^3/uL (1.2-3.4); Absolute Monocyte Count 0.44 10^3/uL (0.1-0.8); Absolute Neutrophil Count 3.17 10^3/uL (1.2-6.7); Basophils % 0.9; Eosinophils % 1.1; HCT 23.6 % (36.0-46.0); HGB 7.8 g/dL (11.2-15.7); Immature Grans % 0.4; Lymphocytes % 19.8; MCH 33.1 pg (27.0-33.0); MCHC 33.1 % (32.0-36.0); MCV 100 fL (80-95); MPV 10.4 fL (8.0-11.0); Monocytes % 9.5; Neutrophils % 68.3; Platelet Count 105 10^3/uL (130-400); RBC 2.36 10^6/uL (3.93-5.22); RDW-SD 50.4 fL; WBC 4.64 10^3/uL (4.4-10.8)
[2023-08-13 15:17] LABS: INR 1.9 (0.9-1.1); Prothrombin Time 17.8 sec (9.1-11.1)
[2023-08-13 15:34] LABS: ALT 29 U/L (14-59); AST 78 U/L (15-37); Albumin 2.8 g/dL (3.4-5.0); Alkaline Phosphatase 86 U/L (46-116); Anion Gap 6.3 mmol/L (3-11); BUN 14 mg/dL (7-18); Bilirubin, Total 9.2 mg/dL (0.2-1.0); CO2 24.7 mmol/L (21.0-32.0); CREATININE 1.2 mg/dL (0.55-1.02); Calcium 8.9 mg/dL (8.5-10.1); Chloride 100 mmol/L (98-107); Estimated GFR 59.79 (mL/min/1.73m2); Glucose 126 mg/dL (74-106); Magnesium 1.6 mg/dL (1.8-2.4); Potassium 3.6 mmol/L (3.5-5.1); Sodium 131 mmol/L (136-145); Total Protein 8.1 g/dL (6.4-8.2)
[2023-08-15 09:15] LABS: AFP Tumor Marker 4.5 ng/mL (<8.1)
[2023-08-15 19:42] LABS: PEth 16:0/18:1(POPEth) <10 ng/mL (Cutoff: 10); PEth 16:0/18:2(PLPEth) <10 ng/mL (Cutoff: 10); PEth Interpretation Negative.
== END 2023-08-13 05:38 | disposition home or self-care (01) ==
LOC: LBO 05:37
PROVIDERS: PCP Physician Assistant Medical; Visit Provider Internal Medicine
DX: K70.31 Alcoholic cirrhosis of liver with ascites (principal)
CPT/HCPCS: 36415; 80053; 80321; 82105; 83735; 85025; 85610

== ENCOUNTER 2023-09-17 21:58 | Inpatient (IN) | payer MEDICAID, SELFPAY ==
[2023-09-17 22:01] VITALS: BP 104/47; PULSE 104; RESP 18; TEMP 36.8; O2SAT 100
--- NOTE | 2023-09-17 22:20 | ED.GENADUL_ITS ---
HPI General Mode of arrival: ambulatory . Date/Time Provider Initiated Documentation: 09/17/23 22:00 . Limitations to Documentation: no limitations . Information obtained by: patient . History of Present Illness 38 year old F presents to the emergency department with the chief complaint of nausea, described as moderate, Patient started experiencing this hour(s) (4) and it has been other (improving). No relieving factors improve symptom(s), No exacerbating factors reported . Patient notes no other symptoms.; denies chest pain, fever/chills, nausea/vomiting and shortness of breath. Patient did receive the following treatments prior to arrival, none Related Data Home Medications Medication Instructions Recorded Confirmed clonazepam 1 mg tablet (Klonopin) 1 mg PO QID PRN PRN Anxiety 01/16/15 09/17/23 zolpidem 5 mg tablet (Ambien) 5 mg PO HS 07/26/15 09/17/23 magnesium gluconate 27 mg 27 mg PO DAILY 10/14/22 09/17/23 magnesium (500 mg) tablet nortriptyline 25 mg capsule 25 mg PO DAILY 10/14/22 09/17/23 omeprazole 40 mg capsule,delayed 40 mg PO DAILY 10/14/22 09/17/23 release ondansetron HCl 4 mg tablet 4 mg PO Q4H PRN 10/14/22 09/17/23 furosemide 40 mg tablet 40 mg PO DAILY #30 tabs 10/16/22 09/17/23 potassium chloride 20 mEq 20 meq PO DAILY #30 tabs 10/16/22 09/17/23 tablet,extended release spironolactone 50 mg tablet 50 mg PO BID #60 tabs 10/16/22 09/17/23 Previous Rx's Medication Instructions Recorded furosemide 40 mg tablet 40 mg PO DAILY #30 tabs 10/16/22 potassium chloride 20 mEq 20 meq PO DAILY #30 tabs 10/16/22 tablet,extended release spironolactone 50 mg tablet 50 mg PO BID #60 tabs 10/16/22 Allergies Allergy/AdvReac Type Severity Reaction Status Date / Time sertraline HCl [From Zoloft] AdvReac Intermediate Nausea Unverified 09/17/23 22:10 General Stated Complaint: GenMedical CASSIUS: 3 Review of Systems All systems reviewed & are unremarkable except as noted in HPI and below Constitutional Constitutional: Denies chills, Denies fever(s) and Denies weakness Cardiovascular Cardiovascular: Denies chest pain and Denies dyspnea Respiratory Respiratory: Denies cough and Denies dyspnea Gastrointestinal Gastrointestinal: Denies abdominal pain Genitourinary Genitourinary: Denies dysuria Musculoskeletal Musculoskeletal: Denies joint swelling Neurologic Neurologic: Denies weakness Exam Const General: no acute distress Orientation: alert HENPA Head: normal to inspection Ears: external ears normal General nose exam: external nose normal Mouth: moist mucous membranes Neck Neck: normal visual inspection Resp Effort & Inspection: normal respiratory effort and able to speak in complete sentences Auscultation: clear to auscultation bilaterally Cardio Jugular venous pressure: no JVD Rate: regular rate Heart Sounds: no murmurs GI Palpation: not firm, no guarding and nontender Neuro General: patient alert and patient oriented x3 Extrem General: normal to inspection Psych Mental Status: mental status grossly normal Course Vital Signs Vital signs: Vital Signs Temperature 36.8 C 09/17/23 22:01 Pulse 104 H 09/17/23 22:01 Respiratory Rate 18 09/17/23 22:01 Blood Pressure 104/47 L 09/17/23 22:01 Pulse Oximetry 100 09/17/23 22:01 Temperature 36.8 C 09/17/23 22:01 Temperature Source Oral 09/17/23 22:01 Pulse 104 H 09/17/23 22:01 Respiratory Rate 18 09/17/23 22:01 Respiratory Effort Normal, Non-Labored 09/17/23 22:14 Blood Pressure 104/47 L 09/17/23 22:01 Blood Pressure Position Supine 09/17/23 22:01 Pulse Oximetry 100 09/17/23 22:01 Oxygen Delivery Method Room Air 09/17/23 22:01 Oxygen Flow Rate 0 09/17/23 22:01 Medical Decision Making 38-year-old female with a history of cirrhosis and is awaiting to be put on on a transplant list, comes in after she took place as much spironolactone that she supposed to take earlier today. She states she normally takes 150 mg and took 300 mg by mistake. She said hour so after that she started experiencing nausea and vomited a few times, states she is improving now. Denies any fevers, chest pain, difficulty breathing, abdominal pain. She does have some jaundice of her face and eyes which she says is at her baseline. No asterixis, no abdominal tenderness. Alert and oriented to place and name, but is not sure of the time. She does seem confused and asks questions repetitively. No focal deficits on exam, given her significant liver dysfunction concern for hepatic encephalopathy, will obtain CBC, CMP, ammonia level. Patient's hemoglobin 6.5 discussed transfusing with her but given her current mental status do not feel she can consent to transfusion, feel the benefits outweigh the risks so we will proceed with emergent transfusion. Patient hemodynamically stable, is still showing some signs of intermittent confusion, asked what hospital she was at. Magnesium 1.5, ammonia significantly elevated consistent with hepatic encephalopathy. Lactulose ordered, will discuss with hospitalist about admission Differential Diagnosis Differential Diagnosis: Medication side effect, electrolyte abnormality Medical Records Medical records reviewed: Yes I reviewed the patient's medical records. Lab Data Lab results reviewed: Yes I reviewed the patient's lab results. Quality:SDOH Health Related Social Needs: No Data to Display PFSH All Active Problems (Updated 09/17/23 @ 23:25 by Harrison Null MD) Encephalopathy, hepatic (Acute) Hepatic cirrhosis (Acute) Non-insulin dependent type 2 diabetes mellitus (Acute) Constipation (Acute) Plate-like atelectasis (Acute) Pulmonary edema (Acute) Edema of both lower extremities (Acute) Hypoalbuminemia (Acute) Hyperbilirubinemia (Acute) Hyponatremia (Acute) Coagulopathy (Acute) Acute anemia (Acute) Abdominal ascites (Acute) HTN (hypertension), benign (Acute) Obesity, morbid, BMI 40.0-49.9 (Acute) GERD (gastroesophageal reflux disease) (Chronic) Anxiety (Chronic) Medical History (Updated 09/17/23 @ 23:25 by Harrison Null MD) Hepatic steatosis Surgical History (Updated 10/14/22 @ 23:39 by Danielle Ku MD) H/O wisdom tooth extraction H/O section Family History (Updated 10/14/22 @ 23:39 by Danielle Ku MD) Mother Liver disease Alcohol use disorder Maternal Aunt Liver disease Alcohol use disorder Social History Smoking/Tobacco Use Status: Current every day Tobacco Type: cigarettes Smoking risk assessment performed?: Yes Alcohol Intake: current Alcohol Intake frequency: holidays/special occasions only Drug use: Never Substance use type: marijuana Do you feel safe at home: Yes Do you feel safe in your relationship?: Yes Discharge Plan Disposition Patient Disposition: Admit to [facility] Condition: Stable Discharge Details Chief Complaint: GenMedical Clinical Impression: Encephalopathy, hepatic Primary Care Provider: Allie Raines ED Provider: Harrison Null Home Meds and New Rx's Prescriptions: No Action zolpidem [Ambien] 5 MG tablet 5 mg PO HS clonazepam [Klonopin] 1 MG tablet 1 mg PO QID PRN PRN (Reason: Anxiety) ondansetron HCl 4 mg tablet 4 mg PO Q4H PRN omeprazole 40 mg capsule,delayed release(DR/EC) 40 mg PO DAILY nortriptyline 25 mg capsule 25 mg PO DAILY magnesium gluconate 27 mg magnesium (500 mg) tablet 27 mg PO DAILY spironolactone 50 mg Tablet 50 mg PO BID Qty: 60 0RF furosemide 40 mg tablet 40 mg PO DAILY Qty: 30 0RF potassium chloride 20 mEq tablet extended release 20 meq PO DAILY Qty: 30 0RF
[2023-09-17] MEDS: Normal Saline 250 ML IV (22:46)
[2023-09-17] MEDS: Ondansetron 4 MG/2 ML VIAL IVP (22:47)
[2023-09-17 22:58] LABS: Abs Immature Grans 0.05 10^3/uL (0.0-0.06); Absolute Basophil Count 0.04 10^3/uL (0.0-0.2); Absolute Lymphocyte Count 0.91 10^3/uL (1.2-3.4); Absolute Monocyte Count 0.66 10^3/uL (0.1-0.8); Absolute Neutrophil Count 8.05 10^3/uL (1.2-6.7); Basophils % 0.4; Immature Grans % 0.5; Lymphocytes % 9.4; MCH 34.9 pg (27.0-33.0); MCHC 33.3 % (32.0-36.0); MCV 105 fL (80-95); MPV 10.6 fL (8.0-11.0); Monocytes % 6.8; Neutrophils % 82.9; Platelet Count 123 10^3/uL (130-400); RBC 1.86 10^6/uL (3.93-5.22); RDW 14.2 % (11.7-14.6); RDW-SD 53.9 fL; WBC 9.71 10^3/uL (4.4-10.8)
[2023-09-17 23:05] LABS: HCT 19.5 % (36.0-46.0); HGB 6.5 g/dL (11.2-15.7)
[2023-09-17 23:11] LABS: Ammonia 157 umol/L (11-32)
[2023-09-17 23:16] LABS: ALT 27 U/L (14-59); AST 71 U/L (15-37); Alkaline Phosphatase 75 U/L (46-116); Anion Gap 14.9 mmol/L (3-11); BUN 33 mg/dL (7-18); Bilirubin, Total 10.9 mg/dL (0.2-1.0); CO2 18.1 mmol/L (21.0-32.0); CREATININE 1.7 mg/dL (0.55-1.02); Calcium 9.1 mg/dL (8.5-10.1); Chloride 101 mmol/L (98-107); Estimated GFR 39.36 (mL/min/1.73m2); Glucose 136 mg/dL (74-106); Magnesium 1.5 mg/dL (1.8-2.4); Potassium 5.1 mmol/L (3.5-5.1); Sodium 134 mmol/L (136-145); Total Protein 7.1 g/dL (6.4-8.2)
[2023-09-17 23:18] LABS: HCG Qual (Serum) Negative
[2023-09-17 23:22] LABS: ETHANOL BLOOD < 3.0 mg/dL (<10)
[2023-09-17 23:27] LABS: Diff Comment RBC Morph Reviewed; Poikilocytes 2+; Polychromasia Present
--- NOTE | 2023-09-17 23:38 | HPE_ITS ---
Date of service: 09/17/23 Time of Service: 23:50 Assessment and Plan Assessment and plan (1) Encephalopathy, hepatic: Status: Acute Assessment and plan: - Patient has a known history of nonalcoholic cirrhosis -Was confused in the emergency department and had a ammonia level 157 -Was given lactulose in the emergency department, will continue -Will also initiate Xifaxan (2) Hepatic cirrhosis: Status: Acute Assessment and plan: - As noted above, will recommend follow-up with GI at [facility] at discharge History of Present Illness History of Present Illness Chief Complaint: Confusion Narrative: 48-year-old female with past medical history of nonalcoholic cirrhosis presents emergency department with confusion, stating that she had taken twice the dose of her spironolactone. Patient states that she been in her usual state of health but then today she became somewhat confused and was concerned that she had doubled up on her spironolactone dose. She denied any headache, lightheadedness, dizziness, nausea vomiting diarrhea or constipation. In the emergency department the patient was noted as being significantly jaundiced, and while she was able to answer most questions appropriately she was somewhat fatigued appearing and was unable to state the year. She was noted as having all ammonia 157, hemoglobin of 6.5 while her baseline is usually in the mid sevens, with an INR of 1.9, and a platelet count of 123. Given her H&H 1 unit of packed red blood cells was ordered and she was also given lactulose for hepatic encephalopathy. Which the emergency room physician paged hospitalist for admission for patient with known nonalcoholic cirrhosis who has hepatic encephalopathy Review of Systems All systems reviewed & are unremarkable except as noted in HPI and below PFSH All Active Problems (Updated 09/17/23 @ 23:25 by Harrison Null MD) Encephalopathy, hepatic (Acute) Hepatic cirrhosis (Acute) Non-insulin dependent type 2 diabetes mellitus (Acute) Constipation (Acute) Plate-like atelectasis (Acute) Pulmonary edema (Acute) Edema of both lower extremities (Acute) Hypoalbuminemia (Acute) Hyperbilirubinemia (Acute) Hyponatremia (Acute) Coagulopathy (Acute) Acute anemia (Acute) Abdominal ascites (Acute) HTN (hypertension), benign (Acute) Obesity, morbid, BMI 40.0-49.9 (Acute) GERD (gastroesophageal reflux disease) (Chronic) Anxiety (Chronic) Medical History (Updated 09/17/23 @ 23:25 by Harrison Null MD) Hepatic steatosis Surgical History (Updated 10/14/22 @ 23:39 by Danielle Ku MD) H/O wisdom tooth extraction H/O section Family History (Updated 10/14/22 @ 23:39 by Danielle Ku MD) Mother Liver disease Alcohol use disorder Maternal Aunt Liver disease Alcohol use disorder Social History Smoking/Tobacco Use Status: Current every day Tobacco Type: cigarettes Smoking risk assessment performed?: Yes Alcohol Intake: current Alcohol Intake frequency: holidays/special occasions only Drug use: Never Substance use type: marijuana Housing: other Do you feel safe at home: Yes Do you feel safe in your relationship?: Yes Meds Allergies and Home Medications Allergies Allergy/AdvReac Type Severity Reaction Status Date / Time sertraline HCl [From Zoloft] AdvReac Intermediate Nausea Unverified 09/17/23 22:10 Home Medications Medication Instructions Recorded Confirmed Type clonazepam 1 mg tablet (Klonopin) 1 mg PO QID PRN PRN Anxiety 01/16/15 09/17/23 History zolpidem 5 mg tablet (Ambien) 5 mg PO HS 07/26/15 09/17/23 History magnesium gluconate 27 mg 27 mg PO DAILY 10/14/22 09/17/23 History magnesium (500 mg) tablet nortriptyline 25 mg capsule 25 mg PO DAILY 10/14/22 09/17/23 History omeprazole 40 mg capsule,delayed 40 mg PO DAILY 10/14/22 09/17/23 History release ondansetron HCl 4 mg tablet 4 mg PO Q4H PRN 10/14/22 09/17/23 History furosemide 40 mg tablet 40 mg PO DAILY #30 tabs 10/16/22 09/17/23 Rx potassium chloride 20 mEq 20 meq PO DAILY #30 tabs 10/16/22 09/17/23 Rx tablet,extended release spironolactone 50 mg tablet 50 mg PO BID #60 tabs 10/16/22 09/17/23 Rx Exam Narrative Exam Narrative: Ill-appearing young female significantly jaundiced in no acute distress, fatigued, but arousable to verbal stimulation, oriented to person and place, heart regular rate rhythm, lungs clear to auscultation bilaterally, abdomen distended but soft, nontender Results Labs 09/17/23 22:47 09/17/23 22:47 Labs: Laboratory Results - last 24 hr 09/17/23 09/17/23 22:47 23:06 WBC 9.71 RBC 1.86 L Hgb 6.5 L* Hct 19.5 L* MCV 105 H MCH 34.9 H MCHC 33.3 RDW 14.2 Plt Count 123 L MPV 10.6 Immature Gran % 0.5 Neutrophils % 82.9 Lymphocytes % 9.4 Monocytes % 6.8 Eosinophils % 0.0 Basophils % 0.4 Nucleated RBC % 0.0 Absolute Neutrophils 8.05 H Absolute Lymphocytes 0.91 L Absolute Monocytes 0.66 Absolute Eosinophils 0.00 Absolute Basophils 0.04 RBC Morphology See Below Polychromasia Present Poikilocytosis 2+ Sodium 134 L Potassium 5.1 Chloride 101 Carbon Dioxide 18.1 L Anion Gap 14.9 H BUN 33 H Creatinine 1.7 H Est GFR (CKD-EPI 2020) 39.36 Glucose 136 H Calcium 9.1 Magnesium 1.5 L Total Bilirubin 10.9 H AST 71 H ALT 27 Alkaline Phosphatase 75 Ammonia 157 H Total Protein 7.1 Albumin 3.0 L Serum HCG, Qual Negative Ethyl Alcohol < 3.0 Crossmatch See Detail Last Vital Signs Temp 98.2 F 09/17/23 22:01 Pulse 104 H 09/17/23 22:01 Resp 18 09/17/23 22:01 BP 104/47 L 09/17/23 22:01 Pulse Ox 100 09/17/23 22:01 Time Spent Time spent with Patient: >75 minutes Time was spent: preparing to see the patient(eg.review tests), obtaining and/or reviewing separately otained hiistory, ordering medications,tests, procedures, referring, communicating with other health acute care certified nursing assistant, indepentently interpreting results, counseling the patient and care coordination
[2023-09-17] MEDS: Lactulose 20 GM/30 ML CUP PO (23:50)
[2023-09-17] MEDS: MAGNESIUM SULFATE 2 GM/50 ML BAG IVPB (23:50)
[2023-09-18] VITALS (20 sets, daily range): BP systolic 101–141; BP diastolic 47–91; PULSE 71–103; RESP 9–16; TEMP 35.5–36.5; O2SAT 99–100
[2023-09-18] MEDS: Lidocaine 5% Patch 1 PATCH TP (01:19)
--- NOTE | 2023-09-18 06:00 | RESPIRATORY ---
Responded to rapid response. RT was present with ambu bag. Pt. was breathing spontaneously on room air and saturating 100%. Bilateral breath sounds were clear and diminished. No respiratory distress noted upon assessment before RT left the scene.
[2023-09-18] MEDS: Normal Saline 1,000 ML 1000 ML IV (06:24)
[2023-09-18] MEDS: Pantoprazole 40 MG VIAL IVP (06:25)
[2023-09-18] MEDS: Normal Saline 10 ML VIAL IJ (06:25)
--- NOTE | 2023-09-18 06:46 | W.PM.DS.N ---
Date of service: 09/18/23 Time of Service: 06:47 DS: Diagnosis Discharge Diagnosis (1) Esophageal varices with hemorrhage: Status: Acute Asessment and Plan: While patient was initially admitted for hepatic encephalopathy, rapid response was called at 5:30 AM on 09/18/2023 the patient was noted as having 600 mL of bloody emesis. Vital signs taken shortly after showed that the patient had a blood pressure of 64/40. At that time, patient's recent endoscopy results were not available. Orders were placed for her to be immediately transferred to the ICU, for her to rapidly have the initial unit of blood and finished, with 2 additional units ordered, a bolus of 1 L normal saline, bolused with IV octreotide with subsequent drip, IV Protonix, and IV Levophed. Upon transfer to the ICU the patient's vitals had stabilized with her blood pressure being 100/70 with a MAP of 68 without the need of Levophed. Given that our facility does not have the ability to treat potential esophageal varices, [facility] was contacted, and group discussion was had between myself, emergency room provider, GI, and critical care team. Upon review of her records patient had recent upper endoscopy at the beginning of August where she had severe portal hypertension noted as well as incompletely banded esophageal varices. Given this and the patient's current medical condition, she was excepted to transfer via [facility] to [facility] emergency department for stabilization and further evaluation and management of her presumed upper GI/esophageal bleed. (2) Encephalopathy, hepatic: Status: Acute (3) Hepatic cirrhosis: Status: Acute (4) Acute blood loss anemia: Status: Acute Discharge Plan Disposition Patient Disposition: Transfer-Acute Inpatient Care Specific Acute In Facility: [facility] Condition: Deteriorating Discharge Details Reason For Visit: Hepatic encephalopathy Admit Date/Time: 09/17/23 23:35 Admit Provider: Alon Montalvo Attending Provider: Alon Montalvo Primary Care Provider: Allie Raines Hospital Course Hospital Course: While patient was initially admitted for hepatic encephalopathy, rapid response was called at 5:30 AM on 09/18/2023 the patient was noted as having 600 mL of bloody emesis. Vital signs taken shortly after showed that the patient had a blood pressure of 64/40. At that time, patient's recent endoscopy results were not available. Orders were placed for her to be immediately transferred to the ICU, for her to rapidly have the initial unit of blood and finished, with 2 additional units ordered, a bolus of 1 L normal saline, bolused with IV octreotide with subsequent drip, IV Protonix, and IV Levophed. Upon transfer to the ICU the patient's vitals had stabilized with her blood pressure being 100/70 with a MAP of 68 without the need of Levophed. Given that our facility does not have the ability to treat potential esophageal varices, [facility] was contacted, and group discussion was had between myself, emergency room provider, GI, and critical care team. Upon review of her records patient had recent upper endoscopy at the beginning of August where she had severe portal hypertension noted as well as incompletely banded esophageal varices. Given this and the patient's current medical condition, she was excepted to transfer via [facility] to [facility] emergency department for stabilization and further evaluation and management of her presumed upper GI/esophageal bleed. Home Meds and New Rx's Prescriptions: No Action zolpidem [Ambien] 5 MG tablet 5 mg PO HS clonazepam [Klonopin] 1 MG tablet 1 mg PO QID PRN PRN (Reason: Anxiety) ondansetron HCl 4 mg tablet 4 mg PO Q4H PRN omeprazole 40 mg capsule,delayed release(DR/EC) 40 mg PO DAILY nortriptyline 25 mg capsule 25 mg PO DAILY magnesium gluconate 27 mg magnesium (500 mg) tablet 27 mg PO DAILY spironolactone 50 mg Tablet 50 mg PO BID Qty: 60 0RF furosemide 40 mg tablet 40 mg PO DAILY Qty: 30 0RF potassium chloride 20 mEq tablet extended release 20 meq PO DAILY Qty: 30 0RF Discharge Instructions Activity:: Activity as Tolerated Equipment/Supplies:: No Equipment Needed Diet:: As Tolerated Discharge Orders Discharge Orders: Discharge Order (Routine); Ordered 09/18/23 Ordered By: Alon Montalvo DS: Summary Time Spent with Patient providing and/or coordinating discharge services: Greater than 30 minutes Status at Discharge Functional status at discharge: independent ambulation Overall status at discharge: patient is not back to baseline Mental Status: other Speech and Movement: speech and movement normal Mood: congruent mood and other Affect: normal affect Quality:SDOH Health Related Social Needs: No Data to Display Exam Narrative Exam Narrative: Ill-appearing young female significantly jaundiced in no acute distress, fatigued, but arousable to verbal stimulation, oriented to person and place, heart regular rate rhythm, lungs clear to auscultation bilaterally, abdomen distended but soft, nontender Psych Mental Status: other Speech and Movement: speech and movement normal Mood: congruent mood and other Affect: normal affect DS: Data Vitals/I&O Vitals and I&O: Vital Signs Temperature 97.5 F L 09/18/23 06:42 Temperature Source Tympanic 09/18/23 06:42 Pulse 75 09/18/23 06:42 Pulse Rhythm Regular 09/18/23 01:46 Respiratory Rate 14 09/18/23 06:28 Respiratory Effort Non-Labored 09/18/23 01:46 Respiratory Depth Normal 09/18/23 01:46 Respiratory Pattern Normal 09/18/23 01:46 Blood Pressure 109/52 L 09/18/23 06:42 Blood Pressure Position Supine 09/17/23 22:01 Pulse Oximetry 100 09/18/23 06:42 Oxygen Delivery Method Room Air 09/18/23 06:28 Oxygen Flow Rate 0 09/18/23 06:28 Pain Level 0 09/18/23 06:42 Intake & Output 09/17/23 09/18/23 09/18/23 17:59 05:59 17:59 Intake Total 250 / 250 Balance 250 / 250 Weight 165 lb Intake: IV 250 / 250 Data Completed and Pending Labs on day of discharge: Labs from last 24 hours 09/18/23 09/18/23 09/17/23 Unknown 05:35 23:45 WBC Pending RBC Pending Hgb Pending Pending Hct Pending Pending MCV Pending MCH Pending MCHC Pending RDW Pending Plt Count Pending MPV Pending Immature Gran % Neutrophils % Lymphocytes % Monocytes % Eosinophils % Basophils % Nucleated RBC % Absolute Neutrophils Absolute Lymphocytes Absolute Monocytes Absolute Eosinophils Absolute Basophils RBC Morphology Polychromasia Poikilocytosis Sodium Pending Potassium Pending Chloride Pending Carbon Dioxide Pending Anion Gap Pending BUN Pending Creatinine Pending Est GFR (CKD-EPI 2020) Pending Glucose Pending Calcium Pending Magnesium Pending Total Bilirubin AST ALT Alkaline Phosphatase Ammonia Total Protein Albumin Serum HCG, Qual Ethyl Alcohol Patient ABO/Rh B Positive Antibody Screen NEGATIVE Crossmatch See Detail 09/17/23 22:47 WBC 9.71 RBC 1.86 L Hgb 6.5 L* Hct 19.5 L* MCV 105 H MCH 34.9 H MCHC 33.3 RDW 14.2 Plt Count 123 L MPV 10.6 Immature Gran % 0.5 Neutrophils % 82.9 Lymphocytes % 9.4 Monocytes % 6.8 Eosinophils % 0.0 Basophils % 0.4 Nucleated RBC % 0.0 Absolute Neutrophils 8.05 H Absolute Lymphocytes 0.91 L Absolute Monocytes 0.66 Absolute Eosinophils 0.00 Absolute Basophils 0.04 RBC Morphology See Below Polychromasia Present Poikilocytosis 2+ Sodium 134 L Potassium 5.1 Chloride 101 Carbon Dioxide 18.1 L Anion Gap 14.9 H BUN 33 H Creatinine 1.7 H Est GFR (CKD-EPI 2020) 39.36 Glucose 136 H Calcium 9.1 Magnesium 1.5 L Total Bilirubin 10.9 H AST 71 H ALT 27 Alkaline Phosphatase 75 Ammonia 157 H Total Protein 7.1 Albumin 3.0 L Serum HCG, Qual Negative Ethyl Alcohol < 3.0 Patient ABO/Rh Antibody Screen Crossmatch [facility] All Active Problems (Updated 09/18/23 @ 06:48 by Alon Montalvo MD) Esophageal varices with hemorrhage (Acute) Acute blood loss anemia (Acute) Encephalopathy, hepatic (Acute) Hepatic cirrhosis (Acute) Non-insulin dependent type 2 diabetes mellitus (Acute) Constipation (Acute) Plate-like atelectasis (Acute) Pulmonary edema (Acute) Edema of both lower extremities (Acute) Hypoalbuminemia (Acute) Hyperbilirubinemia (Acute) Hyponatremia (Acute) Coagulopathy (Acute) Acute anemia (Acute) Abdominal ascites (Acute) HTN (hypertension), benign (Acute) Obesity, morbid, BMI 40.0-49.9 (Acute) GERD (gastroesophageal reflux disease) (Chronic) Anxiety (Chronic) Medical History (Updated 09/18/23 @ 06:48 by Alon Montalvo MD) Hepatic steatosis Surgical History (Updated 10/14/22 @ 23:39 by Danielle Ku MD) H/O wisdom tooth extraction H/O section Family History (Updated 10/14/22 @ 23:39 by Danielle Ku MD) Mother Liver disease Alcohol use disorder Maternal Aunt Liver disease Alcohol use disorder Social History Smoking/Tobacco Use Status: Current every day Tobacco Type: cigarettes Smoking risk assessment performed?: Yes Alcohol Intake: current Alcohol Intake frequency: holidays/special occasions only Drug use: Never Substance use type: marijuana Housing: other Do you feel safe at home: Yes Do you feel safe in your relationship?: Yes Time Spent with Patient Time Spent with Patient: >85 minutes (With an additional hour of critical care time) Time was spent: preparing to see the patient(eg.review tests), obtaining and/or reviewing separately otained hiistory, ordering medications,tests, procedures, referring, communicating with other health home care specialist, indepentently interpreting results, counseling the patient and care coordination
[2023-09-18 07:11] LABS: MCHC 33.5 % (32.0-36.0); MCV 102 fL (80-95); MPV 10.7 fL (8.0-11.0); Platelet Count 103 10^3/uL (130-400); RBC 1.88 10^6/uL (3.93-5.22); RDW 15.3 % (11.7-14.6); RDW-SD 56.1 fL; WBC 9.97 10^3/uL (4.4-10.8)
[2023-09-18 07:15] LABS: HCT 19.1 % (36.0-46.0); HGB 6.4 g/dL (11.2-15.7)
[2023-09-18 07:21] LABS: Anion Gap 11.2 mmol/L (3-11); BUN 36 mg/dL (7-18); CO2 17.8 mmol/L (21.0-32.0); CREATININE 1.5 mg/dL (0.55-1.02); Calcium 8.3 mg/dL (8.5-10.1); Chloride 104 mmol/L (98-107); Estimated GFR 45.74 (mL/min/1.73m2); Glucose 148 mg/dL (74-106); Magnesium 1.8 mg/dL (1.8-2.4); Potassium 4.7 mmol/L (3.5-5.1); Sodium 133 mmol/L (136-145)
--- NOTE | 2023-09-18 07:53 | NUR.NOTE ---
Nursing Note: 0745- pt transferred to [facility] via helicopter per order Dr Montalvo. attempted to call pts friend Harriet per her request but no answer. Message left for her to return call to ICU G[facility]E. day shift aware.Ilda Vallejo RN
== END 2023-09-18 07:50 | disposition short-term general hospital (02) | DRG 441 ==
LOC: ER 09-18 01:21 → MS 09-18 01:23 → ICU 09-18 06:01
PROVIDERS: Admitting Provider Family Medicine; Emergency Provider Emergency Medicine; PCP Physician Assistant Medical; Visit Provider Family Medicine
DX: K76.82 Hepatic encephalopathy (principal); I85.11 Secondary esophageal varices with bleeding; D68.4 Acquired coagulation factor deficiency; E87.1 Hypo-osmolality and hyponatremia; R18.8 Other ascites; D62 Acute posthemorrhagic anemia; K74.69 Other cirrhosis of liver; E11.9 Type 2 diabetes mellitus without complications; K59.00 Constipation, unspecified; E88.09 Other disorders of plasma-protein metabolism, not elsewhere classified; I10 Essential (primary) hypertension; K21.9 Gastro-esophageal reflux disease without esophagitis; F41.9 Anxiety disorder, unspecified; F17.210 Nicotine dependence, cigarettes, uncomplicated; Z79.899 Other long term (current) drug therapy; T50.0X1A Poisoning by mineralocorticoids and their antagonists, accidental (unintentional), initial encounter; I95.9 Hypotension, unspecified
CPT/HCPCS: 00123; 36415; 36430; 80048; 80053; 85027; 86850; 86900; 86901; 86920; 96361; 96365; 96375; 99285; 80320; 82140; 83735; 84703; 85025; 99223; 99291; 99292; J2405; J2470; J3475; P9016

== ENCOUNTER 2023-10-09 10:25 | Emergency (ER) | payer MEDICAID, SELFPAY ==
[2023-10-09] VITALS (50 sets, daily range): BP systolic 97–142; BP diastolic 29–65; PULSE 69–114; RESP 11–21; TEMP 36.6–37.1; O2SAT 95–100
[2023-10-09] MEDS: Prochlorperazine 10 MG/2 ML VIAL 5 MG IVP ×2 (10:30→14:16)
[2023-10-09] MEDS: Normal Saline 500 ML IV (10:48)
[2023-10-09] MEDS: Pantoprazole 40 MG VIAL 80 MG IVP (10:48)
[2023-10-09] MEDS: Octreotide 100 MCG/ML VIAL IVP (10:48)
[2023-10-09 10:51] LABS: Abs Immature Grans 0.01 10^3/uL (0.0-0.06); Absolute Basophil Count 0.03 10^3/uL (0.0-0.2); Absolute Eosinophil Count 0.07 10^3/uL (0.0-0.7); Absolute Lymphocyte Count 0.82 10^3/uL (1.2-3.4); Absolute Monocyte Count 0.42 10^3/uL (0.1-0.8); Absolute Neutrophil Count 2.36 10^3/uL (1.2-6.7); Basophils % 0.8; Eosinophils % 1.9; HCT 25.5 % (36.0-46.0); HGB 8.4 g/dL (11.2-15.7); Immature Grans % 0.3; Lymphocytes % 22.1; MCH 31.8 pg (27.0-33.0); MCHC 32.9 % (32.0-36.0); MCV 97 fL (80-95); MPV 10.9 fL (8.0-11.0); Monocytes % 11.3; Neutrophils % 63.6; RBC 2.64 10^6/uL (3.93-5.22); RDW 17.7 % (11.7-14.6); RDW-SD 62.1 fL; WBC 3.71 10^3/uL (4.4-10.8)
[2023-10-09 11:07] LABS: Diff Comment RBC Morph Reviewed; Platelet Count 68 10^3/uL (130-400); Poikilocytes 2+; Polychromasia Present
[2023-10-09 11:14] LABS: Ammonia 36 umol/L (11-32)
[2023-10-09 11:15] LABS: ALT 34 U/L (14-59); AST 72 U/L (15-37); Albumin 3.5 g/dL (3.4-5.0); Alkaline Phosphatase 118 U/L (46-116); Anion Gap 10.5 mmol/L (3-11); BUN 7 mg/dL (7-18); Bilirubin, Total 6.9 mg/dL (0.2-1.0); CO2 24.5 mmol/L (21.0-32.0); CREATININE 1.1 mg/dL (0.55-1.02); Calcium 8.9 mg/dL (8.5-10.1); Chloride 101 mmol/L (98-107); Estimated GFR 66.37 (mL/min/1.73m2); Glucose 114 mg/dL (74-106); Lipase 228 U/L (16-77); Potassium 4.4 mmol/L (3.5-5.1); Sodium 136 mmol/L (136-145); Total Protein 6.7 g/dL (6.4-8.2)
[2023-10-09 11:24] LABS: ETHANOL BLOOD < 3.0 mg/dL (<10)
[2023-10-09] MEDS: OCTREOTIDE 250 MCG in Normal Saline 245 ML 50 MCG IV (11:26)
--- NOTE | 2023-10-09 11:30 | RT.EKG_ITS ---
APPROVED REPORT Exam: Resting ECG Reason for Exam: weakness Patient Location: E HR:78 bpm ECG Measurements Heart Rate 78 AXIS AZ 176 P 76 QRSd 96 QRS 56 QT 436 T 32 QTc 498 Conclusion Sinus rhythm...normal P axis, V-rate 60- 99
[2023-10-09 11:37] LABS: INR 2.5 (0.9-1.1); Prothrombin Time 22.9 sec (9.1-11.1)
[2023-10-09 12:37] LABS: Abs Immature Grans 0.01 10^3/uL (0.0-0.06); Absolute Basophil Count 0.02 10^3/uL (0.0-0.2); Absolute Eosinophil Count 0.05 10^3/uL (0.0-0.7); Absolute Lymphocyte Count 0.66 10^3/uL (1.2-3.4); Absolute Monocyte Count 0.34 10^3/uL (0.1-0.8); Absolute Neutrophil Count 2.26 10^3/uL (1.2-6.7); Basophils % 0.6; Eosinophils % 1.5; HCT 25.2 % (36.0-46.0); HGB 8.2 g/dL (11.2-15.7); Immature Grans % 0.3; Lymphocytes % 19.8; MCH 31.7 pg (27.0-33.0); MCHC 32.5 % (32.0-36.0); MCV 97 fL (80-95); MPV 11.5 fL (8.0-11.0); Monocytes % 10.2; Neutrophils % 67.6; RBC 2.59 10^6/uL (3.93-5.22); RDW 17.1 % (11.7-14.6); RDW-SD 61.1 fL; WBC 3.34 10^3/uL (4.4-10.8)
[2023-10-09 12:38] LABS: Platelet Count 61 10^3/uL (130-400)
[2023-10-09] MEDS: cefTRIAXone 1 GM/50 ML BAG IVPB (13:39)
--- NOTE | 2023-10-09 14:13 | W.ED.GENAD ---
Discharge Plan Disposition Patient Disposition: Transfer-Acute Inpatient Care Specific Acute Inpt Facility: [facility] Condition: Serious Discharge Details Clinical Impression: Esophageal varices with hemorrhage, Coagulopathy, Hyperbilirubinemia, Cirrhosis, Acute blood loss anemia Primary Care Provider: Allie Raines ED Provider: Tara Patrick Home Meds and New Rx's Prescriptions: No Action zolpidem [Ambien] 5 MG tablet 5 mg PO HS clonazepam [Klonopin] 1 MG tablet 1 mg PO QID PRN PRN (Reason: Anxiety) ondansetron HCl 4 mg tablet 4 mg PO Q4H PRN omeprazole 40 mg capsule,delayed release(DR/EC) 40 mg PO DAILY nortriptyline 25 mg capsule 25 mg PO DAILY magnesium gluconate 27 mg magnesium (500 mg) tablet 27 mg PO DAILY spironolactone 50 mg Tablet 50 mg PO BID Qty: 60 0RF furosemide 40 mg tablet 40 mg PO DAILY Qty: 30 0RF potassium chloride 20 mEq tablet extended release 20 meq PO DAILY Qty: 30 0RF Xifaxan 550 mg tablet 550 mg PO ONCE multivitamin [Daily Multi-Vitamin] Tablet 1 tab PO DAILY Discharge Data Discharge Date/Time-TO BE ENTERED AT DEPARTURE: 10/09/23 15:21 HPI General Date/Time Provider Initiated Documentation: 10/09/23 10:30. HPI Narrative: This 38-year-old female with complex medical history including esophageal varices with hemorrhage, cirrhosis, hepatic encephalopathy, hypertension, portal hypertension with recent TIPS procedure and esophageal banding presents with report of nausea with vomiting bright red blood that started approximately 7:00 this morning. Denies any blood in stool. States she was actually feeling better since her discharge on 02 October. Has not had an alcoholic drink in approximately 8 months per patient. Taking all of her medications as prescribed, denies any nonsteroidal use. Denies any pain complaints. Related Data Home Medications Medication Instructions Recorded Confirmed clonazepam 1 mg tablet (Klonopin) 1 mg PO QID PRN PRN Anxiety 01/16/15 10/09/23 zolpidem 5 mg tablet (Ambien) 5 mg PO HS 07/26/15 10/09/23 magnesium gluconate 27 mg 27 mg PO DAILY 10/14/22 10/09/23 magnesium (500 mg) tablet nortriptyline 25 mg capsule 25 mg PO DAILY 10/14/22 10/09/23 omeprazole 40 mg capsule,delayed 40 mg PO DAILY 10/14/22 10/09/23 release ondansetron HCl 4 mg tablet 4 mg PO Q4H PRN 10/14/22 09/17/23 furosemide 40 mg tablet 40 mg PO DAILY #30 tabs 10/16/22 10/09/23 potassium chloride 20 mEq 20 meq PO DAILY #30 tabs 10/16/22 10/09/23 tablet,extended release spironolactone 50 mg tablet 50 mg PO BID #60 tabs 10/16/22 10/09/23 multivitamin (Daily Multi-Vitamin 1 tab PO DAILY 10/09/23 10/09/23 tablet) rifaximin 550 mg tablet (Xifaxan) 550 mg PO ONCE 10/09/23 10/09/23 Previous Rx's Medication Instructions Recorded furosemide 40 mg tablet 40 mg PO DAILY #30 tabs 10/16/22 potassium chloride 20 mEq 20 meq PO DAILY #30 tabs 10/16/22 tablet,extended release spironolactone 50 mg tablet 50 mg PO BID #60 tabs 10/16/22 Allergies Allergy/AdvReac Type Severity Reaction Status Date / Time sertraline HCl [From Zoloft] AdvReac Intermediate Nausea Unverified 09/17/23 22:10 General Stated Complaint: GI Bleed CASSIUS: 3 Course Vital Signs Vital signs: Vital Signs Temperature 37.1 C 10/09/23 10:26 Pulse 114 H 10/09/23 10:26 Respiratory Rate 18 10/09/23 10:26 Blood Pressure 142/62 H 10/09/23 10:26 Pulse Oximetry 100 10/09/23 10:26 Temperature 37.1 C 10/09/23 10:26 Temperature Source Tympanic 10/09/23 10:26 Pulse 114 H 10/09/23 10:26 Respiratory Rate 18 10/09/23 10:26 Blood Pressure 142/62 H 10/09/23 10:26 Pulse Oximetry 100 10/09/23 10:26 Lab/Test Results Lab/Test Results: Laboratory Tests Range/Units 10/09/23 10/09/23 10/09/23 10:32 10:55 12:30 WBC (4.4-10.8) 10^3/uL 3.71 L 3.34 L RBC (3.93-5.22) 10^6/uL 2.64 L 2.59 L Hgb (11.2-15.7) g/dL 8.4 L 8.2 L Hct (36.0-46.0) % 25.5 L 25.2 L MCV (80-95) fL 97 H 97 H MCH (27.0-33.0) pg 31.8 31.7 MCHC (32.0-36.0) % 32.9 32.5 RDW (11.7-14.6) % 17.7 H 17.1 H Plt Count (130-400) 10^3/uL 68 L 61 L MPV (8.0-11.0) fL 10.9 11.5 H Immature Gran % 0.3 0.3 Neutrophils % 63.6 67.6 Lymphocytes % 22.1 19.8 Monocytes % 11.3 10.2 Eosinophils % 1.9 1.5 Basophils % 0.8 0.6 Nucleated RBC % (0.0-0.3) % 0.0 0.0 Absolute Neutrophils (1.2-6.7) 10^3/uL 2.36 2.26 Absolute Lymphocytes (1.2-3.4) 10^3/uL 0.82 L 0.66 L Absolute Monocytes (0.1-0.8) 10^3/uL 0.42 0.34 Absolute Eosinophils (0.0-0.7) 10^3/uL 0.07 0.05 Absolute Basophils (0.0-0.2) 10^3/uL 0.03 0.02 RBC Morphology See Below Polychromasia Present Poikilocytosis 2+ PT (9.1-11.1) sec 22.9 H INR (0.9-1.1) 2.5 H Sodium (136-145) mmol/L 136 Potassium (3.5-5.1) mmol/L 4.4 Chloride (98-107) mmol/L 101 Carbon Dioxide (21.0-32.0) mmol/L 24.5 Anion Gap (3-11) mmol/L 10.5 BUN (7-18) mg/dL 7 Creatinine (0.55-1.02) mg/dL 1.1 H Est GFR (CKD-EPI 2020) (mL/min/1.73m2) 66.37 Glucose (74-106) mg/dL 114 H Calcium (8.5-10.1) mg/dL 8.9 Total Bilirubin (0.2-1.0) mg/dL 6.9 H AST (15-37) U/L 72 H ALT (14-59) U/L 34 Alkaline Phosphatase (46-116) U/L 118 H Ammonia (11-32) umol/L 36 H Total Protein (6.4-8.2) g/dL 6.7 Albumin (3.4-5.0) g/dL 3.5 Lipase (16-77) U/L 228 H Ethyl Alcohol (<10) mg/dL < 3.0 Patient ABO/Rh B Positive Antibody Screen NEGATIVE Crossmatch See Detail Medical Decision Making This complex 38-year-old female presents with history of esophageal varices with upper GI bleeding, bright red blood, approximately half a cup per patient of bright red blood, denies any regular alcohol consumption, patient is pale and tachycardic on initial presentation, but patient remained stable, I did order 2 units of blood with this was held, hemoglobin has remained stable and at 8.2 since evaluation in the emergency department She has a nontender abdominal exam, she is alert and oriented x 4, she is given Protonix, octreotide, IV fluids, ceftriaxone 1 g Lipase is elevated at 228, mild elevation in AST, platelets of 68 Patient is status post TIPS procedure and gastroesophageal banding x 2 at [facility] a week and a half prior to arrival I spent approximately 10 minutes reviewing patient's discharge summary and surgical intervention summary from [facility] Case was discussed with Dr. Mendes, hospitalist who is agreeable to accepting patient in transfer There was a delay in transfer secondary to bed capacity at [facility], I did consult with [facility] and they are at capacity as well and are unable to accept the patient at this time, will continue to hold patient and she has remained stable in the emergency department after cessation of vomiting, I did of blood products ordered, however patient's CBC remained stable at 8.2 hemoglobin and hematocrit of 25 Patient has remained hemodynamically stable in the emergency department, she is alert and oriented She is maintaining her airway We did not administer any blood products in the emergency department She will be transferred critical care nurse secondary to octreotide administration Quality:[facility] Health Related Social Needs: No Data to Display Critical Care Time Critical Care Time Attestation: 45 minutes of critical care time secondary to telemetry monitoring in the presence of acute upper GI bleeding, antiemetic administration, antibiotic and octreotide administration, diagnostic lab interpretation and review, transfer of patient to tertiary care facility for further medical management and esophageal varices and acute upper GI bleeding PFSH All Active Problems (Updated 10/10/23 @ 10:36 by JOHN Brooke) Cirrhosis (Acute) Esophageal varices with hemorrhage (Acute) Acute blood loss anemia (Acute) Encephalopathy, hepatic (Acute) Hepatic cirrhosis (Acute) Non-insulin dependent type 2 diabetes mellitus (Acute) Constipation (Acute) Plate-like atelectasis (Acute) Pulmonary edema (Acute) Edema of both lower extremities (Acute) Hypoalbuminemia (Acute) Hyperbilirubinemia (Acute) Hyponatremia (Acute) Coagulopathy (Acute) Acute anemia (Acute) Abdominal ascites (Acute) HTN (hypertension), benign (Acute) Obesity, morbid, BMI 40.0-49.9 (Acute) GERD (gastroesophageal reflux disease) (Chronic) Anxiety (Chronic) Medical History (Updated 10/10/23 @ 10:36 by JOHN Brooke) Hepatic steatosis Surgical History (Updated 10/14/22 @ 23:39 by Danielle Ku MD) H/O wisdom tooth extraction H/O section Family History (Updated 10/14/22 @ 23:39 by Danielle Ku MD) Mother Liver disease Alcohol use disorder Maternal Aunt Liver disease Alcohol use disorder Social History Smoking/Tobacco Use Status: Current every day Tobacco Type: cigarettes Smoking risk assessment performed?: Yes Alcohol Intake: current Alcohol Intake frequency: holidays/special occasions only Drug use: Never Substance use type: marijuana Housing: other Do you feel safe at home: Yes Do you feel safe in your relationship?: Yes
== END 2023-10-09 15:21 | disposition short-term general hospital (02) ==
LOC: ER 10:31
PROVIDERS: Emergency Provider Physician Assistant; PCP Physician Assistant Medical
DX: K74.60 Unspecified cirrhosis of liver (principal); I85.10 Secondary esophageal varices without bleeding; E80.6 Other disorders of bilirubin metabolism; D62 Acute posthemorrhagic anemia; E11.9 Type 2 diabetes mellitus without complications; I10 Essential (primary) hypertension; K76.6 Portal hypertension
CPT/HCPCS: 80053; 83690; 86850; 86900; 86901; 86920; 93005; 96361; 96365; 96375; 96376; 99285; 80320; 82140; 85025; 85610; 93010; J0696; J0780; J2354; J2470

== ENCOUNTER 2023-11-28 14:51 | Emergency (ER) | payer MEDICAID, SELFPAY ==
[2023-11-28] VITALS (21 sets, daily range): BP systolic 111–128; BP diastolic 44–72; PULSE 69–82; RESP 10–19; TEMP 36.2; O2SAT 100
--- NOTE | 2023-11-28 15:27 | NUR.NOTE ---
[place]ed [facility] [place] determine where the referral was sent for paracentesis was to be done. In the discharge summary it was documented it was sent to [place], [facility] Nursing Note:
[2023-11-28] MEDS: Ondansetron 4 MG/2 ML VIAL IVP (15:36)
[2023-11-28 15:38] LABS: Abs Immature Grans 0.02 10^3/uL (0.0-0.06); Absolute Basophil Count 0.03 10^3/uL (0.0-0.2); Absolute Eosinophil Count 0.24 10^3/uL (0.0-0.7); Absolute Lymphocyte Count 0.92 10^3/uL (1.2-3.4); Absolute Monocyte Count 0.61 10^3/uL (0.1-0.8); Absolute Neutrophil Count 2.62 10^3/uL (1.2-6.7); Basophils % 0.7 %; Eosinophils % 5.4 %; HCT 24.6 % (36.0-46.0); HGB 8.4 g/dL (11.2-15.7); Immature Grans % 0.5 %; Lymphocytes % 20.7 %; MCHC 34.1 % (32.0-36.0); MCV 103 fL (80-95); MPV 9.1 fL (8.0-11.0); Monocytes % 13.7 %; RDW 14.8 % (11.7-14.6); RDW-SD 55.8 fL; WBC 4.44 10^3/uL (4.4-10.8)
[2023-11-28 15:50] LABS: INR 1.6 (0.9-1.1); PTT Activated 33.1 sec (23.6-32.8); Prothrombin Time 15.3 sec (9.1-11.1)
[2023-11-28 15:56] LABS: Ammonia 14 umol/L (11-32)
[2023-11-28 15:57] LABS: Diff Comment RBC Morph Reviewed; Hypochromasia 1+; Platelet Count 72 10^3/uL (130-400)
[2023-11-28 15:59] LABS: Poikilocytes 1+
[2023-11-28 16:01] LABS: ALT 41 U/L (14-59); AST 94 U/L (15-37); Albumin 2.8 g/dL (3.4-5.0); Alkaline Phosphatase 99 U/L (46-116); Amylase 137 U/L (25-115); Anion Gap 6.3 mmol/L (3-11); BUN 11 mg/dL (7-18); Bilirubin, Total 6.7 mg/dL (0.2-1.0); CO2 24.7 mmol/L (21.0-32.0); Calcium 8.3 mg/dL (8.5-10.1); Chloride 104 mmol/L (98-107); Estimated GFR 74.41 (mL/min/1.73m2); Glucose 110 mg/dL (74-106); Lipase 181 U/L (16-77); Magnesium 1.7 mg/dL (1.8-2.4); NT-proBNP 132 pg/mL (<300); Potassium 4.3 mmol/L (3.5-5.1); Sodium 135 mmol/L (136-145); Total Protein 6.4 g/dL (6.4-8.2)
[2023-11-28 16:08] LABS: Procalcitonin < 0.1 ng/mL
--- NOTE | 2023-11-28 16:29 | ED.GENADUL_ITS ---
Discharge Plan Disposition Patient Disposition: Home Discharge Details Clinical Impression: Chronic liver failure Primary Care Provider: Allie Raines ED Provider: Meseret Christensen Home Meds and New Rx's Prescriptions: No Action zolpidem [Ambien] 5 MG tablet 5 mg PO HS clonazepam [Klonopin] 1 MG tablet 1 mg PO QID PRN PRN (Reason: Anxiety) ondansetron HCl 4 mg tablet 4 mg PO Q4H PRN omeprazole 40 mg capsule,delayed release(DR/EC) 40 mg PO DAILY nortriptyline 25 mg capsule 25 mg PO DAILY magnesium gluconate 27 mg magnesium (500 mg) tablet 27 mg PO DAILY furosemide 40 mg tablet 40 mg PO DAILY Qty: 30 0RF potassium chloride 20 mEq tablet extended release 20 meq PO DAILY Qty: 30 0RF magnesium oxide 400 mg magnesium capsule 400 mg PO DAILY acetaminophen 325 mg capsule 650 mg PO Q6H PRN Rx Instructions: Only as needed folic acid 1 mg tablet 1 mg PO DAILY hydroxyzine HCl 25 mg tablet 25 mg PO DAILY lactulose 10 gram/15 mL solution 10 g PO DAILY levetiracetam [Keppra] 1,000 mg tablet 1,000 mg PO BID melatonin 3 mg capsule 3 mg PO DAILY miconazole nitrate 2 % powder 1 applic topical BID thiamine HCl (vitamin B1) [Vitamin B-1] 100 mg tablet 100 mg PO DAILY trazodone 50 mg tablet 50 mg PO DAILY polyethylene glycol 3350 [Miralax] 17 gram/dose powder 17 g PO BID spironolactone 50 mg Tablet 100 mg PO DAILY Xifaxan 550 mg tablet 550 mg PO ONCE multivitamin [Daily Multi-Vitamin] Tablet 1 tab PO DAILY Discharge Instructions Additional Instructions: Keep taking your medicines follow up with IR Discharge Data Discharge Date/Time-TO BE ENTERED AT DEPARTURE: 11/28/23 16:59 HPI General Date/Time Provider Initiated Documentation: 11/28/23 14:52 . Limitations to Documentation: no limitations . Information obtained by: patient . HPI Narrative: 38-year-old female with past medical history of liver failure, hypertension, esophageal varices status post banding and TIPS procedure, diabetes presents for evaluation of dark-colored stool. She reports that she has had 1 episode of dark-colored stool. Denies any abdominal pain or vomiting. No noted bleeding. She reports that she has only had 1 bowel movement today. Reports that she has been compliant with medication and has been feeling well since her discharge fro m the hospital 1 week ago. She states that she has had little output from her paracentesis site that was leaking significantly at the time of discharge. She denies any fever, nausea or vomiting. Denies any significant abdominal pain, just states that her abdomen size has been increasing. She has not been scheduled for paracentesis yet. Related Data Home Medications Medication Instructions Recorded Confirmed clonazepam 1 mg tablet (Klonopin) 1 mg PO QID PRN PRN Anxiety 01/16/15 11/28/23 zolpidem 5 mg tablet (Ambien) 5 mg PO HS 07/26/15 11/28/23 magnesium gluconate 27 mg 27 mg PO DAILY 10/14/22 11/28/23 magnesium (500 mg) tablet nortriptyline 25 mg capsule 25 mg PO DAILY 10/14/22 11/28/23 omeprazole 40 mg capsule,delayed 40 mg PO DAILY 10/14/22 11/28/23 release ondansetron HCl 4 mg tablet 4 mg PO Q4H PRN 10/14/22 11/28/23 furosemide 40 mg tablet 40 mg PO DAILY #30 tabs 10/16/22 11/28/23 potassium chloride 20 mEq 20 meq PO DAILY #30 tabs 10/16/22 11/28/23 tablet,extended release multivitamin (Daily Multi-Vitamin 1 tab PO DAILY 10/09/23 11/28/23 tablet) rifaximin 550 mg tablet (Xifaxan) 550 mg PO ONCE 10/09/23 11/28/23 acetaminophen 325 mg capsule 650 mg PO Q6H PRN 11/28/23 11/28/23 folic acid 1 mg tablet 1 mg PO DAILY 11/28/23 11/28/23 hydroxyzine HCl 25 mg tablet 25 mg PO DAILY 11/28/23 11/28/23 lactulose 10 gram/15 mL oral 10 g PO DAILY 11/28/23 11/28/23 solution levetiracetam 1,000 mg tablet 1,000 mg PO BID 11/28/23 11/28/23 (Keppra) magnesium oxide 400 mg PO DAILY 11/28/23 11/28/23 melatonin 3 mg capsule 3 mg PO DAILY 11/28/23 11/28/23 miconazole nitrate 2 % topical 1 applic topical BID 11/28/23 11/28/23 powder polyethylene glycol 3350 17 17 g PO BID 11/28/23 11/28/23 gram/dose oral powder (Miralax) spironolactone 50 mg tablet 100 mg PO DAILY 11/28/23 11/28/23 thiamine HCl (vitamin B1) 100 mg 100 mg PO DAILY 11/28/23 11/28/23 tablet (Vitamin B-1) trazodone 50 mg tablet 50 mg PO DAILY 11/28/23 11/28/23 Previous Rx's Medication Instructions Recorded furosemide 40 mg tablet 40 mg PO DAILY #30 tabs 10/16/22 potassium chloride 20 mEq 20 meq PO DAILY #30 tabs 10/16/22 tablet,extended release Allergies Allergy/AdvReac Type Severity Reaction Status Date / Time sertraline HCl [From Zoloft] AdvReac Intermediate Nausea Unverified 11/28/23 14:59 General Stated Complaint: GenMedical CASSIUS: 3 Course Vital Signs Vital signs: Vital Signs Temperature 36.2 C L 11/28/23 14:54 Pulse 74 11/28/23 14:54 Respiratory Rate 18 11/28/23 14:54 Blood Pressure 115/44 L 11/28/23 14:54 Pulse Oximetry 100 11/28/23 14:54 Temperature 36.2 C L 11/28/23 15:07 Temperature Source Skin 11/28/23 15:07 Pulse 72 11/28/23 15:45 Pulse 70 11/28/23 15:50 Respiratory Rate 14 11/28/23 15:50 Respiratory Effort Normal, Non-Labored 11/28/23 15:22 Respiratory Depth Normal 11/28/23 15:22 Respiratory Pattern Normal 11/28/23 15:22 Blood Pressure 111/70 11/28/23 15:45 Blood Pressure Mean 79 11/28/23 15:45 Blood Pressure Position Sitting 11/28/23 15:07 Pulse Oximetry 100 11/28/23 15:50 Oxygen Delivery Method Room Air 11/28/23 15:07 Oxygen Flow Rate 0 11/28/23 15:07 Pain Level 4 11/28/23 15:07 Comment Pt c/o stomach pain 11/28/23 15:07 Lab/Test Results Lab/Test Results: Laboratory Tests Range/Units 05/01/24 05/01/24 15:10 15:41 WBC (4.4-10.8) 10^3/uL 4.44 RBC (3.93-5.22) 10^6/uL 2.40 L Hgb (11.2-15.7) g/dL 8.4 L Hct (36.0-46.0) % 24.6 L MCV (80-95) fL 103 H MCH (27.0-33.0) pg 35.0 H MCHC (32.0-36.0) % 34.1 RDW (11.7-14.6) % 14.8 H Plt Count (130-400) 10^3/uL 72 L MPV (8.0-11.0) fL 9.1 Immature Gran % % 0.5 Neutrophils % % 59.0 Lymphocytes % % 20.7 Monocytes % % 13.7 Eosinophils % % 5.4 Basophils % % 0.7 Nucleated RBC % (0.0-0.3) % 0.0 Absolute Neutrophils (1.2-6.7) 10^3/uL 2.62 Absolute Lymphocytes (1.2-3.4) 10^3/uL 0.92 L Absolute Monocytes (0.1-0.8) 10^3/uL 0.61 Absolute Eosinophils (0.0-0.7) 10^3/uL 0.24 Absolute Basophils (0.0-0.2) 10^3/uL 0.03 RBC Morphology See Below Hypochromasia 1+ Poikilocytosis 1+ PT (9.1-11.1) sec 15.3 H INR (0.9-1.1) 1.6 H APTT (23.6-32.8) sec 33.1 H Sodium (136-145) mmol/L 135 L Potassium (3.5-5.1) mmol/L 4.3 Chloride (98-107) mmol/L 104 Carbon Dioxide (21.0-32.0) mmol/L 24.7 Anion Gap (3-11) mmol/L 6.3 BUN (7-18) mg/dL 11 Creatinine (0.55-1.02) mg/dL 1.0 Est GFR (CKD-EPI 2020) (mL/min/1.73m2) 74.41 Glucose (74-106) mg/dL 110 H Calcium (8.5-10.1) mg/dL 8.3 L Magnesium (1.8-2.4) mg/dL 1.7 L Total Bilirubin (0.2-1.0) mg/dL 6.7 H AST (15-37) U/L 94 H ALT (14-59) U/L 41 Alkaline Phosphatase (46-116) U/L 99 Ammonia (11-32) umol/L 14 NT-Pro-B Natriuret Pep (<300) pg/mL 132 Total Protein (6.4-8.2) g/dL 6.4 Albumin (3.4-5.0) g/dL 2.8 L Amylase (25-115) U/L 137 H Lipase (16-77) U/L 181 H Procalcitonin ng/mL < 0.1 Medical Decision Making [id number] Reviewed the medical records from [facility]. 7 days ago, the patient's hemoglobin was 7.4 and 21.5 Quality:[facility] Health Related Social Needs: No Data to Display PFSH All Active Problems (Updated 11/28/23 @ 16:40 by Meseret Christensen MD) Chronic liver failure (Acute) Esophageal varices with hemorrhage (Acute) Acute blood loss anemia (Acute) Encephalopathy, hepatic (Acute) Hepatic cirrhosis (Acute) Non-insulin dependent type 2 diabetes mellitus (Acute) Constipation (Acute) Plate-like atelectasis (Acute) Pulmonary edema (Acute) Edema of both lower extremities (Acute) Hypoalbuminemia (Acute) Hyperbilirubinemia (Acute) Hyponatremia (Acute) Coagulopathy (Acute) Acute anemia (Acute) Abdominal ascites (Acute) HTN (hypertension), benign (Acute) Obesity, morbid, BMI 40.0-49.9 (Acute) GERD (gastroesophageal reflux disease) (Chronic) Anxiety (Chronic) Medical History (Updated 11/28/23 @ 16:40 by Meseret Christensen MD) History of gynecologic disorder Breast lump History of gestational diabetes Panic disorder with agoraphobia Hepatic steatosis Surgical History (Updated 11/28/23 @ 16:03 by Esthela Haney) History of abdominal paracentesis H/O wisdom tooth extraction H/O section Family History (Updated 11/28/23 @ 15:48 by Esthela Haney) Mother Liver disease Alcohol use disorder Maternal Aunt Liver disease Alcohol use disorder Father Coronary artery disease Social History Smoking/Tobacco Use Status: Current every day Tobacco Type: cigarettes Smoking risk assessment performed?: Yes Alcohol Intake: current Alcohol Intake frequency: holidays/special occasions only Drug use: Never Substance use type: marijuana Housing: other Do you feel safe at home: Yes Do you feel safe in your relationship?: Yes
--- NOTE | 2023-11-28 16:38 | NUR.NOTE ---
[facility] (interventional [facility]ology) [phone] Nursing Note:
== END 2023-11-28 16:59 | disposition home or self-care (01) ==
PROVIDERS: Emergency Provider Emergency Medicine; PCP Physician Assistant Medical
DX: K72.10 Chronic hepatic failure without coma (principal); I10 Essential (primary) hypertension; E11.9 Type 2 diabetes mellitus without complications; F17.210 Nicotine dependence, cigarettes, uncomplicated
CPT/HCPCS: 36415; 80053; 83690; 84145; 96374; 99284; 82140; 82150; 83735; 83880; 85025; 85610; 85730; J2405

== ENCOUNTER 2023-11-30 09:34 | Day surgery (SDC) | payer MEDICAID, SELFPAY ==
[2023-11-30 09:32] VITALS: BP 107/52; PULSE 84; RESP 14; TEMP 36.9; O2SAT 100
[2023-11-30 09:45] VITALS: BP 107/52; PULSE 84; RESP 14; TEMP 36.9; O2SAT 100
--- NOTE | 2023-11-30 10:09 | ED.GENADUL_ITS ---
Discharge Plan Disposition Patient Disposition: Admit to [facility] Condition: Serious Discharge Details Chief Complaint: Abd Prob Clinical Impression: Abdominal ascites, Anemia, Thrombocytopenia, Chronic liver failure Primary Care Provider: Allie Raines ED Provider: Roberto Hansen Home Meds and New Rx's Prescriptions: No Action ondansetron HCl 4 mg tablet 4 mg PO Q4H PRN omeprazole 40 mg capsule,delayed release(DR/EC) 40 mg PO DAILY furosemide 40 mg tablet 40 mg PO DAILY Qty: 30 0RF magnesium oxide 400 mg magnesium capsule 400 mg PO DAILY acetaminophen 325 mg capsule 650 mg PO Q6H PRN Rx Instructions: Only as needed folic acid 1 mg tablet 1 mg PO DAILY hydroxyzine HCl 25 mg tablet 25 mg PO DAILY lactulose 10 gram/15 mL solution 10 g PO DAILY levetiracetam [Keppra] 1,000 mg tablet 1,000 mg PO BID melatonin 3 mg capsule 3 mg PO DAILY miconazole nitrate 2 % powder 1 applic topical BID thiamine HCl (vitamin B1) [Vitamin B-1] 100 mg tablet 100 mg PO DAILY trazodone 50 mg tablet 50 mg PO DAILY polyethylene glycol 3350 [Miralax] 17 gram/dose powder 17 g PO BID spironolactone 50 mg Tablet 100 mg PO DAILY Xifaxan 550 mg tablet 550 mg PO ONCE multivitamin [Daily Multi-Vitamin] Tablet 1 tab PO DAILY HPI General Mode of arrival: EMS . Date/Time Provider Initiated Documentation: 11/30/23 09:36 . Limitations to Documentation: no limitations . Information obtained by: patient . HPI Narrative: 38-year-old female with past medical history of liver failure, hypertension, esophageal varices status post banding and TIPS procedure, requires frequent paracentesis, was scheduled for paracentesis with general surgery today but developed abdominal pain last night. Pain is diffuse. No associated fever. She notes she feels distended. She is a prior paracentesis site with a bag over it that is no longer draining. Patient denies bright red blood per rectum or melena. Patient had normal bowel movement this morning. Related Data Home Medications Medication Instructions Recorded Confirmed omeprazole 40 mg capsule,delayed 40 mg PO DAILY 10/14/22 11/30/23 release ondansetron HCl 4 mg tablet 4 mg PO Q4H PRN 10/14/22 11/30/23 furosemide 40 mg tablet 40 mg PO DAILY #30 tabs 10/16/22 11/30/23 multivitamin (Daily Multi-Vitamin 1 tab PO DAILY 10/09/23 11/30/23 tablet) rifaximin 550 mg tablet (Xifaxan) 550 mg PO ONCE 10/09/23 11/30/23 acetaminophen 325 mg capsule 650 mg PO Q6H PRN 11/28/23 11/30/23 folic acid 1 mg tablet 1 mg PO DAILY 11/28/23 11/30/23 hydroxyzine HCl 25 mg tablet 25 mg PO DAILY 11/28/23 11/30/23 lactulose 10 gram/15 mL oral 10 g PO DAILY 11/28/23 11/30/23 solution levetiracetam 1,000 mg tablet 1,000 mg PO BID 11/28/23 11/30/23 (Keppra) magnesium oxide 400 mg PO DAILY 11/28/23 11/30/23 melatonin 3 mg capsule 3 mg PO DAILY 11/28/23 11/30/23 miconazole nitrate 2 % topical 1 applic topical BID 11/28/23 11/30/23 powder polyethylene glycol 3350 17 17 g PO BID 11/28/23 11/30/23 gram/dose oral powder (Miralax) spironolactone 50 mg tablet 100 mg PO DAILY 11/28/23 11/30/23 thiamine HCl (vitamin B1) 100 mg 100 mg PO DAILY 11/28/23 11/30/23 tablet (Vitamin B-1) trazodone 50 mg tablet 50 mg PO DAILY 11/28/23 11/30/23 Previous Rx's Medication Instructions Recorded furosemide 40 mg tablet 40 mg PO DAILY #30 tabs 10/16/22 Allergies Allergy/AdvReac Type Severity Reaction Status Date / Time sertraline HCl [From Zoloft] AdvReac Intermediate Nausea Unverified 11/30/23 09:41 General Stated Complaint: Abd Prob CASSIUS: 3 Review of Systems All systems reviewed & are unremarkable except as noted in HPI and below Constitutional Constitutional: Denies fever(s) Gastrointestinal Gastrointestinal: Reports as per HPI Exam Const General: cooperative and no acute distress HENMT Mouth: mucous membranes dry Eyes Conjunctivae: normal conjunctivae Sclera: scleral abnormality bilaterally other (Icterus) Neck Neck: trachea midline and supple Resp Auscultation: clear to auscultation bilaterally, no rales, no rhonchi and no wheezes Cardio Rate: regular rate and not tachycardic Rhythm: regular rhythm GI Inspection: distended Palpation: soft, not firm, no guarding, no masses, not rigid and tender (Diffuse) Skin General skin exam: jaundice Neuro General: patient alert, patient awake and tone normal Extrem General: no edema Psych Appearance: grossly normal Mental Status: mental status grossly normal Course Vital Signs Vital signs: Vital Signs Temperature 36.9 C 11/30/23 09:32 Pulse 84 11/30/23 09:32 Respiratory Rate 14 11/30/23 09:32 Blood Pressure 107/52 L 11/30/23 09:32 Pulse Oximetry 100 11/30/23 09:32 Temperature 36.9 C 11/30/23 09:45 Temperature Source Oral 11/30/23 09:45 Pulse 84 11/30/23 09:45 Respiratory Rate 14 11/30/23 09:45 Respiratory Effort Normal, Non-Labored 11/30/23 09:38 Blood Pressure 107/52 L 11/30/23 09:45 Blood Pressure Position Sitting 11/30/23 09:45 Pulse Oximetry 100 11/30/23 09:45 Oxygen Delivery Method Room Air 11/30/23 09:45 Oxygen Flow Rate 0 11/30/23 09:45 Pain Level 4 11/30/23 09:45 Medical Decision Making 1012??38-year-old female with history of liver failure, hypertension, esophageal varices status post banding and TIPS procedure, here with diffuse abdominal pain since last night. Patient has distended abdomen with significant ascites. She is tender. No fever. Surgery was contacted and is aware of the patient and will plan on evaluating. -- Labs reviewed: No leukocytosis. Patient is anemic. Thrombocytopenic with platelets 69. Mild electrolyte abnormalities. 1342 --patient seen by Dr. Boucher. Patient to be taken to the procedure room for paracentesis. Care transferred to Dr. Boucher. Quality:SDOH Health Related Social Needs: Health related social needs risk of homeless, inadequa te housing PFSH All Active Problems (Updated 11/30/23 @ 13:44 by Roberto Hansen MD) Thrombocytopenia (Chronic) Anemia (Chronic) Abdominal ascites (Acute) Chronic blood loss anemia (Acute) Anemia of chronic disease (Acute) End stage liver disease (Acute) Liver cirrhosis secondary to nonalcoholic steatohepatitis (GUERRERO) (Acute) Chronic liver failure (Acute) Esophageal varices with hemorrhage (Acute) Acute blood loss anemia (Acute) Encephalopathy, hepatic (Acute) Hepatic cirrhosis (Acute) Non-insulin dependent type 2 diabetes mellitus (Acute) Constipation (Acute) Plate-like atelectasis (Acute) Pulmonary edema (Acute) Edema of both lower extremities (Acute) Hypoalbuminemia (Acute) Hyperbilirubinemia (Acute) Hyponatremia (Acute) Coagulopathy (Acute) Acute anemia (Acute) Abdominal ascites (Acute) HTN (hypertension), benign (Acute) Obesity, morbid, BMI 40.0-49.9 (Acute) GERD (gastroesophageal reflux disease) (Chronic) Anxiety (Chronic) Medical History History of gynecologic disorder Breast lump History of gestational diabetes Panic disorder with agoraphobia Hepatic steatosis Surgical History History of abdominal paracentesis H/O wisdom tooth extraction H/O section Family History Mother Liver disease Alcohol use disorder Maternal Aunt Liver disease Alcohol use disorder Father Coronary artery disease Social History Smoking/Tobacco Use Status: Current every day Tobacco Type: cigarettes Smoking risk assessment performed?: Yes Alcohol Intake: current Alcohol Intake frequency: holidays/special occasions only Drug use: Never Substance use type: marijuana Housing: other Do you feel safe at home: Yes Do you feel safe in your relationship?: Yes
[2023-11-30 11:08] LABS: Abs Immature Grans 0.03 10^3/uL (0.0-0.06); Absolute Basophil Count 0.04 10^3/uL (0.0-0.2); Absolute Eosinophil Count 0.13 10^3/uL (0.0-0.7); Absolute Lymphocyte Count 0.76 10^3/uL (1.2-3.4); Absolute Monocyte Count 0.65 10^3/uL (0.1-0.8); Absolute Neutrophil Count 2.83 10^3/uL (1.2-6.7); Basophils % 0.9 %; Eosinophils % 2.9 %; HCT 23.4 % (36.0-46.0); HGB 7.7 g/dL (11.2-15.7); Immature Grans % 0.7 %; Lymphocytes % 17.1 %; MCH 34.4 pg (27.0-33.0); MCHC 32.9 % (32.0-36.0); MCV 105 fL (80-95); MPV 9.7 fL (8.0-11.0); Monocytes % 14.6 %; Neutrophils % 63.8 %; RBC 2.24 10^6/uL (3.93-5.22); RDW 15.1 % (11.7-14.6); RDW-SD 56.6 fL; WBC 4.44 10^3/uL (4.4-10.8)
[2023-11-30 11:18] LABS: INR 1.7 (0.9-1.1); PTT Activated 35.7 sec (23.6-32.8); Prothrombin Time 16.6 sec (9.1-11.1)
[2023-11-30 11:24] LABS: Anisocytosis 1+; Diff Comment RBC Morph Reviewed; Macrocytosis 1+; Platelet Count 69 10^3/uL (130-400); Poikilocytes 1+
[2023-11-30 11:25] LABS: ALT 36 U/L (14-59); AST 77 U/L (15-37); Albumin 2.4 g/dL (3.4-5.0); Alkaline Phosphatase 100 U/L (46-116); Anion Gap 5.8 mmol/L (3-11); BUN 9 mg/dL (7-18); Bilirubin, Total 5.7 mg/dL (0.2-1.0); CO2 25.2 mmol/L (21.0-32.0); Calcium 8.2 mg/dL (8.5-10.1); Chloride 104 mmol/L (98-107); Estimated GFR 74.41 (mL/min/1.73m2); Glucose 117 mg/dL (74-106); Lipase 132 U/L (16-77); Magnesium 1.7 mg/dL (1.8-2.4); Potassium 4.1 mmol/L (3.5-5.1); Sodium 135 mmol/L (136-145); Total Protein 5.9 g/dL (6.4-8.2)
[2023-11-30] MEDS: Lactated Ringers 1,000 ML 100 ML IV (11:46)
[2023-11-30 12:38] LABS: Ammonia 17 umol/L (11-32)
--- NOTE | 2023-11-30 13:03 | SCONE_ITS ---
Date of service: 11/30/23 Time of Service: 13:03 Assessment and Plan Assessment and plan (1) Anxiety: Status: Chronic (2) HTN (hypertension), benign: Status: Acute (3) Coagulopathy: Status: Acute (4) Non-insulin dependent type 2 diabetes mellitus: Status: Acute (5) Obesity, morbid, BMI 40.0-49.9: Status: Acute (6) GERD (gastroesophageal reflux disease): Status: Chronic (7) Esophageal varices with hemorrhage: Status: Acute (8) Hyperbilirubinemia: Status: Acute (9) Hepatic cirrhosis: Status: Acute Assessment and plan: -paracentisis risks: bleeding/infection/damage to bowels/blood vessels/reaction to medications/chronic leakage/need for repeat procedure (10) Encephalopathy, hepatic: Status: Acute (11) Abdominal ascites: Status: Acute Assessment and plan: paracentisis risk: bleeding/infection/damage to bowel/reaction to medications/ chronic leakage no signs of infection/SBP no acute encephelopathy no bleeding This document was created with voice activated software and may contain errors. 30 mins spent in direct pt care and 20 in non face to face time (12) Hypoalbuminemia: Status: Acute (13) Pulmonary edema: Status: Acute (14) Edema of both lower extremities: Status: Acute (15) Liver cirrhosis secondary to nonalcoholic steatohepatitis (GUERRERO): Status: Acute (16) End stage liver disease: Status: Acute (17) Anemia of chronic disease: Status: Acute (18) Chronic blood loss anemia: Status: Acute (19) Gallstones: Status: Acute (20) Splenomegaly: Status: Acute (21) Portal hypertension: Status: Acute (22) Umbilical hernia: Status: Acute History of Present Illness Narrative: Patient is a 38-year-old female with a longstanding history of chronic non- alcohol cirrhosis probably secondary to poorly controlled diabetes with a history of cyclic secondary to poorly controlled diabetes. She presents to the ED complaining of abdominal pain secondary to ascites. She was scheduled today to have a outpatient elective paracentesis. She started developing severe abdominal pain and weakness, And her caregiver brought her to the ER. On exam, she does have abdominal ascites but it is not tense. There is no sign of any organ dysfunction. There is no sign of SBP. . Her ammonia level is normal. She has no fever or white count. PFSH All Active Problems (Updated 12/01/23 @ 20:39 by Alka Boucher DO) Umbilical hernia (Acute) Portal hypertension (Acute) Splenomegaly (Acute) Gallstones (Acute) Thrombocytopenia (Chronic) Anemia (Chronic) Abdominal ascites (Acute) Chronic blood loss anemia (Acute) Anemia of chronic disease (Acute) End stage liver disease (Acute) Liver cirrhosis secondary to nonalcoholic steatohepatitis (GUERRERO) (Acute) Chronic liver failure (Acute) Esophageal varices with hemorrhage (Acute) Acute blood loss anemia (Acute) Encephalopathy, hepatic (Acute) Hepatic cirrhosis (Acute) Non-insulin dependent type 2 diabetes mellitus (Acute) Constipation (Acute) Plate-like atelectasis (Acute) Pulmonary edema (Acute) Edema of both lower extremities (Acute) Hypoalbuminemia (Acute) Hyperbilirubinemia (Acute) Hyponatremia (Acute) Coagulopathy (Acute) Acute anemia (Acute) Abdominal ascites (Acute) HTN (hypertension), benign (Acute) Obesity, morbid, BMI 40.0-49.9 (Acute) GERD (gastroesophageal reflux disease) (Chronic) Anxiety (Chronic) Medical History History of gynecologic disorder Breast lump History of gestational diabetes Panic disorder with agoraphobia Hepatic steatosis Surgical History History of abdominal paracentesis H/O wisdom tooth extraction H/O section Family History Mother Liver disease Alcohol use disorder Maternal Aunt Liver disease Alcohol use disorder Father Coronary artery disease Social History Smoking/Tobacco Use Status: Current every day Tobacco Type: cigarettes Smoking risk assessment performed?: Yes Alcohol Intake: current Alcohol Intake frequency: holidays/special occasions only Drug use: Never Substance use type: marijuana Housing: other Do you feel safe at home: Yes Do you feel safe in your relationship?: Yes Results Last Vital Signs Temp 36.9 C 11/30/23 09:45 Pulse 84 11/30/23 09:45 Resp 14 11/30/23 09:45 BP 107/52 L 11/30/23 09:45 Pulse Ox 100 11/30/23 09:45 Labs 11/30/23 10:55 11/30/23 10:55 Labs: Laboratory Results - last 24 hr 11/30/23 11/30/23 10:55 12:20 WBC 4.44 RBC 2.24 L Hgb 7.7 L Hct 23.4 L MCV 105 H MCH 34.4 H MCHC 32.9 RDW 15.1 H Plt Count 69 L MPV 9.7 Immature Gran % 0.7 Neutrophils % 63.8 Lymphocytes % 17.1 Monocytes % 14.6 Eosinophils % 2.9 Basophils % 0.9 Nucleated RBC % 0.0 Absolute Neutrophils 2.83 Absolute Lymphocytes 0.76 L Absolute Monocytes 0.65 Absolute Eosinophils 0.13 Absolute Basophils 0.04 RBC Morphology See Below Poikilocytosis 1+ Anisocytosis 1+ Macrocytosis 1+ PT 16.6 H INR 1.7 H APTT 35.7 H Sodium 135 L Potassium 4.1 Chloride 104 Carbon Dioxide 25.2 Anion Gap 5.8 BUN 9 Creatinine 1.0 Est GFR (CKD-EPI 2020) 74.41 Glucose 117 H Calcium 8.2 L Magnesium 1.7 L Total Bilirubin 5.7 H AST 77 H ALT 36 Alkaline Phosphatase 100 Ammonia 17 Total Protein 5.9 L Albumin 2.4 L Lipase 132 H ABO/Rh B Positive Antibody Screen NEGATIVE
[2023-11-30 14:37] VITALS: BP 107/48; PULSE 74; RESP 20; TEMP 36.5; O2SAT 100
[2023-11-30] MEDS: ALBUMIN HUMAN 25 GM/100 ML BTL IVPB ×2 (14:47→15:43)
[2023-11-30] MEDS: Normal Saline Flush 10 ML SYR IVP (14:47)
--- NOTE | 2023-11-30 14:50 | PDOC.DSDIS_ITS ---
Date of service: 11/30/23 Time of Service: 14:50 Discharge Plan Disposition Patient Disposition: Admit to [facility] Condition: Serious Discharge Details Clinical Impression: Abdominal ascites, Anemia, Thrombocytopenia, Chronic liver failure, End stage liver disease, Acute anemia, Edema of both lower extremities, Plate-like atelectasis, HTN (hypertension), benign, Anemia of chronic disease, Anxiety, Coagulopathy, Hyperbilirubinemia, Hyponatremia, Hepatic cirrhosis, Liver cirrhosis secondary to nonalcoholic steatohepatitis (GUERRERO), Pulmonary edema, Hypoalbuminemia, Acute blood loss anemia, Obesity, morbid, BMI 40.0-49.9, Chronic blood loss anemia, GERD (gastroesophageal reflux disease), Esophageal varices with hemorrhage, Non-insulin dependent type 2 diabetes mellitus, Constipation, Encephalopathy, hepatic Primary Care Provider: Allie Raines ED Provider: Roberto Hansen Home Meds and New Rx's Prescriptions: No Action ondansetron HCl 4 mg tablet 4 mg PO Q4H PRN omeprazole 40 mg capsule,delayed release(DR/EC) 40 mg PO DAILY furosemide 40 mg tablet 40 mg PO DAILY Qty: 30 0RF magnesium oxide 400 mg magnesium capsule 400 mg PO DAILY acetaminophen 325 mg capsule 650 mg PO Q6H PRN Rx Instructions: Only as needed folic acid 1 mg tablet 1 mg PO DAILY hydroxyzine HCl 25 mg tablet 25 mg PO DAILY lactulose 10 gram/15 mL solution 10 g PO DAILY levetiracetam [Keppra] 1,000 mg tablet 1,000 mg PO BID melatonin 3 mg capsule 3 mg PO DAILY miconazole nitrate 2 % powder 1 applic topical BID thiamine HCl (vitamin B1) [Vitamin B-1] 100 mg tablet 100 mg PO DAILY trazodone 50 mg tablet 50 mg PO DAILY polyethylene glycol 3350 [Miralax] 17 gram/dose powder 17 g PO BID spironolactone 50 mg Tablet 100 mg PO DAILY Xifaxan 550 mg tablet 550 mg PO ONCE multivitamin [Daily Multi-Vitamin] Tablet 1 tab PO DAILY Discharge Data Discharge Date/Time-TO BE ENTERED AT DEPARTURE: 11/30/23 14:52 Discharge Physician: Alka Boucher DS: Diagnosis Discharge Diagnosis (1) Anxiety: Status: Chronic (2) HTN (hypertension), benign: Status: Acute (3) Coagulopathy: Status: Acute (4) Non-insulin dependent type 2 diabetes mellitus: Status: Acute (5) Obesity, morbid, BMI 40.0-49.9: Status: Acute (6) GERD (gastroesophageal reflux disease): Status: Chronic (7) Esophageal varices with hemorrhage: Status: Acute (8) Hyperbilirubinemia: Status: Acute (9) Hepatic cirrhosis: Status: Acute (10) Encephalopathy, hepatic: Status: Acute (11) Abdominal ascites: Status: Acute Asessment and Plan: The patient is doing well post-op from their paracentesis.? They are having no nausea or vomiting. They are tolerating liquids and a snack. The pt is not having any chest pain or SOB.? Their pain is adequately controlled. They have been able to urinate.? ?HEENT:? no eye pain/drainage/redness/swelling. Mild sore throat ?Cardio- NSR, no chest pain, BP stable- see VS record ?Pulm: no sob or productive cough. No hemoptysis ?Incision- dressing is c/d/i w/ no excessive bleeding or drainage ?I discussed with the patient the findings at the time of surgery and the patient?s progress. ?We reviewed expectations at home; what the patient could expect for recovery time, and in the post-operative period.? We discussed the importance of walking to avoid blood clots and pneumonia.? We discussed and reviewed the patient's post-operative wound care and dressing needs.?? We reviewed their step-moore pain management plan, Rx called to the pharmacy of their choice.? We reviewed activity and limitations-see discharge instructions. We reviewed warning signs, and when to seek medical attention- see d/c instructions.?? Patient was given a postoperative follow-up appointment. Patient verbalized understanding of their postoperative instructions, how do to take care of themselves and their incision, and the pain management plan. Please see discharge instructions.? (12) Hypoalbuminemia: Status: Acute (13) Pulmonary edema: Status: Acute (14) Edema of both lower extremities: Status: Acute (15) Liver cirrhosis secondary to nonalcoholic steatohepatitis (GUERRERO): Status: Acute (16) End stage liver disease: Status: Acute (17) Anemia of chronic disease: Status: Acute (18) Chronic blood loss anemia: Status: Acute
[2023-11-30 15:11] VITALS: BP 123/67; PULSE 70; RESP 20; TEMP 36.2; O2SAT 100
[2023-11-30] MEDS: Rifaximin 550 MG TAB PO (15:41)
[2023-11-30] MEDS: Furosemide 40 MG TAB PO (15:41)
[2023-11-30] MEDS: Spironolactone 50 MG TAB 100 MG PO (15:41)
[2023-11-30 16:13] VITALS: BP 116/52; PULSE 72; RESP 20; TEMP 36.2; O2SAT 99
--- NOTE | 2023-11-30 16:29 | W.PM.OP ---
Date of service: 11/30/23 Time of Service: 16:29 Operative Note Operative Note DATE OF PROCEDURE: 11/30/23 PRE-OP DIAGNOSIS: Cirrhosis with ascites secondary to GUERRERO POST-OP DIAGNOSIS: same PROCEDURE: Paracentesis SURGEON: Alka Boucher ANESTHESIA TYPE: Local By Surgeon Refer to Anesthesia Record ESTIMATED BLOOD LOSS: 1 PATHOLOGY: none sent COMPLICATIONS: None Patient was transported to: same day Patient's condition: stable Procedure Description: Informed consent is obtained, explaining benefits and risks of the procedure including but not limited to: bleeding/infections/damage to bowels or blood vessels/chronic drainage or leakage/need for repeat procedure/reactions to anesthetics.?? The patient is brought to the procedure room and placed in the supine position.?? A time-out is done.? Ultrasound is used to localize the pocket of fluid.? The area is prepped and draped in the usual sterile fashion using a ChloraPrep scrub solution.? 10 cc's of 1% Lidocaine with epinephrine is used for local anesthetization.? The abdomen is punctured and the catheter is inserted.?3200 liters of light yellow fluid is evacuated today.? The catheter is removed.? Pressure dressing is applied.? The patient tolerated the procedure well without complication and transferred to recovery in stable condition.?
== END 2023-11-30 16:29 | disposition home or self-care (01) ==
LOC: ER 13:44 → SUR 15:10
PROVIDERS: Emergency Provider Student in an Organized Health Care Education/Training Program; PCP Physician Assistant Medical; Visit Provider Surgery
PROC: 0W9G3ZZ Drainage of Peritoneal Cavity, Percutaneous Approach (ICD-10-PCS; CPT 49082; principal; 2023-11-30 12:45)
DX: K76.82 Hepatic encephalopathy; R18.8 Other ascites; K75.81 Nonalcoholic steatohepatitis (NASH); D50.0 Iron deficiency anemia secondary to blood loss (chronic)
CPT/HCPCS: 49083; 80053; 83690; 86850; 86900; 86901; 96365; 82140; 83735; 85025; 85610; 85730; P9047

== ENCOUNTER 2023-12-07 11:33 | Day surgery (SDC) | payer MEDICAID, SELFPAY ==
--- NOTE | 2023-12-06 16:51 | PDOC.DSDIS_ITS ---
Date of service: 12/07/23 Time of Service: 14:35 Discharge Plan Disposition Patient Disposition: Home Condition: Poor Discharge Details Reason For Visit: Paracentisis Attending Provider: Alka Boucher Primary Care Provider: Allie Raines Home Meds and New Rx's Prescriptions: No Action Tums 300 mg (750 mg) tablet,chewable 300 mg PO DAILY PRN lactulose 10 gram/15 mL solution 10 g PO TID ondansetron HCl 4 mg tablet 4 mg PO Q4H PRN furosemide 40 mg tablet 40 mg PO DAILY Qty: 30 0RF magnesium oxide 400 mg magnesium capsule 400 mg PO DAILY acetaminophen 325 mg capsule 650 mg PO Q6H PRN Rx Instructions: Only as needed folic acid 1 mg tablet 1 mg PO DAILY levetiracetam [Keppra] 1,000 mg tablet 1,000 mg PO BID melatonin 3 mg capsule 3 mg PO DAILY miconazole nitrate 2 % powder 1 applic topical BID thiamine HCl (vitamin B1) [Vitamin B-1] 100 mg tablet 100 mg PO DAILY trazodone 50 mg tablet 50 mg PO DAILY polyethylene glycol 3350 [Miralax] 17 gram/dose powder 17 g PO BID spironolactone 50 mg Tablet 100 mg PO DAILY Xifaxan 550 mg tablet 550 mg PO ONCE multivitamin [Daily Multi-Vitamin] Tablet 1 tab PO DAILY Discharge Instructions Additional Instructions: You need to follow-up with either your PCP in [facility] or your GI team at [facility]. A significant amount of the fluid that you have is actually fluid in the tissues and not in the abdominal cavity. I think they need to increase your diuretics/water pills. Increasing your diuretics also means we need to monitor your potassium very closely. Discharge Instructions for?Paracentesis Paracentesis is a procedure to remove extra fluid from your belly (abdomen). This fluid buildup in the abdomen is called?ascites. The procedure may have been done to take a sample of the fluid. Or, it may have been done to drain the extra fluid from your abdomen?and help make you more comfortable. Home care * If you have pain after the procedure, your healthcare provider can prescribe or recommend pain medicines. Take these exactly as directed. If you stopped taking other medicines before the procedure, ask your provider when you can start them again. * Take it easy for?24?hours after the procedure * You will have a small bandage over the puncture site. Stitches, surgical jessy, adhesive tapes, adhesive strips, or surgical glue may be used to close the cut (incision). They also help stop bleeding and speed healing. You may take the bandage off in?24?hours. * Check the puncture site for the signs of infection listed below. * You may shower in 24hrs time. * High protein diet, as tolerated. When to call your healthcare provider Call your healthcare provider if any of the following occur: * Fever of?100.4??F?(?38?C) or higher, or as directed by your provider * Chills * Trouble breathing * Pain that doesn't go away even after taking pain medicine * Belly pain not caused by having the skin punctured * Bleeding from the puncture site * More than a small amount of fluid leaking from the puncture site * Swollen belly * Signs of infection at the puncture site. These include increased pain, redness, or swelling, warmth, or bad-smelling drainage. * Blood in your urine * Feeling dizzy or lightheaded, or fainting Activity:: see above Remove Dressings/Wound Care:: 24 hours Shower/Bathe:: 24 hours Diet:: As Tolerated Discharge Orders Discharge Orders: Discharge Order (Routine); Ordered 12/07/23 Ordered By: Alka Boucher DS: Diagnosis Discharge Diagnosis (1) HTN (hypertension), benign: Status: Acute (2) Coagulopathy: Status: Acute (3) Thrombocytopenia: Status: Chronic (4) Non-insulin dependent type 2 diabetes mellitus: Status: Acute (5) Obesity, morbid, BMI 40.0-49.9: Status: Acute (6) Hyponatremia: Status: Acute (7) Esophageal varices with hemorrhage: Status: Acute (8) GERD (gastroesophageal reflux disease): Status: Chronic (9) Gallstones: Status: Acute (10) Hyperbilirubinemia: Status: Acute (11) Hepatic cirrhosis: Status: Acute (12) Portal hypertension: Status: Acute (13) End stage liver disease: Status: Acute (14) Chronic liver failure: Status: Acute (15) Liver cirrhosis secondary to nonalcoholic steatohepatitis (GUERRERO): Status: Acute (16) Umbilical hernia: Status: Acute (17) Abdominal ascites: Status: Acute Asessment and Plan: The patient is doing well post-op from Paracenisis ? They are having no nausea or vomiting. They are tolerating liquids and a snack. The pt is not having any chest pain or SOB.? Their pain is adequately controlled. They have been able to urinate.? ?HEENT:? no eye pain/drainage/redness/swelling. Mild sore throat ?Cardio- NSR, no chest pain, BP stable- see VS record ?Pulm: no sob or productive cough. No hemoptysis ?Incision- dressing is c/d/i w/ no excessive bleeding or drainage ?I discussed with the patient the findings at the time of surgery and the patient?s progress. ?We reviewed expectations at home; what the patient could expect for recovery time, and in the post-operative period.? We discussed the importance of walking to avoid blood clots and pneumonia.? We discussed and reviewed the patient's post-operative wound care and dressing needs.?? We reviewed their step-moore pain management plan, Rx called to the pharmacy of their choice.? We reviewed activity and limitations-see discharge instructions. We reviewed warning signs, and when to seek medical attention- see d/c instructions.?? Patient was given a postoperative follow-up appointment. Patient verbalized understanding of their postoperative instructions, how do to take care of themselves and their incision, and the pain management plan. Please see discharge instructions.? (18) Splenomegaly: Status: Acute (19) Acute blood loss anemia: Status: Acute (20) Anemia of chronic disease: Status: Acute (21) Hypoalbuminemia: Status: Acute (22) Encephalopathy, hepatic: Status: Acute (23) Edema of both lower extremities: Status: Acute (24) Weakness generalized: Status: Acute
--- NOTE | 2023-12-06 16:56 | W.PM.OP ---
Date of service: 12/07/23 Time of Service: 13:00 Operative Note Operative Note DATE OF PROCEDURE: 12/07/23 PRE-OP DIAGNOSIS: endstage liver Dx secondary to GUERRERO POST-OP DIAGNOSIS: same PROCEDURE: Paracentisis SURGEON: Alka Boucher ANESTHESIA TYPE: Local By Surgeon Refer to Anesthesia Record ESTIMATED BLOOD LOSS: 1 PATHOLOGY: none sent COMPLICATIONS: None Patient was transported to: same day Patient's condition: stable Procedure Description: Informed consent is obtained, explaining benefits and risks of the procedure including but not limited to: bleeding/infections/damage to bowels or blood vessels/chronic drainage or leakage/need for repeat procedure/reactions to anesthetics.?? The patient is brought to the procedure room and placed in the supine position.?? A time-out is done.? Ultrasound is used to localize the pocket of fluid.? The area is prepped and draped in the usual sterile fashion using a ChloraPrep scrub solution.? 10 cc's of 1% Lidocaine with epinephrine is used for local anesthetization.? The abdomen is punctured and the catheter is inserted.?4100 liters of light yellow fluid is evacuated today.? The catheter is removed. Suture is placed of 4-0 prolene.? Pressure dressing is applied.? The patient tolerated the procedure well without complication and transferred to recovery in stable condition.?
[2023-12-07 12:18] VITALS: BP 101/50; PULSE 74; RESP 16; TEMP 36.2; O2SAT 100
[2023-12-07] MEDS: Lidocaine 1% Pres-Free W/EPI 1/200,000 10 ML VIAL (13:52)
[2023-12-07] MEDS: Sodium Bicarbonate 50 MEQ/50 ML VIAL (13:52)
[2023-12-07 14:12] VITALS: BP 103/58; PULSE 66; RESP 16; TEMP 36.6; O2SAT 100
[2023-12-07] MEDS: ALBUMIN HUMAN 25 GM/100 ML BTL IVPB (14:27)
== END 2023-12-07 16:03 | disposition home or self-care (01) ==
LOC: SUR 11:34
PROVIDERS: PCP Physician Assistant Medical; Visit Provider Surgery
PROC: 0W9G3ZZ Drainage of Peritoneal Cavity, Percutaneous Approach (ICD-10-PCS; CPT 49082; principal; 2023-12-07 12:00)
DX: I85.01 Esophageal varices with bleeding; K76.6 Portal hypertension; K72.10 Chronic hepatic failure without coma; K75.81 Nonalcoholic steatohepatitis (NASH); R18.8 Other ascites; R16.1 Splenomegaly, not elsewhere classified; K76.82 Hepatic encephalopathy
CPT/HCPCS: 49083; 96365; J2004; P9047

== ENCOUNTER 2023-12-14 11:59 | Day surgery (SDC) | payer MEDICAID, SELFPAY ==
[2023-12-14 12:24] VITALS: BP 121/52; PULSE 71; RESP 16; TEMP 36.8; O2SAT 100
[2023-12-14 12:52] LABS: Abs Immature Grans 0.01 10^3/uL (0.0-0.06); Absolute Basophil Count 0.02 10^3/uL (0.0-0.2); Absolute Eosinophil Count 0.13 10^3/uL (0.0-0.7); Absolute Lymphocyte Count 0.74 10^3/uL (1.2-3.4); Absolute Monocyte Count 0.45 10^3/uL (0.1-0.8); Absolute Neutrophil Count 1.99 10^3/uL (1.2-6.7); Basophils % 0.6 %; Eosinophils % 3.9 %; HCT 26.1 % (36.0-46.0); HGB 8.4 g/dL (11.2-15.7); Immature Grans % 0.3 %; Lymphocytes % 22.2 %; MCH 33.7 pg (27.0-33.0); MCHC 32.2 % (32.0-36.0); MPV 10.6 fL (8.0-11.0); Monocytes % 13.5 %; Neutrophils % 59.5 %; RBC 2.49 10^6/uL (3.93-5.22); RDW 15.4 % (11.7-14.6); RDW-SD 59.1 fL; WBC 3.34 10^3/uL (4.4-10.8)
[2023-12-14 12:54] LABS: MCV 105 fL (80-95)
[2023-12-14 13:02] LABS: Burr Cells (echinocyte) 2+; Diff Comment Diff Reviewed; Macrocytosis 2+; Platelet Count 67 10^3/uL (130-400)
[2023-12-14] MEDS: Normal Saline Flush 10 ML SYR IV ×2 (13:05→14:33)
[2023-12-14 13:17] LABS: Prothrombin Time 19.1 sec (9.1-11.1)
--- NOTE | 2023-12-14 13:20 | ROE_ITS ---
Date of service: 12/14/23 Time of Service: 14:55 Operative Note Operative Note DATE OF PROCEDURE: 12/14/23 PRE-OP DIAGNOSIS: GUERRERO associated end-stage liver failure with cirrhosis PROCEDURE: Informed consent is obtained, explaining benefits and risks of the procedure including but not limited to: bleeding/infections/damage to bowels or blood vessels/chronic drainage or leakage/need for repeat procedure/reactions to anesthetics.?? The patient is brought to the procedure room and placed in the supine position.?? A time-out is done.? Ultrasound is used to localize the pocket of fluid.? The area is prepped and draped in the usual sterile fashion using a ChloraPrep scrub solution.? 10 cc's of 1% Lidocaine with epinephrine is used for local anesthetization.? The abdomen is punctured and the catheter is inserted.?6.7liters of light yellow fluid is evacuated today.? The catheter is removed.? Pressure dressing is applied.? The patient tolerated the procedure well without complication and transferred to recovery in stable condition.? SURGEON: Alka Boucher ANESTHESIA TYPE: Local By Surgeon Refer to Anesthesia Record ESTIMATED BLOOD LOSS: 1 PATHOLOGY: none sent COMPLICATIONS: None Patient was transported to: same day Patient's condition: stable Procedure Description: Informed consent is obtained, explaining benefits and risks of the procedure including but not limited to: bleeding/infections/damage to bowels or blood vessels/chronic drainage or leakage/need for repeat procedure/reactions to anesthetics.?? The patient is brought to the procedure room and placed in the supine position.?? A time-out is done.? Ultrasound is used to localize the pocket of fluid.? The area is prepped and draped in the usual sterile fashion using a ChloraPrep scrub solution.? 10 cc's of 1% Lidocaine with epinephrine is used for local anesthetization.? The abdomen is punctured and the catheter is i nserted.?6.7 liters of light yellow fluid is evacuated today.? The catheter is removed.? Pressure dressing is applied.? The patient tolerated the procedure well without complication and transferred to recovery in stable condition.?
[2023-12-14 13:23] LABS: ALT 25 U/L (14-59); AST 57 U/L (15-37); Albumin 2.8 g/dL (3.4-5.0); Alkaline Phosphatase 118 U/L (46-116); Anion Gap 7.9 mmol/L (3-11); BUN 8 mg/dL (7-18); Bilirubin, Total 6.6 mg/dL (0.2-1.0); CO2 21.1 mmol/L (21.0-32.0); CREATININE 0.9 mg/dL (0.55-1.02); Chloride 108 mmol/L (98-107); Estimated GFR 84.44 (mL/min/1.73m2); Glucose 119 mg/dL (74-106); Potassium 3.3 mmol/L (3.5-5.1); Sodium 137 mmol/L (136-145); Total Protein 6.1 g/dL (6.4-8.2)
[2023-12-14] MEDS: Sodium Bicarbonate 50 MEQ/50 ML VIAL (13:39)
[2023-12-14] MEDS: Lidocaine 1% Multi-Dose W/EPI 1/100,000 50 ML VIAL (13:39)
--- NOTE | 2023-12-14 14:04 | W.PM.DSUDISC ---
Date of service: 12/14/23 Time of Service: 14:04 Discharge Plan Disposition Patient Disposition: Home Condition: Deteriorating Discharge Details Reason For Visit: paracentisis Attending Provider: Alka Boucher Primary Care Provider: Allie Raines Home Meds and New Rx's Prescriptions: No Action Tums 300 mg (750 mg) tablet,chewable 300 mg PO DAILY PRN lactulose 10 gram/15 mL solution 10 g PO TID ondansetron HCl 4 mg tablet 4 mg PO Q4H PRN furosemide 40 mg tablet 40 mg PO DAILY Qty: 30 0RF magnesium oxide 400 mg magnesium capsule 400 mg PO DAILY acetaminophen 325 mg capsule 650 mg PO Q6H PRN Rx Instructions: Only as needed folic acid 1 mg tablet 1 mg PO DAILY levetiracetam [Keppra] 1,000 mg tablet 1,000 mg PO BID melatonin 3 mg capsule 3 mg PO DAILY miconazole nitrate 2 % powder 1 applic topical BID thiamine HCl (vitamin B1) [Vitamin B-1] 100 mg tablet 100 mg PO DAILY trazodone 50 mg tablet 50 mg PO DAILY polyethylene glycol 3350 [Miralax] 17 gram/dose powder 17 g PO BID spironolactone 50 mg Tablet 100 mg PO DAILY Xifaxan 550 mg tablet 550 mg PO ONCE multivitamin [Daily Multi-Vitamin] Tablet 1 tab PO DAILY Discharge Instructions Activity:: see above Diet:: see above Discharge Orders Discharge Orders: Discharge Order (Routine); Ordered 12/14/23 Ordered By: Alka Boucher
[2023-12-14 14:08] VITALS: BP 114/50; PULSE 68; RESP 16; TEMP 36.5; O2SAT 100
[2023-12-14 14:18] LABS: Vitamin D 25 Total 10.5 ng/mL (30-100)
[2023-12-14] MEDS: Furosemide 20 MG/2 ML VIAL IVP (14:32)
[2023-12-14] MEDS: Spironolactone 25 MG TAB PO (14:33)
[2023-12-14] MEDS: ALBUMIN HUMAN 25 GM/100 ML BTL IVPB ×2 (14:35→15:12)
[2023-12-14 15:14] VITALS: BP 130/56; PULSE 73; RESP 16; TEMP 37.1; O2SAT 98
[2023-12-18 07:53] LABS: PEth 16:0/18:1(POPEth) <10 ng/mL (Cutoff: 10); PEth 16:0/18:2(PLPEth) <10 ng/mL (Cutoff: 10); PEth Interpretation Negative.
== END 2023-12-14 16:04 | disposition home or self-care (01) ==
PROVIDERS: Internal Medicine; PCP Physician Assistant Medical; Visit Provider Surgery
PROC: 0W9G3ZZ Drainage of Peritoneal Cavity, Percutaneous Approach (ICD-10-PCS; CPT 49082; principal; 2023-12-14 12:15)
DX: K75.81 Nonalcoholic steatohepatitis (NASH) (principal); K74.60 Unspecified cirrhosis of liver
CPT/HCPCS: 49083; 36415; 80053; 80321; 81025; 82306; 96365; 85025; 85610; J1941; J2004; P9047

== ENCOUNTER 2023-12-14 15:45 | Outpatient (REF) | payer MEDICAID, SELFPAY ==
[2023-12-14 15:20] LABS: C Diff PCR Negative (Negative)
[2023-12-17 12:55] LABS: Zinc, S 32 mcg/dL (60-106)
[2023-12-17 22:20] LABS: Calprotectin <50.0 mcg/g
[2023-12-18 22:09] LABS: Free Retinol (Vitamin A) 6.9 mcg/dL (32.5-78.0)
== END 2023-12-14 15:46 | disposition home or self-care (01) ==
LOC: LBN 15:45
PROVIDERS: Internal Medicine; PCP Physician Assistant Medical; Visit Provider Internal Medicine Gastroenterology
DX: K70.31 Alcoholic cirrhosis of liver with ascites (principal)
CPT/HCPCS: 84630; 87329; 87493; 83993; 84590

== ENCOUNTER 2023-12-21 11:11 | Day surgery (SDC) | payer MEDICAID, SELFPAY ==
--- NOTE | 2023-12-20 19:28 | OPPNE_ITS ---
Date of service: 12/21/23 Time of Service: 13:41 Procedure Note Date of procedure: 12/21/23 Procedure: Paracentesis Surgeon/Proceduralist/Physician: Hussein Werner Procedure Diagnosis: Tense ascites Procedure Indications: Mildred is a 38-year-old woman with symptomatic ascites secondary to liver cirrhosis. She is here for paracentesis. Procedure Description: I started by performing a limited ultrasound of the abdomen to identify appropriate site for paracentesis. Next, I selected the right abdomen as the ideal site for paracentesis. I then prepped and draped the abdomen. Next, using ultrasound guidance, I anesthetized the skin with 1% lidocaine with epinephrine. I used the ultrasound to guide the needle down to the peritoneal level which was also anesthetized. I then made a small incision in the skin with a 11 blade scalpel. Next, I advanced the 5 Portuguese paracentesis needle and catheter through the incision and into the peritoneal cavity under the direct vision of the ultrasound. I aspirated straw-colored, clear ascites. Next, I gently advance the catheter and remove the needle. I affixed drainage tubing, and began draining the ascites with the assistance of Vacutainer's. As the flow decreased, I assisted the patient to the right lateral decubitus position to improve drainage. Once the ascites stopped flowing, I removed the catheter and used a [id number] Prolene suture, as well as a Band-Aid to dress the wound. I removed the old suture from the left abdomen. In total I drained 6100 mL of ascites..
--- NOTE | 2023-12-20 19:28 | W.PM.DSUDISC ---
Date of service: 12/21/23 Time of Service: 13:42 Discharge Plan Disposition Patient Disposition: Home Condition: Good Discharge Details Reason For Visit: paracentesis Attending Provider: Hussein Werner Primary Care Provider: Allie Raines Home Meds and New Rx's Prescriptions: Continued Tums 300 mg (750 mg) tablet,chewable 300 mg PO DAILY PRN lactulose 10 gram/15 mL solution 10 g PO TID ondansetron HCl 4 mg tablet 4 mg PO Q4H PRN furosemide 40 mg tablet 40 mg PO DAILY Qty: 30 0RF magnesium oxide 400 mg magnesium capsule 400 mg PO DAILY acetaminophen 325 mg capsule 650 mg PO Q6H PRN Rx Instructions: Only as needed folic acid 1 mg tablet 1 mg PO DAILY levetiracetam [Keppra] 1,000 mg tablet 1,000 mg PO BID melatonin 3 mg capsule 3 mg PO DAILY miconazole nitrate 2 % powder 1 applic topical BID thiamine HCl (vitamin B1) [Vitamin B-1] 100 mg tablet 100 mg PO DAILY trazodone 50 mg tablet 50 mg PO DAILY polyethylene glycol 3350 [Miralax] 17 gram/dose powder 17 g PO BID spironolactone 50 mg Tablet 100 mg PO DAILY Xifaxan 550 mg tablet 550 mg PO ONCE multivitamin [Daily Multi-Vitamin] Tablet 1 tab PO DAILY Discharge Instructions Instructions: Paracentesis (DC) Additional Instructions: Mildred, was very nice to meet you in the hospital today, and I hope this paracentesis provide some relief. We drained 6100 mL of ascites today, which seems about on par with which you normally have. Similar to Dr. Boucher, I placed a stitch in the skin to help reduce the likelihood of any bleeding, or other drainage of ascites. The Band-Aid should be left in place until tomorrow. At that point, you can wash the site with warm soapy water, and use a Band-Aid only if needed. If you have any questions at all, please do not hesitate to ask at any time. Activity:: Activity as Tolerated Remove Dressings/Wound Care:: 24 hours Shower/Bathe:: 24 hours Diet:: As Tolerated Discharge Orders Discharge Orders: Discharge Order (Routine); Ordered 12/20/23 Ordered By: Hussein Werner DS: Diagnosis Discharge Diagnosis (1) Abdominal ascites: Status: Acute Asessment and Plan: Follow-up with paracentesis next week
[2023-12-21 11:31] VITALS: BP 118/62; PULSE 66; RESP 18; TEMP 36.3; O2SAT 100
[2023-12-21 12:47] LABS: Anion Gap -0.3 mmol/L (3-11); BUN 9 mg/dL (7-18); CO2 25.3 mmol/L (21.0-32.0); CREATININE 0.9 mg/dL (0.55-1.02); Calcium 8.2 mg/dL (8.5-10.1); Chloride 109 mmol/L (98-107); Estimated GFR 84.44 (mL/min/1.73m2); Glucose 95 mg/dL (74-106); Potassium 3.9 mmol/L (3.5-5.1); Sodium 134 mmol/L (136-145)
[2023-12-21 13:43] VITALS: BP 101/56; PULSE 71; RESP 16; TEMP 36.5; O2SAT 100
[2023-12-21] MEDS: ALBUMIN HUMAN 25 GM/100 ML BTL IVPB ×2 (13:57→14:21)
== END 2023-12-21 11:12 | disposition home or self-care (01) ==
PROVIDERS: PCP Physician Assistant Medical; Visit Provider Surgery
PROC: 0W9G3ZZ Drainage of Peritoneal Cavity, Percutaneous Approach (ICD-10-PCS; CPT 49082; principal; 2023-12-21 12:30)
DX: R18.8 Other ascites (principal); K75.81 Nonalcoholic steatohepatitis (NASH)
CPT/HCPCS: 49082; 36415; 80048; 96365; P9047

== ENCOUNTER 2023-12-28 12:59 | Day surgery (SDC) | payer MEDICAID, SELFPAY ==
--- NOTE | 2023-12-28 00:08 | PDOC.DSDIS_ITS ---
Date of service: 12/28/23 Time of Service: 15:05 Discharge Plan Disposition Patient Disposition: Home Condition: Good Discharge Details Reason For Visit: Paracentesis Attending Provider: Alka Boucher Primary Care Provider: Allie Raines Home Meds and New Rx's Prescriptions: No Action Tums 300 mg (750 mg) tablet,chewable 300 mg PO DAILY PRN lactulose 10 gram/15 mL solution 10 g PO TID ondansetron HCl 4 mg tablet 4 mg PO Q4H PRN furosemide 40 mg tablet 40 mg PO DAILY Qty: 30 0RF magnesium oxide 400 mg magnesium capsule 400 mg PO DAILY acetaminophen 325 mg capsule 650 mg PO Q6H PRN Rx Instructions: Only as needed folic acid 1 mg tablet 1 mg PO DAILY levetiracetam [Keppra] 1,000 mg tablet 1,000 mg PO BID melatonin 3 mg capsule 3 mg PO DAILY miconazole nitrate 2 % powder 1 applic topical BID thiamine HCl (vitamin B1) [Vitamin B-1] 100 mg tablet 100 mg PO DAILY trazodone 50 mg tablet 50 mg PO DAILY polyethylene glycol 3350 [Miralax] 17 gram/dose powder 17 g PO BID spironolactone 50 mg Tablet 100 mg PO DAILY Xifaxan 550 mg tablet 550 mg PO ONCE multivitamin [Daily Multi-Vitamin] Tablet 1 tab PO DAILY Discharge Instructions Additional Instructions: Discharge Instructions for?Paracentesis Paracentesis is a procedure to remove extra fluid from your belly (abdomen). This fluid buildup in the abdomen is called?ascites. The procedure may have been done to take a sample of the fluid. Or, it may have been done to drain the extra fluid from your abdomen?and help make you more comfortable. Home care * If you have pain after the procedure, your healthcare provider can prescribe or recommend pain medicines. Take these exactly as directed. If you stopped taking other medicines before the procedure, ask your provider when you can start them again. * Take it easy for?24?hours after the procedure * You will have a small bandage over the puncture site. Stitches, surgical jessy, adhesive tapes, adhesive strips, or surgical glue may be used to close the cut (incision). They also help stop bleeding and speed healing. You may take the bandage off in?24?hours. * Check the puncture site for the signs of infection listed below. * You may shower in 24hrs time. * High protein diet, as tolerated. When to call your healthcare provider Call your healthcare provider if any of the following occur: * Fever of?100.4??F?(?38?C) or higher, or as directed by your provider * Chills * Trouble breathing * Pain that doesn't go away even after taking pain medicine * Belly pain not caused by having the skin punctured * Bleeding from the puncture site * More than a small amount of fluid leaking from the puncture site * Swollen belly * Signs of infection at the puncture site. These include increased pain, redness, or swelling, warmth, or bad-smelling drainage. * Blood in your urine * Feeling dizzy or lightheaded, or fainting Activity:: Activity as Tolerated Remove Dressings/Wound Care:: 24 hours Shower/Bathe:: 24 hours Diet:: High-protein Discharge Orders Discharge Orders: Discharge Order (Routine); Ordered 12/28/23 Ordered By: Alka Boucher DS: Diagnosis Discharge Diagnosis (1) Anxiety: Status: Chronic (2) History of ETOH abuse: Status: Acute Asessment and Plan: none since 2022 (3) HTN (hypertension), benign: Status: Acute (4) Coagulopathy: Status: Acute (5) Thrombocytopenia: Status: Chronic (6) Non-insulin dependent type 2 diabetes mellitus: Status: Acute (7) Obesity, morbid, BMI 40.0-49.9: Status: Acute (8) Hyponatremia: Status: Acute (9) Esophageal varices with hemorrhage: Status: Acute (10) GERD (gastroesophageal reflux disease): Status: Chronic (11) Gallstones: Status: Acute (12) Hyperbilirubinemia: Status: Acute (13) Hepatic cirrhosis: Status: Acute Asessment and Plan: The patient is doing well post-op from their paracentesis.? They are having no nausea or vomiting. They are tolerating liquids and a snack. The pt is not having any chest pain or SOB.? Their pain is adequately controlled. They have been able to urinate.? ?HEENT:? no eye pain/drainage/redness/swelling. Mild sore throat ?Cardio- NSR, no chest pain, BP stable- see VS record ?Pulm: no sob or productive cough. No hemoptysis ?Incision- dressing is c/d/i w/ no excessive bleeding or drainage ?I discussed with the patient the findings at the time of surgery and the patient?s progress. ?We reviewed expectations at home; what the patient could expect for recovery time, and in the post-operative period.? We discussed the importance of walking to avoid blood clots and pneumonia.? We discussed and reviewed the patient's post-operative wound care and dressing needs.?? We reviewed their step-moore pain management plan, Rx called to the pharmacy of their choice.? We reviewed activity and limitations-see discharge instructions. We reviewed warning signs, and when to seek medical attention- see d/c instructions.?? Patient was given a postoperative follow-up appointment. Patient verbalized understanding of their postoperative instructions, how do to take care of themselves and their incision, and the pain management plan. Please see discharge instructions.? (14) Encephalopathy, hepatic: Status: Acute (15) Portal hypertension: Status: Acute (16) End stage liver disease: Status: Acute (17) Chronic liver failure: Status: Acute (18) Liver cirrhosis secondary to nonalcoholic steatohepatitis (GUERRERO): Status: Acute (19) Constipation: Status: Acute (20) Abdominal ascites: Status: Acute Asessment and Plan: The patient is doing well post-op from their paracentisis.? They are having no nausea or vomiting. They are tolerating liquids and a snack. The pt is not having any chest pain or SOB.? Their pain is adequately controlled. They have been able to urinate.? ?HEENT:? no eye pain/drainage/redness/swelling. Mild sore throat ?Cardio- NSR, no chest pain, BP stable- see VS record ?Pulm: no sob or productive cough. No hemoptysis ?Incision- dressing is c/d/i w/ no excessive bleeding or drainage ?I discussed with the patient the findings at the time of surgery and the patient?s progress. ?We reviewed expectations at home; what the patient could expect for recovery time, and in the post-operative period.? We discussed the importance of walking to avoid blood clots and pneumonia.? We discussed and reviewed the patient's post-operative wound care and dressing needs.?? We reviewed their step-moore pain management plan, Rx called to the pharmacy of their choice.? We reviewed activity and limitations-see discharge instructions. We reviewed warning signs, and when to seek medical attention- see d/c instructions.?? Patient was given a postoperative follow-up appointment. Patient verbalized understanding of their postoperative instructions, how do to take care of themselves and their incision, and the pain management plan. Please see discharge instructions.? (21) Splenomegaly: Status: Acute (22) Chronic blood loss anemia: Status: Acute (23) Anemia: Status: Chronic (24) Hypoalbuminemia: Status: Acute (25) Edema of both lower extremities: Status: Acute (26) Weakness generalized: Status: Acute Asessment and Plan: Currently this is what is holding her back from being on the transplant list. She is in physical therapy
[2023-12-28 13:16] VITALS: BP 105/64; PULSE 69; RESP 18; TEMP 36.4; O2SAT 99
[2023-12-28] MEDS: Normal Saline Flush 10 ML SYR IV (13:35)
[2023-12-28 14:07] LABS: Abs Immature Grans 0.01 10^3/uL (0.0-0.06); Absolute Basophil Count 0.03 10^3/uL (0.0-0.2); Absolute Eosinophil Count 0.22 10^3/uL (0.0-0.7); Absolute Lymphocyte Count 0.77 10^3/uL (1.2-3.4); Absolute Monocyte Count 0.38 10^3/uL (0.1-0.8); Absolute Neutrophil Count 1.28 10^3/uL (1.2-6.7); Basophils % 1.1 %; Eosinophils % 8.2 %; HCT 25.6 % (36.0-46.0); HGB 8.3 g/dL (11.2-15.7); Immature Grans % 0.4 %; Lymphocytes % 28.6 %; MCH 33.1 pg (27.0-33.0); MCHC 32.4 % (32.0-36.0); MCV 102 fL (80-95); MPV 10.8 fL (8.0-11.0); Monocytes % 14.1 %; Neutrophils % 47.6 %; RBC 2.51 10^6/uL (3.93-5.22); RDW 13.7 % (11.7-14.6); RDW-SD 51.3 fL; WBC 2.69 10^3/uL (4.4-10.8)
[2023-12-28 14:16] LABS: Prothrombin Time 18.9 sec (9.1-11.1)
[2023-12-28 14:20] LABS: ALT 30 U/L (14-59); AST 62 U/L (15-37); Albumin 2.6 g/dL (3.4-5.0); Alkaline Phosphatase 101 U/L (46-116); Anion Gap 6.8 mmol/L (3-11); BUN 10 mg/dL (7-18); Bilirubin, Total 5.2 mg/dL (0.2-1.0); CO2 25.2 mmol/L (21.0-32.0); CREATININE 0.9 mg/dL (0.55-1.02); Calcium 7.9 mg/dL (8.5-10.1); Chloride 106 mmol/L (98-107); Estimated GFR 84.44 (mL/min/1.73m2); Glucose 131 mg/dL (74-106); Sodium 138 mmol/L (136-145); Total Protein 5.7 g/dL (6.4-8.2)
[2023-12-28 14:23] LABS: Diff Comment PLT Morph Reviewed; Platelet Count 59 10^3/uL (130-400)
[2023-12-28 14:24] LABS: Target Cells 2+
[2023-12-28] MEDS: Lidocaine 1% Multi-Dose W/EPI 1/100,000 50 ML VIAL (14:30)
[2023-12-28] MEDS: Sodium Bicarbonate 50 MEQ/50 ML VIAL (14:30)
[2023-12-28 14:55] VITALS: BP 101/59; PULSE 68; RESP 16; TEMP 36.5; O2SAT 100
[2023-12-28] MEDS: ALBUMIN HUMAN 25 GM/100 ML BTL IVPB ×2 (15:06→15:47)
--- NOTE | 2023-12-28 15:07 | W.PM.OP ---
Date of service: 12/28/23 Time of Service: 15:08 Operative Note Operative Note DATE OF PROCEDURE: 12/28/23 PRE-OP DIAGNOSIS: liver cirrhosis w/ ascites POST-OP DIAGNOSIS: same PROCEDURE: Paracentesis SURGEON: Alka Boucher ANESTHESIA TYPE: Local By Surgeon Refer to Anesthesia Record ESTIMATED BLOOD LOSS: 1 PATHOLOGY: none sent COMPLICATIONS: None Patient was transported to: same day Procedure Description: Informed consent is obtained, explaining benefits and risks of the procedure including but not limited to: bleeding/infections/damage to bowels or blood vessels/chronic drainage or leakage/need for repeat procedure/reactions to anesthetics.?? The patient is brought to the procedure room and placed in the supine position.?? A time-out is done.? Ultrasound is used to localize the pocket of fluid.? The area is prepped and draped in the usual sterile fashion using a ChloraPrep scrub solution.? 10 cc's of 1% Lidocaine with epinephrine is used for local anesthetization.? The abdomen is punctured and the catheter is inserted.?5.5 liters of light yellow fluid is evacuated today.? The catheter is removed.? Pressure dressing is applied.? The patient tolerated the procedure well without complication and transferred to recovery in stable condition.?
[2024-01-02 20:56] LABS: PEth 16:0/18:1(POPEth) <10 ng/mL (Cutoff: 10); PEth 16:0/18:2(PLPEth) <10 ng/mL (Cutoff: 10); PEth Interpretation Negative.
== END 2023-12-28 16:25 | disposition home or self-care (01) ==
LOC: SUR 12:59
PROVIDERS: Internal Medicine; PCP Physician Assistant Medical; Visit Provider Surgery
PROC: 0W9G3ZZ Drainage of Peritoneal Cavity, Percutaneous Approach (ICD-10-PCS; CPT 49082; principal; 2023-12-28 12:45)
DX: K74.60 Unspecified cirrhosis of liver; K76.82 Hepatic encephalopathy; R18.8 Other ascites
CPT/HCPCS: 49083; 36415; 80053; 80321; 96365; 85025; 85610; J2004; P9047

== ENCOUNTER 2024-01-04 06:30 | Day surgery (SDC) | payer MEDICAID, SELFPAY ==
--- NOTE | 2024-01-03 20:34 | W.PM.DSUDISC ---
Date of service: 01/04/24 Time of Service: 07:50 Discharge Plan Disposition Patient Disposition: Home Condition: Fair Discharge Details Reason For Visit: paracentesis Attending Provider: Hussein Werner Primary Care Provider: Allie Raines Home Meds and New Rx's Prescriptions: Continued Tums 300 mg (750 mg) tablet,chewable 300 mg PO DAILY PRN lactulose 10 gram/15 mL solution 10 g PO TID ondansetron HCl 4 mg tablet 4 mg PO Q4H PRN furosemide 40 mg tablet 40 mg PO DAILY Qty: 30 0RF magnesium oxide 400 mg magnesium capsule 400 mg PO DAILY acetaminophen 325 mg capsule 650 mg PO Q6H PRN Rx Instructions: Only as needed folic acid 1 mg tablet 1 mg PO DAILY levetiracetam [Keppra] 1,000 mg tablet 1,000 mg PO BID melatonin 3 mg capsule 3 mg PO DAILY miconazole nitrate 2 % powder 1 applic topical BID thiamine HCl (vitamin B1) [Vitamin B-1] 100 mg tablet 100 mg PO DAILY trazodone 50 mg tablet 50 mg PO DAILY polyethylene glycol 3350 [Miralax] 17 gram/dose powder 17 g PO BID spironolactone 50 mg Tablet 100 mg PO DAILY Xifaxan 550 mg tablet 550 mg PO ONCE multivitamin [Daily Multi-Vitamin] Tablet 1 tab PO DAILY Discharge Instructions Additional Instructions: Mildred, was very nice to see you today, and I hope that the paracentesis provide some relief for the next week or so. Like we talked about at the procedure, the indications for paracentesis should largely be driven by her symptoms. Abdominal pain, shortness of breath, or significant amount of difficulty going about your activities of daily living are great reasons to drain the fluid. This is often times correlated with weight gain, so keeping track of your weight at home might be useful in some cases. See how you feel next week, and if any of the symptoms mentioned above are really bothersome, then by all measures come in for your paracentesis. If you are feeling well, prefer to cancel and go another week, that would be reasonable too. If you need anything at all, or have any questions, please let me know Activity:: Activity as Tolerated Remove Dressings/Wound Care:: 24 hours Shower/Bathe:: 24 hours Diet:: As Tolerated Discharge Orders Discharge Orders: Discharge Order (Routine); Ordered 01/03/24 Ordered By: Hussein Werner DS: Diagnosis Discharge Diagnosis (1) Tense ascites: Status: Acute Asessment and Plan: Status post paracentesis
--- NOTE | 2024-01-03 20:37 | OPPNE_ITS ---
Date of service: 01/04/24 Time of Service: 07:52 Procedure Note Date of procedure: 01/04/24 Procedure: paracentesis Surgeon/Proceduralist/Physician: Hussein Werner Procedure Diagnosis: tense ascites Procedure Indications: Mildred is a 38-year-old woman with symptomatic ascites Procedure Description: I started by performing a limited ultrasound of the abdomen to identify appropriate site for paracentesis. Next, I selected the left lower quadrant as the ideal site for paracentesis. I then prepped and draped the abdomen. Next, using ultrasound guidance, I anesthetized the skin with 1% lidocaine with epinephrine. I used the ultrasound to guide the needle down to the peritoneal level which was also anesthetized. I then made a small incision in the skin with a 11 blade scalpel. Next, I advanced the 5 [place]ian paracentesis needle and catheter through the incision and into the peritoneal cavity under the direct vision of the ultrasound. I was able to aspirate some dark straw-colored ascites. Next, I gently advance the catheter and remove the needle. I affixed drainage tubing. Flow through the catheter was quite poor, despite several efforts to reposition. I suspect the catheter was slightly kinked in the subcutaneous tissue. I removed this, obtained a new kit, and reentered the peritoneum, again with the assistance of ultrasound. As the needle was withdrawn, the catheter felt better aligned. Suction tubing was connected, and we began draining into Vacutainer's. Flow was much better. I drained 4200 ml of ascites. Catheter was removed, and a [id number] suture was applied at the skin. A Band-Aid was applied, and the stitch from the previous paracentesis was removed.
[2024-01-04 06:50] VITALS: BP 108/54; PULSE 69; RESP 16; TEMP 36.5; O2SAT 100
[2024-01-04 07:55] VITALS: BP 103/59; PULSE 66; RESP 20; TEMP 36.7; O2SAT 99
[2024-01-04] MEDS: ALBUMIN HUMAN 25 GM/100 ML BTL IVPB ×2 (08:03→08:22)
[2024-01-04] MEDS: Normal Saline Flush 10 ML SYR (08:03)
== END 2024-01-04 08:50 | disposition home or self-care (01) ==
LOC: SUR 09:49
PROVIDERS: PCP Physician Assistant Medical; Visit Provider Surgery
PROC: 0W9G3ZZ Drainage of Peritoneal Cavity, Percutaneous Approach (ICD-10-PCS; CPT 49082; principal; 2024-01-04 07:30)
DX: R18.8 Other ascites (principal)
CPT/HCPCS: 49082; 81025; 96365; P9047

== ENCOUNTER 2024-01-11 13:17 | Outpatient (CLI) | payer MEDICAID, SELFPAY ==
[2024-01-11 13:16] LABS: Abs Immature Grans 0.01 10^3/uL (0.0-0.06); Absolute Basophil Count 0.02 10^3/uL (0.0-0.2); Absolute Eosinophil Count 0.22 10^3/uL (0.0-0.7); Absolute Lymphocyte Count 0.79 10^3/uL (1.2-3.4); Absolute Monocyte Count 0.42 10^3/uL (0.1-0.8); Absolute Neutrophil Count 1.82 10^3/uL (1.2-6.7); Basophils % 0.6 %; Eosinophils % 6.7 %; HCT 28.3 % (36.0-46.0); HGB 9.4 g/dL (11.2-15.7); Immature Grans % 0.3 %; Lymphocytes % 24.1 %; MCH 33.8 pg (27.0-33.0); MCHC 33.2 % (32.0-36.0); MCV 102 fL (80-95); MPV 10.6 fL (8.0-11.0); Monocytes % 12.8 %; Neutrophils % 55.5 %; RBC 2.78 10^6/uL (3.93-5.22); RDW 13.6 % (11.7-14.6); RDW-SD 51.3 fL; WBC 3.28 10^3/uL (4.4-10.8)
[2024-01-11 13:25] LABS: Prothrombin Time 18.6 sec (9.1-11.1)
[2024-01-11 13:43] LABS: Basophilic Stippling Present; Diff Comment Diff Reviewed; Platelet Count 62 10^3/uL (130-400)
[2024-01-11 13:44] LABS: Poikilocytes 1+
[2024-01-11 13:52] LABS: ALT 31 U/L (14-59); AST 60 U/L (15-37); Albumin 2.9 g/dL (3.4-5.0); Alkaline Phosphatase 105 U/L (46-116); BUN 11 mg/dL (7-18); Bilirubin, Total 4.5 mg/dL (0.2-1.0); CREATININE 0.9 mg/dL (0.55-1.02); Calcium 8.6 mg/dL (8.5-10.1); Chloride 105 mmol/L (98-107); Estimated GFR 84.44 (mL/min/1.73m2); Glucose 107 mg/dL (74-106); Potassium 3.9 mmol/L (3.5-5.1); Sodium 137 mmol/L (136-145); Total Protein 6.1 g/dL (6.4-8.2)
== END 2024-01-11 13:18 | disposition home or self-care (01) ==
LOC: LBO 13:18
PROVIDERS: PCP Physician Assistant Medical; Visit Provider Internal Medicine
DX: K70.31 Alcoholic cirrhosis of liver with ascites (principal)
CPT/HCPCS: 36415; 80053; 85025; 85610

== ENCOUNTER 2024-01-21 11:24 | Day surgery (SDC) | payer MEDICAID, SELFPAY ==
--- NOTE | 2024-01-20 20:18 | W.PM.DSUDISC ---
Date of service: 01/21/24 Time of Service: 14:36 Discharge Plan Disposition Patient Disposition: Home Condition: Good Discharge Details Reason For Visit: paracentesis Attending Provider: Hussein Werner Primary Care Provider: Allie Raines Home Meds and New Rx's Prescriptions: Continued Tums 300 mg (750 mg) tablet,chewable 300 mg PO DAILY PRN lactulose 10 gram/15 mL solution 10 g PO TID ondansetron HCl 4 mg tablet 4 mg PO Q4H PRN furosemide 40 mg tablet 40 mg PO DAILY Qty: 30 0RF magnesium oxide 400 mg magnesium capsule 400 mg PO DAILY acetaminophen 325 mg capsule 650 mg PO Q6H PRN Rx Instructions: Only as needed folic acid 1 mg tablet 1 mg PO DAILY levetiracetam [Keppra] 1,000 mg tablet 1,000 mg PO BID melatonin 3 mg capsule 3 mg PO DAILY miconazole nitrate 2 % powder 1 applic topical BID thiamine HCl (vitamin B1) [Vitamin B-1] 100 mg tablet 100 mg PO DAILY trazodone 50 mg tablet 50 mg PO DAILY polyethylene glycol 3350 [Miralax] 17 gram/dose powder 17 g PO BID spironolactone 50 mg Tablet 100 mg PO DAILY Xifaxan 550 mg tablet 550 mg PO ONCE multivitamin [Daily Multi-Vitamin] Tablet 1 tab PO DAILY Discharge Instructions Additional Instructions: Mildred was nice to see you today, and I hope that removing some of the fluid will provide you a little bit of relief. I am sorry for the discomfort of the needlestick. I will plan to leave you on the schedule for this Sunday, and reassess to see if we can get a little more fluid out at that time. Activity:: Activity as Tolerated Remove Dressings/Wound Care:: 24 hours Shower/Bathe:: 24 hours Diet:: As Tolerated Discharge Orders Discharge Orders: Discharge Order (Routine); Ordered 01/20/24 Ordered By: Hussein Werner DS: Diagnosis Discharge Diagnosis (1) Tense ascites: Status: Acute
--- NOTE | 2024-01-20 20:22 | OPPNE_ITS ---
Date of service: 01/21/24 Time of Service: 14:40 Procedure Note Date of procedure: 01/21/24 Procedure: paracentesis Surgeon/Proceduralist/Physician: Hussein Werner Procedure Diagnosis: tense ascites Procedure Indications: Mildred is a 38-year-old woman with cirrhosis and symptomatic ascites. Procedure Description: I started by performing a limited ultrasound of the abdomen to identify appropriate site for paracentesis. I was able to visualize ascites on the right and left hemiabdomen's. Upper abdominal views provide the best exposure, and based on her habitus it seems like the left mid abdomen was the safest target. I then prepped and draped the abdomen. Next, using ultrasound guidance, I anesthetized the skin with 1% lidocaine with epinephrine. I used the ultrasound to guide the needle down to the peritoneal level which was also anesthetized. I then made a small incision in the skin with a 11 blade scalpel. Next, I advanced the 5 [place]ian paracentesis needle and catheter through the incision and into the peritoneal cavity under the direct vision of the ultrasound. She did have some tenderness during insertion of the needle today. I aspirated straw- colored ascites. Next, I gently advance the catheter and remove the needle. I affixed drainage tubing, and began draining the ascites with the assistance of Vacutainer's. It was challenging to maintain adequate flow, despite what appeared to be an appropriately placed catheter. She was assisted to some left lateral decubitus positioning to see if this could improve the flow. Catheter was gently flushed on several occasions to help maintain appropriate flow. I attempted manual aspiration as well, but had similar challenges. Despite several attempts with repositioning and catheter adjustments, I was only able to drain about 1350 mL of ascites today. At that point, I removed the catheter, and used a [id number] Prolene suture to close the hole. I did reultrasound the abdomen after the wound was dressed with a Band-Aid. Although there were some other pockets of ascites, these targets were quite limited, and with active peristalsis of the small intestine underneath, I did not think that they would be safe targets for drainage. I explained all of this to Mildred, and she seemed comfortable waiting another week for another attempt at drainage. I explained that if she has any issues in the meantime to call, we can make arrangements for another attempt in a more urgent fashion if needed.
[2024-01-21 12:25] VITALS: BP 125/59; PULSE 71; RESP 16; TEMP 36.5; O2SAT 100
[2024-01-21] MEDS: Normal Saline Flush 10 ML SYR IV ×3 (12:49→15:27)
[2024-01-21 14:38] VITALS: BP 117/71; PULSE 69; RESP 16; TEMP 36.5; O2SAT 100
[2024-01-21] MEDS: ALBUMIN HUMAN 25 GM/100 ML BTL IVPB (14:42)
== END 2024-01-21 15:36 | disposition home or self-care (01) ==
LOC: SUR 11:24
PROVIDERS: PCP Physician Assistant Medical; Visit Provider Surgery
PROC: 0W9G3ZZ Drainage of Peritoneal Cavity, Percutaneous Approach (ICD-10-PCS; CPT 49082; principal; 2024-01-21 15:00)
DX: R18.8 Other ascites (principal); K74.60 Unspecified cirrhosis of liver
CPT/HCPCS: 49082; 96365; J3490; P9047

== ENCOUNTER 2024-01-26 11:18 | Emergency (ER) | payer MEDICAID, SELFPAY ==
[2024-01-26 11:39] VITALS: BP 114/58; PULSE 70; RESP 14; TEMP 36.5; O2SAT 100
--- NOTE | 2024-01-26 11:54 | ED.GENADUL_ITS ---
Discharge Plan Disposition Patient Disposition: Home Discharge Details Clinical Impression: Abdominal ascites, Pain of left great toe Primary Care Provider: Allie Raines ED Provider: Vasu Gibson Home Meds and New Rx's Prescriptions: Continued Tums 300 mg (750 mg) tablet,chewable 300 mg PO DAILY PRN lactulose 10 gram/15 mL solution 10 g PO TID ondansetron HCl 4 mg tablet 4 mg PO Q4H PRN furosemide 40 mg tablet 40 mg PO DAILY Qty: 30 0RF magnesium oxide 400 mg magnesium capsule 400 mg PO DAILY acetaminophen 325 mg capsule 650 mg PO Q6H PRN Rx Instructions: Only as needed folic acid 1 mg tablet 1 mg PO DAILY levetiracetam [Keppra] 1,000 mg tablet 1,000 mg PO BID melatonin 3 mg capsule 3 mg PO DAILY miconazole nitrate 2 % powder 1 applic topical BID thiamine HCl (vitamin B1) [Vitamin B-1] 100 mg tablet 100 mg PO DAILY trazodone 50 mg tablet 50 mg PO DAILY polyethylene glycol 3350 [Miralax] 17 gram/dose powder 17 g PO BID spironolactone 50 mg Tablet 100 mg PO DAILY Xifaxan 550 mg tablet 550 mg PO ONCE multivitamin [Daily Multi-Vitamin] Tablet 1 tab PO DAILY Discharge Instructions Additional Instructions: You are seen in the emergency department for your abdominal swelling. Please follow-up with the general surgery team as previously scheduled in 2 days. As we discussed, please soak your left big toe twice a day and warm water. Please return if you develop fevers chest pain or shortness of breath. Please continue taking your lactulose as previously scheduled. Discharge Data Discharge Date/Time-TO BE ENTERED AT DEPARTURE: 01/26/24 15:28 HPI General Date/Time Provider Initiated Documentation: 01/26/24 11:41 . HPI Narrative: MDM This is a mildly uncomfortable appearing normothermic and not tachycardic 38-year-old female with history of recurrent ascites and diabetes now with worsening abdominal distention secondary to decreased volume removed during paracentesis 5 days ago for which we will consult general surgery for recurrent paracentesis. No fevers and minimally tender abdomen so my suspicion is low for SBP so I did not treat with antibiotics. Patient reportedly has been confused so we will obtain an ammonia level to assess for hyperammonemia though the patient has no asterixis. No head strike to suggest increased risk for intracranial hemorrhage. Patient also endorses left great toe pain but has no signs of paronychia. I advised twice daily hot water soaks and gently traction in the skin around her medial great toe away from her nail. No pain out of proportion to suggest necrotizing soft tissue infection. Patient is nauseous but has not been vomiting nor had any diarrhea making my suspicion lower for intra-abdominal infection. No right lower quadrant tenderness to suggest appendicitis. No left lower quadrant tenderness to suggest diverticulitis. No shortness of breath to suggest ACS. In the absence of chest pain doubt PE. Suture site in left lower quadrant does not appear to be superinfected. There is no significant erythema to suggest cellulitis. No fluctuance to suggest abscess. 12:52 PM Mild hyperammonemia worse compared to prior. 1 PM No DAVID. Mild elevation alkaline phosphatase. Okay mild elevation of AST. Normal ALT. No acute electrolyte abnormalities. CBC with leukopenia and anemia with thrombocytopenia. Compared to prior thrombocytopenia similar. Leukocytosis is slightly worse and anemia is an slightly improved. INR is 2.0. 4:30 PM Please see separate note from general surgery who evaluated the patient. Patient was also seen by care management as that was concerned that she might benefit from more outpatient services. Patient was nauseous in the ED and I gave her ondansetron. I offered her additional antiemetics but she declined. I advised ED return for worsening abdominal distention pain fevers or vomiting that did not stop. Patient understood her return indications and was discharged with empiric trial of expectant outpatient management. HPI This is a 38-year-old female with history of diabetes morbid obesity hypertension and cirrhosis arrived to the emergency department via private vehicle in the setting of increased abdominal distention. Patient last had a paracentesis 5 days ago. This reportedly only removed 1 L of fluid and typically 5 or 6 L are removed. She has had increasing abdominal distention and pain. She is also concerned about the suture site in her left lower quadrant. Patient did take her lactulose this morning. She has not had any fevers. She also notes that she has had some left toenail pain and is concerned that it may be infected. She has been nauseous but has not been vomiting. She reportedly has been confused this morning. Denies dysuria and frequency. Exam General: Uncomfortable-appearing in no acute distress speaking in complete sentences. Head: Normocephalic, atraumatic. Eye: Extraocular eye movements intact. No conjunctival injection. Bilateral scleral icterus. Ear, nose, mouth, throat: Grossly normal inspection. Normal voice, handling secretions normally. Neck: Trachea midline. Cardiovascular: Well-perfused distal extremities. Regular rate and rhythm Respiratory: Nonlabored respiration. Clear lungs bilaterally Gastrointestinal: Markedly distended abdomen with shifting fluid wave. Dullness to percussion. No rash to abdomen. Left lower quadrant with blue suture in place. No significant surrounding erythema. No fluctuance. Musculoskeletal: No edema. Moving all 4 extremities spontaneously. Left great toe with mild swelling on the medial aspect at the distal edge of the nail. No obvious paronychia. No fluctuance. No signs of cellulitis. I am able to push the skin around the nail away from the nail easily. Skin: Normal for age and race, grossly normal temperature and turgor. No acute rash. Neurologic: Alert and appropriate, no apparent acute deficits. GCS 15. No asterixis. Psychiatric: Mood and manner are appropriate. Grooming and personal hygiene are appropriate. Related Data Home Medications Medication Instructions Recorded Confirmed ondansetron HCl 4 mg tablet 4 mg PO Q4H PRN 10/14/22 01/26/24 furosemide 40 mg tablet 40 mg PO DAILY #30 tabs 10/16/22 01/26/24 multivitamin (Daily Multi-Vitamin 1 tab PO DAILY 10/09/23 01/26/24 tablet) rifaximin 550 mg tablet (Xifaxan) 550 mg PO ONCE 10/09/23 01/26/24 acetaminophen 325 mg capsule 650 mg PO Q6H PRN 11/28/23 01/26/24 folic acid 1 mg tablet 1 mg PO DAILY 11/28/23 01/26/24 levetiracetam 1,000 mg tablet 1,000 mg PO BID 11/28/23 01/26/24 (Keppra) magnesium oxide 400 mg PO DAILY 11/28/23 01/26/24 melatonin 3 mg capsule 3 mg PO DAILY 11/28/23 01/26/24 miconazole nitrate 2 % topical 1 applic topical BID 11/28/23 01/26/24 powder polyethylene glycol 3350 17 17 g PO BID 11/28/23 01/26/24 gram/dose oral powder (Miralax) spironolactone 50 mg tablet 100 mg PO DAILY 11/28/23 01/26/24 thiamine HCl (vitamin B1) 100 mg 100 mg PO DAILY 11/28/23 01/26/24 tablet (Vitamin B-1) trazodone 50 mg tablet 50 mg PO DAILY 11/28/23 01/26/24 calcium carbonate (Tums) 300 mg PO DAILY PRN 12/04/23 01/26/24 lactulose 10 gram/15 mL oral 10 g PO TID 12/04/23 01/26/24 solution Previous Rx's Medication Instructions Recorded furosemide 40 mg tablet 40 mg PO DAILY #30 tabs 10/16/22 Allergies Allergy/AdvReac Type Severity Reaction Status Date / Time sertraline HCl [From Zoloft] AdvReac Intermediate Nausea Verified 01/26/24 11:47 General Stated Complaint: Abd Prob CASSIUS: 3 Course Vital Signs Vital signs: Vital Signs Temperature 36.5 C 01/26/24 11:39 Pulse 70 01/26/24 11:39 Respiratory Rate 14 01/26/24 11:39 Blood Pressure 114/58 L 01/26/24 11:39 Pulse Oximetry 100 01/26/24 11:39 Temperature 36.5 C 01/26/24 11:39 Temperature Source Skin 01/26/24 11:39 Pulse 70 01/26/24 11:39 Respiratory Rate 14 01/26/24 11:39 Blood Pressure 114/58 L 01/26/24 11:39 Blood Pressure Position Sitting 01/26/24 11:39 Pulse Oximetry 100 01/26/24 11:39 Oxygen Delivery Method Room Air 01/26/24 11:39 Oxygen Flow Rate 0 01/26/24 11:39 Pain Level 5 01/26/24 11:39 Medical Decision Making Quality:SDOH Health Related Social Needs: Health related social needs risk of homeless, inadequa te housing PFSH All Active Problems (Updated 01/26/24 @ 12:13 by Vasu Gibson MD) Pain of left great toe (Acute) Abdominal ascites (Acute) Tense ascites (Acute) History of ETOH abuse (Acute) Weakness generalized (Acute) Umbilical hernia (Acute) Portal hypertension (Acute) Splenomegaly (Acute) Gallstones (Acute) Thrombocytopenia (Chronic) Anemia (Chronic) Abdominal ascites (Acute) Chronic blood loss anemia (Acute) Anemia of chronic disease (Acute) End stage liver disease (Acute) Liver cirrhosis secondary to nonalcoholic steatohepatitis (GUERRERO) (Acute) Chronic liver failure (Acute) Esophageal varices with hemorrhage (Acute) Acute blood loss anemia (Acute) Encephalopathy, hepatic (Acute) Hepatic cirrhosis (Acute) Non-insulin dependent type 2 diabetes mellitus (Acute) Constipation (Acute) Edema of both lower extremities (Acute) Hypoalbuminemia (Acute) Hyperbilirubinemia (Acute) Hyponatremia (Acute) Coagulopathy (Acute) HTN (hypertension), benign (Acute) Obesity, morbid, BMI 40.0-49.9 (Acute) GERD (gastroesophageal reflux disease) (Chronic) Anxiety (Chronic) Medical History (Updated 01/26/24 @ 12:13 by Vasu Gibson MD) Palliative care patient Acute anemia Plate-like atelectasis Pulmonary edema History of gynecologic disorder Breast lump History of gestational diabetes Panic disorder with agoraphobia Hepatic steatosis Surgical History History of abdominal paracentesis H/O wisdom tooth extraction H/O section Family History Mother Liver disease Alcohol use disorder Maternal Aunt Liver disease Alcohol use disorder Father Coronary artery disease Social History Smoking/Tobacco Use Status: Former Tobacco Use Smoking risk assessment performed?: Yes Alcohol Intake: former Drug use: Never Substance use type: does not use Housing: other Do you feel safe at home: Yes Do you feel safe in your relationship?: Yes
[2024-01-26 12:00] VITALS: BP 114/58; PULSE 70; RESP 14; TEMP 36.5; O2SAT 100
[2024-01-26 12:37] LABS: Abs Immature Grans 0.01 10^3/uL (0.0-0.06); Absolute Basophil Count 0.02 10^3/uL (0.0-0.2); Absolute Lymphocyte Count 0.48 10^3/uL (1.2-3.4); Absolute Monocyte Count 0.35 10^3/uL (0.1-0.8); Absolute Neutrophil Count 1.69 10^3/uL (1.2-6.7); Basophils % 0.7 %; Eosinophils % 7.3 %; HCT 30.8 % (36.0-46.0); Immature Grans % 0.4 %; Lymphocytes % 17.5 %; MCH 33.2 pg (27.0-33.0); MCHC 32.5 % (32.0-36.0); MCV 102 fL (80-95); MPV 10.6 fL (8.0-11.0); Monocytes % 12.7 %; Neutrophils % 61.4 %; RBC 3.01 10^6/uL (3.93-5.22); RDW 14.1 % (11.7-14.6); RDW-SD 53.6 fL; WBC 2.75 10^3/uL (4.4-10.8)
[2024-01-26 12:49] LABS: Ammonia 42 umol/L (11-32)
[2024-01-26] MEDS: Normal Saline 500 ML 250 ML IV (12:52)
[2024-01-26 12:53] LABS: ALT 40 U/L (14-59); AST 75 U/L (15-37); Albumin 2.9 g/dL (3.4-5.0); Alkaline Phosphatase 121 U/L (46-116); Anion Gap 5.6 mmol/L (3-11); BUN 11 mg/dL (7-18); CO2 26.4 mmol/L (21.0-32.0); CREATININE 0.8 mg/dL (0.55-1.02); Calcium 8.3 mg/dL (8.5-10.1); Chloride 106 mmol/L (98-107); Diff Comment Diff Reviewed; Estimated GFR 97.26 (mL/min/1.73m2); Glucose 104 mg/dL (74-106); Platelet Count 63 10^3/uL (130-400); Potassium 3.9 mmol/L (3.5-5.1); RBC Morphology Normal; Sodium 138 mmol/L (136-145); Total Protein 6.6 g/dL (6.4-8.2)
[2024-01-26] MEDS: Ondansetron 4 MG/2 ML VIAL (12:53)
[2024-01-26 12:55] LABS: PTT Activated 42.1 sec (23.6-32.8); Prothrombin Time 18.9 sec (9.1-11.1)
--- NOTE | 2024-01-26 13:37 | W.SURGCON ---
Date of service: 01/26/24 Time of Service: 13:38 Assessment and Plan Assessment and plan (1) Abdominal ascites: Status: Acute Assessment and plan: 38-year-old woman with end?stage liver disease. MELD score 22, child Rosado score 12. Cirrhosis class 3. Abdominal ascites is not an emergent or urgent condition. Paracentesis is is not an emergency procedure but is actually a palliative procedure with the single exception being low?volume diagnostic paracentesis to assess for the possibility of SBP when clinically suspected. This is not a clinical suspicion in this case. I gently and empathetically educated the patient(and her mother who is the one that brought her) about using paracentesis as a scheduled, outpatient procedure. They should not come to the emergency room to have drainage performed. I further counseled them and educated them on the reality of paracentesis being a palliative procedure and each time it is removing protein from her body. If there is room for her to increase her diuretic therapy, that is definitely the first step. She does have a transplant team visit at [facility] scheduled less than 2 weeks from today. I counseled them to keep that consultation/appointment. She can otherwise follow-up for her scheduled paracentesis on Sunday. More than 45 minutes was spent on this consultation and discussion History of Present Illness Narrative: Asked by the ED to consult on the patient with tense ascites and worsening abdominal pain and nausea to consider paracentesis. She is on the schedule for a paracentesis for Sunday. She reports she had a paracentesis in the office earlier this week. only 1 L was removed. Her liver physicians are [facility]. She has been told to increase her diuretics if/when she needs to. Reportedly she has had lots of paracentesis performed. [facility] All Active Problems (Updated 01/26/24 @ 12:13 by Vasu Gibson MD) Pain of left great toe (Acute) Abdominal ascites (Acute) Tense ascites (Acute) History of ETOH abuse (Acute) Weakness generalized (Acute) Umbilical hernia (Acute) Portal hypertension (Acute) Splenomegaly (Acute) Gallstones (Acute) Thrombocytopenia (Chronic) Anemia (Chronic) Abdominal ascites (Acute) Chronic blood loss anemia (Acute) Anemia of chronic disease (Acute) End stage liver disease (Acute) Liver cirrhosis secondary to nonalcoholic steatohepatitis (GUERRERO) (Acute) Chronic liver failure (Acute) Esophageal varices with hemorrhage (Acute) Acute blood loss anemia (Acute) Encephalopathy, hepatic (Acute) Hepatic cirrhosis (Acute) Non-insulin dependent type 2 diabetes mellitus (Acute) Constipation (Acute) Edema of both lower extremities (Acute) Hypoalbuminemia (Acute) Hyperbilirubinemia (Acute) Hyponatremia (Acute) Coagulopathy (Acute) HTN (hypertension), benign (Acute) Obesity, morbid, BMI 40.0-49.9 (Acute) GERD (gastroesophageal reflux disease) (Chronic) Anxiety (Chronic) Medical History (Updated 01/26/24 @ 12:13 by Vasu Gibson MD) Palliative care patient Acute anemia Plate-like atelectasis Pulmonary edema History of gynecologic disorder Breast lump History of gestational diabetes Panic disorder with agoraphobia Hepatic steatosis Surgical History History of abdominal paracentesis H/O wisdom tooth extraction H/O section Family History Mother Liver disease Alcohol use disorder Maternal Aunt Liver disease Alcohol use disorder Father Coronary artery disease Social History Smoking/Tobacco Use Status: Former Tobacco Use Smoking risk assessment performed?: Yes Alcohol Intake: former Drug use: Never Substance use type: does not use Housing: other Do you feel safe at home: Yes Do you feel safe in your relationship?: Yes Exam Narrative Exam Narrative: General: Nontoxic, not noticeably uncomfortable, interactive and able to converse without any difficulty. Scleral icterus is present. Chest: No noticeable shortness of breath or labored breathing. Abdomen: Quite soft, mild to moderate distention but absolutely NOT tense. Noticeable soft tissue edema. Prior paracentesis stitch was removed at the bedside by me. Results Last Vital Signs Temp 97.7 F 01/26/24 12:00 Pulse 70 01/26/24 12:00 Resp 14 01/26/24 12:00 BP 114/58 L 01/26/24 12:00 Pulse Ox 100 01/26/24 12:00 Labs 01/26/24 12:20 01/26/24 12:20 Labs: Laboratory Results - last 24 hr 01/26/24 01/26/24 12:20 12:31 WBC 2.75 L RBC 3.01 L Hgb 10.0 L Hct 30.8 L MCV 102 H MCH 33.2 H MCHC 32.5 RDW 14.1 Plt Count 63 L MPV 10.6 Immature Gran % 0.4 Neutrophils % 61.4 Lymphocytes % 17.5 Monocytes % 12.7 Eosinophils % 7.3 Basophils % 0.7 Nucleated RBC % 0.0 Absolute Neutrophils 1.69 Absolute Lymphocytes 0.48 L Absolute Monocytes 0.35 Absolute Eosinophils 0.20 Absolute Basophils 0.02 RBC Morphology Normal PT 18.9 H INR 2.0 H APTT 42.1 H Sodium 138 Potassium 3.9 Chloride 106 Carbon Dioxide 26.4 Anion Gap 5.6 BUN 11 Creatinine 0.8 Est GFR (CKD-EPI 2020) 97.26 Glucose 104 Calcium 8.3 L Total Bilirubin 4.70 H AST 75 H ALT 40 Alkaline Phosphatase 121 H Ammonia 42 H Total Protein 6.6 Albumin 2.9 L
[2024-01-26] MEDS: Lactulose 20 GM/30 ML CUP 10 GM PO (15:25)
[2024-01-26 15:26] VITALS: BP 105/56; PULSE 70; RESP 14; TEMP 36.5; O2SAT 100
== END 2024-01-26 15:28 | disposition home or self-care (01) ==
PROVIDERS: Emergency Provider Emergency Medicine; PCP Physician Assistant Medical
DX: R18.8 Other ascites (principal); M79.675 Pain in left toe(s); E11.9 Type 2 diabetes mellitus without complications; Z98.890 Other specified postprocedural states; I10 Essential (primary) hypertension; R11.0 Nausea
CPT/HCPCS: 00123; 36415; 80053; 96360; 99284; 82140; 85025; 85610; 85730; J2405

== ENCOUNTER 2024-01-28 10:29 | Day surgery (SDC) | payer MEDICAID, SELFPAY ==
--- NOTE | 2024-01-27 20:51 | W.PM.DSUDISC ---
Date of service: 01/28/24 Time of Service: 13:23 Discharge Plan Disposition Patient Disposition: Home Condition: Good Discharge Details Reason For Visit: paracentesis Attending Provider: Hussein Werner Primary Care Provider: Allie Raines Home Meds and New Rx's Prescriptions: Continued Tums 300 mg (750 mg) tablet,chewable 300 mg PO DAILY PRN lactulose 10 gram/15 mL solution 10 g PO TID ondansetron HCl 4 mg tablet 4 mg PO Q4H PRN furosemide 40 mg tablet 40 mg PO DAILY Qty: 30 0RF magnesium oxide 400 mg magnesium capsule 400 mg PO DAILY acetaminophen 325 mg capsule 650 mg PO Q6H PRN Rx Instructions: Only as needed folic acid 1 mg tablet 1 mg PO DAILY levetiracetam [Keppra] 1,000 mg tablet 1,000 mg PO BID melatonin 3 mg capsule 3 mg PO DAILY miconazole nitrate 2 % powder 1 applic topical BID thiamine HCl (vitamin B1) [Vitamin B-1] 100 mg tablet 100 mg PO DAILY trazodone 50 mg tablet 50 mg PO DAILY polyethylene glycol 3350 [Miralax] 17 gram/dose powder 17 g PO BID spironolactone 50 mg Tablet 100 mg PO DAILY Xifaxan 550 mg tablet 550 mg PO ONCE multivitamin [Daily Multi-Vitamin] Tablet 1 tab PO DAILY Discharge Instructions Additional Instructions: Mildred, we were able to drain 2800 mL of fluid today. This is a little bit more than last week, but still less then what we had been able to remove during her previous procedures. I suspect that you are starting to develop some scar tissue inside, that is preventing the free flow of ascites towards the catheter. If you continue to remain symptomatic because of inability to drain all of the fluid, then it might be worth considering more advanced procedures to help with ascites control. Will leave you on the schedule as planned, and make a few more attempts. We can talk more about other options moving forward if needed. Activity:: Activity as Tolerated Remove Dressings/Wound Care:: 24 hours Shower/Bathe:: 24 hours Diet:: As Tolerated Discharge Orders Discharge Orders: Discharge Order (Routine); Ordered 01/27/24 Ordered By: Hussein Werner DS: Diagnosis Discharge Diagnosis (1) Abdominal ascites: Status: Acute
--- NOTE | 2024-01-27 20:52 | OPPNE_ITS ---
Date of service: 01/28/24 Time of Service: 13:25 Procedure Note Date of procedure: 01/28/24 Procedure: paracentesis Surgeon/Proceduralist/Physician: Hussein Werner Procedure Diagnosis: ascites Procedure Indications: Mildred is a 38-year-old woman with symptomatic ascites who was undergone multiple rounds of paracentesis to help with ascites control. Procedure Description: I started by performing a limited ultrasound of the abdomen to identify appropriate site for paracentesis. There is not much fluid on the right side, and body habitus precludes any adequate targets here at this time. There is some fluid on the left side, but the best window based on the underlying hollow viscera appears to be a little more medial than previous attempts. Based on the ultrasound, I prepped and draped an area in the left abdomen. Next, using ultrasound guidance, I anesthetized the skin with 1% lidocaine with epinephrine. I used the ultrasound to guide the needle down to the peritoneal level which was also anesthetized. I then made a small incision in the skin with a 11 blade scalpel. Next, I advanced the 5 Slovak paracentesis needle and catheter through the incision and into the peritoneal cavity under the direct vision of the ultrasound. There was brisk flow of straw-colored ascites. Next, I gently advance the catheter and remove the needle. I affixed drainage tubing, and began draining the ascites with the assistance of Vacutainer's. Initial drainage was excellent. Two Vacutainer's were filled completely. During filling of the third, flow began to sputter and eventually stopped. Despite patient repositioning, and catheter manipulation I was not able to resume flow. I attempted hand pumping the ascites. This was not successful. At that point, I removed the catheter and placed a [id number] Prolene suture to control the site. A Band-Aid was applied. Attempted to reultrasound the abdomen once a gain. Clearly there is some ascites remaining. There were some pockets in the left upper quadrant that appear accessible, however Mildred prefers to forego another attempt at paracentesis today. In total, I drained 2800 ml of ascites today.
[2024-01-28 10:50] VITALS: BP 121/67; PULSE 72; RESP 16; TEMP 36.3; O2SAT 100
[2024-01-28] MEDS: Normal Saline Flush 10 ML SYR IV (11:26)
[2024-01-28 13:24] VITALS: BP 115/55; PULSE 68; RESP 18; TEMP 36.1; O2SAT 100
[2024-01-28] MEDS: ALBUMIN HUMAN 25 GM/100 ML BTL IVPB ×2 (13:30)
== END 2024-01-28 14:30 | disposition home or self-care (01) ==
LOC: SUR 10:30
PROVIDERS: PCP Physician Assistant Medical; Visit Provider Surgery
PROC: 0W9G3ZZ Drainage of Peritoneal Cavity, Percutaneous Approach (ICD-10-PCS; CPT 49082; principal; 2024-01-28 12:30)
DX: R18.8 Other ascites (principal)
CPT/HCPCS: 49082; P9047

== ENCOUNTER 2024-02-25 06:15 | Day surgery (SDC) | payer MEDICAID, SELFPAY ==
[2024-02-25 12:19] VITALS: BP 113/53; PULSE 74; RESP 18; TEMP 36.4; O2SAT 99
--- NOTE | 2024-02-25 14:11 | PDOC.DSDIS_ITS ---
Date of service: 02/25/24 Time of Service: 14:11 Discharge Plan Disposition Patient Disposition: Home Condition: Fair Discharge Details Reason For Visit: Paracentesis Attending Provider: Hussein Werner Primary Care Provider: Allie Raines Home Meds and New Rx's Prescriptions: Continued Tums 300 mg (750 mg) tablet,chewable 300 mg PO DAILY PRN lactulose 10 gram/15 mL solution 10 g PO TID ondansetron HCl 4 mg tablet 4 mg PO Q4H PRN furosemide 40 mg tablet 40 mg PO DAILY Qty: 30 0RF magnesium oxide 400 mg magnesium capsule 400 mg PO DAILY acetaminophen 325 mg capsule 650 mg PO Q6H PRN Rx Instructions: Only as needed folic acid 1 mg tablet 1 mg PO DAILY levetiracetam [Keppra] 1,000 mg tablet 1,000 mg PO BID melatonin 3 mg capsule 3 mg PO DAILY miconazole nitrate 2 % powder 1 applic topical BID thiamine HCl (vitamin B1) [Vitamin B-1] 100 mg tablet 100 mg PO DAILY trazodone 50 mg tablet 50 mg PO DAILY polyethylene glycol 3350 [Miralax] 17 gram/dose powder 17 g PO BID spironolactone 50 mg Tablet 100 mg PO DAILY Xifaxan 550 mg tablet 550 mg PO ONCE multivitamin [Daily Multi-Vitamin] Tablet 1 tab PO DAILY Discharge Instructions Additional Instructions: Mildred, I apologize for the inconvenience of coming to the hospital and not undergoing the procedure today. Based on what I saw with the ultrasound, I just do not think there is a safe target for drainage. As we discussed, we will leave you on the schedule for next week, and reassess at that time. Generally speaking, we reserve paracentesis for episodes when patients can no longer tolerate the pressure of the ascites, which typically manifests as significant breathing difficulty, or inability to tolerate any real physical activity at all. Obviously, for patients with problems similar to years, who require recurrent paracentesis we try to accommodate them on a relatively fixed schedule in order to minimize symptoms. However, we do need to weigh this convenience against the risks of the procedure when the target to drain is relatively small, as is the case today. Again, I apologize for any inconvenience that this caused you or your family, but I want to make sure that we are thoughtful about exposing you to procedural risk in light of the potential benefit of the procedu re. Diet:: As Tolerated DS: Diagnosis Discharge Diagnosis (1) Tense ascites: Status: Acute Asessment and Plan: Low volume ascites today, with no safe target for drainage. Reassess next week
[2024-02-28 07:07] LABS: PEth 16:0/18:1(POPEth) <10 ng/mL (Cutoff: 10); PEth 16:0/18:2(PLPEth) <10 ng/mL (Cutoff: 10); PEth Interpretation Negative.
== END 2024-02-25 14:34 | disposition home or self-care (01) ==
PROVIDERS: Internal Medicine; PCP Physician Assistant Medical; Visit Provider Surgery
PROC: 0W9G3ZZ Drainage of Peritoneal Cavity, Percutaneous Approach (ICD-10-PCS; CPT 49082; principal; 2024-02-25 13:00)
DX: R18.8 Other ascites (principal); Z53.8 Procedure and treatment not carried out for other reasons
CPT/HCPCS: 49082; 36415; 80321

== ENCOUNTER → 2024-03-04 00:54 | Outpatient (CLI) | payer MEDICAID, SELFPAY ==
--- NOTE | 2024-03-04 11:30 | DI.RAD_ITS ---
Exam(s) XR CHEST 2V PA LATERAL EXAM: XR CHEST 2V PA LATERAL CLINICAL HISTORY: ALCOHOLIC CIRRHOSIS OF LIVER WITH ASCITES, K70.31, ? HEPATIC HYDROTHORAX. TECHNIQUE: 2D digital imaging was performed. COMPARISON: CR,XR XR CHEST 2V PA LATERAL from 10/14/2022 FINDINGS: 2 views: Heart size is upper normal. The mediastinum is not widened. Lungs are clear. No infiltrates nor pleural effusions. IMPRESSION: No acute pulmonary findings. DATA REPOSITORY: RADIATION DOSE DELIVERED:
== END ==
PROVIDERS: PCP Physician Assistant Medical; Visit Provider Internal Medicine
DX: K70.31 Alcoholic cirrhosis of liver with ascites (principal)
CPT/HCPCS: 71046

== ENCOUNTER 2024-03-04 11:16 | Day surgery (SDC) | payer MEDICAID, SELFPAY ==
[2024-03-04 12:03] VITALS: BP 115/61; PULSE 70; RESP 20; TEMP 36.4; O2SAT 100
[2024-03-04 12:43] LABS: Abs Immature Grans 0.02 10^3/uL (0.0-0.06); Absolute Basophil Count 0.01 10^3/uL (0.0-0.2); Absolute Eosinophil Count 0.11 10^3/uL (0.0-0.7); Absolute Lymphocyte Count 0.57 10^3/uL (1.2-3.4); Absolute Monocyte Count 0.37 10^3/uL (0.1-0.8); Absolute Neutrophil Count 1.56 10^3/uL (1.2-6.7); Basophils % 0.4 %; Eosinophils % 4.2 %; HCT 28.8 % (36.0-46.0); HGB 9.8 g/dL (11.2-15.7); Immature Grans % 0.8 %; Lymphocytes % 21.6 %; MCH 34.4 pg (27.0-33.0); MCV 101 fL (80-95); MPV 10.3 fL (8.0-11.0); RBC 2.85 10^6/uL (3.93-5.22); RDW 14.8 % (11.7-14.6); RDW-SD 54.5 fL; WBC 2.64 10^3/uL (4.4-10.8)
[2024-03-04 12:51] LABS: INR 1.8 (0.9-1.1); Prothrombin Time 16.8 sec (9.1-11.1)
[2024-03-04 12:54] LABS: Diff Comment PLT Morph Reviewed; Platelet Count 61 10^3/uL (130-400); RBC Morphology Normal
[2024-03-04 13:16] LABS: ALT 42 U/L (14-59); AST 76 U/L (15-37); Albumin 2.7 g/dL (3.4-5.0); Alkaline Phosphatase 99 U/L (46-116); BUN 10 mg/dL (7-18); Bilirubin, Total 4.34 mg/dL (0.2-1.0); CREATININE 0.9 mg/dL (0.55-1.02); Calcium 8.4 mg/dL (8.5-10.1); Chloride 106 mmol/L (98-107); Estimated GFR 84.44 (mL/min/1.73m2); Glucose 112 mg/dL (74-106); Potassium 4.1 mmol/L (3.5-5.1); Sodium 139 mmol/L (136-145); Total Protein 6.3 g/dL (6.4-8.2)
--- NOTE | 2024-03-04 13:42 | DSU.FORM ---
1340 03/04/24 Mildred Villalobos was examined by Dr. Boucher procedure canceled. Patient stated I don't feel like I need to be done today. Patient will call and reschedule when she feels the need to have another paracentesis. Patient left the unit via wheelchair with guardian for home.
--- NOTE | 2024-03-04 14:09 | W.PM.PROGNOT ---
Date of Service Date of service: 03/04/24 Time of Service: 14:09 Assessment and Plan Assessment and plan (1) History of ETOH abuse: Status: Acute (2) HTN (hypertension), benign: Status: Acute (3) Coagulopathy: Status: Acute (4) Thrombocytopenia: Status: Chronic (5) Non-insulin dependent type 2 diabetes mellitus: Status: Acute (6) Obesity, morbid, BMI 40.0-49.9: Status: Acute (7) GERD (gastroesophageal reflux disease): Status: Chronic (8) Esophageal varices with hemorrhage: Status: Acute (9) Liver cirrhosis secondary to nonalcoholic steatohepatitis (GUERRERO): Status: Acute (10) Chronic liver failure: Status: Acute (11) Portal hypertension: Status: Acute (12) Encephalopathy, hepatic: Status: Acute (13) Hepatic cirrhosis: Status: Acute Assessment and plan: Bedside ultrasound was done today. There is (100 cc visible in the abdomen and paracentesis is not required. Patient's mentation is much improved today compared to previous exams. Patient will call us as needed for paracentesis. Keeping in mind that we cannot accommodate her necessarily the same day Christine do not wait until she has nontense ascites before she notifies the office. (14) Hyperbilirubinemia: Status: Acute (15) End stage liver disease: Status: Acute (16) Gallstones: Status: Acute (17) Constipation: Status: Acute (18) Umbilical hernia: Status: Acute (19) Splenomegaly: Status: Acute (20) Abdominal ascites: Status: Acute (21) Anemia of chronic disease: Status: Acute (22) Hypoalbuminemia: Status: Acute (23) Edema of both lower extremities: Status: Acute Objective Last Vital Signs Temp 36.4 C L 03/04/24 12:03 Pulse 70 03/04/24 12:03 Resp 20 03/04/24 12:03 BP 115/61 03/04/24 12:03 Pulse Ox 100 03/04/24 12:03 Laboratory Results - last 24 hr 03/04/24 12:30 WBC 2.64 L RBC 2.85 L Hgb 9.8 L Hct 28.8 L MCV 101 H MCH 34.4 H MCHC 34.0 RDW 14.8 H Plt Count 61 L MPV 10.3 Immature Gran % 0.8 Neutrophils % 59.0 Lymphocytes % 21.6 Monocytes % 14.0 Eosinophils % 4.2 Basophils % 0.4 Nucleated RBC % 0.0 Absolute Neutrophils 1.56 Absolute Lymphocytes 0.57 L Absolute Monocytes 0.37 Absolute Eosinophils 0.11 Absolute Basophils 0.01 RBC Morphology Normal PT 16.8 H INR 1.8 H Sodium 139 Potassium 4.1 Chloride 106 Carbon Dioxide 25.0 Anion Gap 8.0 BUN 10 Creatinine 0.9 Est GFR (CKD-EPI 2020) 84.44 Glucose 112 H Calcium 8.4 L Total Bilirubin 4.34 H AST 76 H ALT 42 Alkaline Phosphatase 99 Total Protein 6.3 L Albumin 2.7 L Time Spent with Patient Time Spent with Patient: <25 minutes Time was spent: preparing to see the patient(eg.review tests), obtaining and/or reviewing separately otained hiistory, ordering medications,tests, procedures, referring, communicating with other health physician locums urgent care, indepentently interpreting results, counseling the patient, care coordination and other
[2024-03-07 03:31] LABS: PEth 16:0/18:1(POPEth) <10 ng/mL (Cutoff: 10); PEth 16:0/18:2(PLPEth) <10 ng/mL (Cutoff: 10); PEth Interpretation Negative.
== END 2024-03-04 11:17 | disposition home or self-care (01) ==
PROVIDERS: Internal Medicine; PCP Physician Assistant Medical; Visit Provider Surgery
DX: R18.8 Other ascites (principal); Z53.09 Procedure and treatment not carried out because of other contraindication
CPT/HCPCS: 49083; 36415; 80053; 80321; 85025; 85610

== ENCOUNTER 2024-04-02 03:09 | Outpatient (CLI) | payer MEDICAID, SELFPAY ==
[2024-04-02 16:01] LABS: Abs Immature Grans 0.02 10^3/uL (0.0-0.06); Absolute Basophil Count 0.03 10^3/uL (0.0-0.2); Absolute Eosinophil Count 0.28 10^3/uL (0.0-0.7); Absolute Lymphocyte Count 0.78 10^3/uL (1.2-3.4); Absolute Monocyte Count 0.55 10^3/uL (0.1-0.8); Absolute Neutrophil Count 2.34 10^3/uL (1.2-6.7); Basophils % 0.8 %; HCT 32.4 % (36.0-46.0); HGB 11.2 g/dL (11.2-15.7); Immature Grans % 0.5 %; Lymphocytes % 19.5 %; MCH 34.4 pg (27.0-33.0); MCHC 34.6 % (32.0-36.0); MCV 99 fL (80-95); MPV 10.2 fL (8.0-11.0); Monocytes % 13.8 %; Neutrophils % 58.4 %; RBC 3.26 10^6/uL (3.93-5.22); RDW 14.5 % (11.7-14.6); RDW-SD 52.7 fL
[2024-04-02 16:35] LABS: ALT 53 U/L (14-59); AST 101 U/L (15-37); Alkaline Phosphatase 118 U/L (46-116); Anion Gap 5.3 mmol/L (3-11); BUN 16 mg/dL (7-18); CO2 26.7 mmol/L (21.0-32.0); CREATININE 0.9 mg/dL (0.55-1.02); Calcium 9.2 mg/dL (8.5-10.1); Chloride 107 mmol/L (98-107); Estimated GFR 84.44 (mL/min/1.73m2); Glucose 98 mg/dL (74-106); Potassium 4.3 mmol/L (3.5-5.1); Sodium 139 mmol/L (136-145); Total Protein 7.3 g/dL (6.4-8.2)
[2024-04-02 17:31] LABS: Platelet Count 80 10^3/uL (130-400)
[2024-04-07 05:59] LABS: PEth 16:0/18:1(POPEth) <10 ng/mL (Cutoff: 10); PEth 16:0/18:2(PLPEth) <10 ng/mL (Cutoff: 10); PEth Interpretation Negative.
== END 2024-04-02 03:10 | disposition home or self-care (01) ==
LOC: LBO 03:09
PROVIDERS: PCP Physician Assistant Medical; Visit Provider Internal Medicine
DX: K70.31 Alcoholic cirrhosis of liver with ascites (principal)
CPT/HCPCS: 36415; 80053; 80321; 85025

== ENCOUNTER 2024-04-18 00:36 | Outpatient (CLI) | payer MEDICAID, SELFPAY ==
--- NOTE | 2024-04-18 | DI.MRI_ITS ---
Exam(s) MR BRAIN WO/W EXAM: MR BRAIN WO/W CLINICAL HISTORY: Rt parietal intraparenchymal hemorrhage. TECHNIQUE: Multiplanar multisequence MRI of the brain was performed. CONTRAST MATERIAL: IV Contrast: 16 ML of Dotarem contrast administered. COMPARISON: MR MRI BRAIN WWO from 02/03/2024 MR MRI BRAIN WWO from 02/03/2024 FINDINGS: VENTRICLES AND EXTRA AXIAL SPACES: Normal in size and morphology for the patient's age. CEREBRAL PARENCHYMA:Significant improvement in previously noted high right parietal parenchymal hemor rhage. There is now only a thin ribbon of high signal and no significant surrounding edema or mass effect. No new areas of hemorrhage. No focus of restricted diffusion to suggest acute infarct. No space-occupying lesion identified. MIDLINE SHIFT: None. BRAINSTEM/CEREBELLUM: Normal. CALVARIUM: Normal. ENHANCEMENT: No suspicious enhancement identified. No aberrant vessels. VISUALIZED PARANASAL SINUSES/MASTOIDS: Clear. Orbits: Unremarkable. Pituitary: Normal. Vasculature: Normal flow voids. IMPRESSION: Significant interval improvement in previously noted right parietal parenchymal hematoma. Minimal ri m ounces residual abnormal signal. No significant edema or mass effect. DATA REPOSITORY:
[2024-04-18] MEDS: Normal Saline Flush 10 ML SYR IVP (10:26)
[2024-04-18] MEDS: Gadoterate meglumine 20 ML SYRINGE 16 ML IVP (10:27)
== END 2024-04-18 00:56 ==
LOC: DI 00:36
PROVIDERS: PCP Physician Assistant Medical; Visit Provider Nurse Practitioner Family
DX: S06.34AD Traumatic hemorrhage of right cerebrum with loss of consciousness status unknown, subsequent encounter (principal); X58.XXXD Exposure to other specified factors, subsequent encounter
CPT/HCPCS: 70553

== ENCOUNTER 2024-05-20 02:05 | Outpatient (CLI) | payer MEDICAID, SELFPAY ==
[2024-05-20 13:50] LABS: Abs Immature Grans 0.01 10^3/uL (0.0-0.06); Absolute Basophil Count 0.02 10^3/uL (0.0-0.2); Absolute Eosinophil Count 0.17 10^3/uL (0.0-0.7); Absolute Lymphocyte Count 0.88 10^3/uL (1.2-3.4); Absolute Monocyte Count 0.49 10^3/uL (0.1-0.8); Absolute Neutrophil Count 2.34 10^3/uL (1.2-6.7); Basophils % 0.5 %; Eosinophils % 4.3 %; HCT 32.9 % (36.0-46.0); HGB 11.8 g/dL (11.2-15.7); Immature Grans % 0.3 %; Lymphocytes % 22.5 %; MCH 34.5 pg (27.0-33.0); MCHC 35.9 % (32.0-36.0); MCV 96 fL (80-95); MPV 9.9 fL (8.0-11.0); Monocytes % 12.5 %; Neutrophils % 59.9 %; RBC 3.42 10^6/uL (3.93-5.22); RDW 13.8 % (11.7-14.6); RDW-SD 48.4 fL; WBC 3.91 10^3/uL (4.4-10.8)
[2024-05-20 14:08] LABS: Diff Comment Diff Reviewed; Platelet Count 72 10^3/uL (130-400); RBC Morphology Normal
[2024-05-20 14:11] LABS: INR 1.5 (0.9-1.1); Prothrombin Time 14.4 sec (9.1-11.1)
[2024-05-20 14:12] LABS: ALT 44 U/L (14-59); AST 75 U/L (15-37); Albumin 3.1 g/dL (3.4-5.0); Alkaline Phosphatase 113 U/L (46-116); Anion Gap 8.8 mmol/L (3-11); BUN 17 mg/dL (7-18); Bilirubin, Total 3.44 mg/dL (0.2-1.0); CO2 23.2 mmol/L (21.0-32.0); CREATININE 0.8 mg/dL (0.55-1.02); Calcium 9.1 mg/dL (8.5-10.1); Chloride 109 mmol/L (98-107); Estimated GFR 97.26 (mL/min/1.73m2); Glucose 124 mg/dL (74-106); Sodium 141 mmol/L (136-145); Total Protein 7.4 g/dL (6.4-8.2)
[2024-05-23 05:48] LABS: PEth 16:0/18:1(POPEth) <10 ng/mL (Cutoff: 10); PEth 16:0/18:2(PLPEth) <10 ng/mL (Cutoff: 10); PEth Interpretation Negative.
== END 2024-05-20 02:06 | disposition home or self-care (01) ==
PROVIDERS: PCP Physician Assistant Medical; Visit Provider Internal Medicine
DX: K70.31 Alcoholic cirrhosis of liver with ascites (principal)
CPT/HCPCS: 36415; 80053; 80321; 85025; 85610

== ENCOUNTER 2024-06-25 03:19 | Outpatient (CLI) | payer MEDICAID, SELFPAY ==
[2024-06-25 12:14] LABS: Abs Immature Grans 0.01 10^3/uL (0.0-0.06); Absolute Basophil Count 0.04 10^3/uL (0.0-0.2); Absolute Eosinophil Count 0.18 10^3/uL (0.0-0.7); Absolute Lymphocyte Count 0.91 10^3/uL (1.2-3.4); Absolute Monocyte Count 0.65 10^3/uL (0.1-0.8); Absolute Neutrophil Count 2.43 10^3/uL (1.2-6.7); Basophils % 0.9 %; Eosinophils % 4.3 %; HCT 34.8 % (36.0-46.0); HGB 12.3 g/dL (11.2-15.7); Immature Grans % 0.2 %; Lymphocytes % 21.6 %; MCH 33.2 pg (27.0-33.0); MCHC 35.3 % (32.0-36.0); MCV 94 fL (80-95); MPV 9.9 fL (8.0-11.0); Monocytes % 15.4 %; Neutrophils % 57.6 %; RDW 13.3 % (11.7-14.6); WBC 4.22 10^3/uL (4.4-10.8)
[2024-06-25 12:22] LABS: INR 1.4 (0.9-1.1); Prothrombin Time 13.5 sec (9.1-11.1)
[2024-06-25 12:23] LABS: ALT 34 U/L (14-59); AST 56 U/L (15-37); Alkaline Phosphatase 126 U/L (46-116); Anion Gap 6.7 mmol/L (3-11); BUN 18 mg/dL (7-18); Bilirubin, Total 4.15 mg/dL (0.2-1.0); CO2 24.3 mmol/L (21.0-32.0); CREATININE 0.9 mg/dL (0.55-1.02); Chloride 107 mmol/L (98-107); Estimated GFR 84.44 (mL/min/1.73m2); Glucose 130 mg/dL (74-106); Platelet Count 87 10^3/uL (130-400); Potassium 3.8 mmol/L (3.5-5.1); Sodium 138 mmol/L (136-145)
[2024-06-28 12:20] LABS: PEth 16:0/18:1(POPEth) <10 ng/mL (Cutoff: 10); PEth 16:0/18:2(PLPEth) <10 ng/mL (Cutoff: 10); PEth Interpretation Negative.
== END 2024-06-25 03:20 | disposition home or self-care (01) ==
PROVIDERS: PCP Physician Assistant Medical; Visit Provider Internal Medicine
DX: K74.60 Unspecified cirrhosis of liver (principal); R18.8 Other ascites
CPT/HCPCS: 36415; 80053; 80321; 85025; 85610

== ENCOUNTER 2024-07-07 18:45 | Outpatient (REF) | payer MEDICAID, SELFPAY ==
[2024-07-08 18:08] LABS: Estradiol 37 pg/mL (See Note)
== END 2024-07-07 18:46 | disposition home or self-care (01) ==
LOC: NCHCN 18:45
PROVIDERS: PCP Physician Assistant Medical; Visit Provider Physician Assistant Medical
DX: N91.2 Amenorrhea, unspecified (principal)
CPT/HCPCS: 82670

== ENCOUNTER 2024-07-31 11:25 | Outpatient (CLI) | payer MEDICAID, SELFPAY ==
[2024-07-31 12:09] LABS: Abs Immature Grans 0.01 10^3/uL (0.0-0.06); Absolute Basophil Count 0.04 10^3/uL (0.0-0.2); Absolute Eosinophil Count 0.23 10^3/uL (0.0-0.7); Absolute Lymphocyte Count 1.14 10^3/uL (1.2-3.4); Absolute Monocyte Count 0.52 10^3/uL (0.1-0.8); Basophils % 0.9 %; Eosinophils % 5.4 %; HGB 12.4 g/dL (11.2-15.7); Immature Grans % 0.2 %; Lymphocytes % 26.8 %; MCH 33.4 pg (27.0-33.0); MCHC 35.4 % (32.0-36.0); MCV 94 fL (80-95); MPV 9.7 fL (8.0-11.0); Monocytes % 12.2 %; Neutrophils % 54.5 %; RBC 3.71 10^6/uL (3.93-5.22); RDW 13.6 % (11.7-14.6); RDW-SD 47.1 fL; WBC 4.25 10^3/uL (4.4-10.8)
[2024-07-31 12:12] LABS: Absolute Neutrophil Count 2.32 10^3/uL (1.2-6.7)
[2024-07-31 12:18] LABS: INR 1.3 (0.9-1.1)
[2024-07-31 12:24] LABS: Platelet Count 86 10^3/uL (130-400)
[2024-07-31 12:47] LABS: ALT 40 U/L (14-59); AST 60 U/L (15-37); Albumin 3.1 g/dL (3.4-5.0); Alkaline Phosphatase 139 U/L (46-116); Anion Gap 6.5 mmol/L (3-11); BUN 17 mg/dL (7-18); Bilirubin, Total 2.13 mg/dL (0.2-1.0); CO2 23.5 mmol/L (21.0-32.0); CREATININE 0.9 mg/dL (0.55-1.02); Calcium 9.2 mg/dL (8.5-10.1); Chloride 112 mmol/L (98-107); Estimated GFR 83.92 (mL/min/1.73m2); Glucose 90 mg/dL (74-106); Potassium 4.2 mmol/L (3.5-5.1); Sodium 142 mmol/L (136-145)
[2024-08-03 14:34] LABS: PEth 16:0/18:1(POPEth) <10 ng/mL (Cutoff: 10); PEth 16:0/18:2(PLPEth) <10 ng/mL (Cutoff: 10); PEth Interpretation Negative.
== END 2024-07-31 11:26 | disposition home or self-care (01) ==
LOC: LBO 11:26
PROVIDERS: PCP Physician Assistant Medical; Visit Provider Internal Medicine
DX: K74.60 Unspecified cirrhosis of liver (principal); R18.8 Other ascites
CPT/HCPCS: 36415; 80053; 80321; 85025; 85610

== ENCOUNTER 2024-08-11 02:21 | Outpatient (CLI) | payer MEDICAID, SELFPAY ==
--- NOTE | 2024-08-11 | DI.US_ITS ---
Exam(s) US ABDOMEN LIMITED EXAM: US ABDOMEN LIMITED CLINICAL HISTORY: Cirrhosis of liver with ascites, unspecified hepatic cirrhosis type, K74.60 TECHNIQUE: Ultrasound abdomen performed using standard protocol. COMPARISON: CT CT ABDOMEN PELVIS W from 10/14/2022 US US ABDOMEN LIMITED from 10/16/2022 MR MRI ABDOMEN WWO CONTRAST (GENERIC) from 02/10/2023 US US ABDOMEN LIMITED HEPATOLOGY PROTOCOL from 04/16/2023 MR MR ABDOMEN WO/W from 05/22/2023 FINDINGS: PANCREAS: Normal where visualized. LIVER: There is a lobulated contour of the liver which can be seen with hepatic cirrhosis. Hepatopet al flow in the Portal Vein. The liver measures in 15.8 cm length. There is a 1.3 cm area of decreased echogenicity in the left lobe of the liver. The patient has a TIPS in place. There is flow seen th rough the TIPS. GALLBLADDER:There are immobile bile gallstones present. The largest measures 3.1 cm. No evidence of w all thickening. No pericholecystic fluid identified. BILIARY SYSTEM: Common bile duct measures < 7 mm. No intrahepatic biliary ductal dilation. HOFFMAN'S SIGN: Negative. RIGHT KIDNEY: Kidney is normal in size. No evidence of renal calculi. No evidence of hydronephrosis. There is a 7 mm echogenic focus seen in the inferior pole of the right kidney. ASCITES: None seen. IMPRESSION: 1. Findings of a cirrhotic liver with a TIPS in place. 2. 1.3 cm hypoechoic lesion in the left lobe of the liver. This was not visualized on the prior exami nation. The patient does have a known cyst in the subcapsular region of the left lobe of the liver. T his was identified on the prior MRI examination. This may represent that cyst. An MRI may be consider ed for further evaluation. 3. Cholelithiasis. No biliary ductal dilatation or sonographic Hoffman sign. 4. 7 mm echogenic focus in the inferior pole of the right kidney. This was not visualized on the prio r examination. This may represent a nonobstructing stone. Benign lesion such as an angiomyolipoma may have this appearance however prior examination show no evidence of an AML. Follow-up as clinically a ppropriate. DATA REPOSITORY:
== END 2024-08-11 02:41 ==
LOC: DI 02:21
PROVIDERS: PCP Physician Assistant Medical; Visit Provider Internal Medicine
DX: K80.80 Other cholelithiasis without obstruction (principal)
CPT/HCPCS: 76705

== ENCOUNTER 2024-08-28 04:49 | Outpatient (CLI) | payer MEDICAID, SELFPAY ==
[2024-08-28 14:12] LABS: Abs Immature Grans 0.01 10^3/uL (0.0-0.06); Absolute Basophil Count 0.04 10^3/uL (0.0-0.2); Absolute Eosinophil Count 0.26 10^3/uL (0.0-0.7); Absolute Lymphocyte Count 1.44 10^3/uL (1.2-3.4); Absolute Monocyte Count 0.54 10^3/uL (0.1-0.8); Absolute Neutrophil Count 2.63 10^3/uL (1.2-6.7); Basophils % 0.8 %; Eosinophils % 5.3 %; HCT 35.7 % (36.0-46.0); HGB 12.4 g/dL (11.2-15.7); Immature Grans % 0.2 %; Lymphocytes % 29.3 %; MCH 32.5 pg (27.0-33.0); MCHC 34.7 % (32.0-36.0); MCV 94 fL (80-95); MPV 10.1 fL (8.0-11.0); Neutrophils % 53.4 %; RBC 3.82 10^6/uL (3.93-5.22); RDW-SD 44.4 fL; WBC 4.92 10^3/uL (4.4-10.8)
[2024-08-28 14:18] LABS: INR 1.3 (0.9-1.1); Prothrombin Time 13.1 sec (9.1-11.1)
[2024-08-28 14:28] LABS: Platelet Count 89 10^3/uL (130-400)
[2024-08-28 14:29] LABS: Diff Comment Diff Reviewed; RBC Morphology Normal
[2024-08-28 14:58] LABS: ALT 38 U/L (14-59); AST 62 U/L (15-37); Alkaline Phosphatase 145 U/L (46-116); Anion Gap 7.4 mmol/L (3-11); BUN 13 mg/dL (7-18); Bilirubin, Total 2.35 mg/dL (0.2-1.0); CO2 25.6 mmol/L (21.0-32.0); Calcium 8.9 mg/dL (8.5-10.1); Chloride 109 mmol/L (98-107); Estimated GFR 73.95 (mL/min/1.73m2); Glucose 98 mg/dL (74-106); Sodium 142 mmol/L (136-145)
[2024-09-02 02:53] LABS: PEth 16:0/18:1(POPEth) <10 ng/mL (Cutoff: 10); PEth 16:0/18:2(PLPEth) <10 ng/mL (Cutoff: 10); PEth Interpretation Negative.
== END 2024-08-28 04:50 | disposition home or self-care (01) ==
PROVIDERS: PCP Physician Assistant Medical; Visit Provider Internal Medicine
DX: K74.60 Unspecified cirrhosis of liver (principal); R18.8 Other ascites
CPT/HCPCS: 36415; 80053; 80321; 85025; 85610

== ENCOUNTER 2024-09-16 15:32 | Outpatient (CLI) | payer MEDICAID, SELFPAY ==
[2024-09-16 15:43] LABS: INR 1.3 (0.9-1.1); PTT Activated 33.4 sec (20.6-30.2); Prothrombin Time 12.8 sec (9.1-11.1)
[2024-09-16 15:50] LABS: Hemoglobin A1C < 4.5 % (<5.7)
[2024-09-16 17:17] LABS: GGT 47 U/L (5-55)
[2024-09-17 16:41] LABS: C-Peptide 5.4 ng/mL (1.1 - 4.4)
== END 2024-09-16 15:33 | disposition home or self-care (01) ==
LOC: LBO 15:33
PROVIDERS: PCP Physician Assistant Medical; Visit Provider Family Medicine
DX: K74.60 Unspecified cirrhosis of liver (principal); Z86.39 Personal history of other endocrine, nutritional and metabolic disease
CPT/HCPCS: 36415; 82306; 82977; 83036; 84681; 85610; 85730

== ENCOUNTER 2024-10-07 03:04 | Outpatient (CLI) | payer MEDICAID, SELFPAY ==
[2024-10-07 16:37] LABS: Abs Immature Grans 0.01 10^3/uL (0.0-0.06); Absolute Basophil Count 0.03 10^3/uL (0.0-0.2); Absolute Eosinophil Count 0.25 10^3/uL (0.0-0.7); Absolute Lymphocyte Count 1.27 10^3/uL (1.2-3.4); Absolute Monocyte Count 0.46 10^3/uL (0.1-0.8); Absolute Neutrophil Count 2.28 10^3/uL (1.2-6.7); Basophils % 0.7 %; Eosinophils % 5.8 %; HCT 35.7 % (36.0-46.0); HGB 12.7 g/dL (11.2-15.7); Immature Grans % 0.2 %; Lymphocytes % 29.5 %; MCH 32.6 pg (27.0-33.0); MCHC 35.6 % (32.0-36.0); MCV 92 fL (80-95); MPV 9.9 fL (8.0-11.0); Monocytes % 10.7 %; Neutrophils % 53.1 %; RDW 13.8 % (11.7-14.6); RDW-SD 45.5 fL
[2024-10-07 16:45] LABS: INR 1.3 (0.9-1.1); Prothrombin Time 12.7 sec (9.1-11.1)
[2024-10-07 16:57] LABS: Platelet Count 89 10^3/uL (130-400)
[2024-10-07 17:38] LABS: ALT 46 U/L (14-59); AST 63 U/L (15-37); Albumin 3.2 g/dL (3.4-5.0); Alkaline Phosphatase 135 U/L (46-116); Anion Gap 8.9 mmol/L (3-11); BUN 16 mg/dL (7-18); Bilirubin, Total 2.5 mg/dL (0.2-1.0); CO2 25.1 mmol/L (21.0-32.0); CREATININE 0.8 mg/dL (0.55-1.02); Calcium 9.2 mg/dL (8.5-10.1); Chloride 108 mmol/L (98-107); Estimated GFR 96.66 (mL/min/1.73m2); Glucose 106 mg/dL (74-106); Potassium 4.3 mmol/L (3.5-5.1); Sodium 142 mmol/L (136-145)
[2024-10-10 22:36] LABS: PEth 16:0/18:1(POPEth) <10 ng/mL (Cutoff: 10); PEth 16:0/18:2(PLPEth) <10 ng/mL (Cutoff: 10); PEth Interpretation Negative.
== END 2024-10-07 03:05 | disposition home or self-care (01) ==
PROVIDERS: PCP Physician Assistant Medical; Visit Provider Internal Medicine
DX: K74.60 Unspecified cirrhosis of liver (principal); R18.8 Other ascites
CPT/HCPCS: 36415; 80053; 80321; 85025; 85610

== ENCOUNTER 2024-11-05 02:04 | Outpatient (CLI) | payer MEDICAID, SELFPAY ==
[2024-11-05 11:54] LABS: Abs Immature Grans 0.01 10^3/uL (0.0-0.06); Absolute Basophil Count 0.05 10^3/uL (0.0-0.2); Absolute Eosinophil Count 0.19 10^3/uL (0.0-0.7); Absolute Lymphocyte Count 1.27 10^3/uL (1.2-3.4); Absolute Monocyte Count 0.52 10^3/uL (0.1-0.8); Absolute Neutrophil Count 3.07 10^3/uL (1.2-6.7); Eosinophils % 3.7 %; HCT 37.1 % (36.0-46.0); HGB 13.4 g/dL (11.2-15.7); Immature Grans % 0.2 %; Lymphocytes % 24.9 %; MCH 32.6 pg (27.0-33.0); MCHC 36.1 % (32.0-36.0); MCV 90 fL (80-95); MPV 9.9 fL (8.0-11.0); Monocytes % 10.2 %; RBC 4.11 10^6/uL (3.93-5.22); RDW 13.4 % (11.7-14.6); RDW-SD 44.2 fL; WBC 5.11 10^3/uL (4.4-10.8)
[2024-11-05 12:04] LABS: Prothrombin Time 12.4 sec (9.1-11.1)
[2024-11-05 12:06] LABS: INR 1.2 (0.9-1.1)
[2024-11-05 12:15] LABS: Diff Comment PLT Morph Reviewed; Platelet Count 93 10^3/uL (130-400); RBC Morphology Normal
[2024-11-05 12:45] LABS: ALT 37 U/L (14-59); AST 57 U/L (15-37); Albumin 3.4 g/dL (3.4-5.0); Alkaline Phosphatase 148 U/L (46-116); Anion Gap 9.3 mmol/L (3-11); BUN 17 mg/dL (7-18); Bilirubin, Total 2.4 mg/dL (0.2-1.0); CO2 23.7 mmol/L (21.0-32.0); CREATININE 0.8 mg/dL (0.55-1.02); Calcium 9.3 mg/dL (8.5-10.1); Chloride 108 mmol/L (98-107); Estimated GFR 96.66 (mL/min/1.73m2); Glucose 99 mg/dL (74-106); Potassium 4.4 mmol/L (3.5-5.1); Sodium 141 mmol/L (136-145); Total Protein 7.1 g/dL (6.4-8.2)
[2024-11-08 12:19] LABS: PEth 16:0/18:1(POPEth) <10 ng/mL (Cutoff: 10); PEth 16:0/18:2(PLPEth) <10 ng/mL (Cutoff: 10); PEth Interpretation Negative.
== END 2024-11-05 02:05 | disposition home or self-care (01) ==
PROVIDERS: PCP Physician Assistant Medical; Visit Provider Internal Medicine
DX: K74.60 Unspecified cirrhosis of liver (principal); R18.8 Other ascites
CPT/HCPCS: 36415; 80053; 80321; 85025; 85610

== ENCOUNTER 2024-12-11 01:43 | Outpatient (CLI) | payer MEDICAID, SELFPAY ==
[2024-12-12 10:09] LABS: AFP Tumor Marker <2.5 ng/mL (<8.1)
== END 2024-12-11 01:44 | disposition home or self-care (01) ==
PROVIDERS: PCP Physician Assistant Medical; Visit Provider Internal Medicine
DX: K70.31 Alcoholic cirrhosis of liver with ascites (principal)
CPT/HCPCS: 36415; 82105

== ENCOUNTER 2024-12-15 04:17 | Outpatient (CLI) | payer MEDICAID, SELFPAY ==
[2024-12-15 10:51] LABS: Abs Immature Grans 0.01 10^3/uL (0.0-0.06); Absolute Basophil Count 0.04 10^3/uL (0.0-0.2); Absolute Eosinophil Count 0.31 10^3/uL (0.0-0.7); Absolute Lymphocyte Count 1.23 10^3/uL (1.2-3.4); Absolute Monocyte Count 0.59 10^3/uL (0.1-0.8); Absolute Neutrophil Count 3.29 10^3/uL (1.2-6.7); Basophils % 0.7 %; Eosinophils % 5.7 %; HCT 36.1 % (36.0-46.0); HGB 13.2 g/dL (11.2-15.7); Immature Grans % 0.2 %; Lymphocytes % 22.5 %; MCH 33.3 pg (27.0-33.0); MCHC 36.6 % (32.0-36.0); MCV 91 fL (80-95); MPV 9.4 fL (8.0-11.0); Monocytes % 10.8 %; Neutrophils % 60.1 %; Platelet Count 105 10^3/uL (130-400); RBC 3.96 10^6/uL (3.93-5.22); RDW 13.3 % (11.7-14.6); WBC 5.47 10^3/uL (4.4-10.8)
[2024-12-15 11:00] LABS: INR 1.3 (0.9-1.1); Prothrombin Time 12.9 sec (9.1-11.1)
[2024-12-15 12:31] LABS: ALT 32 U/L (14-59); AST 49 U/L (15-37); Albumin 3.2 g/dL (3.4-5.0); Alkaline Phosphatase 151 U/L (46-116); Anion Gap 5.7 mmol/L (3-11); BUN 13 mg/dL (7-18); Bilirubin, Total 2.6 mg/dL (0.2-1.0); CO2 27.3 mmol/L (21.0-32.0); CREATININE 0.8 mg/dL (0.55-1.02); Calcium 9.1 mg/dL (8.5-10.1); Chloride 106 mmol/L (98-107); Estimated GFR 96.66 (mL/min/1.73m2); Glucose 103 mg/dL (74-106); Potassium 3.9 mmol/L (3.5-5.1); Sodium 139 mmol/L (136-145); Total Protein 7.2 g/dL (6.4-8.2)
[2024-12-17 19:19] LABS: PEth 16:0/18:1(POPEth) <10 ng/mL (Cutoff: 10); PEth 16:0/18:2(PLPEth) <10 ng/mL (Cutoff: 10); PEth Interpretation Negative.
== END 2024-12-15 04:18 | disposition home or self-care (01) ==
PROVIDERS: PCP Physician Assistant Medical; Visit Provider Internal Medicine
DX: K74.60 Unspecified cirrhosis of liver (principal); R18.8 Other ascites
CPT/HCPCS: 36415; 80053; 80321; 85025; 85610

== ENCOUNTER 2024-12-25 02:41 | Outpatient (CLI) | payer MEDICAID, SELFPAY ==
--- NOTE | 2024-12-25 | DI.MRI_ITS ---
Exam(s) MR ABDOMEN WO/W EXAM: MR ABDOMEN WO/W CLINICAL HISTORY: Cirrhosis,HCC screening, Alcoholic cirrhosis of liver w/ascites K70.31 TECHNIQUE: Multiplanar multisequence MRI was performed with both pre and post contrast infused seque nces. Contrast injected sequences were performed following IV injection of 16 cc of Dotarem. COMPARISON: MR MR ABDOMEN WO/W from 05/22/2023 FINDINGS: VISUALIZED LUNG BASES: No pleural effusions evident. There has been significant decrease in the amount of ascites peer LIVER: There is evidence of interval TIPS procedure. There is again noted be somewhat cirrhotic. Sm all benign cyst in the left hepatic lobe again noted. There is a new 1 cm nodule in the right hepati c lobe which exhibits low signal on T2 and high signal on T1 images and does not exhibit appreciable enhancement following contrast injection. BILIARY: Large gallstones are again noted as well as smaller gallstones. The gallbladder does not ap pear edematous and the CBD is not dilated. Scratch PANCREAS: There is no evidence of pancreatic mass nor dilatation of the pancreatic duct. SPLEEN: Spleen is again noted to be enlarged. Craniocaudal measurement is 18.5 cm. There are no dis tinct splenic lesions.Splenic and portal veins are patent ADRENALS: There are no significant adrenal masses. KIDNEYS: No solid renal masses. No hydronephrosis.No cysts evident. ABDOMINAL AORTA: Not enlarged and there is no significant para-aortic adenopathy. ANTERIOR ABDOMINAL WALL/GI: There is a small fluid collection in the deep umbilicus measuring 1.5 x 1 .3 cm. Unchanged from MRI scan 05/22/2023.This is most probably fluid in an anterior abdominal wall hernia at this level. Does not appear to contain bowel loops and there is no evidence of bowel obstr uction. OSSEOUS: There are no lytic osseous lesions in the field of view of this study. IMPRESSION: 1. Compared to the prior MRI scan of April 2023 there has been interval TIPS procedure and signific ant decrease in the amount of ascites. 2. There is a new 1 cm nodule in the right hepatic lobe which is T1 bright and T2 hypointense and not exhibiting obvious enhancement following contrast injection. This is probably a dysplastic nodule i n a cirrhotic liver and close follow-up to rule out developing neoplasm is recommended. 3. Splenomegaly again noted with craniocaudal measurement of the spleen 18.5 cm 4. Large gallstones as well as smaller gallstones are again noted in the gallbladder lumen. There i s, however, no evidence of obvious acute cholecystitis nor dilatation of the biliary tree. DATA REPOSITORY:
[2024-12-25] MEDS: Gadoterate meglumine 20 ML VIAL 16 ML IVP (14:30)
[2024-12-25] MEDS: Normal Saline - Diluent 50 ML VIAL IJ (14:31)
--- NOTE | 2024-12-25 16:51 | DI.VRAD_ITS ---
PROCEDURE INFORMATION: Exam: MR Abdomen Without and With Contrast; Liver Exam date and time: 12/25/2024 2:10 PM Age: 39 years old Clinical indication: Other: Cirrhosis, hcc screening, alcoholic cirrhosis of liver w/ascites k70.31; Prior surgery; Surgery date: 6+ months; Surgery type: Stent TECHNIQUE: Imaging protocol: MR Abdomen with and without intravenous contrast. Exam focused on the liver. Contrast material: DOTAREM; Contrast volume: 16 ml; Contrast route: INTRAVENOUS (IV); COMPARISON: MR ABDOMEN WO/W 05/22/2023 12:33 PM FINDINGS: Liver: Nodular contour to the liver consistent with hepatocellular dysfunction/ cirrhosis. New 1 cm high T1, low T2 signal lesion segment 4 of the liver possibly a regenerative or dysplastic nodule. No appreciable enhancement. Previous TIPS procedure. Gallbladder and biliary ducts: Stones at the gallbladder. No biliary ductal dilatation. Pancreas: Normal. Spleen: Splenomegaly up to 19 cm. Kidneys: Normal kidneys. Intraperitoneal space: No free fluid. Lymph nodes: No enlarged nodes. Bones/joints: Unremarkable. No suspicious lesions. IMPRESSION: 1. Splenomegaly up to 19 cm. 2. Cholelithiasis. 3. Nodular contour to the liver consistent with hepatocellular dysfunction/ cirrhosis. New 1 cm high T1, low T2 signal lesion segment 4 of the liver possibly a regenerative or dysplastic nodule. No appreciable enhancement. Dictated and Authenticated by: Tam Carlson MD. Orderin Satya Chambers MD
== END 2024-12-25 03:01 ==
LOC: DI 02:41
PROVIDERS: PCP Physician Assistant Medical; Visit Provider Internal Medicine
DX: K70.31 Alcoholic cirrhosis of liver with ascites (principal)
CPT/HCPCS: 74183

== ENCOUNTER 2025-01-12 18:25 | Outpatient (REF) | payer MEDICAID, SELFPAY ==
[2025-01-13 15:08] LABS: Chlamydia Result Negative (Negative); GC Result Negative (Negative)
== END 2025-01-12 18:26 | disposition home or self-care (01) ==
LOC: NCHCN 18:25
PROVIDERS: PCP Physician Assistant Medical; Visit Provider Physician Assistant Medical
DX: N93.9 Abnormal uterine and vaginal bleeding, unspecified (principal)
CPT/HCPCS: 87491; 87591

== ENCOUNTER 2025-01-14 03:14 | Outpatient (CLI) | payer MEDICAID, SELFPAY ==
[2025-01-14 12:16] LABS: Abs Immature Grans 0.02 10^3/uL (0.0-0.06); Absolute Basophil Count 0.03 10^3/uL (0.0-0.2); Absolute Eosinophil Count 0.22 10^3/uL (0.0-0.7); Absolute Lymphocyte Count 1.21 10^3/uL (1.2-3.4); Absolute Neutrophil Count 3.26 10^3/uL (1.2-6.7); Basophils % 0.6 %; Eosinophils % 4.3 %; Immature Grans % 0.4 %; Lymphocytes % 23.5 %; MCH 31.6 pg (27.0-33.0); MCHC 35.1 % (32.0-36.0); MCV 90 fL (80-95); MPV 9.7 fL (8.0-11.0); Monocytes % 7.8 %; Neutrophils % 63.4 %; RBC 4.11 10^6/uL (3.93-5.22); RDW-SD 42.5 fL; WBC 5.14 10^3/uL (4.4-10.8)
[2025-01-14 12:41] LABS: INR 1.3 (0.9-1.1); Prothrombin Time 13.1 sec (9.1-11.1)
[2025-01-14 12:49] LABS: ALT 45 U/L (14-59); AST 61 U/L (15-37); Albumin 3.4 g/dL (3.4-5.0); Alkaline Phosphatase 158 U/L (46-116); Anion Gap 9.3 mmol/L (3-11); BUN 13 mg/dL (7-18); Bilirubin, Total 2.4 mg/dL (0.2-1.0); CO2 23.7 mmol/L (21.0-32.0); CREATININE 0.8 mg/dL (0.55-1.02); Chloride 107 mmol/L (98-107); Estimated GFR 96.66 (mL/min/1.73m2); Glucose 84 mg/dL (74-106); Potassium 3.9 mmol/L (3.5-5.1); Sodium 140 mmol/L (136-145); Total Protein 7.3 g/dL (6.4-8.2)
[2025-01-14 12:50] LABS: Platelet Count 77 10^3/uL (130-400)
[2025-01-14 19:14] LABS: AFP Tumor Marker 2.5 ng/mL (<8.1)
[2025-01-17 11:34] LABS: PEth 16:0/18:1(POPEth) <10 ng/mL (Cutoff: 10); PEth 16:0/18:2(PLPEth) <10 ng/mL (Cutoff: 10); PEth Interpretation Negative.
== END 2025-01-14 03:15 | disposition home or self-care (01) ==
PROVIDERS: PCP Physician Assistant Medical; Visit Provider Internal Medicine
DX: K74.60 Unspecified cirrhosis of liver (principal); R18.8 Other ascites; K76.9 Liver disease, unspecified
CPT/HCPCS: 36415; 80053; 80321; 82105; 85025; 85610

== ENCOUNTER 2025-02-04 02:57 | Outpatient (CLI) | payer MEDICARE, MEDICAID, SELFPAY ==
--- NOTE | 2025-02-04 | DI.US_ITS ---
Exam(s) US PELVIS TRANSVAGINAL EXAM: US PELVIS TRANSVAGINAL CLINICAL HISTORY: ABNL Uterine and vaginal bleeding N93.9 TECHNIQUE: Transabdominal and transvaginal imaging was performed using standard protocol. COMPARISON: CT CT ABDOMEN PELVIS W from 10/14/2022 FINDINGS: The the transabdominal images are limited by lack of adequate urinary bladder distension. UTERUS: Retroverted. 7.1 x 3.8 x 4.6 cm Endometrium: mm Myometrium: Unremarkable. Cervix: Unremarkable. OVARIES: Right: Cyst or mass: None. Left: Cyst or mass: None. DOPPLER: Color: Symmetric and uniform flow to both ovaries. No hyperemia. CUL-DE-SAC: Free fluid: Small amount in both adnexal regions. IMPRESSION: 1. Normal-appearing uterus with endometrial stripe within normal limits. 2. Unremarkable bilateral ovaries. 3. Small amount of fluid in the adnexal regions. DATA REPOSITORY:
== END 2025-02-04 03:17 ==
PROVIDERS: PCP Physician Assistant Medical; Visit Provider Physician Assistant Medical
DX: N93.9 Abnormal uterine and vaginal bleeding, unspecified (principal)
CPT/HCPCS: 76830; 76856

== ENCOUNTER 2025-02-12 01:30 | Outpatient (CLI) | payer MEDICARE, MEDICAID, SELFPAY ==
[2025-02-12 11:35] LABS: Abs Immature Grans 0.02 10^3/uL (0.0-0.06); HCT 33.9 % (36.0-46.0); HGB 12.4 g/dL (11.2-15.7); Immature Grans % 0.5 %; MCH 32.4 pg (27.0-33.0); MCHC 36.6 % (32.0-36.0); MCV 89 fL (80-95); MPV 10.0 fL (8.0-11.0); RBC 3.83 10^6/uL (3.93-5.22); RDW 13.2 % (11.7-14.6); RDW-SD 42.8 fL; WBC 4.22 10^3/uL (4.4-10.8)
[2025-02-12 11:42] LABS: INR 1.3 (0.9-1.1); Prothrombin Time 12.8 sec (9.1-11.1)
[2025-02-12 11:46] LABS: Ammonia 73 umol/L (11-32)
[2025-02-12 11:48] LABS: Platelet Count 79 10^3/uL (130-400); RBC Morphology Normal
[2025-02-12 11:53] LABS: ALT 32 U/L (14-59); AST 50 U/L (15-37); Albumin 3.1 g/dL (3.4-5.0); Alkaline Phosphatase 140 U/L (46-116); Anion Gap 10.9 mmol/L (3-11); BUN 10 mg/dL (7-18); Bilirubin, Direct 0.6 mg/dL (0.0-0.2); Bilirubin, Total 2.5 mg/dL (0.2-1.0); CO2 22.1 mmol/L (21.0-32.0); Calcium 8.8 mg/dL (8.5-10.1); Chloride 107 mmol/L (98-107); Estimated GFR 96.66 (mL/min/1.73m2); Glucose 122 mg/dL (74-106); Potassium 3.8 mmol/L (3.5-5.1); Sodium 140 mmol/L (136-145); Total Protein 6.6 g/dL (6.4-8.2)
[2025-02-14 12:18] LABS: PEth 16:0/18:1(POPEth) <10 ng/mL (Cutoff: 10); PEth 16:0/18:2(PLPEth) <10 ng/mL (Cutoff: 10)
== END 2025-02-12 01:31 | disposition home or self-care (01) ==
LOC: LBO 01:30
PROVIDERS: Family Medicine; PCP Physician Assistant Medical; Visit Provider Internal Medicine
DX: R18.8 Other ascites (principal); K70.30 Alcoholic cirrhosis of liver without ascites
CPT/HCPCS: 36415; 80053; 80076; 80321; 82140; 85025; 85610

== ENCOUNTER 2025-03-16 04:19 | Outpatient (CLI) | payer MEDICARE, MEDICAID, SELFPAY ==
[2025-03-16 13:22] LABS: Abs Immature Grans 0.01 10^3/uL (0.0-0.06); HCT 36.7 % (36.0-46.0); HGB 13.4 g/dL (11.2-15.7); Immature Grans % 0.2 %; MCH 32.6 pg (27.0-33.0); MCHC 36.5 % (32.0-36.0); MCV 89 fL (80-95); MPV 9.6 fL (8.0-11.0); RBC 4.11 10^6/uL (3.93-5.22); RDW 13.4 % (11.7-14.6); RDW-SD 43.7 fL; WBC 5.02 10^3/uL (4.4-10.8)
[2025-03-16 13:39] LABS: Platelet Count 79 10^3/uL (130-400)
[2025-03-16 13:41] LABS: INR 1.3 (0.9-1.1); Prothrombin Time 13.1 sec (9.1-11.1)
[2025-03-16 13:47] LABS: ALT 33 U/L (14-59); AST 52 U/L (15-37); Albumin 3.5 g/dL (3.4-5.0); Alkaline Phosphatase 132 U/L (46-116); Anion Gap 6.2 mmol/L (3-11); BUN 8 mg/dL (7-18); Bilirubin, Direct 0.7 mg/dL (0.0-0.2); Bilirubin, Total 2.4 mg/dL (0.2-1.0); CO2 27.8 mmol/L (21.0-32.0); Calcium 9.0 mg/dL (8.5-10.1); Chloride 107 mmol/L (98-107); Estimated GFR 96.66 (mL/min/1.73m2); Glucose 85 mg/dL (74-106); Potassium 4.1 mmol/L (3.5-5.1); Sodium 141 mmol/L (136-145); Total Protein 7.1 g/dL (6.4-8.2)
[2025-03-19 19:49] LABS: PEth 16:0/18:1(POPEth) <10 ng/mL (Cutoff: 10)
== END 2025-03-16 04:20 | disposition home or self-care (01) ==
PROVIDERS: PCP Physician Assistant Medical; Visit Provider Internal Medicine
DX: K74.60 Unspecified cirrhosis of liver (principal); R18.8 Other ascites; K76.9 Liver disease, unspecified
CPT/HCPCS: 36415; 80053; 80076; 80321; 85025; 85610

== ENCOUNTER 2025-04-16 04:28 | Outpatient (CLI) | payer MEDICARE, MEDICAID, SELFPAY ==
[2025-04-16 13:40] LABS: Abs Immature Grans 0.01 10^3/uL (0.0-0.06); HCT 34.2 % (36.0-46.0); HGB 12.3 g/dL (11.2-15.7); Immature Grans % 0.2 %; MCH 31.6 pg (27.0-33.0); MCHC 36.0 % (32.0-36.0); MCV 88 fL (80-95); MPV 10.1 fL (8.0-11.0); RBC 3.89 10^6/uL (3.93-5.22); RDW 13.5 % (11.7-14.6); RDW-SD 43.3 fL; WBC 4.35 10^3/uL (4.4-10.8)
[2025-04-16 14:39] LABS: Anion Gap 7.2 mmol/L (3-11); BUN 13 mg/dL (7-18); CO2 25.8 mmol/L (21.0-32.0); Calcium 9.1 mg/dL (8.5-10.1); Chloride 106 mmol/L (98-107); Estimated GFR 96.66 (mL/min/1.73m2); Folate > 20.0 ng/mL (8.6-20.0); Glucose 88 mg/dL (74-106); INR 1.3 (0.9-1.1); Potassium 4.0 mmol/L (3.5-5.1); Prothrombin Time 12.9 sec (9.1-11.1); Sodium 139 mmol/L (136-145)
[2025-04-16 14:40] LABS: Platelet Count 93 10^3/uL (130-400); RBC Morphology Normal
[2025-04-16 16:03] LABS: Vitamin D 25 Total 34 ng/mL (30-100)
[2025-04-17 21:20] LABS: Zinc, S 50 mcg/dL (60-106)
[2025-04-19 14:03] LABS: PEth 16:0/18:1(POPEth) <10 ng/mL (Cutoff: 10); PEth 16:0/18:2(PLPEth) <10 ng/mL (Cutoff: 10)
[2025-04-20 14:46] LABS: Free Retinol (Vitamin A) 14.1 mcg/dL (32.5-78.0)
== END 2025-04-16 04:29 | disposition home or self-care (01) ==
PROVIDERS: PCP Physician Assistant Medical; Visit Provider Internal Medicine
DX: K74.60 Unspecified cirrhosis of liver (principal)
CPT/HCPCS: 36415; 80048; 80321; 82306; 84630; 82746; 84590; 85025; 85610

== ENCOUNTER 2025-05-22 03:23 | Outpatient (CLI) | payer MEDICARE, MEDICAID, SELFPAY ==
[2025-05-22 13:38] LABS: Abs Immature Grans 0.01 10^3/uL (0.0-0.06); HCT 32.8 % (36.0-46.0); HGB 11.6 g/dL (11.2-15.7); Immature Grans % 0.3 %; MCH 31.7 pg (27.0-33.0); MCHC 35.4 % (32.0-36.0); MCV 90 fL (80-95); MPV 10.5 fL (8.0-11.0); RBC 3.66 10^6/uL (3.93-5.22); RDW 13.6 % (11.7-14.6); RDW-SD 44.4 fL; WBC 3.96 10^3/uL (4.4-10.8)
[2025-05-22 13:45] LABS: INR 1.3 (0.9-1.1); Prothrombin Time 12.7 sec (9.1-11.1)
[2025-05-22 14:02] LABS: Platelet Count 73 10^3/uL (130-400); RBC Morphology Normal
[2025-05-22 14:17] LABS: ALT 30 U/L (14-59); AST 42 U/L (15-37); Albumin 3.1 g/dL (3.4-5.0); Alkaline Phosphatase 111 U/L (46-116); Anion Gap 7.7 mmol/L (3-11); BUN 14 mg/dL (7-18); Bilirubin, Total 2.1 mg/dL (0.2-1.0); CO2 25.3 mmol/L (21.0-32.0); Calcium 8.5 mg/dL (8.5-10.1); Chloride 106 mmol/L (98-107); Estimated GFR 113.46 (mL/min/1.73m2); Glucose 113 mg/dL (74-106); Potassium 3.9 mmol/L (3.5-5.1); Sodium 139 mmol/L (136-145); Total Protein 6.5 g/dL (6.4-8.2)
[2025-05-25 18:49] LABS: PEth 16:0/18:1(POPEth) <10 ng/mL (Cutoff: 10); PEth 16:0/18:2(PLPEth) <10 ng/mL (Cutoff: 10)
== END 2025-05-22 03:24 | disposition home or self-care (01) ==
PROVIDERS: PCP Physician Assistant Medical; Visit Provider Internal Medicine
DX: K70.30 Alcoholic cirrhosis of liver without ascites (principal)
CPT/HCPCS: 36415; 80053; 80321; 85025; 85610

== ENCOUNTER 2025-07-03 01:52 | Outpatient (CLI) | payer MEDICARE, SELFPAY ==
[2025-07-03 12:33] LABS: Abs Immature Grans 0.02 10^3/uL (0.0-0.06); HCT 37.8 % (36.0-46.0); HGB 13.4 g/dL (11.2-15.7); Immature Grans % 0.4 %; MCH 31.0 pg (27.0-33.0); MCHC 35.4 % (32.0-36.0); MCV 88 fL (80-95); MPV 10.4 fL (8.0-11.0); Platelet Count 120 10^3/uL (130-400); RBC 4.32 10^6/uL (3.93-5.22); RDW 12.8 % (11.7-14.6); RDW-SD 40.7 fL; WBC 4.84 10^3/uL (4.4-10.8)
[2025-07-03 12:41] LABS: INR 1.3 (0.9-1.1); Prothrombin Time 12.7 sec (9.1-11.1)
[2025-07-03 13:26] LABS: ALT 32 U/L (10-49); AST 49 U/L (<34); Albumin 3.8 g/dL (3.2-5.0); Alkaline Phosphatase 94 U/L (46-116); Anion Gap 9 mmol/L (3-11); BUN 13 mg/dL (9-23); Bilirubin, Total 1.90 mg/dL (0.2-1.2); CO2 24.0 mmol/L (20.0-31.0); Calcium 9.1 mg/dL (8.3-10.6); Chloride 110 mmol/L (98-107); Glucose 77 mg/dL (74-106); Potassium 4.3 mmol/L (3.5-5.1); Sodium 143 mmol/L (136-145); Total Protein 7.0 g/dL (5.7-8.2)
[2025-07-07 14:06] LABS: PEth 16:0/18:1(POPEth) <10 ng/mL (Cutoff: 10); PEth 16:0/18:2(PLPEth) <10 ng/mL (Cutoff: 10)
== END 2025-07-03 01:53 | disposition home or self-care (01) ==
PROVIDERS: PCP Physician Assistant Medical; Visit Provider Internal Medicine
DX: K70.30 Alcoholic cirrhosis of liver without ascites (principal)
CPT/HCPCS: 36415; 80053; 80321; 85025; 85610